=== PATIENT | female | born 1970 | race Caucasian/White ===

== ENCOUNTER 2022-10-09 22:48 | Inpatient (IN) | payer MEDICARE, MEDICAID, SELFPAY ==
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
--- OUTSIDE RECORDS SUMMARY | 2022-10-09 22:52 | XMS_ITS | Continuity of Care Document ---
Author Name Unknown Organization [facility] ter Address [address] [place] [address]- Care Team Providers Care Childbirth Educator Name Role Phone Luz Hernandez MD Primary Care Physician [phone] Encounter [facility] [id number] Date(s): 10/01/20 - 10/02/[address] [address]- Discharge Disposition: A-D/C Home Attending Physician: Ernesto Amaya MD Admitting Physician: Ernesto Amaya MD Referring Physician: Not on Staff, Referring MD Allergies, Adverse Reactions, Alerts Substance Reaction Severity Status ibuprofen Active penicillins Active sulfa drugs Active Vicodin Active Celebrex Active Percocet 5/325 Active Medications albuterol 90 mcg/inh inhalation aerosol 2, puffs, Inhalation, 4 times a day, Scheduled / PRN, 1, 5, 5, 03/19/07 16:10:03, as needed for wheezing, Print KIM Number, ADS OPPTHS, 65 Start Date: 03/19/07 Status: Ordered benztropine 2 mg oral tablet 1 tablet = 2 mg, By Mouth, 2 times a day, for 30 days, take 1 tablet (=2mg) twice a day, # 60 tablet, 3 Refills, Hard Stop 11/27/20 10:26:00 EDT, 07/30/20 10:26:00 EST, Tablet, [facility] #[id number], Partial fill upon patient request if the pres... Start Date: 07/30/20 Stop Date: 11/27/20 Status: Ordered busPIRone 15 mg oral tablet 1 tablet = 15 mg, By Mouth, 2 times a day, take 1 tablet (= 15 mg) twice a day, # 60 tablet, 3 Refills, Maintenance, 09/20/20 10:38:00 EST, Tablet, [facility] #[id number], Partial fill upon patient request if the prescription is for a schedule II... Start Date: 09/20/20 Stop Date: 01/18/21 Status: Ordered clindamycin 300 mg oral capsule 1 capsule = 300 mg, By Mouth, Every 6 hours, for 7 days, # 28 capsule, 0 Refills, Acute 10/09/20 1:00:00 EDT, 10/02/20 1:00:00 EDT, Capsule, [facility] #[id number], Partial fill upon patient request if the prescription is for a schedule II opioid... Start Date: 10/02/20 Stop Date: 10/09/20 Status: Ordered levothyroxine 0.05 mg oral tablet 1 tablet = 50 mcg, By Mouth, Daily, take 1 tablet (=0.05 mg) daily, # 7 tablet, 3 Refills, Maintenance, 06/25/20 9:54:00 EST, Tablet, [facility] #[id number], Partial fill upon patient request ifthe prescription is for a schedule II opioid drug.,... Start Date: 06/25/20 Stop Date: 07/23/20 Status: Ordered loratadine 10 mg oral tablet 10 mg, 1, tablet, By Mouth, Daily at bedtime, take 1 tablet (=10 mg) daily at bedtime, # 7 tablet, Refills 3, Tot. Refills 3, Maintenance, 06/25/20 9:50:00 EST, Route to Pharmacy Electronically, [facility] #[id number], Partial fill upon patient r... Start Date: 06/25/20 Stop Date: 07/23/20 Status: Ordered ondansetron 4 mg oral tablet, disintegrating = 4 mg, By Mouth, Every 6 hours, PRN Nausea & Vomiting, take 1 tablet (=4 mg) every 6 hours as needed for nausea and vomiting, # 7 tablet, 0 Refills, Maintenance, 06/25/20 9:56:00 EST, Tablet, [facility] #[id number], Partial fill upon patient req... Start Date: 06/25/20 Stop Date: 07/02/20 Status: Ordered pantoprazole 40 mg oral delayed release tablet = 40 mg, By Mouth, Daily, take 1 tablet (=40 mg) daily in the morning, # 7 tablet, 3 Refills, Maintenance, 06/25/20 9:49:00 EST, EC Tablet, 168, cm, 06/24/20 20:11:00 EST, Height, 100, kg, 06/11/20 7:50:00 EST, Dry Weight Start Date: 06/25/20 Stop Date: 07/23/20 Status: Ordered Tylenol 325 mg oral tablet 2 tablet = 650 mg, By Mouth, Every 4 hours, PRN for pain, (not to exceed 4000 mg/day), # 50 tablet,0 Refills, Maintenance, Tablet Start Date: 12/20/11 Status: Ordered Problem List Condition Effective Dates Status Health Status Inform ant Anxiety(Confirmed) Active Gastroesophageal reflux dise ase with hiatal hernia(Confirmed) Active Hyperlipidemia(Confirmed) Active Hypertension(Confirmed) Active Obsessive compulsive disorder(Confirmed) Active Schizoaffective disorder(Confirmed) Active Smoker(Confirmed) Active Results Orders for Microbiology Reports Name Date Wound Superficial Culture W/ Gram Smear (Superficial Wound Culture W/ Gram Smear) 10/02/20 Microbiology Reports TEST:Superficial Wound Culture STATUS:Unauthenticated BODY SITE: SOURCE:SWAB1 COLLECTED DATE/TIME:10/02/20 1:28 AM Superficial Wound Culture SPECIMEN DESCRIPTION : SWAB BREAST LT SPECIAL REQUESTS : NONE GRAM STAIN : 3+ POLYMORPHONUCLEAR LEUKOCYTES NO ORGANISMS SEEN REPORT STATUS : PRELIMINARY REPORT Vital Signs Most recent to oldest [Reference Range]: 1 2 3 Oxygen Saturation [94-100 %] 98 % (10/02/20 2:38 PM) 98 % (10/02/20 7:04 AM) 100 % (10/01/20 6:44 PM) Pulse Rate [55-90 bpm] 81 bpm (10/02/20 2:38 PM) 73 bpm (10/02/20 7:04 AM) 81 bpm (10/01/20 6:44 PM) Blood Pressure [90-138/55-84 mm Hg] 126/86mm Hg (10/02/20 2:38 PM) 137/85mm Hg (10/02/20 7:04 AM) 137/93mm Hg (10/01/20 6:44 PM) Respiratory Rate [16-30 br/min] 16 br/min (10/02/20 2:38 PM) 17 br/min (10/02/20 7:04 AM) 20 br/min (10/01/20 6:44 PM) Temperature [96.8-100.4 DegF] 97.8 DegF (10/02/20 2:38 PM) 97.8 DegF (10/02/20 7:04 AM) 97.9 DegF (10/01/20 6:44 PM) Mode of Delivery (Oxygen) Room air (10/02/20 2:38 PM) Room air (10/02/20 7:04 AM) room air (10/01/20 6:44 PM) Blood pressure sites Arm, right (10/02/20 2:38 PM) Arm, right (10/02/20 7:04 AM) Arm, left (10/01/20 6:44 PM) Temperature Route Oral (10/02/20 2:38 PM) Oral (10/02/20 7:04 AM) Oral (10/01/20 6:44 PM) Social History Social History Type Response Smoking Status Former smoker, quit more than 30 days ago entered on: 10/11/19 Sex
--- OUTSIDE RECORDS SUMMARY | 2022-10-09 22:52 | XMS_ITS | Continuity of Care Document ---
Author Name Unknown Organization [facility] ter Address [address] [place] [address]- Care Team Providers Care Custom Protection Officer Name Role Phone Luz Hernandez MD Primary Care Physician Encounter [facility] [place] Date(s): 02/04/20 - 02/04/[address] [address]- [place] Encounter Diagnosis Asthma(Final) - 02/04/20 Discharge Disposition: A-D/C Home Attending Physician: Rommel Ch MD Admitting Physician: Rommel Ch MD Referring Physician: Not on Staff, Referring [...] mg, By Mouth, 2 times a day, # 180 tablet, 2 Refills, Maintenance, 09/15/19 16:29:00 EST, [facility] #[id number], 170, cm, 08/16/19 15:23:00 EST, Height, 104.8, kg, 08/16/19 15:23:00 EST, Dry Weight Start Date: 09/15/19 Stop Date: 06/11/20 Status: Ordered busPIRone 15 mg oral tablet 1 tablet = 15 mg, By Mouth, 2 times a day, # 180 tablet, 2 Refills, Maintenance, 09/17/19 13:36:00 EST, [facility] #[id number], 170, cm, 08/16/19 15:23:00 EST, Height, 104.8, kg, 08/16/19 15:23:00 EST, Dry Weight Start Date: 09/17/19 Stop Date: 06/13/20 Status: Ordered clobetasol topical 0.05% ointment 1, applicator, Topically, 2 times a day, 30, Gm, 5, 11, 05/26/07 10:00:57, 03/19/07 16:09:36, PrintDEA Number, [id number], Constant Indicator Start Date: 03/19/07 Stop Date: 03/13/08 Status: Ordered clobetasol topical 0.05% solution 1, applicator, Topically, 2 times a day, 50, mL, 5, 5, 06/02/07 16:50:51, Print KIM Number, [id number], Constant Indicator Start Date: 06/02/07 Status: Ordered divalproex sodium 500 mg oral tablet, extended release 3 tablet = 1,500 mg, By Mouth, Daily at bedtime, TAKE 3 TABLET BEDTIME R/A [phone], # 270 tablet, 2 Refills, Maintenance, 09/15/19 16:30:00 EST, ER Tablet, [facility] #[id number], 170, cm, 08/16/19 15:23:00 EST, Height, 104.8, kg, 08/16/19... Start Date: 09/15/19 Stop Date: 06/11/20 Status: Ordered Flexeril 5 mg oral tablet 1 tablet = 5 mg, By Mouth, 3 times a day, # 15 tablet, 0 Refills, Maintenance, Tablet Start Date: 04/08/11 Stop Date: 04/13/11 Status: Ordered ketoconazole 2% topical cream 1 application, Topically, 2 times a day, # 30 Gm, 0 Refills, Maintenance, 11/24/15 5:38:10, Cream Start Date: 11/24/15 Status: Ordered Lipitor 10 mg oral tablet 10, mg, 1, tablet, By Mouth, Daily, 30, 6, 25, 06/21/07 13:42:40, 04/07/06 10:32:23, Print KIM Number, [id number], Constant Indicator Start Date: 04/07/06 Status: Ordered LORazepam 1 mg oral tablet See Instructions, 1 tablet By Mouth every 8 hours as needed for anxiety not to exceed 3 in 24 hours, # 90 tablet, 1 Refills, Maintenance, 06/23/18 15:15:37 EST, R/A [facility] Start Date: 06/23/18 Status: Ordered mupirocin 2% topical ointment 1 application, Topically, 2 times a day, # 15 Gm, 0 Refills, Maintenance, 11/24/15 5:39:09, Ointment Start Date: 11/24/15 Status: Ordered Nexium 40 mg oral enteric coated capsule 1 capsule = 40 mg, By Mouth, Daily, # 30 capsule, 0 Refills, Maintenance, 11/24/15 5:39:35, EC Capsule Start Date: 11/24/15 Status: Ordered Protopic 0.1% topical ointment 1, applicator, Topically, 2 times a day, 30, Gm, 1, 1, 05/26/07 10:02:56, Print KIM Number, [id number], Constant Indicator Start Date: 05/26/07 Stop Date: 07/25/07 Status: Ordered Tazorac 0.1% topical cream See Instructions, 30, Gm, 2, 8, 05/26/07 10:02:13, 02/18/06 18:31:57, Topically daily, Print KIM Number, Constant Indicator Start Date: 02/18/06 Status: Ordered Tylenol 325 mg oral tablet [...] Active Schizoaffective disorder(Confirmed) Active Smoker(Confirmed) Active Results Radiology Reports * Exam Date Time Procedure Performing Provider Status 02/04/20 2:58 PM Chest Portable Janene Izaguirre; Auth (Verified) Notes: (Chest Portable) Reason For Exam: Shortness of Breath RESULT: Chest Portable Chest Portable Indication: Shortness of breath COMPARISON: Multiple priors FINDINGS: LINES AND TUBES: None. LUNGS AND PLEURA: Clear lungs. Normal pulmonary vascularity. No pleural effusion. No pneumothorax. HEART, MEDIASTINUM AND NICOLASA: Heart is normal in size. Normal mediastinal and hilar contour. BONES AND SOFT TISSUES: No acute abnormality. IMPRESSION: No acute abnormality. WSN: [id number] Ordering Physician: Brandin Wells Dictated By: Daniela Yoo MD, V Dictated Date/Time: 02/04/20 3:02 pm Reviewed By: Daniela Yoo MD, V Signed By: Daniela Yoo MD, V Signed Date/Time: 02/04/20 3:02 pm Transcribed By: DUNCAN Transcribed Date/Time: 02/04/20 3:01 pm Vital Signs Most recent to oldest [Reference Range]: 1 2 3 Oxygen Saturation [94-100 %] 96 % (02/04/20 5:17 PM) 100 % (02/04/20 2:07 PM) 99 % (02/04/20 12:31 PM) Pulse Rate [55-90 bpm] 87 bpm (02/04/20 5:17 PM) 77 bpm (02/04/20 2:07 PM) 88 bpm (02/04/20 12:31 PM) Blood Pressure [90-138/55-84 mm Hg] 147/87mm Hg *H* (02/04/20 5:17 PM) 126/82mm Hg (02/04/20 2:07 PM) 123/76mm Hg (02/04/20 12:31 PM) Respiratory Rate [16-30 br/min] 19 br/min (02/04/20 5:17 PM) 20 br/min (02/04/20 2:07 PM) 19 br/min (02/04/20 12:31 PM) Temperature [96.8-100.4 DegF] 98.8 DegF (02/04/20 5:17 PM) 99.0 DegF (02/04/20 12:31 PM) Mode of Delivery (Oxygen) Room air (02/04/20 5:17 PM) Room air (02/04/20 2:07 PM) Room air (02/04/20 12:31 PM) Blood pressure sites Arm, right (02/04/20 2:07 PM) Arm, right (02/04/20 12:31 PM) Temperature Route Oral (02/04/20 5:17 PM) Oral (02/04/20 12:31 PM) Social History Social History Type Response Smoking Status Former smoker, quit more than 30 days ago entered on: 10/11/19 Sex
--- OUTSIDE RECORDS SUMMARY | 2022-10-09 22:52 | XMS_ITS | Continuity of Care Document ---
Author Name Unknown Organization [facility] Address [address] [place] [address]- Care Team Providers Care Plain Clothes Police Officer Name Role Phone Luz Hernandez MD Primary Care Physician Encounter [facility] Date(s): 03/28/22 - 07/26/22 [facility] [address] [place] [address]- Attending Physician: Elsi NICOLE, Casimiro Referring Physician: Nela NICOLE , Carolee Moeller Allergies, Adverse Reactions, Alerts Substance Reaction Severity Status ibuprofen Active penicillins Active sulfa drugs Active Vicodin Active Celebrex Active Percocet 5/325 Active Medications albuterol 90 mcg/inh inhalation aerosol 2, puffs, Inhalation, 4 times a day, Scheduled / PRN, 1, 5, 5, 03/19/07 16:10:03, as needed for wheezing, Print KIM Number, ADS OPPTHS, 65 Start Date: 03/19/07 Status: Ordered benztropine 1 mg oral tablet 1 mg, 1, tablet, By Mouth, 2 times a day, # 180 tablet, Refills 1, Tot. Refills 1, Maintenance, 04/25/22 11:56:00 EDT, Route to Pharmacy Electronically, [facility] #[id number], Partial fill uponpatient request if the prescription is for a schedu... Start Date: 04/25/22 Stop Date: 10/22/22 Status: Ordered busPIRone 10 mg oral tablet 15 mg, 1.5, tablet, By Mouth, 2 times a day, # 270 tablet, Refills 1, Tot. Refills 1, Maintenance, 04/25/22 11:56:00 EDT, Route to Pharmacy Electronically, [facility] #[id number], Partial fill upon patient request if the prescription is for a jeff... Start Date: 04/25/22 Stop Date: 10/22/22 Status: Ordered Claritin 10 mg oral tablet 10 mg, 1, tablet, By Mouth, Daily at bedtime, # 30 tablet, Refills 0, Tot. Refills 0, Maintenance, 10/22/20 15:18:00 EDT, Route to Pharmacy Electronically, [facility] #[id number], Partial fill upon patient request if the prescription is for a jeff... Start Date: 10/22/20 Stop Date: 11/21/20 Status: Ordered divalproex sodium 500 mg oral enteric coated tablet See Instructions, take 1 tablet in the morning with 250mg tablets; take 2 tablets at night TDD 1500mg, # 270 tablet, 1 Refills, Maintenance, 04/25/22 11:56:00 EDT, [facility] #[id number], Partial fill upon patient request if the prescription is... Start Date: 04/25/22 Status: Ordered haloperidol 5 mg oral tablet 5 mg, 1, tablet, By Mouth, Daily at bedtime, # 90 tablet, Refills 1, Tot. Refills 1, Maintenance, 04/25/22 11:57:00 EDT, Route to Pharmacy Electronically, [facility] #[id number], Partial fill upon patient request if the prescription is for a sche... Start Date: 04/25/22 Stop Date: 10/22/22 Status: Ordered levothyroxine 0.05 mg oral tablet 1 tablet = 50 mcg, By Mouth, Daily, # 30 tablet, 0 Refills, Maintenance, 10/22/20 15:22:00 EDT, Tablet, [facility] #[id number], Partial fill upon patient request if the prescription is for a schedule II opioid drug., 170, cm, 10/21/20 18:03:00 ED... Start Date: 10/22/20 Stop Date: 11/21/20 Status: Ordered LORazepam 1 mg oral tablet 1 tablet = 1 mg, By Mouth, 2 times a day, PRN for anxiety, # 60 tablet, 4 Refills, Maintenance, 04/25/22 11:57:00 EDT, Tablet, [facility] #[id number], Partial fill upon patient request if the prescription is for a schedule II opioid drug., 170, c... Start Date: 04/25/22 Stop Date: 09/22/22 Status: Ordered magnesium oxide 400 mg oral tablet 1 tablet = 400 mg, By Mouth, Daily, # 90 tablet, 1 Refills, Maintenance, 04/25/22 11:57:00 EDT, [facility] #[id number], Partial fill upon patient request if the prescription is for a schedule IIopioid drug., 170, cm, 10/22/20 15:43:00 EDT, Heigh... Start Date: 04/25/22 Stop Date: 10/22/22 Status: Ordered pantoprazole 40 mg oral delayed release tablet = 40 mg, By Mouth, Daily, # 30 tablet, 0 Refills, Maintenance, 10/22/20 15:19:00 EDT, EC Tablet, 170, cm, 10/21/20 18:03:00 EDT, Height, 102, kg, 10/11/20 18:35:00 EDT, Dry Weight Start Date: 10/22/20 Stop Date: 11/21/20 Status: Ordered Tylenol 325 mg oral tablet 2 tablet = 650 mg, By Mouth, Every 4 hours, PRN for pain, (not to exceed 4000 mg/day), # 50 tablet,0 Refills, Maintenance, Tablet Start Date: 12/20/11 Status: Ordered vitamin E 400 iu oral capsule 1 capsule = 400 International_[employer]its, By Mouth, 2 times a day, # 180 capsule, 1 Refills, Maintenance, 04/25/22 11:57:00 EDT, Capsule, [facility] #[id number], Partial fill upon patient request if the prescription is for a schedule II opioid drug.,... Start Date: 04/25/22 Stop Date: 10/22/22 Status: Ordered Problem List Condition Confirmation Course Effective Dates Status H ealth Status Informant Anxiety Confirmed Active Gastroesophageal reflux disease with hiatal hernia Confirmed Active Generalized anxiety disorder with panic attacks Confirmed Active Hyperlipidemia Confirmed Active Hypertension Confirmed Active Obsessive compulsive disorder Confirmed Active Schizoaffective disorder Confirmed Active Smoker Confirmed Active Social History Social History Type Response Smoking Status Former smoker, quit more than 30 days ago entered on: 10/11/19 Sex Patient Care team information Care Team Personnel Name: Luz Hernandez MD Position: Reference Physician Member Role: PCP Address: Address: [address] [place] [address]- Name: Cheri Yun RN Position: [facility] RN Member Role: Primary Care Nurse Name: Kaelyn Marie RN Position: [facility] RN Member Role: Primary Care Nurse Name: Mariajose Buck Position: [facility] RN Member Role: Primary Care Nurse Name: Caitlin Chávez Position: [facility] RN Member Role: Primary Care Nurse Name: Renay Lagunas RN Position: [facility] RN Member Role: Primary Care Nurse Name: Desi Gonsales RN Position: [facility] RN Member Role: Primary Care Nurse Care Team Related Persons Name: RATNA SCHMIDT Address: home [address] [place] [address] Name: RACHID BURGESS Name: SELINA SHULTZ Address: home [address] [place] [address] Name: CLAUDIO HUYNH Name: CLAUDETTE SR Address: [place] [address] Name: KANDI SORTO Address: home [address] [place] [address]
--- OUTSIDE RECORDS SUMMARY | 2022-10-09 22:52 | XMS_ITS | Continuity of Care Document ---
Author Name Unknown Organization [facility] ter Address [address] [place] [address]- Care Team Providers Care Gear Machine Operator General Name Role Phone Luz Hernandez MD Primary Care Physician Encounter [facility] Date(s): 10/12/19 - 10/12/[address] [address]- [facility] Discharge Disposition: A-D/C Home Attending Physician: Mark Sanders MD Admitting Physician: Mark Sanders MD Referring Physician: Not on Staff, Referring [...] tablet, 2 Refills, Maintenance, 09/15/19 16:29:00 EST, [facility] #[id number], 170, cm, 08/16/19 15:23:00 EST, Height, 104.8, kg, 08/16/19 15:23:00 EST, Dry Weight Start Date: 09/15/19 Stop Date: 06/11/20 Status: Ordered busPIRone 15 mg oral tablet 1 tablet = 15 mg, By Mouth, 2 times a day, # 180 tablet, 2 Refills, Maintenance, 09/17/19 13:36:00 EST, [facility] #[id number], 170, cm, 08/16/19 15:23:00 EST, Height, 104.8, kg, 08/16/19 15:23:00 EST, Dry Weight Start Date: 09/17/19 Stop Date: 06/13/20 Status: Ordered clobetasol topical 0.05% ointment 1, applicator, Topically, 2 times a day, 30, Gm, 5, 11, 05/26/07 10:00:57, 03/19/07 16:09:36, PrintDEA Number, [id number], Constant Indicator Start Date: 03/19/07 Stop Date: 03/13/08 Status: Ordered clobetasol topical 0.05% solution 1, applicator, Topically, 2 times a day, 50, mL, 5, 5, 06/02/07 16:50:51, Print KIM Number, [id number], Constant Indicator Start Date: 06/02/07 Status: Ordered divalproex sodium 500 mg oral tablet, extended release 3 tablet = 1,500 mg, By Mouth, Daily at bedtime, TAKE 3 TABLET BEDTIME R/A [phone], # 270 tablet, 2 Refills, Maintenance, 09/15/19 16:30:00 EST, ER Tablet, [facility] #[id number], 170, cm, 08/16/19 15:23:00 EST, Height, 104.8, [...] 06/21/07 13:42:40, 04/07/06 10:32:23, Print KIM Number, [id number], Constant Indicator Start Date: 04/07/06 Status: Ordered LORazepam 1 mg oral tablet See Instructions, 1 tablet By Mouth every 8 hours as needed for anxiety not to exceed 3 in 24 hours, # 90 tablet, 1 Refills, Maintenance, 06/23/18 15:15:37 EST, R/A [facility] Start Date: 06/23/18 Status: Ordered mupirocin 2% [...] 1, 1, 05/26/07 10:02:56, Print KIM Number, [id number], Constant Indicator Start Date: 05/26/07 Stop Date: [...] Exam Date Time Procedure Performing Provider Status 10/12/19 11:32 AM Chest Portable Sarina Gao (Verified) Notes: (Chest Portable) Reason For Exam: Shortness of Breath RESULT: Chest Portable Chest Portable AP upright 11:13 AM 10/12/2019 Reason: Shortness of Breath; Clinical Question(s): CHF COMPARISON: 10/11/2019. FINDINGS: LINES AND TUBES: None. LUNGS AND PLEURA: The lungs are clear. No focal or segmental consolidation. No pulmonary vascular congestion. No pleural effusion. No pneumothorax. HEART, MEDIASTINUM AND NICOLASA: Heart is normal in size. Normal mediastinal and hilar contour. BONES AND SOFT TISSUES: No acute abnormality. IMPRESSION: No radiographic evidence of acute cardiopulmonary process., No change from 10/11/2019. I have personally reviewed the images and I agree with this report. WSN: [id number] Ordering Physician: Alan Stokes Dictated By: Maykel Shelton MD Dictated Date/Time: 10/12/19 11:34 a Reviewed By: Tommy Tomlin MD Signed By: Tommy Tomlin MD Signed Date/Time: 10/12/19 11:39 am Transcribed By: DUNCAN Transcribed Date/Time: 10/12/19 11:33 am Vital Signs Most recent to oldest [Reference Range]: 1 2 3 Oxygen Saturation [94-100 %] 100 % (10/12/19 1:57 PM) 100 % (10/12/19 1:05 PM) 100 % (10/12/19 12:29 PM) Pulse Rate [55-90 bpm] 65 bpm (10/12/19 1:57 PM) 60 bpm (10/12/19 1:05 PM) 59 bpm (10/12/19 12:29 PM) Blood Pressure [90-138/55-84 mm Hg] 138/82mm Hg (10/12/19 1:57 PM) 138/82mm Hg (10/12/19 1:05 PM) 123/66mm Hg (10/12/19 12:29 PM) Respiratory Rate [16-30 br/min] 22 br/min (10/12/19 1:57 PM) 20 br/min (10/12/19 1:05 PM) 16 br/min (10/12/19 12:29 PM) Temperature [96.8-100.4 DegF] 98.6 DegF (10/12/19 10:26 AM) Mode of Delivery (Oxygen) Room air (10/12/19 1:57 PM) Room air (10/12/19 1:05 PM) Room air (10/12/19 12:29 PM) Blood pressure sites Arm, right (10/12/19 1:57 PM) Arm, left (10/12/19 1:05 PM) Arm, left (10/12/19 12:29 PM) Temperature Route Oral (10/12/19 10:26 AM) Social History Social History Type Response Smoking Status Former smoker, quit more than 30 days ago entered on: 10/11/19 Sex
--- OUTSIDE RECORDS SUMMARY | 2022-10-09 22:52 | XMS_ITS | Continuity of Care Document ---
Author Name Unknown Organization [facility] ter Address [address] [place] [address]- Care Team Providers Care Outside Sales Executive Name Role Phone Tessa NICOLE, Gagan Hirsch Primary Care Physician [phone] Encounter [facility] Date(s): 10/05/22 - 10/05/[address] [address]- Discharge Disposition: A-D/C Home Attending Physician: Kayla Smith MD Admitting Physician: Kayla Smith MD Referring Physician: Not on Staff, Referring [...] tablet, Refills 1, Tot. Refills 1, Maintenance, 09/16/22 16:00:00 EST, Route to Pharmacy Electronically, [facility] #[id number], Partial fill uponpatient request if the prescription is for a schedu... Start Date: 09/16/22 Stop Date: 03/15/23 Status: Ordered busPIRone 10 mg oral tablet 15 mg, 1.5, tablet, By Mouth, 2 times a day, # 270 tablet, Refills 1, Tot. Refills 1, Maintenance, 09/16/22 16:00:00 EST, Route to Pharmacy Electronically, [facility] #[id number], Partial fill upon patient request if the prescription is for a jeff... Start Date: 09/16/22 Stop Date: 03/15/23 Status: Ordered Claritin 10 mg oral tablet 10 mg, 1, tablet, By Mouth, Daily at bedtime, # 30 tablet, Refills 0, Tot. Refills 0, Maintenance, 10/22/20 15:18:00 EDT, Route to Pharmacy Electronically, [facility] #[id number], Partial fill upon patient request if the prescription is for a jeff... Start Date: 10/22/20 Stop Date: 11/21/20 Status: Ordered divalproex sodium 500 mg oral enteric coated tablet See Instructions, take 1 tablet in the morning ; take 2 tablets at night TDD 1500mg, # 270 tablet, 1 Refills, Maintenance, 09/16/22 16:01:00 EST, [facility] #[id number], Partial fill upon patient request if the prescription is for a schedule II... Start Date: 09/16/22 Status: Ordered levothyroxine 0.05 mg oral tablet 1 tablet = 50 mcg, By Mouth, Daily, # 30 tablet, 0 Refills, Maintenance, 10/22/20 15:22:00 EDT, Tablet, [facility] #[id number], Partial fill upon patient request if the prescription is for a schedule II opioid drug., 170, cm, 10/21/20 18:03:00 ED... Start Date: 10/22/20 Stop Date: 11/21/20 Status: Ordered LORazepam 1 mg oral tablet 1 tablet = 1 mg, By Mouth, 2 times a day, PRN for anxiety, # 60 tablet, 4 Refills, Maintenance, 09/16/22 16:00:00 EST, Tablet, [facility] #[id number], Partial fill upon patient request if the prescription is for a schedule II opioid drug., 170, c... Start Date: 09/16/22 Stop Date: 02/13/23 Status: Ordered magnesium oxide 400 mg oral tablet 1 tablet = 400 mg, By Mouth, Daily, # 90 tablet, 1 Refills, Maintenance, 09/16/22 16:00:00 EST, [facility] #[id number], Partial fill upon patient request if the prescription is for a schedule IIopioid drug., 170, cm, 10/22/20 15:43:00 EDT, He[facility]... Start Date: 09/16/22 Stop Date: 03/15/23 Status: Ordered pantoprazole 40 mg oral delayed [...] 1 Refills, Maintenance, 04/25/22 11:57:00 EDT, Capsule, [email or web address] #[id number], Partial fill upon patient request if the [...] Schizoaffective disorder Confirmed Active Smoker Confirmed Active Results Radiology Reports * Exam Date Time Procedure Performing Provider Status 10/05/22 11:02 AM Chest 2 Views Frontal and Lat Tommy Tesfaye; Auth (Verified) Notes: (Chest 2 Views Frontal and Lat) Reason For Exam: Shortness of Breath, Fever;Other: RESULT: Chest 2 Views Frontal and Lat Chest 2 Views Frontal and Lat Hx of Present Illness: chest pain; Reason: Other:; Shortness of Breath, Fever; Clinical Question(s): Pneumonia COMPARISON: 02/04/2020 FINDINGS: LINES AND TUBES: None. LUNGS AND PLEURA: Clear lungs. Normal pulmonary vascularity. No pleural effusion. No pneumothorax. HEART, MEDIASTINUM AND NICOLASA: Heart is normal in size. Normal mediastinal and hilar contour. BONES AND SOFT TISSUES: No acute abnormality. IMPRESSION: No acute abnormality. WSN: [id number] Ordering Physician: Brenda Rollins Dictated By: Sarah Benito MD Dictated Date/Time: 10/05/22 11:05 a Reviewed By: Sarah Benito MD Signed By: Sarah Benito MD Signed Date/Time: 10/05/22 11:05 am Transcribed By: DUNCAN Transcribed Date/Time: 10/05/22 11:04 am Vital Signs Most recent to oldest [Reference Range]: 1 2 3 Oxygen Saturation [94-100 %] 96 % (10/05/22 2:24 PM) 96 % (10/05/22 11:26 AM) 96 % (10/05/22 10:34 AM) Pulse Rate [55-90 bpm] 75 bpm (10/05/22 2:24 PM) 66 bpm (10/05/22 11:26 AM) 72 bpm (10/05/22 10:34 AM) Blood Pressure [90-138/55-84 mm Hg] 138/76mm Hg (10/05/22 2:24 PM) 133/64mm Hg (10/05/22 11:26 AM) 138/72mm Hg (10/05/22 10:34 AM) Respiratory Rate [16-30 br/min] 18 br/min (10/05/22 2:24 PM) 18 br/min (10/05/22 11:26 AM) 16 br/min (10/05/22 10:34 AM) Temperature [96.8-100.4 DegF] 98.0 DegF (10/05/22 11:26 AM) Mode of Delivery (Oxygen) Room air (10/05/22 2:24 PM) Room air (10/05/22 11:26 AM) Room air (10/05/22 10:34 AM) Blood pressure sites Arm, left (10/05/22 2:24 PM) Arm, left (10/05/22 11:26 AM) Arm, left (10/05/22 10:34 AM) Temperature Route Oral (10/05/22 11:26 AM) Social History Social History Type Response Smoking Status Former smoker, quit more than 30 days ago entered on: 10/11/19 Sex EKG study * Event Display: ECG 12-Lead Authored Date: Please click on pdf link to open report * Event Display: ECG 12-Lead Authored Date: Ventricular Rate: 68 BPM Atrial Rate: 68 BPM P-R Interval: 138 ms QRS Duration: 78 ms Q-T Interval: 388 ms QTC Calculation(Bazett): 412 ms P [place]: 50 degrees R [place]: 24 degrees T [place]: 34 degrees Normal sinus rhythm Normal ECG When compared with ECG of 23-JUN-2020 22:32, Nonspecific T wave abnormality no longer evident in Anterolateral leads Confirmed by CLARICE DURAN MD ([id number]) on 10/05/2022 5:07:19 PM [place]: CLARICE DURAN MD Note * Brenda Rollins MD: PERFORM Event Display: Patient Education Leaflets Authored Date: [id number] Uncertain Causes of Chest Pain ?? [id number] Uncertain Causes of Chest Pain Chest pain can happen for a number of reasons. Sometimes the cause can't be determined. If your??condition does not seem serious, and your pain does not appear to be coming from your heart, your healthcare provider may recommend watching it closely. Sometimes the signs of a serious problem take more time to appear. Many problems not related to your heart can cause chest pain. These include: ??? Musculoskeletal. Costochondritis is an inflammation of the tissues around the ribs that can occur from trauma or overuse injuries, or a strain of the muscles of the chest wall. ??? Respiratory. Pneumonia, collapsed lung (pneumothorax), or inflammation of the lining of the chest and lungs (pleurisy). ??? Gastrointestinal. Esophageal reflux, heartburn, ulcers, or gallbladder disease. ??? Anxiety and panic disorders ??? Nerve compression and inflammation ??? Rare problems such as aortic aneurysm or aortic dissection (a swelling of the large artery coming out of the heart or a tear in the wall of the artery), or pulmonary embolism (a blood clot in the lungs). Home care After your visit, follow these recommendations: ??? Rest today and avoid strenuous activity. ??? Take any prescribed medicine as directed. ??? Be aware of any recurrent chest pain and notice any changes ?? Follow-up care Follow up with your healthcare provider if you don't start to feel better within 24 hours, or as advised. ?? Call 911 Call 911 if any of these occur: ??? A change in the type of pain: if it feels different, becomes more severe, lasts longer, or begins to spread into your shoulder, arm, neck, jaw or back ??? Shortness of breath or increased pain with breathing ??? Weakness, dizziness, or fainting ??? Rapid heartbeat ??? Crushing sensation in your chest ??? Coughing up more than a small amount of blood. ?? When to seek medical advice Call your healthcare provider right away if any of the following occur: ??? Cough with dark coloredsputum (phlegm) or small amount of blood ??? Fever of 100.4??F??(38??C) or higher, or as directed by your healthcare provider ??? Swelling, pain or redness in one leg ?? Last Reviewed Date: 2021 ?? 0743-8802 The [employer]. All rights reserved. This information is not intended as a substitute for professional medical care. Always follow your healthcare professional's instructions. ?? * [employer] , CIS S: TRANSCRIBE Sarah Benito MD: VERIFY Event Display: Result: Authored Date: [id number] Chest 2 Views Frontal and Lat Hx of Present Illness: chest pain; Reason: Other:; Shortness of Breath, Fever; Clinical Question(s): Pneumonia COMPARISON: 02/04/2020 FINDINGS: LINES AND TUBES: None. LUNGS AND PLEURA: Clear lungs. Normal pulmonary vascularity. No pleural effusion. No pneumothorax. HEART, MEDIASTINUM AND NICOLASA: Heart is normal in size. Normal mediastinal and hilar contour. BONES AND SOFT TISSUES: No acute abnormality. IMPRESSION: No acute abnormality. WSN: [id number] Ordering Physician: Brenda Rollins Dictated By: Sarah Benito MD Dictated Date/Time: 10/05/22 11:05 a Reviewed By: Sarah Benito MD Signed By: Sarah Benito MD Signed Date/Time: 10/05/22 11:05 am Transcribed By: DUNCAN Transcribed Date/Time: 10/05/22 11:04 am Patient Care team information Care Team Personnel Name: Cheri Yun RN Position: [facility] RN Member Role: Primary Care Nurse Name: Kaelyn Marie RN Position: [facility] RN Member Role: Primary Care Nurse Name: Mariajose Buck Position: [facility] RN Member Role: Primary Care Nurse Name: Caitlin Chávez Position: [facility] RN Member Role: Primary Care Nurse Name: Gagan Zarate MD Position: Reference Physician Member Role: PCP Address: Address: [address] [place] [address] [place] [address]- [place] Name: Renay Lagunas RN Position: [facility] RN Member Role: Primary Care Nurse Name: Desi Gonsales RN Position: [facility] RN Member Role: Primary Care Nurse Name: Alisa Mitchell Position: [facility] ED [facility] Member Role: Patient Care Provider Name: Hilary Chang RN Position: [facility] ED RN W/OE and Tasks Member Role: Patient Care Provider Name: Lucille Diaz Position: [facility] ED [facility] Member Role: Office Machine Inspector Name: Brenda Rollins MD Position: [facility] Resident Member Role: ED Resident Address: Address: [address] [place] [id number]- Name: Kayla Smith MD Position: [facility] Resident Member Role: Admitting Physician Address: Address: [address] [place] [address]- Care Team Related Persons Name: RATNA SCHMIDT Address: home [address] [place] [address] Name: ADITYA, RACHID Name: SELINA SHULTZ Address: home [address] [place] [address] Name: CLAUDIO HUYNH Name: CLAUDETTE SR Address: [place] [address] Name: KANDI SORTO Address: home [address] [place] [address]
--- OUTSIDE RECORDS SUMMARY | 2022-10-09 22:52 | XMS_ITS | Continuity of Care Document ---
Author Name Unknown Organization [facility] ter Address [address] [place] [address]- Care Team Providers Care Adon Name Role Phone Luz Hernandez MD Primary Care Physician [phone] [place] [id number] Date(s): 10/02/20 - 10/11/[address] [address]- Discharge Disposition: Transfer to [facility] Facility Attending Physician: Brad Cisse MD Admitting Physician: Brad Cisse MD Referring Physician: Not on Staff, Referring [...] 11/27/20 10:26:00 EDT, 07/30/20 10:26:00 EST, Tablet, [facility] #[id number], Partial fill upon patient request if the pres... Start Date: 07/30/20 Stop Date: 11/27/20 Status: Ordered busPIRone 15 mg oral tablet 1 tablet = 15 mg, By Mouth, 2 times a day, take 1 tablet (= 15 mg) twice a day, # 60 tablet, 3 Refills, Maintenance, 09/20/20 10:38:00 EST, Tablet, [facility] #[id number], Partial fill upon patient request if the prescription is for a schedule II... Start Date: 09/20/20 Stop Date: 01/18/21 Status: Ordered levothyroxine 0.05 mg oral tablet 1 tablet = 50 mcg, By Mouth, Daily, take 1 tablet (=0.05 mg) daily, # 7 tablet, 3 Refills, Maintenance, 06/25/20 9:54:00 EST, Tablet, [facility] #[id number], Partial fill upon patient request ifthe prescription is for a schedule II opioid drug.,... Start Date: 06/25/20 Stop Date: 07/23/20 Status: Ordered loratadine 10 mg oral tablet 10 mg, 1, tablet, By Mouth, Daily at bedtime, take 1 tablet (=10 mg) daily at bedtime, # 7 tablet, Refills 3, Tot. Refills 3, Maintenance, 06/25/20 9:50:00 EST, Route to Pharmacy Electronically, [facility] #[id number], Partial fill upon patient r... Start Date: 06/25/20 Stop Date: 07/23/20 Status: Ordered ondansetron 4 mg oral tablet, disintegrating = 4 mg, By Mouth, Every 6 hours, PRN Nausea & Vomiting, take 1 tablet (=4 mg) every 6 hours as needed for nausea and vomiting, # 7 tablet, 0 Refills, Maintenance, 06/25/20 9:56:00 EST, Tablet, [facility] #[id number], Partial fill upon patient req... Start Date: [...] disorder(Confirmed) Active Schizoaffective disorder(Confirmed) Active Smoker(Confirmed) Active Vital Signs Most recent to oldest [Reference Range]: 1 2 3 Oxygen Saturation [94-100 %] 100 % (10/11/20 1:28 PM) 99 % (10/11/20 6:59 AM) 98 % (10/10/20 10:34 PM) Pulse Rate [55-90 bpm] 79 bpm (10/11/20 1:28 PM) 70 bpm (10/11/20 6:59 AM) 82 bpm (10/10/20 10:34 PM) Blood Pressure [90-138/55-84 mm Hg] 130/70mm Hg (10/11/20 1:28 PM) 125/80mm Hg (10/11/20 6:59 AM) 136/77mm Hg (10/10/20 10:34 PM) Respiratory Rate [16-30 br/min] 18 br/min (10/11/20 1:28 PM) 16 br/min (10/11/20 6:59 AM) 16 br/min (10/10/20 10:34 PM) Temperature [96.8-100.4 DegF] 98 DegF (10/11/20 1:28 PM) 98.2 DegF (10/11/20 6:59 AM) 98.0 DegF (10/10/20 10:34 PM) Mode of Delivery (Oxygen) Room air (10/11/20 1:28 PM) Room air (10/11/20 6:59 AM) 136 (10/10/20 10:34 PM) Blood pressure sites Arm, right (10/11/20 1:28 PM) Arm, right (10/11/20 6:59 AM) Arm, right (10/10/20 10:34 PM) Temperature Route Oral (10/11/20 1:28 PM) Oral (10/11/20 6:59 AM) Oral (10/10/20 10:34 PM) Social History Social History Type Response Smoking Status Former smoker, quit more than 30 days ago entered on: 10/11/19 Sex
--- OUTSIDE RECORDS SUMMARY | 2022-10-09 22:52 | XMS_ITS | Continuity of Care Document ---
Author Name Unknown Organization [facility] Address [address] [place] [address]- Care Team Providers Care Assistant Manager Airside Operations Name Role Phone Luz Hernandez MD Primary Care Physician Encounter [facility] Date(s): 06/26/22 - 07/26/22 [facility] [address] [place] [address]- Attending Physician: AdmtrRavi Admitting Physician: AdmtrRavi Referring Physician: Admtr, Ar8 Allergies, Adverse Reactions, Alerts Substance Reaction Severity [...] 04/25/22 11:56:00 EDT, Route to Pharmacy Electronically, [facility] #[id number], Partial fill uponpatient request if the prescription is for a schedu... Start Date: 04/25/22 Stop Date: 10/22/22 Status: Ordered busPIRone 10 mg oral tablet 15 mg, 1.5, tablet, By Mouth, 2 times a day, # 270 tablet, Refills 1, Tot. Refills 1, Maintenance, 04/25/22 11:56:00 EDT, Route to Pharmacy Electronically, [facility] #[id number], Partial fill upon patient request if the prescription is for a jeff... Start Date: 04/25/22 Stop Date: 10/22/22 Status: Ordered Claritin 10 mg oral tablet 10 mg, 1, tablet, By Mouth, Daily at bedtime, # 30 tablet, Refills 0, Tot. Refills 0, Maintenance, 10/22/20 15:18:00 EDT, Route to Pharmacy Electronically, [facility] #[id number], Partial fill upon patient request if the prescription is for a jeff... Start Date: 10/22/20 Stop Date: 11/21/20 Status: Ordered divalproex sodium 500 mg oral enteric coated tablet See Instructions, take 1 tablet in the morning with 250mg tablets; take 2 tablets at night TDD 1500mg, # 270 tablet, 1 Refills, Maintenance, 04/25/22 11:56:00 EDT, [facility] #[id number], Partial fill upon patient request if the prescription is... Start Date: 04/25/22 Status: Ordered haloperidol 5 mg oral tablet 5 mg, 1, tablet, By Mouth, Daily at bedtime, # 90 tablet, Refills 1, Tot. Refills 1, Maintenance, 04/25/22 11:57:00 EDT, Route to Pharmacy Electronically, [facility] #[id number], Partial fill upon patient request if the prescription is for a sche... Start Date: 04/25/22 Stop Date: 10/22/22 Status: Ordered levothyroxine 0.05 mg oral tablet 1 tablet = 50 mcg, By Mouth, Daily, # 30 tablet, 0 Refills, Maintenance, 10/22/20 15:22:00 EDT, Tablet, [facility] #[id number], Partial fill upon patient request if the prescription is for a schedule II opioid drug., 170, cm, 10/21/20 18:03:00 ED... Start Date: 10/22/20 Stop Date: 11/21/20 Status: Ordered LORazepam 1 mg oral tablet 1 tablet = 1 mg, By Mouth, 2 times a day, PRN for anxiety, # 60 tablet, 4 Refills, Maintenance, 04/25/22 11:57:00 EDT, Tablet, [facility] #[id number], Partial fill upon patient request if the prescription is for a schedule II opioid drug., 170, c... Start Date: 04/25/22 Stop Date: 09/22/22 Status: Ordered magnesium oxide 400 mg oral tablet 1 tablet = 400 mg, By Mouth, Daily, # 90 tablet, 1 Refills, Maintenance, 04/25/22 11:57:00 EDT, [facility] #[id number], Partial fill upon patient request if the [...] 1 Refills, Maintenance, 04/25/22 11:57:00 EDT, Capsule, [facility] #[id number], Partial fill upon patient request if the [...] Reference Physician Member Role: PCP Address: Address: [address] [place] [address] Name: Cheri Yun RN Position: [facility] RN Member Role: Primary Care Nurse Name: Kaelyn Marie RN Position: [facility] RN Member Role: Primary Care Nurse Name: Mariajose Buck Position: [facility] RN Member Role: Primary Care Nurse Name: Caitlin Chávez Position: [facility] RN Member Role: Primary Care Nurse Name: Renay Lagunas RN Position: [facility] RN Member Role: Primary Care Nurse Name: Desi Gonsales RN Position: [facility] RN Member Role: Primary Care Nurse Care Team Related Persons Name: RTANA SCHMIDT Address: home [address] [place] [address] Name: RACHID BURGESS Name: SELINA SHULTZ Address: home [address] [place] [address] Name: CLAUDIO HUYNH Name: CLAUDETTE SR Address: [place] [address] Name: KANDI SORTO Address: home [address] [place] [address]
--- OUTSIDE RECORDS SUMMARY | 2022-10-09 22:52 | XMS_ITS | Continuity of Care Document ---
Author Name Unknown Organization [facility] ter Address [address] [place] [address]- Care Team Providers Care Glass Carrier Name Role Phone Luz Hernandez MD Primary Care Physician Encounter [facility] Date(s): 03/05/20 - 03/05/[address] [address]- [facility] Discharge Disposition: A-D/C Walkout Attending Physician: Not on Staff, Attending MD Admitting Physician: Not on Staff, Admitting MD Referring Physician: Not on Staff, Referring [...] tablet, 2 Refills, Maintenance, 09/15/19 16:29:00 EST, [facility] #[id number], 170, cm, 08/16/19 15:23:00 EST, Height, 104.8, kg, 08/16/19 15:23:00 EST, Dry Weight Start Date: 09/15/19 Stop Date: 06/11/20 Status: Ordered busPIRone 15 mg oral tablet 1 tablet = 15 mg, By Mouth, 2 times a day, # 180 tablet, 2 Refills, Maintenance, 09/17/19 13:36:00 EST, [facility] #[id number], 170, cm, 08/16/19 15:23:00 EST, Height, 104.8, kg, 08/16/19 15:23:00 EST, Dry Weight Start Date: 09/17/19 Stop Date: 06/13/20 Status: Ordered clobetasol topical 0.05% ointment 1, applicator, Topically, 2 times a day, 30, Gm, 5, 11, 05/26/07 10:00:57, 03/19/07 16:09:36, PrintDEA Number, [id number], Constant Indicator Start Date: 03/19/07 Stop Date: 03/13/08 Status: Ordered clobetasol topical 0.05% solution 1, applicator, Topically, 2 times a day, 50, mL, 5, 5, 06/02/07 16:50:51, Print KIM Number, [id number], Constant Indicator Start Date: 06/02/07 Status: Ordered divalproex sodium 500 mg oral tablet, extended release 3 tablet = 1,500 mg, By Mouth, Daily at bedtime, TAKE 3 TABLET BEDTIME R/A [phone], # 270 tablet, 2 Refills, Maintenance, 09/15/19 16:30:00 EST, ER Tablet, [facility] #[id number], 170, cm, 08/16/19 15:23:00 EST, Height, 104.8, [...] 06/21/07 13:42:40, 04/07/06 10:32:23, Print KIM Number, [id number], Constant Indicator Start Date: 04/07/06 Status: Ordered LORazepam 1 mg oral tablet See Instructions, 1 tablet By Mouth every 8 hours as needed for anxiety not to exceed 3 in 24 hours, # 90 tablet, 1 Refills, Maintenance, 06/23/18 15:15:37 EST, R/[facility] Start Date: 06/23/18 Status: Ordered mupirocin 2% [...] 1, 1, 05/26/07 10:02:56, Print KIM Number, [id number], Constant Indicator Start Date: 05/26/07 Stop Date: [...] Most recent to oldest [Reference Range]: 1 Oxygen Saturation [94-100 %] 100 % (03/05/20 5:44 PM) Pulse Rate [55-90 bpm] 70 bpm (03/05/20 5:44 PM) Blood Pressure [90-138/55-84 mm Hg] 138/ 94mm Hg (03/05/20 5:44 PM) Respiratory Rate [16-30 br/min] 17 br/mi n (03/05/20 5:44 PM) Temperature [96.8-100.4 DegF] 99.1 DegF (03/05/20 5:44 PM) Mode of Delivery (Oxygen) Room air (03/05/20 5:44 PM) Blood pressure sites Arm, left (03/05/20 5:44 PM) Temperature Route Oral (03/05/20 5:44 PM) Social History Social History Type Response Smoking Status Former smoker, quit more than 30 days ago entered on: 10/11/19 Sex
--- OUTSIDE RECORDS SUMMARY | 2022-10-09 22:52 | XMS_ITS | Continuity of Care Document ---
Author Name Unknown Organization [facility] Address [address] [place] [address]- Care Team Providers Care B2B Sales Consultant Name Role Phone David NICOLE, Luz Patrick Primary Care Physician Encounter [facility] [place]CT R [id number] Date(s): 08/10/21 - 09/15/[address] [address] Attending Physician: Luz Hernandez MD Admitting Physician: Luz Hernandez MD Referring Physician: Sarah Chung Allergies, Adverse Reactions, Alerts Substance Reaction Severity Status ibuprofen Active penicillins Active sulfa drugs Active Vicodin Active Celebrex Active Percocet 5/325 Active Medications albuterol 90 mcg/inh inhalation aerosol 2, puffs, Inhalation, 4 times a day, Scheduled / PRN, 1, 5, 5, 03/19/07 16:10:03, as needed for wheezing, Print KIM Number, ADS OPPTHS, 66 Start Date: 03/19/07 Status: Ordered Claritin 10 mg oral tablet 10 mg, 1, tablet, By Mouth, Daily at bedtime, # 30 tablet, Refills 0, Tot. Refills 0, Maintenance, 10/22/20 15:18:00 EDT, Route to Pharmacy Electronically, [facility] #[id number], Partial fill upon patient request if the prescription is for a jeff... Start Date: 10/22/20 Stop Date: 11/21/20 Status: Ordered levothyroxine 0.05 mg oral tablet 1 tablet = 50 mcg, By Mouth, Daily, # 30 tablet, 0 Refills, Maintenance, 10/22/20 15:22:00 EDT, Tablet, [facility] #[id number], Partial fill upon patient request if the prescription is for a schedule II opioid drug., 170, cm, 10/21/20 18:03:00 ED... Start Date: 10/22/20 Stop Date: 11/21/20 Status: Ordered pantoprazole 40 mg oral delayed [...] reflux dise ase with hiatal hernia(Confirmed) Active Generalized anxiety disorder with panic attacks(Confirmed) Active Hyperlipidemia(Confirmed) Active Hypertension(Confirmed) Active Obsessive compulsive disorder(Confirmed) Active Schizoaffective disorder(Confirmed) Active Smoker(Confirmed) Active Social History Social History Type Response Smoking Status Former smoker, quit more than 30 days ago entered on: 10/11/19 Sex
--- OUTSIDE RECORDS SUMMARY | 2022-10-09 22:52 | XMS_ITS | Continuity of Care Document ---
Author Name Unknown Organization [facility] ter Address [address] [place] [id number]- Care Team Providers Care Cork Pressing Machine Operator Name Role Phone Luz Hernandez MD Primary Care Physician [place] [facility] [place] - 10/11/[address] [address]- [place] Encounter Diagnosis Shortness of breath(Final) - 10/11/19 Discharge Disposition: A-D/C Home Attending Physician: Jessica Alcala MD Admitting Physician: Jessica Alcala MD Referring Physician: Not on Staff, Referring [...] tablet, 2 Refills, Maintenance, 09/15/19 16:29:00 EST, [facility] #[id number], 170, cm, 08/16/19 15:23:00 EST, Height, 104.8, kg, 08/16/19 15:23:00 EST, Dry Weight Start Date: 09/15/19 Stop Date: 06/11/20 Status: Ordered busPIRone 15 mg oral tablet 1 tablet = 15 mg, By Mouth, 2 times a day, # 180 tablet, 2 Refills, Maintenance, 09/17/19 13:36:00 EST, [facility] #[id number], 170, cm, 08/16/19 15:23:00 EST, Height, 104.8, kg, 08/16/19 15:23:00 EST, Dry Weight Start Date: 09/17/19 Stop Date: 06/13/20 Status: Ordered clobetasol topical 0.05% ointment 1, applicator, Topically, 2 times a day, 30, Gm, 5, 11, 05/26/07 10:00:57, 03/19/07 16:09:36, PrintDEA Number, [id number], Constant Indicator Start Date: 03/19/07 Stop Date: 03/13/08 Status: Ordered clobetasol topical 0.05% solution 1, applicator, Topically, 2 times a day, 50, mL, 5, 5, 06/02/07 16:50:51, Print KIM Number, [id number], Constant Indicator Start Date: 06/02/07 Status: Ordered divalproex sodium 500 mg oral tablet, extended release 3 tablet = 1,500 mg, By Mouth, Daily at bedtime, TAKE 3 TABLET BEDTIME R/A [phone], # 270 tablet, 2 Refills, Maintenance, 09/15/19 16:30:00 EST, ER Tablet, [facility][id number], 170, cm, 08/16/19 15:23:00 EST, Height, 104.8, [...] 06/21/07 13:42:40, 04/07/06 10:32:23, Print KIM Number, [id number], Constant Indicator Start Date: 04/07/06 Status: Ordered LORazepam 1 mg oral tablet See Instructions, 1 tablet By Mouth every 8 hours as needed for anxiety not to exceed 3 in 24 hours, # 90 tablet, 1 Refills, Maintenance, 06/23/18 15:15:37 EST, R/[facility] Start Date: 06/23/18 Status: Ordered mupirocin [...] 1, 1, 05/26/07 10:02:56, Print KIM Number, [id number], Constant Indicator Start Date: 05/26/07 Stop Date: [...] Exam Date Time Procedure Performing Provider Status 10/11/19 10:18 AM Chest Portable Arcenio , Lesly; Au th (Verified) Notes: (Chest Portable) Reason For Exam: Shortness of Breath RESULT: Chest Portable AP portable chest, INDICATION: Reason: Shortness of Breath; Clinical Question(s): Pneumonia; Hx of Present Illness: Reports increased anxiety with mild relief from home lorazepam. Reports cold sweats and chills that started yesterday. Reports intermittent SOB and CP. Denies N V, congestion. COMPARISON: 11/24/15 FINDINGS: LINES AND TUBES: None LUNGS AND PLEURA AND MEDIASTINUM: There is no pneumothorax. Clear lungs without focal infiltrate. Normal size heart. IMPRESSION: No acute abnormality. WSN: [id number] Ordering Physician: Adilene Shaw Dictated By: Myrna Mendez MD Dictated Date/Time: 10/11/19 10:20 a Reviewed By: Myrna Mendez MD Signed By: Myrna Mendez MD Signed Date/Time: 10/11/19 10:20 am Transcribed By: DUNCAN Transcribed Date/Time: 10/11/19 10:18 am Vital Signs Most recent to oldest [Reference Range]: 1 2 3 Height 168 cm (10/11/19 6:07 PM) 168 cm (10/11/19 2:58 PM) 168 cm (10/11/19 2:42 PM) Weight 100 kg (10/11/19 6:07 PM) 100 kg (10/11/19 2:58 PM) 100 kg (10/11/19 2:42 PM) Oxygen Saturation [94-100 %] 99 % (10/11/19 6:07 PM) 100 % (10/11/19 2:42 PM) 100 % (10/11/19 9:33 AM) Pulse Rate [55-90 bpm] 65 bpm (10/11/19 6:07 PM) 56 bpm (10/11/19 2:42 PM) 56 bpm (10/11/19 9:33 AM) Body Mass Index [18.5-24.99] 35.43 *>HHI* (10/11/19 6:07 PM) 35.43 *>HHI* (10/11/19 2:58 PM) 35.43 *>HHI* (10/11/19 2:42 PM) Blood Pressure [90-138/55-84 mm Hg] 148/70mm Hg *H* (10/11/19 6:07 PM) 122/66mm Hg (10/11/19 2:58 PM) 133/80mm Hg (10/11/19 9:33 AM) Respiratory Rate [16-30 br/min] 18 br/min (10/11/19 6:07 PM) 23 br/min (10/11/19 2:42 PM) 17 br/min (10/11/19 9:33 AM) Temperature [96.8-100.4 DegF] 97.4 DegF (10/11/19 2:42 PM) 97.8 DegF (10/11/19 9:33 AM) Mode of Delivery (Oxygen) Room air (10/11/19 6:07 PM) Room air (10/11/19 2:42 PM) Room air (10/11/19 9:33 AM) Blood pressure sites Arm, right (10/11/19 6:07 PM) Arm, left (10/11/19 2:58 PM) Arm, right (10/11/19 9:33 AM) Temperature Route Oral (10/11/19 2:42 PM) Oral (10/11/19 9:33 AM) Dry Weight 100 kg (10/11/19 6:07 PM) 100 kg (10/11/19 2:58 PM) 100 kg (10/11/19 2:42 PM) Weight Obtained Via Patient/family state d (10/11/19 9:30 AM) Dry Weight Obtained Via Patient/family s tated (10/11/19 9:30 AM) Social History Social History Type Response Smoking Status Former smoker, quit more than 30 days ago entered on: 10/11/19 Sex
--- OUTSIDE RECORDS SUMMARY | 2022-10-09 22:52 | XMS_ITS | Continuity of Care Document ---
Author Name Unknown Organization [facility] Address [address] [place] [id number]- Care Team Providers Care Retread Mold Operator Name Role Phone Luz Hernandez MD Primary Care Physician [place] [facility] [place]16[place] - 09/15/[address] [address]- Attending Physician: Admtr, Ravi Admitting Physician: Admtr, Ar8 Referring Physician: Admtr, Ar8 Allergies, Adverse Reactions, [...] 10/22/20 15:18:00 EDT, Route to Pharmacy Electronically, [facility] #[id number], Partial fill upon patient request if the prescription is for a jeff... Start Date: 10/22/20 Stop Date: 11/21/20 Status: Ordered levothyroxine 0.05 mg oral tablet 1 tablet = 50 mcg, By Mouth, Daily, # 30 tablet, 0 Refills, Maintenance, 10/22/20 15:22:00 EDT, Tablet, [facility] #[id number], Partial fill upon patient request if the [...]
--- NOTE | 2022-10-10 00:38 | PC.ADMIT ---
pt is a 52 year old female who presented to [facility] ED with SI, delusions and increase depression and anxiety. pt tox screen was positive for THC. pt has PMH of past hospitalizations, asthma, arithritis, various skin issues, schizoaffective disorder with depressive features, and GERD. during admission, pt was delusional and yelling at staff for her federal weed . pt signed a CV, but was unable to sign any other papers due to being distracted and yelling. pt appears to be manic. start treatment plan and promote safety.
--- NOTE | 2022-10-10 00:43 | PC.NURSE ---
med rec completed 10/10/22. Melisa information can be found in the nursing section of patient's chart.
[2022-10-10] MEDS: LORazepam 1 MG TABLET 2 MG PO (01:04)
[2022-10-10 06:00] VITALS: BP 130/79; PULSE 84; RESP 14; TEMP 36.6; O2SAT 95
[2022-10-10] MEDS: busPIRone HCl 5 MG TABLET 15 MG PO ×2 (08:07→20:33)
[2022-10-10] MEDS: Magnesium Oxide 400 MG TABLET PO (08:08)
[2022-10-10] MEDS: Divalproex Sodium 500 MG TABLET.DR PO (08:08)
[2022-10-10] MEDS: Benztropine Mesylate 1 MG TABLET PO ×2 (08:08→20:33)
[2022-10-10] MEDS: Loratadine 10 MG TABLET PO (08:08)
[2022-10-10] MEDS: Omeprazole 20 MG CAPSULE.DR PO (08:08)
[2022-10-10] MEDS: Levothyroxine Sodium 50 MCG TABLET PO (08:40)
[2022-10-10] MEDS: LORazepam 1 MG TABLET PO (08:40)
[2022-10-10 09:06] LABS: Estimated Average Glucose 111 mg/dL; Hemoglobin A1c % 5.5 %
--- NOTE | 2022-10-10 09:58 | P.HPPS_ITS ---
HPI Date of Service: 10/10/22 Chief Complaint: Schizoaffective d/o depressive type Sources of Information: patient interviewed, chart reviewed and crisis/core team assessment reviewed HPI Subjective Notes: [place] Warning and Conditional Voluntary Narrative: Patient is a 52-year-old female with history of schizoaffective disorder, chronic progressive visual loss (possibly due to glaucoma), psoriatic arthritis (?) who presents with increased depression and dysregulation following worsening visual acuity and subsequently getting off her medications. Patient easily reactive, was very disruptive coming on to the unit at nighttime. Today patient is more engageable but remains manic and hyper focused on getting her medical cannabis returned, asking internal communications writer multiple times if internal communications writer knows anything about it. Patient reports that that she was doing overall fine until this past Thursday when she woke up and had much increase trouble seeing. Patient got depressed and scared, unable to discern which medications to take and therefore has been off medications since then. Patient said she does not want to but started getting suicidal and wanted to present to the hospital to get stabilized. Patient reports that she started losing her vision because when she went to an instructor private about 2 and half years ago he/she put a spider in her left eye which started her vision loss; therefore she has not been to see an instructor private and has not had any treatment for glaucoma. Patient also explains that just prior to coming to [place] she was at [facility] ED where they did a urinalysis and found the poison, Strictine that had been placed in her coffee. She thinks that either maintenance people at her house or neighbors came in and poisoned her coffee. Patient is very perseverative on getting a hold of her Federal cannabis that she uses for psoriatic arthritis. Patient interrupted internal communications writer multiple times asking if internal communications writer knew where the flour and edibles were, saying she had 15,000 onces of the THC material that she uses for pain. Patient says that it is Federal and therefore she has to be allowed to take it wherever she is including the hospital. She says the FBI came and arrested every nurse and doctor at [facility] because they did not administer this cannabis. Hand Ornament Maker asked about supporting patient said that she has very little support however she then says she does have 2 different wives one, Rebeka Roseline who is the head of [employer] [facility] and Diana Velasco the head of the [employer]. Patient agrees to restart her medications however says she is only on total of 1500 mg of Depakote daily; she says normally on Haldol 2.5 but agrees to 5 mg for now. Past Psychiatric History: Multiple inpatient psychiatric admissions Medical Evaluation Reviewed: Yes Discussed case with hospitalist Dr. Rascon Who reviewed history/notes from [facility] ED and able to conclude that intra-ocular pressure was assessed at [facility] and normal making glaucoma very unlikely; also sudden bilateral visual loss is exceedingly rare (verses unilateral). At this time there is no concern for acute organic etiology and patient remains medically clear and able to follow up with outpatient instructor private Worsening eyesight Patient complains of poor eyesight for the past 3 years, worse the past 3 days Patient states that she has poor peripheral vision and trouble reading fine print or perceiving details Patient last saw an tar roofer 3 years ago where she claimed they put a tiny spider in her left, which is crawled around in her eye for the past 3 years Patient states she may have been diagnosed with but admits she really does not know what the diagnosis was Patient seen at [facility] ED last night where she complained about her eyesight; intraocular pressure at [facility] was <20mm Hg, was medically cleared for transfer Diagnosis of glaucoma seems unlikely given normal intra-ocular pressure Patient not complaining of any eye pain Patient should follow up outpatient with ophthalmology [facility] Medical History (Updated 10/10/22 @ 17:16 by Morro Malcolm MD) Asthma Atypical chest pain Former smoker GERD (gastroesophageal reflux disease) Hyperlipemia Hypertension Hypothyroidism Intertrigo Obesity (BMI 30-39.9) JENIFER (obstructive sleep apnea) PSA (psoriatic arthritis) Psoriasis Schizoaffective disorder Skin-picking disorder Vitamin D deficiency Surgical History (Updated 07/22/22 @ 09:35 by José Miguel Steel LPN) [place] teeth extracted Family History: Deferred for now; patient to distracted Social History: Patient lives alone Substance History: Denies Trauma History: Deferred for now Diagnostics Labs 10/10/22 08:26 Labs: Laboratory Results - last 48 hr 10/10/22 08:26 Estimat Average Glucose 111 Hemoglobin A1c % 5.5 Meds/Allergies Meds Home Medications Medication Instructions Recorded Confirmed Type albuterol sulfate 90 mcg/actuation 2 puff inhalation Q6H PRN Wheezing 07/22/22 10/10/22 History aerosol inhaler (ProAir HFA) benztropine 1 mg tablet 1 mg PO BID 07/22/22 10/10/22 History buspirone 10 mg tablet 15 mg PO BID 07/22/22 10/10/22 History divalproex 500 mg tablet,delayed 1,000 mg PO BID 07/22/22 10/10/22 History release divalproex 500 mg tablet,delayed 500 mg PO DAILY 07/22/22 10/10/22 History release haloperidol 5 mg tablet 5 mg PO BEDTIME 07/22/22 10/10/22 History levothyroxine 50 mcg capsule 50 mcg PO DAILY 07/22/22 10/10/22 History loratadine 10 mg tablet 10 mg PO DAILY 07/22/22 10/10/22 History lorazepam 1 mg tablet 1 mg PO BID PRN Anxiety 07/22/22 10/10/22 History magnesium oxide 400 mg PO DAILY 07/22/22 10/10/22 History pantoprazole 40 mg tablet,delayed 40 mg PO DAILY 07/22/22 10/10/22 History release tacrolimus 0.03 % topical ointment 1 appl topical BID 07/22/22 10/10/22 History vitamin E (dl, acetate) 180 mg 180 mg PO DAILY 07/22/22 10/10/22 History (400 unit) capsule Allergies Allergies Allergy/AdvReac Type Severity Reaction Status Date / Time acetaminophen [From Vicodin] Allergy Intermediate Hives Verified 07/22/22 09:15 celecoxib [From Celebrex] Allergy Intermediate Hives Verified 07/22/22 09:15 hydrocodone [From Vicodin] Allergy Intermediate Hives Verified 07/22/22 09:15 ibuprofen Allergy Intermediate Stomach Verified 07/22/22 09:15 Upset oxycodone [From Percocet] Allergy Intermediate Hives Verified 07/22/22 09:15 shrimp Allergy Intermediate swelling Verified 07/22/22 09:15 mouth/tongue Sulfa (Sulfonamide Allergy Intermediate Hives Verified 07/22/22 09:15 Antibiotics) sulfamethoxazole Allergy Intermediate Hives Verified 07/22/22 09:15 [From Bactrim] trimethoprim [From Bactrim] Allergy Intermediate Hives Verified 07/22/22 09:15 penicillin G Allergy Unknown Unknown Verified 07/22/22 09:15 Grapefruit Flavor Allergy Unknown Unknown Uncoded 07/22/22 09:15 Mental Status Exam Mental Status Exam Narrative: Pt is alert and oriented; behavior is guarded but not un-cooperative; loud; patient is not in distress; dressed in hospital attire with unkempt hair, disheveled; mood is described as depressed and affect irritable; eye contact limited; Speech is loud but normal rate and prosody and not pressured; intermittent psychomotor agitation present; thought process is goal directed, linear; Thought content is on paranoid, delusional topics; perseverating on missing medical cannabis; otherwise able to be pertinent to relevant topics; some grandiosity; denies any SI/HI. Possibly internally preoccupied Patients insight and judgment are impaired Assessment & Plan Assessment & Plan (1) Schizoaffective disorder: Status: Acute Code(s): F25.9 - Schizoaffective disorder, unspecified (2) Hypothyroidism: Status: Acute Code(s): E03.9 - Hypothyroidism, unspecified (3) PSA (psoriatic arthritis): Status: Acute Code(s): L40.50 - Arthropathic psoriasis, unspecified Plan Patient is a 52-year-old female with history of schizoaffective disorder, chronic progressive visual loss (possibly due to glaucoma), psoriatic arthritis (?) who presents with increased depression and dysregulation following worsening visual acuity and subsequently getting off her medications. -discussed recent report of worsening visual loss with hospitalist Dr. Rascon and this is not appear to be in acute or emergent issue; that said patient's chronic visual history is not known at this time -patient is currently delusional, manic; restarting home meds Plan: CV Q 15 minute checks Depakote 500 mg q.a.m. Depakote 1000 mg q.h.s. Will order labs for levels Haldol 5 mg q.h.s. Levothyroxine Jhony Kendall Patient educated on: diagnosis, medication risk/benefits, therapeutic strategies and medical condition Informed Consent: understands, does not understand and further education needed Reason for continued inpatient stay Substantial Risk for: rapid decompensation Statement Statement: I have reviewed the history and physical and performed a pertinent examination on my patient. No changes have occurred unless specified. If the History and Physical was not performed prior to admission, the Hospitalist's service will be consulted for completing the admission physical. Time Spent With Patient Time: Total time managing care of this patient today ____ minutes.
[2022-10-10 10:14] LABS: Alanine Aminotransferase 24 U/L (0-31); Albumin Level 4.1 g/dL (3.5-5.0); Alkaline Phosphatase 54 U/L (39-117); Anion Gap 13 (12-20); Aspartate Amino Transferase 22 U/L (5-31); Bilirubin Total 0.9 mg/dL (0.0-1.0); Blood Urea Nitrogen 14 mg/dL (9-16); Calcium 9.3 mg/dL (8.4-10.2); Carbon Dioxide 28 mmol/L (22-29); Chloride 103 mmol/L (96-108); Cholesterol 195 mg/dL; Estimated Glomerular Filt Rate 55; Glucose Fasting 105 mg/dL (60-99); HDL Cholesterol 51 mg/dL; LDL Cholesterol Calculated 114 mg/dl; Potassium 4.6 mmol/L (3.3-5.1); Sodium 139 mmol/L (135-145); Total Protein 6.4 g/dL (6.5-8.0); Triglycerides 152 mg/dL
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
[2022-10-10 16:37] VITALS: BP 140/64; PULSE 70; RESP 16; O2SAT 97
[2022-10-10] MEDS: Ondansetron ODT 4 MG TAB.RAPDIS 2 MG TRANSLINGU (17:14)
[2022-10-10] MEDS: Divalproex Sodium 500 MG TABLET.DR 1000 MG PO (20:33)
[2022-10-10] MEDS: HaloperidoL 5 MG TABLET PO (20:33)
[2022-10-10] MEDS: Magnesium Hydrox/Alum Hydrox 30 ML ORAL.SUSP PO (21:17)
[2022-10-11] MEDS: Levothyroxine Sodium 50 MCG TABLET PO (05:36)
[2022-10-11] MEDS: Omeprazole 20 MG CAPSULE.DR PO (05:36)
[2022-10-11 08:00] VITALS: BP 177/91; PULSE 68; TEMP 36.2; O2SAT 97
[2022-10-11] MEDS: busPIRone HCl 5 MG TABLET 15 MG PO ×2 (08:04→20:02)
[2022-10-11] MEDS: Divalproex Sodium 500 MG TABLET.DR PO (08:04)
[2022-10-11] MEDS: Benztropine Mesylate 1 MG TABLET PO ×2 (08:04→20:03)
[2022-10-11] MEDS: Loratadine 10 MG TABLET PO (08:04)
[2022-10-11] MEDS: Milk of Magnesia 30 ML ORAL.SUSP PO (08:04)
[2022-10-11] MEDS: Magnesium Oxide 400 MG TABLET PO (08:04)
[2022-10-11] MEDS: LORazepam 1 MG TABLET PO ×2 (11:03→20:03)
[2022-10-11] MEDS: Vitamin E (Dl,Tocopheryl Acet) 180 MG (400 UNIT) CAPSULE PO ×2 (11:03→11:17)
[2022-10-11] MEDS: hydrOXYzine HCL 25 MG TABLET PO (13:14)
[2022-10-11] MEDS: Acetaminophen 325 MG TABLET PO (15:21)
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
[2022-10-11] MEDS: Acetaminophen 325 MG TABLET 650 MG PO (17:08)
--- NOTE | 2022-10-11 18:26 | PC.NURSE ---
PT reports mildly loose upper central incisor as well as left lateral incisor. machine scallop cutter (Brie Grant) notified as well as director of behavioral health. Awaiting response.
[2022-10-11 19:50] VITALS: BP 140/70; PULSE 76; TEMP 36.1; O2SAT 97
[2022-10-11] MEDS: Divalproex Sodium 500 MG TABLET.DR 1000 MG PO (20:03)
[2022-10-11] MEDS: HaloperidoL 5 MG TABLET PO (20:03)
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
[2022-10-12] MEDS: Levothyroxine Sodium 50 MCG TABLET PO (06:29)
[2022-10-12] MEDS: Omeprazole 20 MG CAPSULE.DR PO (06:29)
[2022-10-12 08:00] VITALS: BP 167/83; PULSE 67; RESP 16; TEMP 36.7; O2SAT 97
[2022-10-12] MEDS: Divalproex Sodium 500 MG TABLET.DR PO (08:21)
[2022-10-12] MEDS: Benztropine Mesylate 1 MG TABLET PO ×2 (08:22→20:31)
[2022-10-12] MEDS: Loratadine 10 MG TABLET PO (08:22)
[2022-10-12] MEDS: Magnesium Oxide 400 MG TABLET PO (08:22)
[2022-10-12] MEDS: busPIRone HCl 5 MG TABLET 15 MG PO ×2 (08:22→20:31)
[2022-10-12] MEDS: Vitamin E (Dl,Tocopheryl Acet) 180 MG (400 UNIT) CAPSULE PO (08:22)
[2022-10-12] MEDS: LORazepam 1 MG TABLET PO ×2 (09:28→19:17)
[2022-10-12] MEDS: Acetaminophen 325 MG TABLET 650 MG PO (10:19)
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
[2022-10-12] MEDS: Magnesium Hydrox/Alum Hydrox 30 ML ORAL.SUSP PO (17:18)
[2022-10-12 18:00] VITALS: BP 145/75; PULSE 76; RESP 14; TEMP 36.7
[2022-10-12] MEDS: HaloperidoL 5 MG TABLET PO (20:31)
[2022-10-12] MEDS: Divalproex Sodium 500 MG TABLET.DR 1000 MG PO (20:31)
[2022-10-13 06:00] VITALS: BP 152/100; PULSE 78; RESP 16; O2SAT 97
[2022-10-13] MEDS: Omeprazole 20 MG CAPSULE.DR PO (06:40)
[2022-10-13] MEDS: Levothyroxine Sodium 50 MCG TABLET PO (06:40)
[2022-10-13] MEDS: busPIRone HCl 5 MG TABLET 15 MG PO ×2 (08:44→20:23)
[2022-10-13] MEDS: Magnesium Oxide 400 MG TABLET PO (08:44)
[2022-10-13] MEDS: Loratadine 10 MG TABLET PO (08:44)
[2022-10-13] MEDS: Benztropine Mesylate 1 MG TABLET PO ×2 (08:44→20:22)
[2022-10-13] MEDS: Vitamin E (Dl,Tocopheryl Acet) 180 MG (400 UNIT) CAPSULE PO (08:44)
[2022-10-13] MEDS: Divalproex Sodium 500 MG TABLET.DR PO (08:44)
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
[2022-10-13] MEDS: LORazepam 1 MG TABLET PO ×2 (10:49→20:22)
[2022-10-13] MEDS: Ondansetron ODT 4 MG TAB.RAPDIS 2 MG TRANSLINGU (12:14)
[2022-10-13] MEDS: Acetaminophen 325 MG TABLET 650 MG PO (16:17)
[2022-10-13 20:20] VITALS: BP 145/77; PULSE 77; TEMP 36.3
[2022-10-13] MEDS: Divalproex Sodium 500 MG TABLET.DR 1000 MG PO (20:22)
[2022-10-13] MEDS: HaloperidoL 5 MG TABLET PO (20:23)
[2022-10-13 21:45] VITALS: BMI 32.9
[2022-10-14] MEDS: Levothyroxine Sodium 50 MCG TABLET PO (04:51)
[2022-10-14] MEDS: Omeprazole 20 MG CAPSULE.DR PO (04:51)
[2022-10-14 08:14] VITALS: BP 143/85; PULSE 68; RESP 14; TEMP 36.6
[2022-10-14] MEDS: Magnesium Oxide 400 MG TABLET PO (08:25)
[2022-10-14] MEDS: Benztropine Mesylate 1 MG TABLET PO ×2 (08:25→22:09)
[2022-10-14] MEDS: Divalproex Sodium 500 MG TABLET.DR PO (08:25)
[2022-10-14] MEDS: Vitamin E (Dl,Tocopheryl Acet) 180 MG (400 UNIT) CAPSULE PO (08:25)
[2022-10-14] MEDS: busPIRone HCl 5 MG TABLET 15 MG PO ×2 (08:25→22:06)
[2022-10-14] MEDS: Loratadine 10 MG TABLET PO (08:25)
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
[2022-10-14] MEDS: LORazepam 1 MG TABLET PO (14:43)
--- NOTE | 2022-10-14 15:55 | PC.NURSE ---
Pt. signed a 3 day notice, up thursday10/17/2022. ,KARLIE and UR aware.
[2022-10-14 16:55] VITALS: BP 125/94; PULSE 86; TEMP 36.4; O2SAT 97
[2022-10-14] MEDS: Acetaminophen 325 MG TABLET 650 MG PO (17:25)
[2022-10-14] MEDS: Divalproex Sodium 500 MG TABLET.DR 1000 MG PO (22:06)
[2022-10-14] MEDS: HaloperidoL 5 MG TABLET PO (22:08)
[2022-10-15] MEDS: Levothyroxine Sodium 50 MCG TABLET PO (04:47)
[2022-10-15] MEDS: Omeprazole 20 MG CAPSULE.DR PO (04:47)
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
[2022-10-15 07:59] VITALS: BP 145/90; PULSE 68; RESP 16; TEMP 36.6; O2SAT 97
[2022-10-15] MEDS: Divalproex Sodium 500 MG TABLET.DR PO (08:01)
[2022-10-15] MEDS: Loratadine 10 MG TABLET PO (08:01)
[2022-10-15] MEDS: busPIRone HCl 5 MG TABLET 15 MG PO ×2 (08:01→21:59)
[2022-10-15] MEDS: Vitamin E (Dl,Tocopheryl Acet) 180 MG (400 UNIT) CAPSULE PO (08:01)
[2022-10-15] MEDS: Benztropine Mesylate 1 MG TABLET PO ×2 (08:01→21:59)
[2022-10-15] MEDS: Magnesium Oxide 400 MG TABLET PO (08:01)
[2022-10-15 08:52] LABS: Ammonia 25 umol/L (13-55)
[2022-10-15 09:33] LABS: Alanine Aminotransferase 23 U/L (0-31); Albumin Level 4.2 g/dL (3.5-5.0); Alkaline Phosphatase 65 U/L (39-117); Aspartate Amino Transferase 21 U/L (5-31); Bilirubin Direct 0.2 mg/dL (0.0-0.5); Bilirubin Total 0.9 mg/dL (0.0-1.0); Total Protein 6.6 g/dL (6.5-8.0)
[2022-10-15] MEDS: Acetaminophen 325 MG TABLET 650 MG PO ×2 (09:35→15:59)
[2022-10-15 16:00] VITALS: BP 145/91; PULSE 89; TEMP 35.8; O2SAT 95
[2022-10-15] MEDS: LORazepam 1 MG TABLET PO (18:52)
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
[2022-10-15] MEDS: Divalproex Sodium 500 MG TABLET.DR 1000 MG PO (21:59)
[2022-10-15] MEDS: HaloperidoL 5 MG TABLET PO (21:59)
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
[2022-10-16] MEDS: Levothyroxine Sodium 50 MCG TABLET PO (04:37)
[2022-10-16] MEDS: Omeprazole 20 MG CAPSULE.DR PO (04:37)
[2022-10-16] MEDS: busPIRone HCl 5 MG TABLET 15 MG PO (08:18)
[2022-10-16] MEDS: Divalproex Sodium 500 MG TABLET.DR PO (08:18)
[2022-10-16] MEDS: Benztropine Mesylate 1 MG TABLET PO (08:18)
[2022-10-16] MEDS: Vitamin E (Dl,Tocopheryl Acet) 180 MG (400 UNIT) CAPSULE PO (08:18)
[2022-10-16] MEDS: Magnesium Oxide 400 MG TABLET PO (08:18)
[2022-10-16] MEDS: Loratadine 10 MG TABLET PO (08:18)
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
== END 2022-10-16 11:20 | disposition home or self-care (01) | DRG 885 ==
PROVIDERS: Admitting Provider Psychiatry & Neurology Psychiatry; Visit Provider Psychiatry & Neurology Psychiatry
DX: F25.0 Schizoaffective disorder, bipolar type (principal); J45.909 Unspecified asthma, uncomplicated; E03.9 Hypothyroidism, unspecified; G47.33 Obstructive sleep apnea (adult) (pediatric); H40.9 Unspecified glaucoma; E78.5 Hyperlipidemia, unspecified; L40.50 Arthropathic psoriasis, unspecified; K08.89 Other specified disorders of teeth and supporting structures; K21.9 Gastro-esophageal reflux disease without esophagitis; Z87.891 Personal history of nicotine dependence; Z88.0 Allergy status to penicillin; Z88.2 Allergy status to sulfonamides; Z88.5 Allergy status to narcotic agent; Z88.6 Allergy status to analgesic agent; Z88.8 Allergy status to other drugs, medicaments and biological substances; Z79.899 Other long term (current) drug therapy
CPT/HCPCS: 36415; 70150; 80053; 80061; 80076; 80164; 82140; 83036

== ENCOUNTER 2023-01-26 10:00 | Inpatient (IN) | payer OTHER, SELFPAY ==
--- NOTE | ~2023-01-26 | XR_ITS ---
EXAMINATION: XR ABDOMEN KUB CLINICAL INDICATION: Constipation. COMPARISON: None available. TECHNIQUE: AP view of the abdomen. FINDINGS: The bowel gas pattern is normal with no evidence of ileus or obstruction. No unusual soft tissue calcifications are noted. The bones are unremarkable. There is a moderate stool burden present within the colon. Psoas margins intact. XR/XR KUB IMPRESSION: No evidence of ileus or obstruction. Moderate colonic stool burden.
--- NOTE | 2023-01-26 10:12 | ED_ITS ---
HPI - General Adult General Chief complaint: General Medical Stated complaint: increased loss of vision d/cataracts Time Seen by Provider: 01/26/23 10:11 Source: patient Mode of arrival: ambulatory Limitations: no limitations History of Present Illness HPI narrative: 52 year old female history of ?schizoaffective disorder, chronic progressive visual loss (possibly due to glaucoma), psoriatic arthritis presenting to the emergency department w/ worsening vision over the past few days reports shes now completely blind she thinks shes dying. Very anxious and depressed because of this. Reports she wants surgery today and hospital admission. States she has a nurse at home but that's not enough. Denies trauma, headache, fevers, chills, nausea, vomiting. Scheduled to see an grain elevator agent mid March for evalu ation of her cataracts which she has been told she had in the past. Denies HI. Denies auditory and visual hallucinations. Smokes pot daily to decrease her eye pressures Related Data Home Medications Medication Instructions Recorded Confirmed albuterol sulfate 90 mcg/actuation 2 puff inhalation Q6H PRN Wheezing 07/22/22 0 10/10/22 aerosol inhaler (ProAir HFA) levothyroxine 50 mcg capsule 50 mcg PO DAILY 07/22/22 10/10/22 loratadine 10 mg tablet 10 mg PO DAILY 07/22/22 10/10/22 magnesium oxide 400 mg PO DAILY 07/22/22 10/10/22 pantoprazole 40 mg tablet,delayed 40 mg PO DAILY 07/22/22 10/10/22 release tacrolimus 0.03 % topical ointment 1 appl topical BID 07/22/22 10/10/22 vitamin E (dl, acetate) 180 mg 180 mg PO DAILY 07/22/22 10/10/22 (400 unit) capsule Previous Rx's Medication Instructions Recorded benztropine 1 mg tablet 1 mg PO BID 30 days #60 tabs 10/16/22 buspirone 10 mg tablet 15 mg PO BID 30 days #90 tabs 10/16/22 divalproex 500 mg tablet,delayed 1,000 mg PO BID 30 days #120 tabs 10/16/22 release divalproex 500 mg tablet,delayed 500 mg PO DAILY 30 days #30 tabs 10/16/22 release haloperidol 5 mg tablet 5 mg PO BEDTIME 30 days #30 tabs 10/16/22 lorazepam 1 mg tablet 1 mg PO BID PRN Anxiety 30 days 10/16/22 #60 tabs Allergies Allergy/AdvReac Type Severity Reaction Status Date / Time acetaminophen [From Vicodin] Allergy Intermediate Hives Verified 01/26/23 10:35 celecoxib [From Celebrex] Allergy Intermediate Hives Verified 01/26/23 10:35 hydrocodone [From Vicodin] Allergy Intermediate Hives Verified 01/26/23 10:35 ibuprofen Allergy Intermediate Stomach Verified 01/26/23 10:35 Upset oxycodone [From Percocet] Allergy Intermediate Hives Verified 01/26/23 10:35 shrimp Allergy Intermediate swelling Verified 01/26/23 10:35 mouth/tongue Sulfa (Sulfonamide Allergy Intermediate Hives Verified 01/26/23 10:35 Antibiotics) sulfamethoxazole Allergy Intermediate Hives Verified 01/26/23 10:35 [From Bactrim] trimethoprim [From Bactrim] Allergy Intermediate Hives Verified 01/26/23 10:35 penicillin G Allergy Unknown Unknown Verified 01/26/23 10:35 Grapefruit Flavor Allergy Unknown Unknown Uncoded 07/22/22 09:15 Review of Systems Review of Systems: Constitutional : No Weight loss, No Fever, No Chills, No Fatigue, No Malaise ENT/Mouth : No sore throat, No Rhinorrhea Eyes: No Eye Pain, No Swelling, No Redness, + visual changes Cardiovascular : No Chest Pain, No SOB, No Dyspnea on Exertion, No Orthopnea, No Edema, No Palpitations Respiratory : No Cough, No Sputum, No Wheezing Gastrointestinal : No Nausea, No Vomiting, No Diarrhea, No Constipation, No abdominal Pain, No Hematochezia, No Melena Genitourinary : No Dysuria, No Urinary Frequency, No Hematuria, Musculoskeletal : No joint pain, No Myalgias, No Joint Swelling Skin : No Skin Lesions, No rash Neuro : No Weakness, No Numbness, No Dizziness, No Headache Psych : No Anxiety/Panic, No Depression All other systems reviewed and are negative Yes all other systems are reviewed and are negative [facility] Past Medical History Attestation statement: The following information was validated with the patient. Source: old records reviewed and nursing notes reviewed Medical History Asthma Atypical chest pain Former smoker GERD (gastroesophageal reflux disease) Hyperlipemia Hypertension Hypothyroidism Intertrigo Obesity (BMI 30-39.9) JENIFER (obstructive sleep apnea) PSA (psoriatic arthritis) Psoriasis Schizoaffective disorder Skin-picking disorder Vitamin D deficiency Surgical History [place] teeth extracted Family History Family History Mother Cataract Melanoma Mitral valve prolapse Father CAD (coronary artery disease) Colonic polyp Social History Social History Household Members: None Housing: Apartment Do you presently have visiting nurse or other home services: No Unable to assess alcohol history related to: Unable to respond Patient Tobacco Use Status: Former Tobacco user Tobacco use type: Cigarette e-Cigarette/Vaping Use: Never Used Second Hand Smoke Exposure: No Substance Use Type: Marijuana Advance Directives: No Advance Directives Information Provided: No service: No Sexual orientation: Lesbian/Benavidez/Homosexual Physical Exam ED Vital Signs: Vital Signs - 24 hr 01/26/23 10:25 01/26/23 10:25 Temperature 97.3 F Pulse Rate 70 70 Respiratory Rate 18 20 Blood Pressure 160/82 H 160/82 H Pulse Oximetry 96 96 Oxygen Delivery Method Room Air Room Air BMI result Body Mass Index 32.3 vss Appearance: Alert.? Oriented X3.? No acute distress.? Head: Normocephalic, atraumatic, no step-offs or deformities Eyes: Pupils equal, round and reactive to light.?EOMI pain free. Clouded lens b/l. States she cant see the pocket snellen chart so cant do visual acuity. Screaming im blind . Bilateral eye pressure 12. CVS: Normal heart rate and rhythm.? Pulses normal.? Respiratory: No respiratory distress.? Breath sounds normal.? Abdomen: Soft and nontender.? Skin: Skin warm and dry.? Normal skin color.? Normal skin turgor.? Extremities: No lower extremity edema.? No calf ttp. 5/5 strength to bilateral upper and lower extremities Back: No midline tenderness, no C-spine tenderness, full range of motion, no CVA tenderness bilaterally Neuro: Oriented X 3.? No motor deficit.? No sensory deficit. CN 2-12 intact Course Reevaluation(s) Reevaluation #1: CBC appears to be within normal limits Chemistry unremarkable. Urine negative. , tox positive for marijuana. Ethanol negative. Time: 13:58 Reevaluation #2: This case was discussed earlier with psychiatry who states similar presentation to last time. Time: 13:59 Medications Administered Discontinued Medications Generic Name Dose Route Start Last Admin Trade Name Yelena PRN Reason Stop Dose Admin Ondansetron HCl 4 mg 01/26/23 13:32 01/26/23 13:39 Ondansetron Odt 4 Mg Tab.Rapdis TRANSLINGU 01/26/23 13:33 4 mg ONCE ONE Administration Tramadol HCl 25 mg 01/26/23 13:32 01/26/23 13:49 Tramadol Hcl 50 Mg Tablet PO 01/26/23 13:33 25 mg ONCE ONE Administration Medical Decision Making Medical Decision Making [facility] Narrative: 52 year old female presents stating she is blind PE w. Pupils equal, round and reactive to light.?EOMI pain free. Clouded lens b/l. States she cant see the pocket snellen chart so cant do visual acuity. Screaming im blind . Bilateral eye pressure 12. Likely cataracts. Unlikely retinal detachment, acute closed angle glaucoma, wet macular degeneration. Likely anxiety and depression. Plan- patient with bizzare affect states that she is anxious and depressed and dying psych consult warrented. Upon chart review same presentation with her last psychiatric admission on 10/10/2022 - 10/16/2022 Differential Diagnosis Differential Diagnoses: The differential diagnosis associated with the presentation includes Likely cataracts. Unlikely retinal detachment, acute closed angle glaucoma, wet macular degeneration. Likely anxiety and depression. Admission/Observation Consideration of admission/observation: Escalation of care including admission/observation considered possible psych Lab Data [facility] Lab Attestation statement: I reviewed the patient's lab results. 01/26/23 12:50 01/26/23 12:50 Labs: Lab Results 01/26/23 01/26/23 01/26/23 Range/Units 12:50 12:50 12:50 WBC 6.9 (4.8-10.8) X10*3/uL RBC 4.28 (4.20-5.50) X10*6/uL Hgb 13.2 (12.0-16.0) g/dl Hct 38.2 (37.0-47.0) % MCV 89.3 (80.0-98.0) fL MCH 30.8 (27.0-33.0) pg MCHC 34.6 (31.0-35.0) g/dl RDW 11.9 (11.0-16.0) % Plt Count 254 (160-400) X10*3/uL MPV 10.2 (9.4-12.3) fL Immature Gran % (Auto) 0.1 (0.0-0.4) % Neut % (Auto) 62.9 (45-73) % Lymph % (Auto) 28.5 (20-40) % [place] % (Auto) 7.5 (2-11) % Eos % (Auto) 0.6 (0-4) % Baso % (Auto) 0.4 (0-2) % Lymph # (Auto) 2.0 (1.2-4.9) X10*3/uL [place] # (Auto) 0.5 (0.1-1.2) X10*3/uL Eos # (Auto) 0.0 (0.0-0.4) X10*3/uL Baso # (Auto) 0.0 (0.0-0.2) X10*3/uL Abs Immat Gran (auto) 0.01 (0.00-0.03) X10*3/uL Absolute Neuts (auto) 4.4 (2.0-8.3) x10*3/uL Absolute Nucleated RBC 0.000 (0.0-0.012) X10*3/uL Nucleated RBC % (auto) 0.0 (0.0-0.2) /100WBC Sodium 141 (135-145) mmol/L Potassium 3.7 (3.3-5.1) mmol/L Chloride 107 (96-108) mmol/L Carbon Dioxide 26 (22-29) mmol/L Anion Gap 12 (12-20) BUN 12 (9-16) mg/dL Creatinine 0.83 (0.5-1.4) mg/dL Estim Creat Clear Calc 91.0 Estimated GFR > 60 Random Glucose 87 (60-115) mg/dL Calcium 9.0 (8.4-10.2) mg/dL Total Bilirubin 0.7 (0.0-1.0) mg/dL AST 13 (5-31) U/L ALT 15 (0-31) U/L Alkaline Phosphatase 48 (39-117) U/L Total Protein 6.3 L (6.5-8.0) g/dL Albumin 3.7 (3.5-5.0) g/dL Urine Test (NEGATIVE) Urine Opiates Screen (Not Detect) Urine Fentanyl Screen (Not Detect) Ur Barbiturates Screen (Not Detect) Valproic Acid 83.2 (50.0-100.0) mcg/mL Ur Phencyclidine Scrn (Not Detect) Ur Amphetamines Screen (Not Detect) U Benzodiazepines Scrn (Not Detect) Urine Cocaine Screen (Not Detect) U Marijuana (THC) Screen (Not Detect) Ethyl Alcohol mg/dL 01/26/23 01/26/23 01/26/23 Range/Units 12:50 12:50 12:50 WBC (4.8-10.8) X10*3/uL RBC (4.20-5.50) X10*6/uL Hgb (12.0-16.0) g/dl Hct (37.0-47.0) % MCV (80.0-98.0) fL MCH (27.0-33.0) pg MCHC (31.0-35.0) g/dl RDW (11.0-16.0) % Plt Count (160-400) X10*3/uL MPV (9.4-12.3) fL Immature Gran % (Auto) (0.0-0.4) % Neut % (Auto) (45-73) % Lymph % (Auto) (20-40) % [place] % (Auto) (2-11) % Eos % (Auto) (0-4) % Baso % (Auto) (0-2) % Lymph # (Auto) (1.2-4.9) X10*3/uL [place] # (Auto) (0.1-1.2) X10*3/uL Eos # (Auto) (0.0-0.4) X10*3/uL Baso # (Auto) (0.0-0.2) X10*3/uL Abs Immat Gran (auto) (0.00-0.03) X10*3/uL Absolute Neuts (auto) (2.0-8.3) x10*3/uL Absolute Nucleated RBC (0.0-0.012) X10*3/uL Nucleated RBC % (auto) (0.0-0.2) /100WBC Sodium (135-145) mmol/L Potassium (3.3-5.1) mmol/L Chloride (96-108) mmol/L Carbon Dioxide (22-29) mmol/L Anion Gap (12-20) BUN (9-16) mg/dL Creatinine (0.5-1.4) mg/dL Estim Creat Clear Calc Estimated GFR Random Glucose (60-115) mg/dL Calcium (8.4-10.2) mg/dL Total Bilirubin (0.0-1.0) mg/dL AST (5-31) U/L ALT (0-31) U/L Alkaline Phosphatase (39-117) U/L Total Protein (6.5-8.0) g/dL Albumin (3.5-5.0) g/dL Urine Test NEGATIVE (NEGATIVE) Urine Opiates Screen Not Detected (Not Detect) Urine Fentanyl Screen Not Detected (Not Detect) Ur Barbiturates Screen Not Detected (Not Detect) Valproic Acid (50.0-100.0) mcg/mL Ur Phencyclidine Scrn Not Detected (Not Detect) Ur Amphetamines Screen Not Detected (Not Detect) U Benzodiazepines Scrn Not Detected (Not Detect) Urine Cocaine Screen Not Detected (Not Detect) U Marijuana (THC) Screen POSITIVE H (Not Detect) Ethyl Alcohol < 10 mg/dL Core Measures AMI core measures followed: Yes Measure exclusions: not indicated Critical Care Time Critical Care Time Critical Care Time: Yes Total Critical Care Time: 45 Attestation: I attest to this time spent taking care of the patient, obtaining history, physical, reviewing labs, imaging, speaking to my attending, speaking to specialist. Discharge Plan Discharge Clinical Impression: Schizoaffective disorder, Cataract Patient Disposition: Home, Self-Care Instructions: Schizoaffective Disorder (ED), Cataracts (ED) Prescriptions: No Action haloperidol 5 mg tablet 5 mg PO BEDTIME 30 Days Qty: 30 2RF divalproex 500 mg tablet,delayed release (DR/EC) 500 mg PO DAILY 30 Days Qty: 30 2RF divalproex 500 mg tablet,delayed release (DR/EC) 1,000 mg PO BID 30 Days Qty: 120 2RF buspirone 10 mg tablet 15 mg PO BID 30 Days Qty: 90 2RF benztropine 1 mg tablet 1 mg PO BID 30 Days Qty: 60 2RF lorazepam 1 mg tablet 1 mg PO BID PRN (Reason: Anxiety) 30 Days Qty: 60 0RF magnesium oxide 400 mg magnesium tablet 400 mg PO DAILY pantoprazole 40 mg tablet,delayed release (DR/EC) 40 mg PO DAILY albuterol sulfate [ProAir HFA] 90 mcg/actuation HFA aerosol inhaler 2 puff inhalation Q6H PRN (Reason: Wheezing) Rx Instructions: asthma, wheezing tacrolimus 0.03 % ointment 1 appl topical BID levothyroxine 50 mcg capsule 50 mcg PO DAILY loratadine 10 mg tablet 10 mg PO DAILY vitamin E (dl, acetate) 180 mg (400 unit) capsule 180 mg PO DAILY
[2023-01-26 10:25] VITALS: BP 160/82; PULSE 70; RESP 18; RESP 20; TEMP 36.3; O2SAT 96; BMI 32.3
--- NOTE | 2023-01-26 11:10 | PC.NURSE ---
t/w entered room to introduce self to patient patient states she came in via ambulance stated she had a nurse at home to help her with medications but states they said itd be a month before i got a zoology teacher. i cant take care of myself. i was at [facility] a week ago for ten days and they didnt feed me. i lost a lot of weight when i was there.
[2023-01-26 13:07] LABS: Basophils Percent Auto 0.4 % (0-2); Eosinophils Percent Auto 0.6 % (0-4); Hematocrit 38.2 % (37.0-47.0); Hemoglobin 13.2 g/dl (12.0-16.0); Imm Gran Abs Auto 0.01 X10*3/uL (0.00-0.03); Imm Gran Pct Auto 0.1 % (0.0-0.4); Lymphocytes Percent Auto 28.5 % (20-40); MANUAL DIFF FLAG NO; Mean Corpuscular HGB Conc 34.6 g/dl (31.0-35.0); Mean Corpuscular Hemoglobin 30.8 pg (27.0-33.0); Mean Corpuscular Volume 89.3 fL (80.0-98.0); Mean Platelet Volume 10.2 fL (9.4-12.3); Monocytes Absolute Auto 0.5 X10*3/uL (0.1-1.2); Monocytes Percent Auto 7.5 % (2-11); Neutrophils Absolute Auto 4.4 x10*3/uL (2.0-8.3); Neutrophils Percent Auto 62.9 % (45-73); Platelet Count 254 X10*3/uL (160-400); Red Blood Count 4.28 X10*6/uL (4.20-5.50); Red Cell Distribution Width 11.9 % (11.0-16.0); White Blood Count 6.9 X10*3/uL (4.8-10.8)
--- NOTE | 2023-01-26 13:07 | PC.NURSE ---
patient denied drug and etoh use recently, states she is followed by psychiatry from [facility] amy johnson , stated she was on depakote, buspar, haldol. melva labs here accordingly. maintains safe behavior.
[2023-01-26 13:11] LABS: UPreg QC Valid YES; Urine Pregnancy NEGATIVE (NEGATIVE)
[2023-01-26 13:20] LABS: Ethanol < 10 mg/dL
[2023-01-26 13:22] LABS: Valproate 83.2 mcg/mL (50.0-100.0)
[2023-01-26 13:23] LABS: Alanine Aminotransferase 15 U/L (0-31); Albumin Level 3.7 g/dL (3.5-5.0); Alkaline Phosphatase 48 U/L (39-117); Anion Gap 12 (12-20); Aspartate Amino Transferase 13 U/L (5-31); Bilirubin Total 0.7 mg/dL (0.0-1.0); Blood Urea Nitrogen 12 mg/dL (9-16); Carbon Dioxide 26 mmol/L (22-29); Chloride 107 mmol/L (96-108); Estimated Glomerular Filt Rate > 60; Glucose Random 87 mg/dL (60-115); Potassium 3.7 mmol/L (3.3-5.1); Sodium 141 mmol/L (135-145); Total Protein 6.3 g/dL (6.5-8.0)
[2023-01-26 13:29] LABS: Amphetamine Screen Urine Not Detected (Not Detect); Barbiturates, Urine Not Detected (Not Detect); Benzodiazepines Screen Urine Not Detected (Not Detect); Cannabinoid Screen Urine POSITIVE (Not Detect); Cocaine Screen Urine Not Detected (Not Detect); Fentanyl, urine Not Detected (Not Detect); Opiate Screen Urine Not Detected (Not Detect); Phencyclidine Screen Urine Not Detected (Not Detect)
[2023-01-26] MEDS: Ondansetron ODT 4 MG TAB.RAPDIS TRANSLINGU (13:39)
[2023-01-26] MEDS: traMADoL HCL 50 MG TABLET 25 MG PO (13:49)
[2023-01-26 14:38] LABS: Appearance Urine Clear; Color Urine Yellow; Glucose Urine UA Negative (Negative); Leukocyte Esterase Urine Negative (Negative); Nitrite Urine Negative (Negative); PH 6.5 (5.0-9.0); Urine Blood Negative (Negative); Urine Ketones Negative (Negative); Urine Protein Negative (Neg-Trace)
[2023-01-26 14:42] LABS: Bacteria Urine None Seen (None Seen); Hyaline Casts Urine 0-2 /LPF (0-2); RBC Urine 0-2 /HPF (0-2); WBC Urine 0-5 /HPF (0-5)
--- NOTE | 2023-01-26 15:30 | PHA.MEDREC ---
Pharmacy Consult ? Medication Reconciliation Pharmacy has completed the medication reconciliation.Anjana spoke to patient. Lisa did entry of information. Pt knew medications and dosing.
--- NOTE | 2023-01-26 16:51 | MHC.CARE ---
Clinical presented to [facility] auth: [id number] 4 days by Angelique
--- NOTE | 2023-01-26 17:45 | PC.NURSE ---
Patient entered doorway to [facility] stating Don't you dare take my license! You're not an budget record clerk! No one was speaking to Anamaria or interacting with her in any way when she stated this. Pt then turned around and returned to her bed with minimal redirection. Now resting quietly, watching TV.
[2023-01-26 19:56] LABS: COVID-19 Test Negative (Negative); IDNOW Serial# BCCEAD1C
--- NOTE | 2023-01-26 20:22 | PC.NURSE ---
Pt ambulated to the bathroom. Pt asked for assistance being guided to the bathroom, nut pt walked with steady gait. Pt has been tracking with her eyes and was able to find the toilet and sink in the bathroom. Pt is A&Ox5, GCS 15. At change of shift, I was informed that she has a bed upstairs on [address].
[2023-01-26] MEDS: busPIRone HCl 5 MG TABLET 15 MG PO (23:16)
[2023-01-26] MEDS: Benztropine Mesylate 1 MG TABLET PO (23:16)
[2023-01-26] MEDS: Divalproex Sodium 500 MG TABLET.DR 1000 MG PO (23:16)
[2023-01-26] MEDS: HaloperidoL 5 MG TABLET 10 MG PO (23:17)
--- NOTE | 2023-01-27 00:20 | PC.NURSE ---
Called report to WISAM Quijano, pt will be retrieved and brought upstairs for admission.
[2023-01-27 00:40] VITALS: BP 161/98; PULSE 67; RESP 17; TEMP 36.3; O2SAT 100
[2023-01-27] MEDS: Ondansetron ODT 4 MG TAB.RAPDIS TRANSLINGU ×2 (02:14→19:38)
[2023-01-27] MEDS: traMADoL HCL 50 MG TABLET PO (02:36)
[2023-01-27 04:37] VITALS: BMI 32.0
--- NOTE | 2023-01-27 04:39 | PC.ADMIT ---
Pt is a 52 years old female, admitted to the unit after referral from care team. Pt arrived on unit at 0043. Legal status CV. Pt's medical issue is glaucoma. Per crisis note, Pt states her vision is worsening, I cant see at all and became screaming stating she was dying. Per crisis note, pt reports that she came to the hospital because she cant take care of herself due to vision. Pt reports that her family has been arguing with her over her soon to be , whom her parents don't want her to be with. Current presentation at time of admission is calm, cooperative, alert and oriented x4 and engaged. VSS. Pt is visibly tremulous. Pt is not endorsing current SI/HI/AH/VH, however, pt's thought process is tangential and delusional. pt is ruminating on not being able to care for themselves. Pt reported 10/10 psoriasis arthritis in joints, medicated with Tramadol 50mg po and zofran 4mg po with good effect. Provider monkey breeder , Dr. Spangler notified of admission and orders obtained. Pt is placed on 15mins checks. Pt reports feeling safe on unit.
[2023-01-27] MEDS: Levothyroxine Sodium 50 MCG TABLET PO (05:58)
[2023-01-27] MEDS: Omeprazole 20 MG CAPSULE.DR PO (05:58)
[2023-01-27 08:05] VITALS: BP 131/84; PULSE 57; RESP 18; TEMP 36.1; O2SAT 98
[2023-01-27] MEDS: Divalproex Sodium 250 MG TABLET.DR 750 MG PO (08:31)
[2023-01-27] MEDS: busPIRone HCl 5 MG TABLET 15 MG PO ×2 (08:32→21:11)
[2023-01-27] MEDS: HaloperidoL 5 MG TABLET PO (08:32)
[2023-01-27] MEDS: Magnesium Oxide 400 MG TABLET PO (08:32)
[2023-01-27] MEDS: Benztropine Mesylate 1 MG TABLET PO ×2 (08:32→21:11)
[2023-01-27] MEDS: Loratadine 10 MG TABLET PO (08:32)
[2023-01-27] MEDS: Vitamin E (Dl,Tocopheryl Acet) 180 MG (400 UNIT) CAPSULE PO ×2 (10:33→21:11)
--- NOTE | 2023-01-27 12:25 | HO.PSYADMNOT ---
HPI Date of Service: 01/27/23 Chief Complaint: delusions Sources of Information: patient interviewed, chart reviewed and crisis/core team assessment reviewed Additional Sources of Information: Message left for OP Team with [facility] HPI Subjective Notes: Conditional Voluntary Healthcare Proxy: No Guardianship: No Medical Problems Affecting Mental Status: No Narrative: 52 yo female, history of schizoaffective disorder, psoriatic arthritis, chronic progressive visual loss which is being evaluated currently presents with reports that her vision is declining, she is unable to care for herself and believes she is dying. Agitation is present. Pt reports she is upset with recent [facility] admit (01/07-01/21) due to med changes which were not reviewed with her out pt prescriber with [facility], Joy Witt NP. Pt reports she is not able to care for herself and is in need of assistance in her home to maintain her safety and functioning. She is labile in presentation and crying, with pressure of speech. She denies all psych symptoms and attributes all symptoms to vision loss. She later reports she is about to , stating her parents do not approve of this plan nor of her soon to be . In the ER she presented grandiose concepts to CARE Team Past Psychiatric History: Multiple inpatient psychiatric admissions, most recently [facility] 01.07.23 - 01.21.23- [place] [facility] [place] 2001-father approached the court when pt was delusional. 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 Affiliated with [facility] Medical Evaluation Reviewed: Yes [facility] Medical History Asthma Atypical chest pain Former smoker GERD (gastroesophageal reflux disease) Hyperlipemia Hypertension Hypothyroidism Intertrigo Obesity (BMI 30-39.9) JENIFER (obstructive sleep apnea) PSA (psoriatic arthritis) Psoriasis Schizoaffective disorder Skin-picking disorder Vitamin D deficiency Surgical History [place] teeth extracted Family History: Schizophrenia Social History: Patient lives alone Father and siblings are Mother is alive, pt estranged Substance History: Denies Toxicology + cannabis Trauma History: Affirms Diagnostics Vital Signs (24Hr): Vital Signs - 24 hr 01/27/23 00:40 01/27/23 08:05 Temperature 97.3 F 96.9 F Pulse Rate 67 57 Respiratory Rate 17 18 Blood Pressure 161/98 H 131/84 Pulse Oximetry 100 98 Oxygen Delivery Method Room Air BMI result Body Mass Index 32.0 Labs 01/26/23 12:50 01/26/23 12:50 Labs: Laboratory Results - last 48 hr 01/26/23 01/26/23 01/26/23 12:50 12:50 12:50 WBC 6.9 RBC 4.28 Hgb 13.2 Hct 38.2 MCV 89.3 MCH 30.8 MCHC 34.6 RDW 11.9 Plt Count 254 MPV 10.2 Immature Gran % (Auto) 0.1 Neut % (Auto) 62.9 Lymph % (Auto) 28.5 Waldo % (Auto) 7.5 Eos % (Auto) 0.6 Baso % (Auto) 0.4 Lymph # (Auto) 2.0 Waldo # (Auto) 0.5 Eos # (Auto) 0.0 Baso # (Auto) 0.0 Abs Immat Gran (auto) 0.01 Absolute Neuts (auto) 4.4 Absolute Nucleated RBC 0.000 Nucleated RBC % (auto) 0.0 Sodium 141 Potassium 3.7 Chloride 107 Carbon Dioxide 26 Anion Gap 12 BUN 12 Creatinine 0.83 Estim Creat Clear Calc 91.0 Estimated GFR > 60 Random Glucose 87 Calcium 9.0 Total Bilirubin 0.7 AST 13 ALT 15 Alkaline Phosphatase 48 Total Protein 6.3 L Albumin 3.7 Urine Color Urine Appearance Urine pH Ur Specific [place] Urine Protein Urine Glucose (UA) Urine Ketones Urine Blood Urine Nitrite Ur Leukocyte Esterase Urine RBC Urine WBC Ur Squamous Epith Cells Urine Bacteria Hyaline Casts Urine Test Urine Opiates Screen Urine Fentanyl Screen Ur Barbiturates Screen Valproic Acid 83.2 Ur Phencyclidine Scrn Ur Amphetamines Screen U Benzodiazepines Scrn Urine Cocaine Screen U Marijuana (THC) Screen Ethyl Alcohol COVID-19 ([facility]) COVID-19 Clin Com 01/26/23 01/26/23 01/26/23 12:50 12:50 12:50 WBC RBC Hgb Hct MCV MCH MCHC RDW Plt Count MPV Immature Gran % (Auto) Neut % (Auto) Lymph % (Auto) Waldo % (Auto) Eos % (Auto) Baso % (Auto) Lymph # (Auto) Waldo # (Auto) Eos # (Auto) Baso # (Auto) Abs Immat Gran (auto) Absolute Neuts (auto) Absolute Nucleated RBC Nucleated RBC % (auto) Sodium Potassium Chloride Carbon Dioxide Anion Gap BUN Creatinine Estim Creat Clear Calc Estimated GFR Random Glucose Calcium Total Bilirubin AST ALT Alkaline Phosphatase Total Protein Albumin Urine Color Yellow Urine Appearance Clear Urine pH 6.5 Ur Specific [place] 1.020 Urine Protein Negative Urine Glucose (UA) Negative Urine Ketones Negative Urine Blood Negative Urine Nitrite Negative Ur Leukocyte Esterase Negative Urine RBC 0-2 Urine WBC 0-5 Ur Squamous Epith Cells 3-5 Urine Bacteria None Seen Hyaline Casts 0-2 Urine Test NEGATIVE Urine Opiates Screen Not Detected Urine Fentanyl Screen Not Detected Ur Barbiturates Screen Not Detected Valproic Acid Ur Phencyclidine Scrn Not Detected Ur Amphetamines Screen Not Detected U Benzodiazepines Scrn Not Detected Urine Cocaine Screen Not Detected U Marijuana (THC) Screen POSITIVE H Ethyl Alcohol COVID-19 ([facility]IS) COVID-[employer] 01/26/23 01/26/23 12:50 19:36 WBC RBC Hgb Hct MCV MCH MCHC RDW Plt Count MPV Immature Gran % (Auto) Neut % (Auto) Lymph % (Auto) Waldo % (Auto) Eos % (Auto) Baso % (Auto) Lymph # (Auto) Waldo # (Auto) Eos # (Auto) Baso # (Auto) Abs Immat Gran (auto) Absolute Neuts (auto) Absolute Nucleated RBC Nucleated RBC % (auto) Sodium Potassium Chloride Carbon Dioxide Anion Gap BUN Creatinine Estim Creat Clear Calc Estimated GFR Random Glucose Calcium Total Bilirubin AST ALT Alkaline Phosphatase Total Protein Albumin Urine Color Urine Appearance Urine pH Ur Specific [place] Urine Protein Urine Glucose (UA) Urine Ketones Urine Blood Urine Nitrite Ur Leukocyte Esterase Urine RBC Urine WBC Ur Squamous Epith Cells Urine Bacteria Hyaline Casts Urine Test Urine Opiates Screen Urine Fentanyl Screen Ur Barbiturates Screen Valproic Acid Ur Phencyclidine Scrn Ur Amphetamines Screen U Benzodiazepines Scrn Urine Cocaine Screen U Marijuana (THC) Screen Ethyl Alcohol < 10 COVID-19 ([facility]) Negative COVID-19 [employer] See Note Meds/Allergies Meds Home Medications Medication Instructions Recorded Confirmed Type albuterol sulfate 90 mcg/actuation 2 puff inhalation Q6H PRN Wheezing 07/22/22 01/26/23 History aerosol inhaler (ProAir HFA) levothyroxine 50 mcg capsule 50 mcg PO DAILY 07/22/22 01/26/23 History loratadine 10 mg tablet 10 mg PO DAILY 07/22/22 01/26/23 History magnesium oxide 400 mg PO DAILY 07/22/22 01/26/23 History pantoprazole 40 mg tablet,delayed 40 mg PO DAILY 07/22/22 01/26/23 History release tacrolimus 0.03 % topical ointment 1 appl topical BID PRN Rash 07/22/22 01/26/23 History vitamin E (dl, acetate) 180 mg 180 mg PO BID 07/22/22 01/26/23 History (400 unit) capsule divalproex 250 mg tablet,delayed 750 mg PO DAILY 01/26/23 01/26/23 History release divalproex 500 mg tablet,delayed 1,000 mg PO BEDTIME 01/26/23 01/26/23 History release haloperidol 10 mg tablet 10 mg PO BEDTIME 01/26/23 01/26/23 History haloperidol 5 mg tablet 5 mg PO DAILY 01/26/23 01/26/23 History Allergies Allergies Allergy/AdvReac Type Severity Reaction Status Date / Time acetaminophen [From Vicodin] Allergy Intermediate Hives Verified 01/26/23 10:35 celecoxib [From Celebrex] Allergy Intermediate Hives Verified 01/26/23 10:35 hydrocodone [From Vicodin] Allergy Intermediate Hives Verified 01/26/23 10:35 ibuprofen Allergy Intermediate Stomach Verified 01/26/23 10:35 Upset oxycodone [From Percocet] Allergy Intermediate Hives Verified 01/26/23 10:35 shrimp Allergy Intermediate swelling Verified 01/26/23 10:35 mouth/tongue Sulfa (Sulfonamide Allergy Intermediate Hives Verified 01/26/23 10:35 Antibiotics) sulfamethoxazole Allergy Intermediate Hives Verified 01/26/23 10:35 [From Bactrim] trimethoprim [From Bactrim] Allergy Intermediate Hives Verified 01/26/23 10:35 penicillin G Allergy Unknown Unknown Verified 01/26/23 10:35 Grapefruit Flavor Allergy Unknown Unknown Uncoded 07/22/22 09:15 Mental Status Exam Mental Status Exam Patient Appearance: Fatigued and Disheveled Patient Orientation: Person, Place, Time and Situation Level of Consciousness: Alert Patient Behavior: Talkative and Good Eye Contact Mood Description: Labile Affect Description: Labile Patient Cognition Impaired: No Ability to Follow Directions: Good Speech Pattern: Spontaneous Speech Memory Description: Episodic Impaired Delusions: Paranoid Ideation, Grandiose and Present Thought Process: Racing, Illogical and Distracted Thought Content: positive for Flight of Ideas, positive for Circumstantial and positive for Perseveration Depressive Symptoms: Increased Anxiety and Increased Irritability Judgement: Poor Assessment & Plan Assessment & Plan (1) Schizoaffective disorder: Status: Acute Code(s): F25.9 - Schizoaffective disorder, unspecified Plan 52 yo female, history of schizoaffective disorder. Pt in [facility] ER from 01/07-01/21 with medicine changes that pt does not approve of. Pt reports she is unable to care for herself at home due to diminishing eyesight. She asks for referrals for home care to assist her and denies all psych sx. Upon presentation, pt appears manic. Plan: Collateral contact from [facility]. Continue admission regime until information is available to assess for changes Encourage pt's independence Continue to monitor. Patient educated on: medication risk/benefits and therapeutic strategies Informed Consent: further education needed Reason for continued inpatient stay Substantial Risk for: rapid decompensation Statement Statement: I have reviewed the history and physical and performed a pertinent examination on my patient. No changes have occurred unless specified. If the History and Physical was not performed prior to admission, the Hospitalist's service will be consulted for completing the admission physical. Time Spent With Patient Time: Total time managing care of this patient today ____ minutes.
[2023-01-27 18:00] VITALS: BP 135/79; PULSE 68; TEMP 36.3; O2SAT 99
[2023-01-27] MEDS: traMADoL HCL 50 MG TABLET 25 MG PO (19:24)
[2023-01-27] MEDS: HaloperidoL 5 MG TABLET 10 MG PO (21:11)
[2023-01-27] MEDS: Divalproex Sodium 500 MG TABLET.DR 1000 MG PO (21:11)
[2023-01-28] MEDS: Levothyroxine Sodium 50 MCG TABLET PO (06:10)
[2023-01-28] MEDS: Omeprazole 20 MG CAPSULE.DR PO (06:10)
[2023-01-28 08:10] VITALS: BP 109/65; PULSE 59; RESP 18; TEMP 36; O2SAT 98
[2023-01-28] MEDS: Magnesium Oxide 400 MG TABLET PO (08:39)
[2023-01-28] MEDS: Divalproex Sodium 250 MG TABLET.DR 750 MG PO (08:39)
[2023-01-28] MEDS: Loratadine 10 MG TABLET PO (08:40)
[2023-01-28] MEDS: HaloperidoL 5 MG TABLET PO (08:40)
[2023-01-28] MEDS: Vitamin E (Dl,Tocopheryl Acet) 180 MG (400 UNIT) CAPSULE PO ×2 (08:40→21:00)
[2023-01-28] MEDS: Benztropine Mesylate 1 MG TABLET PO ×2 (08:40→21:01)
[2023-01-28] MEDS: busPIRone HCl 5 MG TABLET 15 MG PO ×2 (08:40→21:01)
[2023-01-28 08:49] LABS: Estimated Average Glucose 103 mg/dL; Hemoglobin A1c % 5.2 %
[2023-01-28 09:31] LABS: Alanine Aminotransferase 17 U/L (0-31); Albumin Level 3.8 g/dL (3.5-5.0); Alkaline Phosphatase 53 U/L (39-117); Anion Gap 13 (12-20); Aspartate Amino Transferase 13 U/L (5-31); Bilirubin Total 0.8 mg/dL (0.0-1.0); Blood Urea Nitrogen 14 mg/dL (9-16); Calcium 9.4 mg/dL (8.4-10.2); Carbon Dioxide 29 mmol/L (22-29); Chloride 102 mmol/L (96-108); Cholesterol 190 mg/dL; Creatinine Clr Calc Pharmacy 92.7; Estimated Glomerular Filt Rate > 60; Glucose Fasting 86 mg/dL (60-99); HDL Cholesterol 58 mg/dL; LDL Cholesterol Calculated 112 mg/dl; Potassium 4.1 mmol/L (3.3-5.1); Sodium 140 mmol/L (135-145); Total Protein 6.6 g/dL (6.5-8.0); Triglycerides 103 mg/dL
[2023-01-28 09:48] LABS: Thyroid Stimulating Hormone 3.36 uIU/mL (0.32-4.0)
[2023-01-28 09:57] LABS: Folate 4.7 ng/mL (> or = 4.0); Vitamin B12 566 pg/mL (200-900)
[2023-01-28] MEDS: Ondansetron ODT 4 MG TAB.RAPDIS TRANSLINGU (13:34)
[2023-01-28] MEDS: traMADoL HCL 50 MG TABLET 25 MG PO (13:34)
--- NOTE | 2023-01-28 17:26 | P.PNPSI_ITS ---
Subjective Subjective Date of Service: 01/28/23 Reason For Visit: delusions Subjective Notes: Conditional Voluntary Healthcare Proxy: No Guardianship: No Medical Problems Affecting Mental Status: No Interim History: Pt reports she is not pleased with the changes made during [facility] in pt stay 01/07- 01/21. Call to [facility] who will send the discharge summary. They support the changes made during the last in pt admission. Pt feels dosages of Haldol and Valproate are too high and asks for adjustment. Also reports psoriatic arthritis pain-using Tramadol/Zofran combination to manage pain. At home, she uses cannabis which may contribute to current sx presentation which we discussed. Medication Compliance: Yes Side effects from medications: No Attending Groups: No Review of Systems Acute medical concerns: No Medical Review of Systems: unchanged Mental Status Exam Mental Status Exam Patient Appearance: Fatigued and Disheveled Patient Orientation: Person, Place, Time and Situation Level of Consciousness: Alert Patient Behavior: Talkative and Good Eye Contact Mood Description: Labile Affect Description: Labile Patient Cognition Impaired: No Ability to Follow Directions: Good Speech Pattern: Spontaneous Speech Memory Description: Episodic Impaired Delusions: Paranoid Ideation, Grandiose and Present Thought Process: Racing, Illogical and Distracted Thought Content: positive for Flight of Ideas, positive for Circumstantial and positive for Perseveration Depressive Symptoms: Increased Anxiety and Increased Irritability Judgement: Poor Diagnostics Vital Signs (24Hr): Vital Signs - 24 hr 01/27/23 18:00 01/28/23 08:10 Temperature 97.4 F 96.8 F Pulse Rate 68 59 Respiratory Rate 18 Blood Pressure 135/79 109/65 Pulse Oximetry 99 98 Oxygen Delivery Method Room Air Room Air BMI result Body Mass Index 32.0 Labs 01/26/23 12:50 01/28/23 08:21 Labs: Laboratory Results - last 48 hr 01/26/23 01/28/23 01/28/23 19:36 08:21 08:21 Sodium 140 Potassium 4.1 Chloride 102 Carbon Dioxide 29 Anion Gap 13 BUN 14 Creatinine 0.81 Estim Creat Clear Calc 92.7 Estimated GFR > 60 Fasting Glucose 86 Estimat Average Glucose 103 Hemoglobin A1c % 5.2 Calcium 9.4 Total Bilirubin 0.8 AST 13 ALT 17 Alkaline Phosphatase 53 Total Protein 6.6 Albumin 3.8 Triglycerides 103 Cholesterol 190 LDL Cholesterol, Calc 112 HDL Cholesterol 58 Vitamin B12 Folate TSH 3.36 COVID-19 ([facility]) Negative COVID-19 Clin Com See Note 01/28/23 08:21 Sodium Potassium Chloride Carbon Dioxide Anion Gap BUN Creatinine Estim Creat Clear Calc Estimated GFR Fasting Glucose Estimat Average Glucose Hemoglobin A1c % Calcium Total Bilirubin AST ALT Alkaline Phosphatase Total Protein Albumin Triglycerides Cholesterol LDL Cholesterol, Calc HDL Cholesterol Vitamin B12 566 Folate 4.7 TSH COVID-19 ([facility]) COVID-19 Clin Com Medications Medications Current Medications Al Hydroxide/Mg Hydroxide (Magnesium Hydrox/Alum Hydrox 30 Ml Oral.Susp) 30 ml PO Q6H PRN PRN Reason: Heartburn/Nausea Albuterol Sulfate (Albuterol Sulfate 90 Mcg 8 Gm Inhaler) 2 puff INHALE Q6H PRN PRN Reason: Wheezing Benztropine Mesylate (Benztropine Mesylate 1 Mg Tablet) 1 mg PO BID [facility] Last Admin: 01/28/23 08:40 Dose: 1 mg Buspirone HCl (Buspirone Hcl 5 Mg Tablet) 15 mg PO BID [facility] Last Admin: 01/28/23 08:40 Dose: 15 mg Divalproex Sodium (Divalproex Sodium 250 Mg Tablet.) 750 mg PO DAILY [facility] Last Admin: 01/28/23 08:39 Dose: 750 mg Divalproex Sodium (Divalproex Sodium 500 Mg Tablet.) 1,000 mg PO BEDTIME [facility] Last Admin: 01/27/23 21:11 Dose: 1,000 mg Haloperidol (Haloperidol 5 Mg Tablet) 5 mg PO DAILY [facility] Last Admin: 01/28/23 08:40 Dose: 5 mg Haloperidol (Haloperidol 5 Mg Tablet) 10 mg PO BEDTIME [facility] Last Admin: 01/27/23 21:11 Dose: 10 mg Hydroxyzine HCl (Hydroxyzine Hcl 25 Mg Tablet) 25 mg PO Q6H PRN PRN Reason: Anxiety Levothyroxine Sodium (Levothyroxine Sodium 50 Mcg Tablet) 50 mcg PO DAILY@0600 [facility] Last Admin: 01/28/23 06:10 Dose: 50 mcg Loratadine (Loratadine 10 Mg Tablet) 10 mg PO DAILY [facility] Last Admin: 01/28/23 08:40 Dose: 10 mg Lorazepam (Lorazepam 1 Mg Tablet) 1 mg PO BID PRN PRN Reason: Anxiety Magnesium Hydroxide (Milk Of Magnesia 30 Ml Oral.Susp) 30 ml PO DAILY PRN PRN Reason: Constipation Magnesium Oxide (Magnesium Oxide 400 Mg Tablet) 400 mg PO DAILY [facility] Last Admin: 01/28/23 08:39 Dose: 400 mg Non-Formulary Medication (Tacrolimus) 1 appl TOPICAL BID PRN PRN Reason: Rash Omeprazole (Omeprazole 20 Mg Capsule.Dr) 20 mg PO DAILY@0630 [facility] Last Admin: 01/28/23 06:10 Dose: 20 mg Pharmacy Consult (Consult Rx Perform Med Rec) 1 each MISCELLANE ONCE PRN PRN Reason: Consult order Trazodone HCl (Trazodone Hcl 50 Mg Tablet) 50 mg PO BEDTIME PRN PRN Reason: Insomnia Vitamin E (Vitamin E (Dl,Tocopheryl Acet) 180 Mg (400 Unit) Capsule) 180 mg PO BID [facility] Last Admin: 01/28/23 08:40 Dose: 180 mg Allergies Allergies Allergy/AdvReac Type Severity Reaction Status Date / Time acetaminophen [From Vicodin] Allergy Intermediate Hives Verified 01/26/23 10:35 celecoxib [From Celebrex] Allergy Intermediate Hives Verified 01/26/23 10:35 hydrocodone [From Vicodin] Allergy Intermediate Hives Verified 01/26/23 10:35 ibuprofen Allergy Intermediate Stomach Verified 01/26/23 10:35 Upset oxycodone [From Percocet] Allergy Intermediate Hives Verified 01/26/23 10:35 shrimp Allergy Intermediate swelling Verified 01/26/23 10:35 mouth/tongue Sulfa (Sulfonamide Allergy Intermediate Hives Verified 01/26/23 10:35 Antibiotics) sulfamethoxazole Allergy Intermediate Hives Verified 01/26/23 10:35 [From Bactrim] trimethoprim [From Bactrim] Allergy Intermediate Hives Verified 01/26/23 10:35 penicillin G Allergy Unknown Unknown Verified 01/26/23 10:35 Grapefruit Flavor Allergy Unknown Unknown Uncoded 07/22/22 09:15 Assessment & Plan Assessment & Plan (1) Schizoaffective disorder: Status: Acute Code(s): F25.9 - Schizoaffective disorder, unspecified Plan 52 yo female, history of schizoaffective disorder. Pt in [facility] ER from 01/07-01/21 with medicine changes that pt does not approve of. Pt reports she is unable to care for herself at home due to diminishing eyesight. She asks for referrals for home care to assist her and denies all psych sx. Upon presentation, pt appears manic. Plan: Collateral contact from [facility]. Continue admission regime until information is available to assess for changes Encourage pt's independence Continue to monitor. 01/28/23 Continue current regime. Review of [facility] data for review with pt. Patient educated on: medication risk/benefits and therapeutic strategies Informed Consent: further education needed Reason for continued inpatient stay Substantial Risk for: med/psych decompensation Time Spent With Patient Time: Total time managing care of this patient today ____ minutes.
[2023-01-28 20:50] VITALS: BP 137/73; PULSE 63; TEMP 36.2; O2SAT 97
[2023-01-28] MEDS: Divalproex Sodium 500 MG TABLET.DR 1000 MG PO (21:00)
[2023-01-28] MEDS: HaloperidoL 5 MG TABLET 10 MG PO (21:01)
[2023-01-29] MEDS: Levothyroxine Sodium 50 MCG TABLET PO (06:27)
[2023-01-29] MEDS: Omeprazole 20 MG CAPSULE.DR PO (06:27)
[2023-01-29 07:00] VITALS: BMI 32.4
[2023-01-29 08:15] VITALS: BP 143/79; PULSE 59; RESP 18; TEMP 35.8; O2SAT 96
[2023-01-29] MEDS: Magnesium Oxide 400 MG TABLET PO (08:41)
[2023-01-29] MEDS: Loratadine 10 MG TABLET PO (08:41)
[2023-01-29] MEDS: Vitamin E (Dl,Tocopheryl Acet) 180 MG (400 UNIT) CAPSULE PO ×2 (08:41→21:00)
[2023-01-29] MEDS: busPIRone HCl 5 MG TABLET 15 MG PO ×2 (08:41→20:59)
[2023-01-29] MEDS: HaloperidoL 5 MG TABLET PO (08:42)
[2023-01-29] MEDS: Benztropine Mesylate 1 MG TABLET PO ×2 (08:42→20:59)
[2023-01-29] MEDS: Divalproex Sodium 250 MG TABLET.DR 750 MG PO (08:42)
[2023-01-29] MEDS: Ondansetron ODT 4 MG TAB.RAPDIS TRANSLINGU (11:15)
[2023-01-29] MEDS: traMADoL HCL 50 MG TABLET 25 MG PO (11:15)
--- NOTE | 2023-01-29 14:43 | P.PNPSI_ITS ---
Subjective Subjective Date of Service: 01/29/23 Reason For Visit: delusions Subjective Notes: Conditional Voluntary Healthcare Proxy: No Guardianship: No Medical Problems Affecting Mental Status: No Interim History: Met with pt to review regime. She is clear, engaged, reasonable. She asked to decrease Haldol to 10 mg hs, stopping the 5 mg a.m. dose due to sedation. She asked to decreae Valproate to 500 mg a.m. and 1000 mg h.s. a reduction of 250 mg in the a.m. She reviewed her worries about going blind-this is overwhelming for her. She asked if a [employer] was possible to help her at home. I informed her team is looking at that. We discussed cannabis use for pain and how it may effect her mental status. She will consider this. Medication Compliance: Yes Side effects from medications: Yes (sedation in the morning she reports) Attending Groups: No Review of Systems Acute medical concerns: No Medical Review of Systems: unchanged Mental Status Exam Mental Status Exam Patient Appearance: Appropriate Patient Orientation: Person, Place, Time and Situation Level of Consciousness: Alert Patient Behavior: Appropriate, Talkative, Cooperative and Good Eye Contact Mood Description: Anxious and Apprehensive Affect Description: Anxious, Labile and Apprehensive Patient Cognition Impaired: No Ability to Follow Directions: Good Speech Pattern: Spontaneous Speech Memory Description: Episodic Impaired Delusions: Present Thought Process: Racing, Illogical and Distracted Thought Content: positive for Flight of Ideas, positive for Circumstantial and positive for Perseveration Depressive Symptoms: Increased Anxiety and Increased Irritability Judgement: Poor Diagnostics Vital Signs (24Hr): Vital Signs - 24 hr 01/28/23 20:50 01/29/23 08:15 Temperature 97.2 F 96.5 F L Pulse Rate 63 59 Respiratory Rate 18 Blood Pressure 137/73 143/79 H Pulse Oximetry 97 96 Oxygen Delivery Method Room Air Room Air BMI result Body Mass Index 32.4 Labs 01/26/23 12:50 01/28/23 08:21 Labs: Laboratory Results - last 48 hr 01/28/23 01/28/23 01/28/23 08:21 08:21 08:21 Sodium 140 Potassium 4.1 Chloride 102 Carbon Dioxide 29 Anion Gap 13 BUN 14 Creatinine 0.81 Estim Creat Clear Calc 92.7 Estimated GFR > 60 Fasting Glucose 86 Estimat Average Glucose 103 Hemoglobin A1c % 5.2 Calcium 9.4 Total Bilirubin 0.8 AST 13 ALT 17 Alkaline Phosphatase 53 Total Protein 6.6 Albumin 3.8 Triglycerides 103 Cholesterol 190 LDL Cholesterol, Calc 112 HDL Cholesterol 58 Vitamin B12 566 Folate 4.7 TSH 3.36 Medications Medications Current Medications Al Hydroxide/Mg Hydroxide (Magnesium Hydrox/Alum Hydrox 30 Ml Oral.Susp) 30 ml PO Q6H PRN PRN Reason: Heartburn/Nausea Albuterol Sulfate (Albuterol Sulfate 90 Mcg 8 Gm Inhaler) 2 puff INHALE Q6H PRN PRN Reason: Wheezing Benztropine Mesylate (Benztropine Mesylate 1 Mg Tablet) 1 mg PO BID [facility] Last Admin: 01/29/23 08:42 Dose: 1 mg Buspirone HCl (Buspirone Hcl 5 Mg Tablet) 15 mg PO BID [facility] Last Admin: 01/29/23 08:41 Dose: 15 mg Divalproex Sodium (Divalproex Sodium 500 Mg Tablet.) 1,000 mg PO BEDTIME [facility] Last Admin: 01/28/23 21:00 Dose: 1,000 mg Divalproex Sodium (Divalproex Sodium 500 Mg Tablet.) 500 mg PO DAILY [facility] Haloperidol (Haloperidol 5 Mg Tablet) 10 mg PO BEDTIME [facility] Last Admin: 01/28/23 21:01 Dose: 10 mg Hydroxyzine HCl (Hydroxyzine Hcl 25 Mg Tablet) 25 mg PO Q6H PRN PRN Reason: Anxiety Levothyroxine Sodium (Levothyroxine Sodium 50 Mcg Tablet) 50 mcg PO DAILY@0600 [facility] Last Admin: 01/29/23 06:27 Dose: 50 mcg Loratadine (Loratadine 10 Mg Tablet) 10 mg PO DAILY [facility] Last Admin: 01/29/23 08:41 Dose: 10 mg Lorazepam (Lorazepam 1 Mg Tablet) 1 mg PO BID PRN PRN Reason: Anxiety Magnesium Hydroxide (Milk Of Magnesia 30 Ml Oral.Susp) 30 ml PO DAILY PRN PRN Reason: Constipation Magnesium Oxide (Magnesium Oxide 400 Mg Tablet) 400 mg PO DAILY [facility] Last Admin: 01/29/23 08:41 Dose: 400 mg Non-Formulary Medication (Tacrolimus) 1 appl TOPICAL BID PRN PRN Reason: Rash Omeprazole (Omeprazole 20 Mg Capsule.) 20 mg PO DAILY@0630 [facility] Last Admin: 01/29/23 06:27 Dose: 20 mg Ondansetron HCl (Ondansetron Odt 4 Mg Tab.Rapdis) 4 mg TRANSLINGU Q12H PRN PRN Reason: Nausea Last Admin: 01/29/23 11:15 Dose: 4 mg Pharmacy Consult (Consult Rx Perform Med Rec) 1 each MISCELLANE ONCE PRN PRN Reason: Consult order Tramadol HCl (Tramadol Hcl 50 Mg Tablet) 25 mg PO Q12H PRN PRN Reason: Pain, Mild (Pain Scale 1-3) Last Admin: 01/29/23 11:15 Dose: 25 mg Trazodone HCl (Trazodone Hcl 50 Mg Tablet) 50 mg PO BEDTIME PRN PRN Reason: Insomnia Vitamin E (Vitamin E (Dl,Tocopheryl Acet) 180 Mg (400 Unit) Capsule) 180 mg PO BID [facility] Last Admin: 01/29/23 08:41 Dose: 180 mg Allergies Allergies Allergy/AdvReac Type Severity Reaction Status Date / Time acetaminophen [From Vicodin] Allergy Intermediate Hives Verified 01/26/23 10:35 celecoxib [From Celebrex] Allergy Intermediate Hives Verified 01/26/23 10:35 hydrocodone [From Vicodin] Allergy Intermediate Hives Verified 01/26/23 10:35 ibuprofen Allergy Intermediate Stomach Verified 01/26/23 10:35 Upset oxycodone [From Percocet] Allergy Intermediate Hives Verified 01/26/23 10:35 shrimp Allergy Intermediate swelling Verified 01/26/23 10:35 mouth/tongue Sulfa (Sulfonamide Allergy Intermediate Hives Verified 01/26/23 10:35 Antibiotics) sulfamethoxazole Allergy Intermediate Hives Verified 01/26/23 10:35 [From Bactrim] trimethoprim [From Bactrim] Allergy Intermediate Hives Verified 01/26/23 10:35 penicillin G Allergy Unknown Unknown Verified 01/26/23 10:35 Grapefruit Flavor Allergy Unknown Unknown Uncoded 07/22/22 09:15 Assessment & Plan Assessment & Plan (1) Schizoaffective disorder: Status: Acute Code(s): F25.9 - Schizoaffective disorder, unspecified Plan 52 yo female, history of schizoaffective disorder. Pt in [facility] ER from 01/07-01/21 with medicine changes that pt does not approve of. Pt reports she is unable to care for herself at home due to diminishing eyesight. She asks for referrals for home care to assist her and denies all psych sx. Upon presentation, pt appears manic. Plan: Collateral contact from [place]. Continue admission regime until information is available to assess for changes Encourage pt's independence Continue to monitor. 01/29/23: Decrease Depakote to 500 mg a.m. 1000 mg h.s., a decrease of 250 mg. Continue Haldol 10 mg hs Discontinue Haldol 5 mg a.m. A total decrease of 5 mg Monitor for effects. Patient educated on: medication risk/benefits and therapeutic strategies Informed Consent: understands and further education needed Reason for continued inpatient stay Substantial Risk for: med/psych decompensation Time Spent With Patient Time: Total time managing care of this patient today ____ minutes.
[2023-01-29 16:06] VITALS: BP 128/74; PULSE 81; RESP 18; TEMP 36.1; O2SAT 97
[2023-01-29] MEDS: LORazepam 1 MG TABLET PO (18:37)
[2023-01-29] MEDS: Milk of Magnesia 30 ML ORAL.SUSP PO (20:16)
[2023-01-29] MEDS: HaloperidoL 5 MG TABLET 10 MG PO (20:59)
[2023-01-29] MEDS: Divalproex Sodium 500 MG TABLET.DR 1000 MG PO (20:59)
[2023-01-30] MEDS: Levothyroxine Sodium 50 MCG TABLET PO (06:06)
[2023-01-30] MEDS: Omeprazole 20 MG CAPSULE.DR PO (06:06)
[2023-01-30 08:05] VITALS: BP 150/82; PULSE 65; RESP 16; TEMP 36.1; O2SAT 96
[2023-01-30] MEDS: Vitamin E (Dl,Tocopheryl Acet) 180 MG (400 UNIT) CAPSULE PO ×2 (08:16→21:04)
[2023-01-30] MEDS: Benztropine Mesylate 1 MG TABLET PO ×2 (08:16→21:05)
[2023-01-30] MEDS: Loratadine 10 MG TABLET PO (08:16)
[2023-01-30] MEDS: Magnesium Oxide 400 MG TABLET PO (08:16)
[2023-01-30] MEDS: busPIRone HCl 5 MG TABLET 15 MG PO ×2 (08:16→21:26)
[2023-01-30] MEDS: Divalproex Sodium 500 MG TABLET.DR PO (08:16)
[2023-01-30] MEDS: traMADoL HCL 50 MG TABLET 25 MG PO ×2 (09:13→21:05)
[2023-01-30] MEDS: Ondansetron ODT 4 MG TAB.RAPDIS TRANSLINGU ×2 (09:13→21:03)
--- NOTE | 2023-01-30 15:56 | HO.PSYCHPN ---
Subjective Subjective Date of Service: 01/30/23 Reason For Visit: delusions Subjective Notes: Conditional Voluntary Healthcare Proxy: No Guardianship: No Medical Problems Affecting Mental Status: No Interim History: Labile, agitated at times, delusional about being spit at, about assault. Verbally caustic to team. Pt's request to decrease regime of valproate and haldol is not helpful. Will add 5 mg Haldol back to HS dosing. Visable in the milieu. Medication Compliance: Yes Side effects from medications: No Attending Groups: Intermittent Review of Systems Acute medical concerns: No Medical Review of Systems: unchanged Mental Status Exam Mental Status Exam Patient Appearance: Disheveled Patient Orientation: Person, Place, Time and Situation Level of Consciousness: Alert Patient Behavior: Talkative, Aggressive, Distractible and Good Eye Contact Mood Description: Hostile, Anxious, Labile, Angry and Apprehensive Affect Description: Anxious, Labile and Apprehensive Patient Cognition Impaired: No Ability to Follow Directions: Fair Speech Pattern: Spontaneous Speech Memory Description: Episodic Impaired Delusions: Paranoid Ideation, Grandiose and Present Thought Process: Racing, Illogical and Distracted Thought Content: positive for Flight of Ideas, positive for Circumstantial, positive for Perseveration, positive for Tangential and positive for Disorganized Depressive Symptoms: Increased Anxiety and Increased Irritability Abnormal Motor Activity Signs and Symptoms: Agitation and Restlessness Judgement: Poor Diagnostics Vital Signs (24Hr): Vital Signs - 24 hr 01/29/23 16:06 01/30/23 08:05 Temperature 97 F 96.9 F Pulse Rate 81 65 Respiratory Rate 18 16 Blood Pressure 128/74 150/82 H Pulse Oximetry 97 96 Oxygen Delivery Method Room Air Room Air BMI result Body Mass Index 32.4 Labs 01/26/23 12:50 01/28/23 08:21 Medications Medications Current Medications Al Hydroxide/Mg Hydroxide (Magnesium Hydrox/Alum Hydrox 30 Ml Oral.Susp) 30 ml PO Q6H PRN PRN Reason: Heartburn/Nausea Albuterol Sulfate (Albuterol Sulfate 90 Mcg 8 Gm Inhaler) 2 puff INHALE Q6H PRN PRN Reason: Wheezing Benztropine Mesylate (Benztropine Mesylate 1 Mg Tablet) 1 mg PO BID [facility] Last Admin: 01/30/23 08:16 Dose: 1 mg Buspirone HCl (Buspirone Hcl 5 Mg Tablet) 15 mg PO BID [facility] Last Admin: 01/30/23 08:16 Dose: 15 mg Divalproex Sodium (Divalproex Sodium 500 Mg Tablet.) 1,000 mg PO BEDTIME [facility] Last Admin: 01/29/23 20:59 Dose: 1,000 mg Divalproex Sodium (Divalproex Sodium 500 Mg Tablet.) 500 mg PO DAILY [facility] Last Admin: 01/30/23 08:16 Dose: 500 mg Haloperidol (Haloperidol 5 Mg Tablet) 10 mg PO BEDTIME [facility] Last Admin: 01/29/23 20:59 Dose: 10 mg Hydroxyzine HCl (Hydroxyzine Hcl 25 Mg Tablet) 25 mg PO Q6H PRN PRN Reason: Anxiety Levothyroxine Sodium (Levothyroxine Sodium 50 Mcg Tablet) 50 mcg PO DAILY@0600 [facility] Last Admin: 01/30/23 06:06 Dose: 50 mcg Loratadine (Loratadine 10 Mg Tablet) 10 mg PO DAILY [facility] Last Admin: 01/30/23 08:16 Dose: 10 mg Lorazepam (Lorazepam 1 Mg Tablet) 1 mg PO BID PRN PRN Reason: Anxiety Last Admin: 01/29/23 18:37 Dose: 1 mg Magnesium Hydroxide (Milk Of Magnesia 30 Ml Oral.Susp) 30 ml PO DAILY PRN PRN Reason: Constipation Last Admin: 01/29/23 20:16 Dose: 30 ml Magnesium Oxide (Magnesium Oxide 400 Mg Tablet) 400 mg PO DAILY [facility] Last Admin: 01/30/23 08:16 Dose: 400 mg Non-Formulary Medication (Tacrolimus) 1 appl TOPICAL BID PRN PRN Reason: Rash Omeprazole (Omeprazole 20 Mg Capsule.) 20 mg PO DAILY@0630 [facility] Last Admin: 01/30/23 06:06 Dose: 20 mg Ondansetron HCl (Ondansetron Odt 4 Mg Tab.Rapdis) 4 mg TRANSLINGU Q12H PRN PRN Reason: Nausea Last Admin: 01/30/23 09:13 Dose: 4 mg Pharmacy Consult (Consult Rx Perform Med Rec) 1 each MISCELLANE ONCE PRN PRN Reason: Consult order Tramadol HCl (Tramadol Hcl 50 Mg Tablet) 25 mg PO Q12H PRN PRN Reason: Pain, Mild (Pain Scale 1-3) Last Admin: 01/30/23 09:13 Dose: 25 mg Trazodone HCl (Trazodone Hcl 50 Mg Tablet) 50 mg PO BEDTIME PRN PRN Reason: Insomnia Vitamin E (Vitamin E (Dl,Tocopheryl Acet) 180 Mg (400 Unit) Capsule) 180 mg PO BID [facility] Last Admin: 01/30/23 08:16 Dose: 180 mg Allergies Allergies Allergy/AdvReac Type Severity Reaction Status Date / Time acetaminophen [From Vicodin] Allergy Intermediate Hives Verified 01/26/23 10:35 celecoxib [From Celebrex] Allergy Intermediate Hives Verified 01/26/23 10:35 hydrocodone [From Vicodin] Allergy Intermediate Hives Verified 01/26/23 10:35 ibuprofen Allergy Intermediate Stomach Verified 01/26/23 10:35 Upset oxycodone [From Percocet] Allergy Intermediate Hives Verified 01/26/23 10:35 shrimp Allergy Intermediate swelling Verified 01/26/23 10:35 mouth/tongue Sulfa (Sulfonamide Allergy Intermediate Hives Verified 01/26/23 10:35 Antibiotics) sulfamethoxazole Allergy Intermediate Hives Verified 01/26/23 10:35 [From Bactrim] trimethoprim [From Bactrim] Allergy Intermediate Hives Verified 01/26/23 10:35 penicillin G Allergy Unknown Unknown Verified 01/26/23 10:35 Grapefruit Flavor Allergy Unknown Unknown Uncoded 07/22/22 09:15 Assessment & Plan Assessment & Plan (1) Schizoaffective disorder: Status: Acute Code(s): F25.9 - Schizoaffective disorder, unspecified Plan 52 yo female, history of schizoaffective disorder. Pt in [facility] ER from 01/07-01/21 with medicine changes that pt does not approve of. Pt reports she is unable to care for herself at home due to diminishing eyesight. She asks for referrals for home care to assist her and denies all psych sx. Upon presentation, pt appears manic. Plan: Collateral contact from [facility]. Continue admission regime until information is available to assess for changes Encourage pt's independence Continue to monitor. 01/29/23: Decrease Depakote to 500 mg a.m. 1000 mg h.s., a decrease of 250 mg. Continue Haldol 10 mg hs Discontinue Haldol 5 mg a.m. A total decrease of 5 mg Monitor for effects. 01/30/21: Increase Haldol to 15 mg HS Informed Consent: does not understand and further education needed Reason for continued inpatient stay Substantial Risk for: rapid decompensation Time Spent With Patient Time: Total time managing care of this patient today ____ minutes.
[2023-01-30 18:00] VITALS: BP 173/82; PULSE 89; RESP 24; TEMP 36; O2SAT 98
[2023-01-30] MEDS: HaloperidoL 5 MG TABLET 15 MG PO (21:04)
[2023-01-30] MEDS: Divalproex Sodium 500 MG TABLET.DR 1000 MG PO (21:05)
[2023-01-30] MEDS: LORazepam 1 MG TABLET PO (21:08)
[2023-01-31] MEDS: Omeprazole 20 MG CAPSULE.DR PO (06:31)
[2023-01-31] MEDS: Levothyroxine Sodium 50 MCG TABLET PO (06:32)
[2023-01-31 08:42] VITALS: BP 189/67; PULSE 87; RESP 16; TEMP 37.1; O2SAT 99
[2023-01-31] MEDS: busPIRone HCl 5 MG TABLET 15 MG PO ×2 (09:21→21:01)
[2023-01-31] MEDS: Vitamin E (Dl,Tocopheryl Acet) 180 MG (400 UNIT) CAPSULE PO ×2 (09:22→21:01)
[2023-01-31] MEDS: Loratadine 10 MG TABLET PO (09:22)
[2023-01-31] MEDS: Benztropine Mesylate 1 MG TABLET PO ×2 (09:22→21:00)
[2023-01-31] MEDS: Magnesium Oxide 400 MG TABLET PO (09:22)
[2023-01-31] MEDS: Divalproex Sodium 500 MG TABLET.DR PO (09:22)
[2023-01-31] MEDS: traMADoL HCL 50 MG TABLET 25 MG PO ×2 (09:43→21:09)
[2023-01-31] MEDS: Ondansetron ODT 4 MG TAB.RAPDIS TRANSLINGU ×2 (09:43→21:08)
--- NOTE | 2023-01-31 14:46 | P.PNPSI_ITS ---
Subjective Subjective Date of Service: 01/31/23 Reason For Visit: delusions Interim History: Patient seen and discussed. Reports she came to the hospital because she wanted to get cataract surgery because she can't see. She continues paranoid and accusatory saying patient spit at her. She says SW is helping to set up [employer] services for her to help her with her. Denies SI. Tolerating medications well. Review of Systems Review of Systems Constitutional : No Weight loss, No Fever, No Chills, No Fatigue, No Malaise ENT/Mouth : No sore throat, No Rhinorrhea Eyes: No Eye Pain, No Swelling, No Redness, + visual changes Cardiovascular : No Chest Pain, No SOB, No Dyspnea on Exertion, No Orthopnea, No Edema, No Palpitations Respiratory : No Cough, No Sputum, No Wheezing Gastrointestinal : No Nausea, No Vomiting, No Diarrhea, No Constipation, No abdominal Pain, No Hematochezia, No Melena Genitourinary : No Dysuria, No Urinary Frequency, No Hematuria, Musculoskeletal : No joint pain, No Myalgias, No Joint Swelling Skin : No Skin Lesions, No rash Neuro : No Weakness, No Numbness, No Dizziness, No Headache Psych : No Anxiety/Panic, No Depression All other systems reviewed and are negative Yes all other systems are reviewed and are negative Constitutional: Reports no additional constitutional complaints Eyes: Reports blind spots, Reports blurry vision, Reports change in vision, Reports decreased night vision, Reports loss of peripheral vision, Reports loss of vision and Reports spots in vision Reports system reviewed and no additional complaints, except as documented Cardiovascular: Reports no additional cardiovascular complaints Respiratory: Reports no additional respiratory complaints Gastrointestinal: Reports no additional gastrointestinal complaints Musculoskeletal: Reports no additional musculoskeletal complaints Skin/Breast: Reports system reviewed and no additional complaints, except as docu Reports behavioral changes and Reports loss of vision Psychiatric: Reports anxiety, Reports behavioral changes, Reports depression, Reports hopelessness, Reports irritability, Reports anhedonia and Reports mood swings Endocrine: Reports no additional endocrine complaints Hematologic/Lymphatic: Reports no additional hematologic/lymphatic complaints Allergic/Immunologic: Reports no additional allergic/immunologic complaints Mental Status Exam Mental Status Exam Patient Appearance: Disheveled Patient Orientation: Person, Place, Time and Situation Level of Consciousness: Alert Patient Behavior: Talkative, Aggressive, Distractible and Good Eye Contact Mood Description: Hostile, Anxious, Labile, Angry and Apprehensive Affect Description: Anxious, Labile and Apprehensive Patient Cognition Impaired: No Ability to Follow Directions: Fair Speech Pattern: Spontaneous Speech Memory Description: Episodic Impaired Diagnostics Vital Signs (24Hr): Vital Signs - 24 hr 01/30/23 18:00 01/31/23 08:42 Temperature 96.8 F 98.7 F Pulse Rate 89 87 Respiratory Rate 24 H 16 Blood Pressure 173/82 H 189/67 H Pulse Oximetry 98 99 Oxygen Delivery Method Room Air Room Air BMI result Body Mass Index 32.4 Labs 01/26/23 12:50 01/28/23 08:21 Medications Medications Current Medications Al Hydroxide/Mg Hydroxide (Magnesium Hydrox/Alum Hydrox 30 Ml Oral.Susp) 30 ml PO Q6H PRN PRN Reason: Heartburn/Nausea Albuterol Sulfate (Albuterol Sulfate 90 Mcg 8 Gm Inhaler) 2 puff INHALE Q6H PRN PRN Reason: Wheezing Benztropine Mesylate (Benztropine Mesylate 1 Mg Tablet) 1 mg PO BID [facility] Last Admin: 01/31/23 09:22 Dose: 1 mg Buspirone HCl (Buspirone Hcl 5 Mg Tablet) 15 mg PO BID [facility] Last Admin: 01/31/23 09:21 Dose: 15 mg Divalproex Sodium (Divalproex Sodium 500 Mg Tablet.) 1,000 mg PO BEDTIME [facility] Last Admin: 01/30/23 21:05 Dose: 1,000 mg Divalproex Sodium (Divalproex Sodium 500 Mg Tablet.) 500 mg PO DAILY [facility] Last Admin: 01/31/23 09:22 Dose: 500 mg Haloperidol (Haloperidol 5 Mg Tablet) 15 mg PO BEDTIME [facility] Last Admin: 01/30/23 21:04 Dose: 15 mg Hydroxyzine HCl (Hydroxyzine Hcl 25 Mg Tablet) 25 mg PO Q6H PRN PRN Reason: Anxiety Levothyroxine Sodium (Levothyroxine Sodium 50 Mcg Tablet) 50 mcg PO DAILY@0600 [facility] Last Admin: 01/31/23 06:32 Dose: 50 mcg Loratadine (Loratadine 10 Mg Tablet) 10 mg PO DAILY [facility] Last Admin: 01/31/23 09:22 Dose: 10 mg Lorazepam (Lorazepam 1 Mg Tablet) 1 mg PO BID PRN PRN Reason: Anxiety Last Admin: 01/30/23 21:08 Dose: 1 mg Magnesium Hydroxide (Milk Of Magnesia 30 Ml Oral.Susp) 30 ml PO DAILY PRN PRN Reason: Constipation Last Admin: 01/29/23 20:16 Dose: 30 ml Magnesium Oxide (Magnesium Oxide 400 Mg Tablet) 400 mg PO DAILY [facility] Last Admin: 01/31/23 09:22 Dose: 400 mg Omeprazole (Omeprazole 20 Mg Capsule.Dr) 20 mg PO DAILY@0630 [facility] Last Admin: 01/31/23 06:31 Dose: 20 mg Ondansetron HCl (Ondansetron Odt 4 Mg Tab.Rapdis) 4 mg TRANSLINGU Q12H PRN PRN Reason: Nausea Last Admin: 01/31/23 09:43 Dose: 4 mg Pharmacy Consult (Consult Rx Perform Med Rec) 1 each MISCELLANE ONCE PRN PRN Reason: Consult order Tramadol HCl (Tramadol Hcl 50 Mg Tablet) 25 mg PO Q12H PRN PRN Reason: Pain, Mild (Pain Scale 1-3) Last Admin: 01/31/23 09:43 Dose: 25 mg Trazodone HCl (Trazodone Hcl 50 Mg Tablet) 50 mg PO BEDTIME PRN PRN Reason: Insomnia Vitamin E (Vitamin E (Dl,Tocopheryl Acet) 180 Mg (400 Unit) Capsule) 180 mg PO BID [facility] Last Admin: 01/31/23 09:22 Dose: 180 mg Allergies Allergies Allergy/AdvReac Type Severity Reaction Status Date / Time acetaminophen [From Vicodin] Allergy Intermediate Hives Verified 01/26/23 10:35 celecoxib [From Celebrex] Allergy Intermediate Hives Verified 01/26/23 10:35 hydrocodone [From Vicodin] Allergy Intermediate Hives Verified 01/26/23 10:35 ibuprofen Allergy Intermediate Stomach Verified 01/26/23 10:35 Upset oxycodone [From Percocet] Allergy Intermediate Hives Verified 01/26/23 10:35 shrimp Allergy Intermediate swelling Verified 01/26/23 10:35 mouth/tongue Sulfa (Sulfonamide Allergy Intermediate Hives Verified 01/26/23 10:35 Antibiotics) sulfamethoxazole Allergy Intermediate Hives Verified 01/26/23 10:35 [From Bactrim] trimethoprim [From Bactrim] Allergy Intermediate Hives Verified 01/26/23 10:35 penicillin G Allergy Unknown Unknown Verified 01/26/23 10:35 Grapefruit Flavor Allergy Unknown Unknown Uncoded 07/22/22 09:15 Assessment & Plan Assessment & Plan (1) Schizoaffective disorder: Status: Acute Code(s): F25.9 - Schizoaffective disorder, unspecified Plan 52 yo female, history of schizoaffective disorder. Pt in [facility] ER from 01/07-01/21 with medicine changes that pt does not approve of. Pt reports she is unable to care for herself at home due to diminishing eyesight. She asks for referrals for home care to assist her and denies all psych sx. Upon presentation, pt appears manic. Plan: Collateral contact from [place]. Continue admission regime until information is available to assess for changes Encourage pt's independence Continue to monitor. 01/29/23: Decrease Depakote to 500 mg a.m. 1000 mg h.s., a decrease of 250 mg. Continue Haldol 10 mg hs Discontinue Haldol 5 mg a.m. A total decrease of 5 mg Monitor for effects. 01/30/21: Increase Haldol to 15 mg HS 01/31: Continue current medications and treatment plan. Reason for continued inpatient stay Substantial Risk for: inability to function and rapid decompensation Time Spent With Patient Time: Total time managing care of this patient today ____ minutes.
[2023-01-31] MEDS: LORazepam 1 MG TABLET PO (21:00)
[2023-01-31] MEDS: Divalproex Sodium 500 MG TABLET.DR 1000 MG PO (21:00)
[2023-01-31] MEDS: HaloperidoL 5 MG TABLET 15 MG PO (21:00)
[2023-01-31 21:13] VITALS: BP 135/79; PULSE 71; RESP 18; TEMP 36.4
[2023-02-01] MEDS: Levothyroxine Sodium 50 MCG TABLET PO (05:54)
[2023-02-01] MEDS: Omeprazole 20 MG CAPSULE.DR PO (05:54)
[2023-02-01 08:20] LABS: Valproate 73.9 mcg/mL (50.0-100.0)
[2023-02-01] MEDS: Magnesium Oxide 400 MG TABLET PO (09:57)
[2023-02-01] MEDS: Loratadine 10 MG TABLET PO (09:57)
[2023-02-01] MEDS: busPIRone HCl 5 MG TABLET 15 MG PO ×2 (09:57→20:52)
[2023-02-01] MEDS: Vitamin E (Dl,Tocopheryl Acet) 180 MG (400 UNIT) CAPSULE PO ×2 (09:57→20:53)
[2023-02-01] MEDS: Divalproex Sodium 500 MG TABLET.DR PO (09:57)
[2023-02-01] MEDS: Benztropine Mesylate 1 MG TABLET PO ×2 (09:57→20:52)
[2023-02-01 10:01] VITALS: BP 138/87; PULSE 98; RESP 16; TEMP 36.8; O2SAT 98
[2023-02-01] MEDS: traMADoL HCL 50 MG TABLET 25 MG PO ×2 (10:25→20:52)
[2023-02-01] MEDS: Ondansetron ODT 4 MG TAB.RAPDIS TRANSLINGU ×2 (10:25→20:52)
--- NOTE | 2023-02-01 10:52 | P.PNPSI_ITS ---
Subjective Subjective Date of Service: 02/01/23 Reason For Visit: delusions Interim History: Patient seen and discussed. Attended a group and went on a fresh air break but says she got hot and cut it short. She reports she came to the hospital because she wanted to get cataract surgery because she can't see. She says SW is helping to set up [facility]IST services for her to help her with her daily activities until she gets cataract surgery. Denies SI. Tolerating medications well. Review of Systems Review of Systems Constitutional : No Weight loss, No Fever, No Chills, No Fatigue, No Malaise ENT/Mouth : No sore throat, No Rhinorrhea Eyes: No Eye Pain, No Swelling, No Redness, + visual changes Cardiovascular : No Chest Pain, No SOB, No Dyspnea on Exertion, No Orthopnea, No Edema, No Palpitations Respiratory : No Cough, No Sputum, No Wheezing Gastrointestinal : No Nausea, No Vomiting, No Diarrhea, No Constipation, No abdominal Pain, No Hematochezia, No Melena Genitourinary : No Dysuria, No Urinary Frequency, No Hematuria, Musculoskeletal : No joint pain, No Myalgias, No Joint Swelling Skin : No Skin Lesions, No rash Neuro : No Weakness, No Numbness, No Dizziness, No Headache Psych : No Anxiety/Panic, No Depression All other systems reviewed and are negative Yes all other systems are reviewed and are negative Constitutional: Reports no additional constitutional complaints Eyes: Reports blind spots, Reports blurry vision, Reports change in vision, Reports decreased night vision, Reports loss of peripheral vision, Reports loss of vision and Reports spots in vision Reports system reviewed and no additional complaints, except as documented Cardiovascular: Reports no additional cardiovascular complaints Respiratory: Reports no additional respiratory complaints Gastrointestinal: Reports no additional gastrointestinal complaints Musculoskeletal: Reports no additional musculoskeletal complaints Skin/Breast: Reports system reviewed and no additional complaints, except as docu Reports behavioral changes and Reports loss of vision Psychiatric: Reports anxiety, Reports behavioral changes, Reports depression, Reports hopelessness, Reports irritability, Reports anhedonia and Reports mood swings Endocrine: Reports no additional endocrine complaints Hematologic/Lymphatic: Reports no additional hematologic/lymphatic complaints Allergic/Immunologic: Reports no additional allergic/immunologic complaints Mental Status Exam Mental Status Exam Patient Appearance: Disheveled Patient Orientation: Person, Place, Time and Situation Level of Consciousness: Alert Patient Behavior: Appropriate (more appropriate), Talkative, Distractible and Good Eye Contact Mood Description: Hostile, Anxious, Labile, Angry and Apprehensive Affect Description: Anxious, Labile and Apprehensive Patient Cognition Impaired: No Ability to Follow Directions: Fair Speech Pattern: Spontaneous Speech Memory Description: Episodic Impaired Diagnostics Vital Signs (24Hr): Vital Signs - 24 hr 01/31/23 21:13 02/01/23 10:01 Temperature 97.5 F 98.2 F Pulse Rate 71 98 Respiratory Rate 18 16 Blood Pressure 135/79 138/87 Pulse Oximetry 98 Oxygen Delivery Method Room Air BMI result Body Mass Index 32.4 Labs 01/26/23 12:50 01/28/23 08:21 Labs: Laboratory Results - last 48 hr 02/01/23 07:17 Valproic Acid 73.9 Medications Medications Current Medications Al Hydroxide/Mg Hydroxide (Magnesium Hydrox/Alum Hydrox 30 Ml Oral.Susp) 30 ml PO Q6H PRN PRN Reason: Heartburn/Nausea Albuterol Sulfate (Albuterol Sulfate 90 Mcg 8 Gm Inhaler) 2 puff INHALE Q6H PRN PRN Reason: Wheezing Benztropine Mesylate (Benztropine Mesylate 1 Mg Tablet) 1 mg PO BID [facility] Last Admin: 02/01/23 09:57 Dose: 1 mg Buspirone HCl (Buspirone Hcl 5 Mg Tablet) 15 mg PO BID [facility] Last Admin: 02/01/23 09:57 Dose: 15 mg Divalproex Sodium (Divalproex Sodium 500 Mg Tablet.) 1,000 mg PO BEDTIME [facility] Last Admin: 01/31/23 21:00 Dose: 1,000 mg Divalproex Sodium (Divalproex Sodium 500 Mg Tablet.) 500 mg PO DAILY [facility] Last Admin: 02/01/23 09:57 Dose: 500 mg Haloperidol (Haloperidol 5 Mg Tablet) 15 mg PO BEDTIME [facility] Last Admin: 01/31/23 21:00 Dose: 15 mg Hydroxyzine HCl (Hydroxyzine Hcl 25 Mg Tablet) 25 mg PO Q6H PRN PRN Reason: Anxiety Levothyroxine Sodium (Levothyroxine Sodium 50 Mcg Tablet) 50 mcg PO DAILY@0600 [facility] Last Admin: 02/01/23 05:54 Dose: 50 mcg Loratadine (Loratadine 10 Mg Tablet) 10 mg PO DAILY [facility] Last Admin: 02/01/23 09:57 Dose: 10 mg Magnesium Hydroxide (Milk Of Magnesia 30 Ml Oral.Susp) 30 ml PO DAILY PRN PRN Reason: Constipation Last Admin: 01/29/23 20:16 Dose: 30 ml Magnesium Oxide (Magnesium Oxide 400 Mg Tablet) 400 mg PO DAILY [facility] Last Admin: 02/01/23 09:57 Dose: 400 mg Omeprazole (Omeprazole 20 Mg Capsule.Dr) 20 mg PO DAILY@0630 [facility] Last Admin: 02/01/23 05:54 Dose: 20 mg Ondansetron HCl (Ondansetron Odt 4 Mg Tab.Rapdis) 4 mg TRANSLINGU Q12H PRN PRN Reason: Nausea Last Admin: 02/01/23 10:25 Dose: 4 mg Pharmacy Consult (Consult Rx Perform Med Rec) 1 each MISCELLANE ONCE PRN PRN Reason: Consult order Tramadol HCl (Tramadol Hcl 50 Mg Tablet) 25 mg PO Q12H PRN PRN Reason: Pain, Mild (Pain Scale 1-3) Last Admin: 02/01/23 10:25 Dose: 25 mg Trazodone HCl (Trazodone Hcl 50 Mg Tablet) 50 mg PO BEDTIME PRN PRN Reason: Insomnia Vitamin E (Vitamin E (Dl,Tocopheryl Acet) 180 Mg (400 Unit) Capsule) 180 mg PO BID [facility] Last Admin: 02/01/23 09:57 Dose: 180 mg Allergies Allergies Allergy/AdvReac Type Severity Reaction Status Date / Time acetaminophen [From Vicodin] Allergy Intermediate Hives Verified 01/26/23 10:35 celecoxib [From Celebrex] Allergy Intermediate Hives Verified 01/26/23 10:35 hydrocodone [From Vicodin] Allergy Intermediate Hives Verified 01/26/23 10:35 ibuprofen Allergy Intermediate Stomach Verified 01/26/23 10:35 Upset oxycodone [From Percocet] Allergy Intermediate Hives Verified 01/26/23 10:35 shrimp Allergy Intermediate swelling Verified 01/26/23 10:35 mouth/tongue Sulfa (Sulfonamide Allergy Intermediate Hives Verified 01/26/23 10:35 Antibiotics) sulfamethoxazole Allergy Intermediate Hives Verified 01/26/23 10:35 [From Bactrim] trimethoprim [From Bactrim] Allergy Intermediate Hives Verified 01/26/23 10:35 penicillin G Allergy Unknown Unknown Verified 01/26/23 10:35 Grapefruit Flavor Allergy Unknown Unknown Uncoded 07/22/22 09:15 Assessment & Plan Assessment & Plan (1) Schizoaffective disorder: Status: Acute Code(s): F25.9 - Schizoaffective disorder, unspecified Plan 52 yo female, history of schizoaffective disorder. Pt in [facility] ER from 01/07-01/21 with medicine changes that pt does not approve of. Pt reports she is unable to care for herself at home due to diminishing eyesight. She asks for referrals for home care to assist her and denies all psych sx. Upon presentation, pt appears manic. Plan: Collateral contact from [facility]. Continue admission regime until information is available to assess for changes Encourage pt's independence Continue to monitor. 01/29/23: Decrease Depakote to 500 mg a.m. 1000 mg h.s., a decrease of 250 mg. Continue Haldol 10 mg hs Discontinue Haldol 5 mg a.m. A total decrease of 5 mg Monitor for effects. 01/30/21: Increase Haldol to 15 mg HS 01/31: Continue current medications and treatment plan. 02/01: Continue current medications and treatment plan. Reason for continued inpatient stay Substantial Risk for: inability to function and rapid decompensation Time Spent With Patient Time: Total time managing care of this patient today ____ minutes.
[2023-02-01 20:47] VITALS: BP 143/85; PULSE 85; RESP 16; TEMP 36.4; O2SAT 98
[2023-02-01] MEDS: HaloperidoL 5 MG TABLET 15 MG PO (20:52)
[2023-02-01] MEDS: Divalproex Sodium 500 MG TABLET.DR 1000 MG PO (20:53)
[2023-02-01] MEDS: LORazepam 1 MG TABLET PO (21:00)
[2023-02-02] MEDS: Omeprazole 20 MG CAPSULE.DR PO (06:05)
[2023-02-02] MEDS: Levothyroxine Sodium 50 MCG TABLET PO (06:05)
[2023-02-02] MEDS: Divalproex Sodium 500 MG TABLET.DR PO (09:24)
[2023-02-02] MEDS: Vitamin E (Dl,Tocopheryl Acet) 180 MG (400 UNIT) CAPSULE PO ×2 (09:24→21:27)
[2023-02-02] MEDS: Loratadine 10 MG TABLET PO (09:24)
[2023-02-02 09:25] VITALS: BP 132/83; PULSE 67; RESP 18; TEMP 36.2; O2SAT 98
[2023-02-02] MEDS: busPIRone HCl 5 MG TABLET 15 MG PO ×2 (09:25→21:27)
[2023-02-02] MEDS: Benztropine Mesylate 1 MG TABLET PO ×2 (09:25→21:27)
[2023-02-02] MEDS: Magnesium Oxide 400 MG TABLET PO (09:25)
[2023-02-02] MEDS: traMADoL HCL 50 MG TABLET 25 MG PO ×2 (09:39→21:30)
[2023-02-02] MEDS: Ondansetron ODT 4 MG TAB.RAPDIS TRANSLINGU ×2 (09:46→21:26)
--- NOTE | 2023-02-02 14:25 | P.PNPSI_ITS ---
Subjective Subjective Date of Service: 02/02/23 Reason For Visit: delusions Subjective Notes: Conditional Voluntary and 3 Day Healthcare Proxy: No Guardianship: No Medical Problems Affecting Mental Status: No Interim History: Three day notice to 02/04. Call to Dr. Don's office [phone]. Pt's appt to discuss cataract removal 03/09/23 10:40am. Pt was not aware but was pleased. Continues with delusions that others are spitting at her. Most of her perceptions are persecutory in nature- being given too many medicines, being threatened in community. Visable in milieu. Continues to report impaired sight with ability to engage safely in the environment. Asks for full care when she goes home. Medication Compliance: Yes Side effects from medications: No Attending Groups: No Review of Systems Acute medical concerns: No Medical Review of Systems: unchanged Mental Status Exam Mental Status Exam Patient Appearance: Disheveled Patient Orientation: Person, Place and Situation Level of Consciousness: Alert Patient Behavior: Talkative and Cooperative Mood Description: Constricted Affect Description: Constricted Ability to Follow Directions: Good Speech Pattern: Spontaneous Speech Memory Description: Episodic Impaired Hallucinations: Auditory (some self dialogue sx noted.) Delusions: Paranoid Ideation Perceptual Disturbances: Derealization Thought Process: Distracted, Rumination and Evasive Thought Content: positive for Circumstantial, positive for Perseveration and positive for Preoccupation Depressive Symptoms: Increased Anxiety and Increased Irritability Abnormal Motor Activity Signs and Symptoms: Restlessness Judgement: Fair Diagnostics Vital Signs (24Hr): Vital Signs - 24 hr 02/01/23 20:47 02/02/23 09:25 Temperature 97.6 F 97.2 F Pulse Rate 85 67 Respiratory Rate 16 18 Blood Pressure 143/85 H 132/83 Pulse Oximetry 98 98 Oxygen Delivery Method Room Air Room Air BMI result Body Mass Index 32.4 Labs 01/26/23 12:50 01/28/23 08:21 Labs: Laboratory Results - last 48 hr 02/01/23 07:17 Valproic Acid 73.9 Medications Medications Current Medications Al Hydroxide/Mg Hydroxide (Magnesium Hydrox/Alum Hydrox 30 Ml Oral.Susp) 30 ml PO Q6H PRN PRN Reason: Heartburn/Nausea Albuterol Sulfate (Albuterol Sulfate 90 Mcg 8 Gm Inhaler) 2 puff INHALE Q6H PRN PRN Reason: Wheezing Benztropine Mesylate (Benztropine Mesylate 1 Mg Tablet) 1 mg PO BID [facility] Last Admin: 02/02/23 09:25 Dose: 1 mg Buspirone HCl (Buspirone Hcl 5 Mg Tablet) 15 mg PO BID [facility] Last Admin: 02/02/23 09:25 Dose: 15 mg Divalproex Sodium (Divalproex Sodium 500 Mg Tablet.) 1,000 mg PO BEDTIME [facility] Last Admin: 02/01/23 20:53 Dose: 1,000 mg Divalproex Sodium (Divalproex Sodium 500 Mg Tablet.) 500 mg PO DAILY [facility] Last Admin: 02/02/23 09:24 Dose: 500 mg Haloperidol (Haloperidol 5 Mg Tablet) 15 mg PO BEDTIME [facility] Last Admin: 02/01/23 20:52 Dose: 15 mg Hydroxyzine HCl (Hydroxyzine Hcl 25 Mg Tablet) 25 mg PO Q6H PRN PRN Reason: Anxiety Levothyroxine Sodium (Levothyroxine Sodium 50 Mcg Tablet) 50 mcg PO DAILY@0600 [facility] Last Admin: 02/02/23 06:05 Dose: 50 mcg Loratadine (Loratadine 10 Mg Tablet) 10 mg PO DAILY [facility] Last Admin: 02/02/23 09:24 Dose: 10 mg Lorazepam (Lorazepam 1 Mg Tablet) 1 mg PO BID PRN PRN Reason: anxiety/restlessness Last Admin: 02/01/23 21:00 Dose: 1 mg Magnesium Hydroxide (Milk Of Magnesia 30 Ml Oral.Susp) 30 ml PO DAILY PRN PRN Reason: Constipation Last Admin: 01/29/23 20:16 Dose: 30 ml Magnesium Oxide (Magnesium Oxide 400 Mg Tablet) 400 mg PO DAILY [facility] Last Admin: 02/02/23 09:25 Dose: 400 mg Omeprazole (Omeprazole 20 Mg Capsule.) 20 mg PO DAILY@0630 [facility] Last Admin: 02/02/23 06:05 Dose: 20 mg Ondansetron HCl (Ondansetron Odt 4 Mg Tab.Rapdis) 4 mg TRANSLINGU Q12H PRN PRN Reason: Nausea Last Admin: 02/02/23 09:46 Dose: 4 mg Pharmacy Consult (Consult Rx Perform Med Rec) 1 each MISCELLANE ONCE PRN PRN Reason: Consult order Tramadol HCl (Tramadol Hcl 50 Mg Tablet) 25 mg PO Q12H PRN PRN Reason: Pain, Mild (Pain Scale 1-3) Last Admin: 02/02/23 09:39 Dose: 25 mg Trazodone HCl (Trazodone Hcl 50 Mg Tablet) 50 mg PO BEDTIME PRN PRN Reason: Insomnia Vitamin E (Vitamin E (Dl,Tocopheryl Acet) 180 Mg (400 Unit) Capsule) 180 mg PO BID [facility] Last Admin: 02/02/23 09:24 Dose: 180 mg Allergies Allergies Allergy/AdvReac Type Severity Reaction Status Date / Time acetaminophen [From Vicodin] Allergy Intermediate Hives Verified 01/26/23 10:35 celecoxib [From Celebrex] Allergy Intermediate Hives Verified 01/26/23 10:35 hydrocodone [From Vicodin] Allergy Intermediate Hives Verified 01/26/23 10:35 ibuprofen Allergy Intermediate Stomach Verified 01/26/23 10:35 Upset oxycodone [From Percocet] Allergy Intermediate Hives Verified 01/26/23 10:35 shrimp Allergy Intermediate swelling Verified 01/26/23 10:35 mouth/tongue Sulfa (Sulfonamide Allergy Intermediate Hives Verified 01/26/23 10:35 Antibiotics) sulfamethoxazole Allergy Intermediate Hives Verified 01/26/23 10:35 [From Bactrim] trimethoprim [From Bactrim] Allergy Intermediate Hives Verified 01/26/23 10:35 penicillin G Allergy Unknown Unknown Verified 01/26/23 10:35 Grapefruit Flavor Allergy Unknown Unknown Uncoded 07/22/22 09:15 Assessment & Plan Assessment & Plan (1) Schizoaffective disorder: Status: Acute Code(s): F25.9 - Schizoaffective disorder, unspecified Plan 52 yo female, history of schizoaffective disorder. Pt in [facility] ER from 01/07-01/21 with medicine changes that pt does not approve of. Pt reports she is unable to care for herself at home due to diminishing eyesight. She asks for referrals for home care to assist her and denies all psych sx. Upon presentation, pt appears manic. Plan: Collateral contact from [facility]. Continue admission regime until information is available to assess for changes Encourage pt's independence Continue to monitor. 01/29/23: Decrease Depakote to 500 mg a.m. 1000 mg h.s., a decrease of 250 mg. Continue Haldol 10 mg hs Discontinue Haldol 5 mg a.m. A total decrease of 5 mg Monitor for effects. 01/30/21: Increase Haldol to 15 mg HS 01/31: Continue current medications and treatment plan. 02/01: Continue current medications and treatment plan. 02/02/23 Continue current regime and plan. TDN to 01/05/23. Patient educated on: therapeutic strategies Reason for continued inpatient stay Substantial Risk for: inability to function and rapid decompensation Time Spent With Patient Time: Total time managing care of this patient today ____ minutes.
[2023-02-02 17:39] VITALS: BP 168/94; PULSE 83; RESP 20; TEMP 36.2; O2SAT 97
[2023-02-02] MEDS: Milk of Magnesia 30 ML ORAL.SUSP PO (18:44)
[2023-02-02] MEDS: Divalproex Sodium 500 MG TABLET.DR 1000 MG PO (21:27)
[2023-02-02] MEDS: HaloperidoL 5 MG TABLET 15 MG PO (21:27)
[2023-02-02] MEDS: LORazepam 1 MG TABLET PO (21:33)
[2023-02-03 06:00] VITALS: BP 148/72; PULSE 68; RESP 20; TEMP 36.3; O2SAT 98
[2023-02-03] MEDS: Levothyroxine Sodium 50 MCG TABLET PO (06:20)
[2023-02-03] MEDS: Omeprazole 20 MG CAPSULE.DR PO (06:25)
[2023-02-03] MEDS: Loratadine 10 MG TABLET PO (09:00)
[2023-02-03] MEDS: Magnesium Oxide 400 MG TABLET PO (09:00)
[2023-02-03] MEDS: Benztropine Mesylate 1 MG TABLET PO ×2 (09:00→20:59)
[2023-02-03] MEDS: Divalproex Sodium 500 MG TABLET.DR PO (09:00)
[2023-02-03] MEDS: Vitamin E (Dl,Tocopheryl Acet) 180 MG (400 UNIT) CAPSULE PO ×2 (09:00→21:00)
[2023-02-03] MEDS: busPIRone HCl 5 MG TABLET 15 MG PO ×2 (09:00→20:59)
[2023-02-03] MEDS: traMADoL HCL 50 MG TABLET 25 MG PO ×2 (09:12→22:15)
[2023-02-03] MEDS: Ondansetron ODT 4 MG TAB.RAPDIS TRANSLINGU ×2 (09:13→22:15)
[2023-02-03] MEDS: Milk of Magnesia 30 ML ORAL.SUSP PO (13:34)
--- NOTE | 2023-02-03 16:56 | HO.PSYCHPN ---
Subjective Subjective Date of Service: 02/03/23 Reason For Visit: delusions Subjective Notes: Conditional Voluntary Healthcare Proxy: No Guardianship: No Medical Problems Affecting Mental Status: No Interim History: Continues with delusional sx along with paranoia Reports regime is without SE, she finds it effective. Discussed retraction of TDN. She will do this as team works with her insurance on assistance for her home. Discussed options to improve sx with medications, improve relief, improve LOF. She currently has no interest and reports the regime Dr. Mendoza gave her is the one she trusts and will remain with. Reports constipation. Dulcolax ordered. Medication Compliance: Yes Side effects from medications: No Attending Groups: No Review of Systems Acute medical concerns: No Medical Review of Systems: unchanged Mental Status Exam Mental Status Exam Patient Appearance: Disheveled Patient Orientation: Person, Place and Situation Level of Consciousness: Alert Patient Behavior: Talkative and Cooperative Mood Description: Constricted Affect Description: Constricted Ability to Follow Directions: Good Speech Pattern: Spontaneous Speech Memory Description: Episodic Impaired Hallucinations: Auditory (some self dialogue sx noted.) Delusions: Paranoid Ideation Perceptual Disturbances: Derealization Thought Process: Distracted, Rumination and Evasive Thought Content: positive for Circumstantial, positive for Perseveration and positive for Preoccupation Depressive Symptoms: Increased Anxiety and Increased Irritability Abnormal Motor Activity Signs and Symptoms: Restlessness Judgement: Fair Diagnostics Vital Signs (24Hr): Vital Signs - 24 hr 02/02/23 17:39 02/03/23 06:00 Temperature 97.1 F 97.4 F Pulse Rate 83 68 Respiratory Rate 20 20 Blood Pressure 168/94 H 148/72 H Pulse Oximetry 97 98 Oxygen Delivery Method Room Air Room Air BMI result Body Mass Index 32.4 Labs 01/26/23 12:50 01/28/23 08:21 Medications Medications Current Medications Al Hydroxide/Mg Hydroxide (Magnesium Hydrox/Alum Hydrox 30 Ml Oral.Susp) 30 ml PO Q6H PRN PRN Reason: Heartburn/Nausea Albuterol Sulfate (Albuterol Sulfate 90 Mcg 8 Gm Inhaler) 2 puff INHALE Q6H PRN PRN Reason: Wheezing Benztropine Mesylate (Benztropine Mesylate 1 Mg Tablet) 1 mg PO BID [facility] Last Admin: 02/03/23 09:00 Dose: 1 mg Bisacodyl (Bisacodyl 5 Mg Tablet.) 10 mg PO DAILY PRN PRN Reason: Constipation Buspirone HCl (Buspirone Hcl 5 Mg Tablet) 15 mg PO BID [facility] Last Admin: 02/03/23 09:00 Dose: 15 mg Divalproex Sodium (Divalproex Sodium 500 Mg Tablet.) 1,000 mg PO BEDTIME [facility] Last Admin: 02/02/23 21:27 Dose: 1,000 mg Divalproex Sodium (Divalproex Sodium 500 Mg Tablet.) 500 mg PO DAILY [facility] Last Admin: 02/03/23 09:00 Dose: 500 mg Haloperidol (Haloperidol 5 Mg Tablet) 15 mg PO BEDTIME [facility] Last Admin: 02/02/23 21:27 Dose: 15 mg Hydroxyzine HCl (Hydroxyzine Hcl 25 Mg Tablet) 25 mg PO Q6H PRN PRN Reason: Anxiety Levothyroxine Sodium (Levothyroxine Sodium 50 Mcg Tablet) 50 mcg PO DAILY@0600 [facility] Last Admin: 02/03/23 06:20 Dose: 50 mcg Loratadine (Loratadine 10 Mg Tablet) 10 mg PO DAILY [facility] Last Admin: 02/03/23 09:00 Dose: 10 mg Lorazepam (Lorazepam 1 Mg Tablet) 1 mg PO BID PRN PRN Reason: anxiety/restlessness Last Admin: 02/02/23 21:33 Dose: 1 mg Magnesium Hydroxide (Milk Of Magnesia 30 Ml Oral.Susp) 30 ml PO DAILY PRN PRN Reason: Constipation Last Admin: 02/03/23 13:34 Dose: 30 ml Magnesium Oxide (Magnesium Oxide 400 Mg Tablet) 400 mg PO DAILY [facility] Last Admin: 02/03/23 09:00 Dose: 400 mg Omeprazole (Omeprazole 20 Mg Capsule.) 20 mg PO DAILY@0630 [facility] Last Admin: 02/03/23 06:25 Dose: 20 mg Ondansetron HCl (Ondansetron Odt 4 Mg Tab.Rapdis) 4 mg TRANSLINGU Q12H PRN PRN Reason: Nausea Last Admin: 02/03/23 09:13 Dose: 4 mg Pharmacy Consult (Consult Rx Perform Med Rec) 1 each MISCELLANE ONCE PRN PRN Reason: Consult order Tramadol HCl (Tramadol Hcl 50 Mg Tablet) 25 mg PO Q12H PRN PRN Reason: Pain, Mild (Pain Scale 1-3) Last Admin: 02/03/23 09:12 Dose: 25 mg Trazodone HCl (Trazodone Hcl 50 Mg Tablet) 50 mg PO BEDTIME PRN PRN Reason: Insomnia Vitamin E (Vitamin E (Dl,Tocopheryl Acet) 180 Mg (400 Unit) Capsule) 180 mg PO BID [facility] Last Admin: 02/03/23 09:00 Dose: 180 mg Allergies Allergies Allergy/AdvReac Type Severity Reaction Status Date / Time acetaminophen [From Vicodin] Allergy Intermediate Hives Verified 01/26/23 10:35 celecoxib [From Celebrex] Allergy Intermediate Hives Verified 01/26/23 10:35 hydrocodone [From Vicodin] Allergy Intermediate Hives Verified 01/26/23 10:35 ibuprofen Allergy Intermediate Stomach Verified 01/26/23 10:35 Upset oxycodone [From Percocet] Allergy Intermediate Hives Verified 01/26/23 10:35 shrimp Allergy Intermediate swelling Verified 01/26/23 10:35 mouth/tongue Sulfa (Sulfonamide Allergy Intermediate Hives Verified 01/26/23 10:35 Antibiotics) sulfamethoxazole Allergy Intermediate Hives Verified 01/26/23 10:35 [From Bactrim] trimethoprim [From Bactrim] Allergy Intermediate Hives Verified 01/26/23 10:35 penicillin G Allergy Unknown Unknown Verified 01/26/23 10:35 Grapefruit Flavor Allergy Unknown Unknown Uncoded 07/22/22 09:15 Assessment & Plan Assessment & Plan (1) Schizoaffective disorder: Status: Acute Code(s): F25.9 - Schizoaffective disorder, unspecified Plan 52 yo female, history of schizoaffective disorder. Pt in [facility] ER from 01/07-01/21 with medicine changes that pt does not approve of. Pt reports she is unable to care for herself at home due to diminishing eyesight. She asks for referrals for home care to assist her and denies all psych sx. Upon presentation, pt appears manic. Plan: Collateral contact from [facility]. Continue admission regime until information is available to assess for changes Encourage pt's independence Continue to monitor. 01/29/23: Decrease Depakote to 500 mg a.m. 1000 mg h.s., a decrease of 250 mg. Continue Haldol 10 mg hs Discontinue Haldol 5 mg a.m. A total decrease of 5 mg Monitor for effects. 01/30/21: Increase Haldol to 15 mg HS 01/31: Continue current medications and treatment plan. 02/01: Continue current medications and treatment plan. 02/02/23 Continue current regime and plan. TDN to 01/05/23. 02/03/23 Dulcolax prn constipation. Pt plans to retract TDN. Patient educated on: medication risk/benefits and therapeutic strategies Informed Consent: understands and further education needed Reason for continued inpatient stay Substantial Risk for: rapid decompensation Time Spent With Patient Time: Total time managing care of this patient today ____ minutes.
[2023-02-03 18:00] VITALS: BP 136/85; PULSE 95; TEMP 36.2; O2SAT 95
--- NOTE | 2023-02-03 18:16 | PC.NURSE ---
pt retracted 3 day on 02/03/23
[2023-02-03] MEDS: HaloperidoL 5 MG TABLET 15 MG PO (21:00)
[2023-02-03] MEDS: Divalproex Sodium 500 MG TABLET.DR 1000 MG PO (21:00)
[2023-02-04] MEDS: Omeprazole 20 MG CAPSULE.DR PO (06:04)
[2023-02-04] MEDS: Levothyroxine Sodium 50 MCG TABLET PO (06:05)
[2023-02-04] MEDS: Vitamin E (Dl,Tocopheryl Acet) 180 MG (400 UNIT) CAPSULE PO ×2 (09:07→21:28)
[2023-02-04] MEDS: Ondansetron ODT 4 MG TAB.RAPDIS TRANSLINGU ×2 (09:07→21:29)
[2023-02-04] MEDS: Divalproex Sodium 500 MG TABLET.DR PO (09:07)
[2023-02-04] MEDS: busPIRone HCl 5 MG TABLET 15 MG PO ×2 (09:07→21:27)
[2023-02-04] MEDS: Benztropine Mesylate 1 MG TABLET PO ×2 (09:08→21:28)
[2023-02-04] MEDS: Loratadine 10 MG TABLET PO (09:08)
[2023-02-04] MEDS: Magnesium Oxide 400 MG TABLET PO (09:08)
[2023-02-04] MEDS: traMADoL HCL 50 MG TABLET 25 MG PO ×2 (09:08→21:29)
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
[2023-02-04 13:21] VITALS: BP 104/65; PULSE 108; RESP 16; TEMP 36.9; O2SAT 95
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
[2023-02-04] MEDS: bisacodyL 5 MG TABLET.DR 10 MG PO (14:34)
[2023-02-04 18:00] VITALS: BP 156/77; PULSE 67; RESP 20; TEMP 36.3; O2SAT 96
[2023-02-04] MEDS: Milk of Magnesia 30 ML ORAL.SUSP PO (20:14)
[2023-02-04] MEDS: HaloperidoL 5 MG TABLET 15 MG PO (21:28)
[2023-02-04] MEDS: Divalproex Sodium 500 MG TABLET.DR 1000 MG PO (21:30)
[2023-02-05 07:00] VITALS: BMI 32.7
[2023-02-05 08:45] VITALS: BP 139/76; PULSE 61; RESP 16; TEMP 36.4; O2SAT 97
[2023-02-05] MEDS: busPIRone HCl 5 MG TABLET 15 MG PO ×2 (08:57→20:21)
[2023-02-05] MEDS: Vitamin E (Dl,Tocopheryl Acet) 180 MG (400 UNIT) CAPSULE PO ×2 (08:57→20:24)
[2023-02-05] MEDS: Benztropine Mesylate 1 MG TABLET PO ×2 (08:57→20:23)
[2023-02-05] MEDS: Divalproex Sodium 500 MG TABLET.DR PO (08:58)
[2023-02-05] MEDS: Omeprazole 20 MG CAPSULE.DR PO (08:58)
[2023-02-05] MEDS: Loratadine 10 MG TABLET PO (08:58)
[2023-02-05] MEDS: Magnesium Oxide 400 MG TABLET PO (08:59)
[2023-02-05] MEDS: Levothyroxine Sodium 50 MCG TABLET PO (08:59)
--- NOTE | 2023-02-05 10:35 | P.PNPSI_ITS ---
Subjective Subjective Date of Service: 02/05/23 Reason For Visit: delusions Subjective Notes: Conditional Voluntary Healthcare Proxy: No Guardianship: No Interim History: Pt continues to report constipation, KUB ordered, fleet enema ordered. Pt continues to present with delusional sx with some persecutory sx. 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 Team observies an increase in isolation, not attending milieu activities, but remaining in her room for most of the day. She is clear that she will not accept medication changes of any sort. When efficacy is discussed she reports disagreement with opinion that she is experiencing symptoms. Medication Compliance: Yes Side effects from medications: No Attending Groups: No Review of Systems Acute medical concerns: No Medical Review of Systems: unchanged Mental Status Exam Mental Status Exam Patient Appearance: Disheveled Patient Orientation: Person, Place and Situation Level of Consciousness: Alert Patient Behavior: Talkative and Cooperative Mood Description: Constricted Affect Description: Constricted Ability to Follow Directions: Good Speech Pattern: Spontaneous Speech Memory Description: Episodic Impaired Hallucinations: Auditory (some self dialogue sx noted.) Delusions: Paranoid Ideation Perceptual Disturbances: Derealization Thought Process: Distracted, Rumination and Evasive Thought Content: positive for Obsessional Thoughts, positive for Circumstantial, positive for Perseveration, positive for Preoccupation and positive for Disorganized Depressive Symptoms: Increased Anxiety and Increased Irritability Abnormal Motor Activity Signs and Symptoms: Restlessness Judgement: Poor Diagnostics Vital Signs (24Hr): Vital Signs - 24 hr 02/04/23 13:21 02/04/23 18:00 02/05/23 08:45 Temperature 98.5 F 97.4 F 97.6 F Pulse Rate 108 H 67 61 Respiratory Rate 16 20 16 Blood Pressure 104/65 156/77 H 139/76 Pulse Oximetry 95 96 97 Oxygen Delivery Method Room Air Room Air Room Air BMI result Body Mass Index 32.4 Labs 01/26/23 12:50 01/28/23 08:21 Medications Medications Current Medications Al Hydroxide/Mg Hydroxide (Magnesium Hydrox/Alum Hydrox 30 Ml Oral.Susp) 30 ml PO Q6H PRN PRN Reason: Heartburn/Nausea Albuterol Sulfate (Albuterol Sulfate 90 Mcg 8 Gm Inhaler) 2 puff INHALE Q6H PRN PRN Reason: Wheezing Benztropine Mesylate (Benztropine Mesylate 1 Mg Tablet) 1 mg PO BID [facility] Last Admin: 02/05/23 08:57 Dose: 1 mg Bisacodyl (Bisacodyl 5 Mg Tablet.) 10 mg PO DAILY PRN PRN Reason: Constipation Last Admin: 02/04/23 14:34 Dose: 10 mg Buspirone HCl (Buspirone Hcl 5 Mg Tablet) 15 mg PO BID [facility] Last Admin: 02/05/23 08:57 Dose: 15 mg Divalproex Sodium (Divalproex Sodium 500 Mg Tablet.) 1,000 mg PO BEDTIME [facility] Last Admin: 02/04/23 21:30 Dose: 1,000 mg Divalproex Sodium (Divalproex Sodium 500 Mg Tablet.) 500 mg PO DAILY [facility] Last Admin: 02/05/23 08:58 Dose: 500 mg Haloperidol (Haloperidol 5 Mg Tablet) 15 mg PO BEDTIME [facility] Last Admin: 02/04/23 21:28 Dose: 15 mg Hydroxyzine HCl (Hydroxyzine Hcl 25 Mg Tablet) 25 mg PO Q6H PRN PRN Reason: Anxiety Levothyroxine Sodium (Levothyroxine Sodium 50 Mcg Tablet) 50 mcg PO DAILY@0600 [facility] Last Admin: 02/05/23 08:59 Dose: 50 mcg Loratadine (Loratadine 10 Mg Tablet) 10 mg PO DAILY [facility] Last Admin: 02/05/23 08:58 Dose: 10 mg Lorazepam (Lorazepam 1 Mg Tablet) 1 mg PO BID PRN PRN Reason: anxiety/restlessness Last Admin: 02/02/23 21:33 Dose: 1 mg Magnesium Hydroxide (Milk Of Magnesia 30 Ml Oral.Susp) 30 ml PO DAILY PRN PRN Reason: Constipation Last Admin: 02/04/23 20:14 Dose: 30 ml Magnesium Oxide (Magnesium Oxide 400 Mg Tablet) 400 mg PO DAILY [facility] Last Admin: 02/05/23 08:59 Dose: 400 mg Omeprazole (Omeprazole 20 Mg Capsule.) 20 mg PO DAILY@0630 [facility] Last Admin: 02/05/23 08:58 Dose: 20 mg Ondansetron HCl (Ondansetron Odt 4 Mg Tab.Rapdis) 4 mg TRANSLINGU Q12H PRN PRN Reason: Nausea Last Admin: 02/04/23 21:29 Dose: 4 mg Pharmacy Consult (Consult Rx Perform Med Rec) 1 each MISCELLANE ONCE PRN PRN Reason: Consult order Tramadol HCl (Tramadol Hcl 50 Mg Tablet) 25 mg PO Q12H PRN PRN Reason: Pain, Mild (Pain Scale 1-3) Last Admin: 02/04/23 21:29 Dose: 25 mg Trazodone HCl (Trazodone Hcl 50 Mg Tablet) 50 mg PO BEDTIME PRN PRN Reason: Insomnia Vitamin E (Vitamin E (Dl,Tocopheryl Acet) 180 Mg (400 Unit) Capsule) 180 mg PO BID [facility] Last Admin: 02/05/23 08:57 Dose: 180 mg Allergies Allergies Allergy/AdvReac Type Severity Reaction Status Date / Time acetaminophen [From Vicodin] Allergy Intermediate Hives Verified 01/26/23 10:35 celecoxib [From Celebrex] Allergy Intermediate Hives Verified 01/26/23 10:35 hydrocodone [From Vicodin] Allergy Intermediate Hives Verified 01/26/23 10:35 ibuprofen Allergy Intermediate Stomach Verified 01/26/23 10:35 Upset oxycodone [From Percocet] Allergy Intermediate Hives Verified 01/26/23 10:35 shrimp Allergy Intermediate swelling Verified 01/26/23 10:35 mouth/tongue Sulfa (Sulfonamide Allergy Intermediate Hives Verified 01/26/23 10:35 Antibiotics) sulfamethoxazole Allergy Intermediate Hives Verified 01/26/23 10:35 [From Bactrim] trimethoprim [From Bactrim] Allergy Intermediate Hives Verified 01/26/23 10:35 penicillin G Allergy Unknown Unknown Verified 01/26/23 10:35 Grapefruit Flavor Allergy Unknown Unknown Uncoded 07/22/22 09:15 Assessment & Plan Assessment & Plan (1) Schizoaffective disorder: Status: Acute Code(s): F25.9 - Schizoaffective disorder, unspecified Plan 52 yo female, history of schizoaffective disorder. Pt in [facility] ER from 01/07-01/21 with medicine changes that pt does not approve of. Pt reports she is unable to care for herself at home due to diminishing eyesight. She asks for referrals for home care to assist her and denies all psych sx. Upon presentation, pt appears manic. Plan: Collateral contact from Bernarda [facility]. Continue admission regime until information is available to assess for changes Encourage pt's independence Continue to monitor. 01/29/23: Decrease Depakote to 500 mg a.m. 1000 mg h.s., a decrease of 250 mg. Continue Haldol 10 mg hs Discontinue Haldol 5 mg a.m. A total decrease of 5 mg Monitor for effects. 01/30/21: Increase Haldol to 15 mg HS 01/31: Continue current medications and treatment plan. 02/01: Continue current medications and treatment plan. 02/02/23 Continue current regime and plan. TDN to 01/05/23. 02/03/23 Dulcolax prn constipation. Pt plans to retract TDN. 02/04/23 Valproate level 02/0502/05/23 Refusing of changes at this time AUGUSTINA Morse enema Informed Consent: does not understand Reason for continued inpatient stay Substantial Risk for: rapid decompensation Time Spent With Patient Time: Total time managing care of this patient today ____ minutes.
[2023-02-05] MEDS: Mineral OiL enema 133 ML ENEMA PR (14:19)
[2023-02-05 18:20] VITALS: BP 143/72; PULSE 86; TEMP 36.2; O2SAT 96
[2023-02-05 20:10] VITALS: BP 147/85; PULSE 85; TEMP 35.6; O2SAT 96
[2023-02-05] MEDS: Divalproex Sodium 500 MG TABLET.DR 1000 MG PO (20:23)
[2023-02-05] MEDS: HaloperidoL 5 MG TABLET 15 MG PO (20:24)
[2023-02-05] MEDS: Docusate Sodium 100 MG CAPSULE PO (20:24)
[2023-02-05] MEDS: traMADoL HCL 50 MG TABLET 25 MG PO (20:28)
[2023-02-05] MEDS: Ondansetron ODT 4 MG TAB.RAPDIS TRANSLINGU (20:28)
[2023-02-06] MEDS: Omeprazole 20 MG CAPSULE.DR PO (06:03)
[2023-02-06] MEDS: Levothyroxine Sodium 50 MCG TABLET PO (06:03)
[2023-02-06 08:14] LABS: MANUAL DIFF FLAG NO
[2023-02-06 08:17] LABS: Basophils Percent Auto 0.5 % (0-2); Eosinophils Absolute Auto 0.1 X10*3/uL (0.0-0.4); Eosinophils Percent Auto 1.6 % (0-4); Hemoglobin 12.7 g/dl (12.0-16.0); Imm Gran Abs Auto 0.04 X10*3/uL (0.00-0.03); Imm Gran Pct Auto 0.5 % (0.0-0.4); Lymphocytes Absolute Auto 3.6 X10*3/uL (1.2-4.9); Lymphocytes Percent Auto 42.6 % (20-40); Mean Corpuscular HGB Conc 33.4 g/dl (31.0-35.0); Mean Corpuscular Hemoglobin 30.3 pg (27.0-33.0); Mean Corpuscular Volume 90.7 fL (80.0-98.0); Mean Platelet Volume 9.9 fL (9.4-12.3); Monocytes Percent Auto 11.9 % (2-11); Neutrophils Absolute Auto 3.6 x10*3/uL (2.0-8.3); Neutrophils Percent Auto 42.9 % (45-73); Platelet Count 245 X10*3/uL (160-400); Red Blood Count 4.19 X10*6/uL (4.20-5.50); Red Cell Distribution Width 12.1 % (11.0-16.0); White Blood Count 8.3 X10*3/uL (4.8-10.8)
[2023-02-06 08:29] LABS: Valproate 67.2 mcg/mL (50.0-100.0)
[2023-02-06 09:07] VITALS: BP 117/83; PULSE 99; RESP 16; TEMP 36.3; O2SAT 96
[2023-02-06] MEDS: Ondansetron ODT 4 MG TAB.RAPDIS TRANSLINGU ×2 (09:09→21:06)
[2023-02-06] MEDS: busPIRone HCl 5 MG TABLET 15 MG PO ×2 (09:09→21:06)
[2023-02-06] MEDS: Magnesium Oxide 400 MG TABLET PO (09:10)
[2023-02-06] MEDS: traMADoL HCL 50 MG TABLET 25 MG PO ×2 (09:10→21:06)
[2023-02-06] MEDS: Docusate Sodium 100 MG CAPSULE PO ×2 (09:10→21:06)
[2023-02-06] MEDS: Benztropine Mesylate 1 MG TABLET PO ×2 (09:10→21:07)
[2023-02-06] MEDS: Loratadine 10 MG TABLET PO (09:10)
[2023-02-06] MEDS: Divalproex Sodium 500 MG TABLET.DR PO (09:10)
[2023-02-06] MEDS: Vitamin E (Dl,Tocopheryl Acet) 180 MG (400 UNIT) CAPSULE PO ×2 (09:10→21:06)
--- NOTE | 2023-02-06 10:49 | PC.NURSE ---
Pt reports, somene turned the heat up to 120 degrees last night. It was horrible. I think they are trying to torture me . Nurse reassured pt that although the room may have felt warm, no staff or patients are attempting to torture her. Nurse also explained to pt that covring with a sheet, instead of a blanket at night may be more comfortable. Pt was accepting of suggestion.
--- NOTE | 2023-02-06 10:53 | PC.NURSE ---
During morning medication administration, nurse noticed pt had a small red line running parallel to the iris of the left eye. pt reported she scratched herself in the eye by mistake during the previous evening. Nurse notified provider. Awaiting orders. Will continue to monitor.
--- NOTE | 2023-02-06 15:53 | P.PNPSI_ITS ---
Subjective Subjective Date of Service: 02/06/23 Reason For Visit: delusions Subjective Notes: Conditional Voluntary Healthcare Proxy: No Guardianship: No Medical Problems Affecting Mental Status: No Interim History: Team working with [employer] to assist pt in scheduling home servi debra. Remains delusional and grandiose. 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 Discussed responsibility of providing appropriate treatment with pt. Refuses all medication changes, you are overdosing me Pt reports she put her finger in her eye by accident when rubbing it. Abrasion visable. Hospitalist evaluation much appreciated. Cataract assessment 03/09/23 for surgical intervention. Constipation resolving. Asks for fleet prn. Medication Compliance: Yes Side effects from medications: No Attending Groups: No Review of Systems Acute medical concerns: No Medical Review of Systems: unchanged Mental Status Exam Mental Status Exam Patient Appearance: Disheveled Patient Orientation: Person, Place and Situation Level of Consciousness: Alert Patient Behavior: Talkative and Cooperative Mood Description: Constricted Affect Description: Constricted Ability to Follow Directions: Good Speech Pattern: Spontaneous Speech Memory Description: Episodic Impaired Hallucinations: Auditory (some self dialogue sx noted.) Delusions: Paranoid Ideation Perceptual Disturbances: Derealization Thought Process: Distracted, Rumination and Evasive Thought Content: positive for Obsessional Thoughts, positive for Circumstantial, positive for Perseveration, positive for Preoccupation and positive for Disorganized Depressive Symptoms: Increased Anxiety and Increased Irritability Abnormal Motor Activity Signs and Symptoms: Restlessness Judgement: Poor Diagnostics Vital Signs (24Hr): Vital Signs - 24 hr 02/05/23 18:20 02/05/23 20:10 02/06/23 09:07 Temperature 97.2 F 96.0 F L 97.4 F Pulse Rate 86 85 99 Respiratory Rate 16 Blood Pressure 143/72 H 147/85 H 117/83 Pulse Oximetry 96 96 96 Oxygen Delivery Method Room Air Room Air Room Air BMI result Body Mass Index 32.7 Labs 02/06/23 07:47 01/28/23 08:21 Labs: Laboratory Results - last 48 hr 02/06/23 02/06/23 07:47 07:47 WBC 8.3 RBC 4.19 L Hgb 12.7 Hct 38.0 MCV 90.7 MCH 30.3 MCHC 33.4 RDW 12.1 Plt Count 245 MPV 9.9 Immature Gran % (Auto) 0.5 H Neut % (Auto) 42.9 L Lymph % (Auto) 42.6 H [place] % (Auto) 11.9 H Eos % (Auto) 1.6 Baso % (Auto) 0.5 Lymph # (Auto) 3.6 [place] # (Auto) 1.0 Eos # (Auto) 0.1 Baso # (Auto) 0.0 Abs Immat Gran (auto) 0.04 H Absolute Neuts (auto) 3.6 Absolute Nucleated RBC 0.000 Nucleated RBC % (auto) 0.0 Valproic Acid 67.2 Imaging Radiology Impressions: ITS Impressions KUB X-Ray 02/05/23 09:49 IMPRESSION: No evidence of ileus or obstruction. Moderate colonic stool burden. Medications Medications Current Medications Al Hydroxide/Mg Hydroxide (Magnesium Hydrox/Alum Hydrox 30 Ml Oral.Susp) 30 ml PO Q6H PRN PRN Reason: Heartburn/Nausea Albuterol Sulfate (Albuterol Sulfate 90 Mcg 8 Gm Inhaler) 2 puff INHALE Q6H PRN PRN Reason: Wheezing Benztropine Mesylate (Benztropine Mesylate 1 Mg Tablet) 1 mg PO BID [facility] Last Admin: 02/06/23 09:10 Dose: 1 mg Bisacodyl (Bisacodyl 5 Mg Tablet.) 10 mg PO DAILY PRN PRN Reason: Constipation Last Admin: 02/04/23 14:34 Dose: 10 mg Buspirone HCl (Buspirone Hcl 5 Mg Tablet) 15 mg PO BID [facility] Last Admin: 02/06/23 09:09 Dose: 15 mg Divalproex Sodium (Divalproex Sodium 500 Mg Tablet.) 1,000 mg PO BEDTIME [facility] Last Admin: 02/05/23 20:23 Dose: 1,000 mg Divalproex Sodium (Divalproex Sodium 500 Mg Tablet.) 500 mg PO DAILY [facility] Last Admin: 02/06/23 09:10 Dose: 500 mg Docusate Sodium (Docusate Sodium 100 Mg Capsule) 100 mg PO BID [facility] Last Admin: 02/06/23 09:10 Dose: 100 mg Haloperidol (Haloperidol 5 Mg Tablet) 15 mg PO BEDTIME [facility] Last Admin: 02/05/23 20:24 Dose: 15 mg Hydroxyzine HCl (Hydroxyzine Hcl 25 Mg Tablet) 25 mg PO Q6H PRN PRN Reason: Anxiety Levothyroxine Sodium (Levothyroxine Sodium 50 Mcg Tablet) 50 mcg PO DAILY@0600 [facility] Last Admin: 02/06/23 06:03 Dose: 50 mcg Loratadine (Loratadine 10 Mg Tablet) 10 mg PO DAILY [facility] Last Admin: 02/06/23 09:10 Dose: 10 mg Lorazepam (Lorazepam 1 Mg Tablet) 1 mg PO BID PRN PRN Reason: anxiety/restlessness Last Admin: 02/02/23 21:33 Dose: 1 mg Magnesium Hydroxide (Milk Of Magnesia 30 Ml Oral.Susp) 30 ml PO DAILY PRN PRN Reason: Constipation Last Admin: 02/04/23 20:14 Dose: 30 ml Magnesium Oxide (Magnesium Oxide 400 Mg Tablet) 400 mg PO DAILY [facility] Last Admin: 02/06/23 09:10 Dose: 400 mg Olanzapine (Olanzapine 5 Mg Tablet) 5 mg PO BEDTIME [facility] Last Admin: 02/05/23 21:27 Dose: Not Given Omeprazole (Omeprazole 20 Mg Capsule.Dr) 20 mg PO DAILY@0630 [facility] Last Admin: 02/06/23 06:03 Dose: 20 mg Ondansetron HCl (Ondansetron Odt 4 Mg Tab.Rapdis) 4 mg TRANSLINGU Q12H PRN PRN Reason: Nausea Last Admin: 02/06/23 09:09 Dose: 4 mg Pharmacy Consult (Consult Rx Perform Med Rec) 1 each MISCELLANE ONCE PRN PRN Reason: Consult order Psyllium Hydrophilic Mucilloid (Psyllium Seed 3.4 Gm Powd.Pack) 3.4 gm PO DAILY [facility] Last Admin: 02/06/23 09:09 Dose: 3.4 gm Tramadol HCl (Tramadol Hcl 50 Mg Tablet) 25 mg PO Q12H PRN PRN Reason: Pain, Mild (Pain Scale 1-3) Last Admin: 02/06/23 09:10 Dose: 25 mg Trazodone HCl (Trazodone Hcl 50 Mg Tablet) 50 mg PO BEDTIME PRN PRN Reason: Insomnia Vitamin E (Vitamin E (Dl,Tocopheryl Acet) 180 Mg (400 Unit) Capsule) 180 mg PO BID [facility] Last Admin: 02/06/23 09:10 Dose: 180 mg Allergies Allergies Allergy/AdvReac Type Severity Reaction Status Date / Time acetaminophen [From Vicodin] Allergy Intermediate Hives Verified 01/26/23 10:35 celecoxib [From Celebrex] Allergy Intermediate Hives Verified 01/26/23 10:35 hydrocodone [From Vicodin] Allergy Intermediate Hives Verified 01/26/23 10:35 ibuprofen Allergy Intermediate Stomach Verified 01/26/23 10:35 Upset oxycodone [From Percocet] Allergy Intermediate Hives Verified 01/26/23 10:35 shrimp Allergy Intermediate swelling Verified 01/26/23 10:35 mouth/tongue Sulfa (Sulfonamide Allergy Intermediate Hives Verified 01/26/23 10:35 Antibiotics) sulfamethoxazole Allergy Intermediate Hives Verified 01/26/23 10:35 [From Bactrim] trimethoprim [From Bactrim] Allergy Intermediate Hives Verified 01/26/23 10:35 penicillin G Allergy Unknown Unknown Verified 01/26/23 10:35 Grapefruit Flavor Allergy Unknown Unknown Uncoded 07/22/22 09:15 Assessment & Plan Assessment & Plan (1) Schizoaffective disorder: Status: Acute Code(s): F25.9 - Schizoaffective disorder, unspecified Plan 52 yo female, history of schizoaffective disorder. Pt in [facility] ER from 01/07-01/21 with medicine changes that pt does not approve of. Pt reports she is unable to care for herself at home due to diminishing eyesight. She asks for referrals for home care to assist her and denies all psych sx. Upon presentation, pt appears manic. Plan: Collateral contact from [facility]. Continue admission regime until information is available to assess for changes Encourage pt's independence Continue to monitor. 01/29/23: Decrease Depakote to 500 mg a.m. 1000 mg h.s., a decrease of 250 mg. Continue Haldol 10 mg hs Discontinue Haldol 5 mg a.m. A total decrease of 5 mg Monitor for effects. 01/30/21: Increase Haldol to 15 mg HS 01/31: Continue current medications and treatment plan. 02/01: Continue current medications and treatment plan. 02/02/23 Continue current regime and plan. TDN to 01/05/23. 02/03/23 Dulcolax prn constipation. Pt plans to retract TDN. 02/04/23 Valproate level 02/0502/05/23 Refusing of changes at this time KUB Fleet enema 02/06/23 Constipation resolving Continue current regime Patient educated on: medication risk/benefits Informed Consent: further education needed Reason for continued inpatient stay Substantial Risk for: med/psych decompensation Time Spent With Patient Time: Total time managing care of this patient today ____ minutes.
--- NOTE | 2023-02-06 17:01 | PM.EVENT ---
Event Note Date of Service: 02/06/23 Event Note: Patient with bilateral cataracts and severely diminished eyesight at baseline seen for evaluation of erythema of right eye. Patient states that she had something in her eye and went to remove it with her finger, but has poor eyesight and ended up poking herself in the eye. Patient immediately experienced some tearing but no pain. Staff noted that her eye was erythematous and placed hospitalist consult. Patient currently experiencing no pain or excessive tearing. Patient also not experiencing any change to vision, though she notes that ?I can not really see anything anyway. Patient has a an outside consult for cataract surgery on March 09. Upon physical exam patient noted to have bilateral cataracts and small subconjunctival hemorrhage on the medial aspect of right iris. No excessive tearing noted. See picture below. Patient currently asymptomatic: No pain, excessive tearing, or reduction in eyesight. No treatment or outside ophthalmology consult currently needed. Subconjunctival hemorrhage should resolve on its own in the next couple of days. Will continue to follow for now to ensure full resolution of subconjunctival hemorrhage. Time Spent With Patient Time: Total time managing care of this patient today ____ minutes.
[2023-02-06] MEDS: Divalproex Sodium 500 MG TABLET.DR 1000 MG PO (21:07)
[2023-02-06] MEDS: HaloperidoL 5 MG TABLET 15 MG PO (21:07)
[2023-02-06 21:20] VITALS: BP 137/71; PULSE 85; RESP 18; TEMP 36.1; O2SAT 97
[2023-02-07] MEDS: Omeprazole 20 MG CAPSULE.DR PO (06:20)
[2023-02-07] MEDS: Levothyroxine Sodium 50 MCG TABLET PO (06:20)
[2023-02-07] MEDS: Vitamin E (Dl,Tocopheryl Acet) 180 MG (400 UNIT) CAPSULE PO ×2 (08:18→21:08)
[2023-02-07] MEDS: Divalproex Sodium 500 MG TABLET.DR PO (08:18)
[2023-02-07] MEDS: Magnesium Oxide 400 MG TABLET PO (08:18)
[2023-02-07] MEDS: Benztropine Mesylate 1 MG TABLET PO ×2 (08:18→21:09)
[2023-02-07] MEDS: Loratadine 10 MG TABLET PO (08:18)
[2023-02-07] MEDS: Docusate Sodium 100 MG CAPSULE PO ×2 (08:18→21:09)
[2023-02-07] MEDS: busPIRone HCl 5 MG TABLET 15 MG PO ×2 (08:18→21:07)
[2023-02-07 08:54] VITALS: BP 117/67; PULSE 81; RESP 16; TEMP 36.2; O2SAT 97
[2023-02-07] MEDS: traMADoL HCL 50 MG TABLET 25 MG PO ×2 (09:09→21:10)
[2023-02-07] MEDS: Ondansetron ODT 4 MG TAB.RAPDIS TRANSLINGU ×2 (09:10→21:07)
--- NOTE | 2023-02-07 11:38 | HO.PSYCHPN ---
Subjective Subjective Date of Service: 02/07/23 Reason For Visit: delusions Subjective Notes: Conditional Voluntary Healthcare Proxy: No Guardianship: No Medical Problems Affecting Mental Status: No Interim History: Patient was seen and discussed in rounds today. Records and plans were reviewed. She states that the rapid increase of Haldol to 15 mg has left her very tired during the day, especially in the mornings. Since she has been on the higher dose for several days and there must have been the reason for the increase I suggested staying with this dose and hopefully over the next few days that should lessen. She was agreeable with that. Eating adequately. No other changes were made today Medication Compliance: Yes Side effects from medications: Yes (Drowsiness and feeling tired from the increased dose of Haldol) Attending Groups: Intermittent Review of Systems Review of Systems Tiredness Yes all other systems are reviewed and are negative Mental Status Exam Mental Status Exam Patient Appearance: Disheveled Patient Orientation: Person, Place and Situation Level of Consciousness: Alert Patient Behavior: Talkative and Cooperative Mood Description: Constricted Affect Description: Constricted Ability to Follow Directions: Good Speech Pattern: Spontaneous Speech Memory Description: Episodic Impaired Hallucinations: Auditory (some self dialogue sx noted.) Delusions: Paranoid Ideation Perceptual Disturbances: Derealization Thought Process: Distracted, Rumination and Evasive Thought Content: positive for Obsessional Thoughts, positive for Circumstantial, positive for Perseveration, positive for Preoccupation and positive for Disorganized Depressive Symptoms: Increased Anxiety and Increased Irritability Abnormal Motor Activity Signs and Symptoms: Restlessness Judgement: Poor Diagnostics Vital Signs (24Hr): Vital Signs - 24 hr 02/06/23 21:20 02/07/23 08:54 Temperature 97 F 97.2 F Pulse Rate 85 81 Respiratory Rate 18 16 Blood Pressure 137/71 117/67 Pulse Oximetry 97 97 Oxygen Delivery Method Room Air Room Air BMI result Body Mass Index 32.7 Labs 02/06/23 07:47 01/28/23 08:21 Labs: Laboratory Results - last 48 hr 02/06/23 02/06/23 07:47 07:47 WBC 8.3 RBC 4.19 L Hgb 12.7 Hct 38.0 MCV 90.7 MCH 30.3 MCHC 33.4 RDW 12.1 Plt Count 245 MPV 9.9 Immature Gran % (Auto) 0.5 H Neut % (Auto) 42.9 L Lymph % (Auto) 42.6 H [place] % (Auto) 11.9 H Eos % (Auto) 1.6 Baso % (Auto) 0.5 Lymph # (Auto) 3.6 [place] # (Auto) 1.0 Eos # (Auto) 0.1 Baso # (Auto) 0.0 Abs Immat Gran (auto) 0.04 H Absolute Neuts (auto) 3.6 Absolute Nucleated RBC 0.000 Nucleated RBC % (auto) 0.0 Valproic Acid 67.2 Imaging Radiology Impressions: ITS Impressions [facility] X-Ray 02/05/23 09:49 IMPRESSION: No evidence of ileus or obstruction. Moderate colonic stool burden. Medications Medications Current Medications Al Hydroxide/Mg Hydroxide (Magnesium Hydrox/Alum Hydrox 30 Ml Oral.Susp) 30 ml PO Q6H PRN PRN Reason: Heartburn/Nausea Albuterol Sulfate (Albuterol Sulfate 90 Mcg 8 Gm Inhaler) 2 puff INHALE Q6H PRN PRN Reason: Wheezing Benztropine Mesylate (Benztropine Mesylate 1 Mg Tablet) 1 mg PO BID [facility] Last Admin: 02/07/23 08:18 Dose: 1 mg Bisacodyl (Bisacodyl 5 Mg Tablet.) 10 mg PO DAILY PRN PRN Reason: Constipation Last Admin: 02/04/23 14:34 Dose: 10 mg Buspirone HCl (Buspirone Hcl 5 Mg Tablet) 15 mg PO BID [facility] Last Admin: 02/07/23 08:18 Dose: 15 mg Divalproex Sodium (Divalproex Sodium 500 Mg Tablet.) 1,000 mg PO BEDTIME [facility] Last Admin: 02/06/23 21:07 Dose: 1,000 mg Divalproex Sodium (Divalproex Sodium 500 Mg Tablet.) 500 mg PO DAILY [facility] Last Admin: 02/07/23 08:18 Dose: 500 mg Docusate Sodium (Docusate Sodium 100 Mg Capsule) 100 mg PO BID [facility] Last Admin: 02/07/23 08:18 Dose: 100 mg Haloperidol (Haloperidol 5 Mg Tablet) 15 mg PO BEDTIME [facility] Last Admin: 02/06/23 21:07 Dose: 15 mg Hydroxyzine HCl (Hydroxyzine Hcl 25 Mg Tablet) 25 mg PO Q6H PRN PRN Reason: Anxiety Levothyroxine Sodium (Levothyroxine Sodium 50 Mcg Tablet) 50 mcg PO DAILY@0600 [facility] Last Admin: 02/07/23 06:20 Dose: 50 mcg Loratadine (Loratadine 10 Mg Tablet) 10 mg PO DAILY [facility] Last Admin: 02/07/23 08:18 Dose: 10 mg Lorazepam (Lorazepam 1 Mg Tablet) 1 mg PO BID PRN PRN Reason: anxiety/restlessness Last Admin: 02/02/23 21:33 Dose: 1 mg Magnesium Hydroxide (Milk Of Magnesia 30 Ml Oral.Susp) 30 ml PO DAILY PRN PRN Reason: Constipation Last Admin: 02/04/23 20:14 Dose: 30 ml Magnesium Oxide (Magnesium Oxide 400 Mg Tablet) 400 mg PO DAILY [facility] Last Admin: 02/07/23 08:18 Dose: 400 mg Mineral Oil (Mineral Oil Enema 133 Ml Enema) 133 ml MD ONCE PRN PRN Reason: constipation Omeprazole (Omeprazole 20 Mg Capsule.Dr) 20 mg PO DAILY@0630 [facility] Last Admin: 02/07/23 06:20 Dose: 20 mg Ondansetron HCl (Ondansetron Odt 4 Mg Tab.Rapdis) 4 mg TRANSLINGU Q12H PRN PRN Reason: Nausea Last Admin: 02/07/23 09:10 Dose: 4 mg Pharmacy Consult (Consult Rx Perform Med Rec) 1 each MISCELLANE ONCE PRN PRN Reason: Consult order Psyllium Hydrophilic Mucilloid (Psyllium Seed 3.4 Gm Powd.Pack) 3.4 gm PO DAILY [facility] Last Admin: 02/07/23 09:10 Dose: 3.4 gm Tramadol HCl (Tramadol Hcl 50 Mg Tablet) 25 mg PO Q12H PRN PRN Reason: Pain, Mild (Pain Scale 1-3) Last Admin: 02/07/23 09:09 Dose: 25 mg Trazodone HCl (Trazodone Hcl 50 Mg Tablet) 50 mg PO BEDTIME PRN PRN Reason: Insomnia Vitamin E (Vitamin E (Dl,Tocopheryl Acet) 180 Mg (400 Unit) Capsule) 180 mg PO BID [facility] Last Admin: 02/07/23 08:18 Dose: 180 mg Allergies Allergies Allergy/AdvReac Type Severity Reaction Status Date / Time acetaminophen [From Vicodin] Allergy Intermediate Hives Verified 01/26/23 10:35 celecoxib [From Celebrex] Allergy Intermediate Hives Verified 01/26/23 10:35 hydrocodone [From Vicodin] Allergy Intermediate Hives Verified 01/26/23 10:35 ibuprofen Allergy Intermediate Stomach Verified 01/26/23 10:35 Upset oxycodone [From Percocet] Allergy Intermediate Hives Verified 01/26/23 10:35 shrimp Allergy Intermediate swelling Verified 01/26/23 10:35 mouth/tongue Sulfa (Sulfonamide Allergy Intermediate Hives Verified 01/26/23 10:35 Antibiotics) sulfamethoxazole Allergy Intermediate Hives Verified 01/26/23 10:35 [From Bactrim] trimethoprim [From Bactrim] Allergy Intermediate Hives Verified 01/26/23 10:35 penicillin G Allergy Unknown Unknown Verified 01/26/23 10:35 Grapefruit Flavor Allergy Unknown Unknown Uncoded 07/22/22 09:15 Assessment & Plan Assessment & Plan (1) Schizoaffective disorder: Status: Acute Code(s): F25.9 - Schizoaffective disorder, unspecified Plan 52 yo female, history of schizoaffective disorder. Pt in [facility] ER from 01/07-01/21 with medicine changes that pt does not approve of. Pt reports she is unable to care for herself at home due to diminishing eyesight. She asks for referrals for home care to assist her and denies all psych sx. Upon presentation, pt appears manic. Plan: Collateral contact from [facility] [facility]. Continue admission regime until information is available to assess for changes Encourage pt's independence Continue to monitor. 01/29/23: Decrease Depakote to 500 mg a.m. 1000 mg h.s., a decrease of 250 mg. Continue Haldol 10 mg hs Discontinue Haldol 5 mg a.m. A total decrease of 5 mg Monitor for effects. 01/30/21: Increase Haldol to 15 mg HS 01/31: Continue current medications and treatment plan. 02/01: Continue current medications and treatment plan. 02/02/23 Continue current regime and plan. TDN to 01/05/23. 02/03/23 Dulcolax prn constipation. Pt plans to retract TDN. 02/04/23 Valproate level 02/0502/05/23 Refusing of changes at this time KUB Fleet enema 02/06/23 Constipation resolving Continue current regime 02/07 continue current regimen with no changes Patient educated on: medication risk/benefits and therapeutic strategies Reason for continued inpatient stay Substantial Risk for: med/psych decompensation Time Spent With Patient Time: Total time managing care of this patient today ____ minutes.
[2023-02-07 17:54] VITALS: BP 113/71; PULSE 65; RESP 20; TEMP 36.3; O2SAT 94
[2023-02-07] MEDS: HaloperidoL 5 MG TABLET 15 MG PO (21:09)
[2023-02-07] MEDS: Divalproex Sodium 500 MG TABLET.DR 1000 MG PO (21:10)
[2023-02-08 06:00] VITALS: BP 134/97; PULSE 60; RESP 16; TEMP 36.1; O2SAT 97
[2023-02-08] MEDS: Omeprazole 20 MG CAPSULE.DR PO (06:24)
[2023-02-08] MEDS: Levothyroxine Sodium 50 MCG TABLET PO (06:24)
[2023-02-08] MEDS: Magnesium Oxide 400 MG TABLET PO (08:50)
[2023-02-08] MEDS: Benztropine Mesylate 1 MG TABLET PO ×2 (08:50→21:24)
[2023-02-08] MEDS: Divalproex Sodium 500 MG TABLET.DR PO (08:50)
[2023-02-08] MEDS: Docusate Sodium 100 MG CAPSULE PO ×2 (08:50→21:23)
[2023-02-08] MEDS: Vitamin E (Dl,Tocopheryl Acet) 180 MG (400 UNIT) CAPSULE PO ×2 (08:50→21:24)
[2023-02-08] MEDS: busPIRone HCl 5 MG TABLET 15 MG PO ×2 (08:50→21:22)
[2023-02-08] MEDS: Loratadine 10 MG TABLET PO (08:50)
[2023-02-08] MEDS: traMADoL HCL 50 MG TABLET 25 MG PO (09:38)
[2023-02-08] MEDS: Ondansetron ODT 4 MG TAB.RAPDIS TRANSLINGU (09:38)
--- NOTE | 2023-02-08 10:19 | HO.PSYCHPN ---
Subjective Subjective Date of Service: 02/08/23 Reason For Visit: delusions Subjective Notes: Conditional Voluntary Healthcare Proxy: No Guardianship: No Medical Problems Affecting Mental Status: No Interim History: Patient was seen and discussed in rounds today. Records and plans were reviewed. She states that she is doing better since she took only 10 mg of Haldol last night. She is more alert and is ready to get up and do things including groups. I did reduce her Haldol to 10 mg to be possibly increase later on. There is still some self dialogue but less so. She is eating adequately. Some paranoia. No other changes were made Medication Compliance: Yes Side effects from medications: Yes (Drowsiness and feeling tired from the increased dose of Haldol) Attending Groups: Intermittent Review of Systems Review of Systems Yes all other systems are reviewed and are negative Mental Status Exam Mental Status Exam Patient Appearance: Disheveled Patient Orientation: Person, Place and Situation Level of Consciousness: Alert Patient Behavior: Talkative and Cooperative Mood Description: Constricted Affect Description: Constricted Ability to Follow Directions: Good Speech Pattern: Spontaneous Speech Memory Description: Episodic Impaired Hallucinations: Auditory (some self dialogue sx noted.) Delusions: Paranoid Ideation Perceptual Disturbances: Derealization Thought Process: Distracted, Rumination and Evasive Thought Content: positive for Obsessional Thoughts, positive for Circumstantial, positive for Perseveration, positive for Preoccupation and positive for Disorganized Depressive Symptoms: Increased Anxiety and Increased Irritability Abnormal Motor Activity Signs and Symptoms: Restlessness Judgement: Poor Diagnostics Vital Signs (24Hr): Vital Signs - 24 hr 02/07/23 17:54 02/08/23 06:00 Temperature 97.3 F 96.9 F Pulse Rate 65 60 Respiratory Rate 20 16 Blood Pressure 113/71 134/97 H Pulse Oximetry 94 97 Oxygen Delivery Method Room Air Room Air BMI result Body Mass Index 32.7 Labs 02/06/23 07:47 01/28/23 08:21 Imaging Radiology Impressions: ITS Impressions [facility]UB X-Ray 02/05/23 09:49 IMPRESSION: No evidence of ileus or obstruction. Moderate colonic stool burden. Medications Medications Current Medications Al Hydroxide/Mg Hydroxide (Magnesium Hydrox/Alum Hydrox 30 Ml Oral.Susp) 30 ml PO Q6H PRN PRN Reason: Heartburn/Nausea Albuterol Sulfate (Albuterol Sulfate 90 Mcg 8 Gm Inhaler) 2 puff INHALE Q6H PRN PRN Reason: Wheezing Benztropine Mesylate (Benztropine Mesylate 1 Mg Tablet) 1 mg PO BID [facility] Last Admin: 02/08/23 08:50 Dose: 1 mg Bisacodyl (Bisacodyl 5 Mg Tablet.) 10 mg PO DAILY PRN PRN Reason: Constipation Last Admin: 02/04/23 14:34 Dose: 10 mg Buspirone HCl (Buspirone Hcl 5 Mg Tablet) 15 mg PO BID [facility] Last Admin: 02/08/23 08:50 Dose: 15 mg Divalproex Sodium (Divalproex Sodium 500 Mg Tablet.) 1,000 mg PO BEDTIME [facility] Last Admin: 02/07/23 21:10 Dose: 1,000 mg Divalproex Sodium (Divalproex Sodium 500 Mg Tablet.) 500 mg PO DAILY [facility] Last Admin: 02/08/23 08:50 Dose: 500 mg Docusate Sodium (Docusate Sodium 100 Mg Capsule) 100 mg PO BID [facility] Last Admin: 02/08/23 08:50 Dose: 100 mg Haloperidol (Haloperidol 5 Mg Tablet) 15 mg PO BEDTIME [facility] Last Admin: 02/07/23 21:09 Dose: 10 mg Hydroxyzine HCl (Hydroxyzine Hcl 25 Mg Tablet) 25 mg PO Q6H PRN PRN Reason: Anxiety Levothyroxine Sodium (Levothyroxine Sodium 50 Mcg Tablet) 50 mcg PO DAILY@0600 [facility] Last Admin: 02/08/23 06:24 Dose: 50 mcg Loratadine (Loratadine 10 Mg Tablet) 10 mg PO DAILY [facility] Last Admin: 02/08/23 08:50 Dose: 10 mg Lorazepam (Lorazepam 1 Mg Tablet) 1 mg PO BID PRN PRN Reason: anxiety/restlessness Last Admin: 02/02/23 21:33 Dose: 1 mg Magnesium Hydroxide (Milk Of Magnesia 30 Ml Oral.Susp) 30 ml PO DAILY PRN PRN Reason: Constipation Last Admin: 02/04/23 20:14 Dose: 30 ml Magnesium Oxide (Magnesium Oxide 400 Mg Tablet) 400 mg PO DAILY [facility] Last Admin: 02/08/23 08:50 Dose: 400 mg Mineral Oil (Mineral Oil Enema 133 Ml Enema) 133 ml DE ONCE PRN PRN Reason: constipation Omeprazole (Omeprazole 20 Mg Capsule.) 20 mg PO DAILY@0630 [facility] Last Admin: 02/08/23 06:24 Dose: 20 mg Ondansetron HCl (Ondansetron Odt 4 Mg Tab.Rapdis) 4 mg TRANSLINGU Q12H PRN PRN Reason: Nausea Last Admin: 02/08/23 09:38 Dose: 4 mg Pharmacy Consult (Consult Rx Perform Med Rec) 1 each MISCELLANE ONCE PRN PRN Reason: Consult order Psyllium Hydrophilic Mucilloid (Psyllium Seed 3.4 Gm Powd.Pack) 3.4 gm PO DAILY [facility] Last Admin: 02/08/23 08:49 Dose: 3.4 gm Tramadol HCl (Tramadol Hcl 50 Mg Tablet) 25 mg PO Q12H PRN PRN Reason: Pain, Mild (Pain Scale 1-3) Last Admin: 02/08/23 09:38 Dose: 25 mg Trazodone HCl (Trazodone Hcl 50 Mg Tablet) 50 mg PO BEDTIME PRN PRN Reason: Insomnia Vitamin E (Vitamin E (Dl,Tocopheryl Acet) 180 Mg (400 Unit) Capsule) 180 mg PO BID [facility] Last Admin: 02/08/23 08:50 Dose: 180 mg Allergies Allergies Allergy/AdvReac Type Severity Reaction Status Date / Time acetaminophen [From Vicodin] Allergy Intermediate Hives Verified 01/26/23 10:35 celecoxib [From Celebrex] Allergy Intermediate Hives Verified 01/26/23 10:35 hydrocodone [From Vicodin] Allergy Intermediate Hives Verified 01/26/23 10:35 ibuprofen Allergy Intermediate Stomach Verified 01/26/23 10:35 Upset oxycodone [From Percocet] Allergy Intermediate Hives Verified 01/26/23 10:35 shrimp Allergy Intermediate swelling Verified 01/26/23 10:35 mouth/tongue Sulfa (Sulfonamide Allergy Intermediate Hives Verified 01/26/23 10:35 Antibiotics) sulfamethoxazole Allergy Intermediate Hives Verified 01/26/23 10:35 [From Bactrim] trimethoprim [From Bactrim] Allergy Intermediate Hives Verified 01/26/23 10:35 penicillin G Allergy Unknown Unknown Verified 01/26/23 10:35 Grapefruit Flavor Allergy Unknown Unknown Uncoded 07/22/22 09:15 Assessment & Plan Assessment & Plan (1) Schizoaffective disorder: Status: Acute Code(s): F25.9 - Schizoaffective disorder, unspecified Plan 52 yo female, history of schizoaffective disorder. Pt in [facility] ER from 01/07-01/21 with medicine changes that pt does not approve of. Pt reports she is unable to care for herself at home due to diminishing eyesight. She asks for referrals for home care to assist her and denies all psych sx. Upon presentation, pt appears manic. Plan: Collateral contact from [facility]. Continue admission regime until information is available to assess for changes Encourage pt's independence Continue to monitor. 01/29/23: Decrease Depakote to 500 mg a.m. 1000 mg h.s., a decrease of 250 mg. Continue Haldol 10 mg hs Discontinue Haldol 5 mg a.m. A total decrease of 5 mg Monitor for effects. 01/30/21: Increase Haldol to 15 mg HS 01/31: Continue current medications and treatment plan. 02/01: Continue current medications and treatment plan. 02/02/23 Continue current regime and plan. TDN to 01/05/23. 02/03/23 Dulcolax prn constipation. Pt plans to retract TDN. 02/04/23 Valproate level 02/0502/05/23 Refusing of changes at this time K[facility] Fleet enema 02/06/23 Constipation resolving Continue current regime 02/07 continue current regimen with no changes 02/08: Continue current regimen and plans. Decrease Haldol to 10 mg Reason for continued inpatient stay Substantial Risk for: med/psych decompensation Time Spent With Patient Time: Total time managing care of this patient today ____ minutes.
[2023-02-08 18:00] VITALS: BP 129/80; PULSE 85; TEMP 36.1; O2SAT 95
[2023-02-08] MEDS: Divalproex Sodium 500 MG TABLET.DR 1000 MG PO (21:21)
[2023-02-08] MEDS: HaloperidoL 5 MG TABLET 10 MG PO (21:22)
[2023-02-08] MEDS: LORazepam 1 MG TABLET PO (21:23)
--- NOTE | 2023-02-08 22:47 | PC.NURSE ---
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 I am in the only one in the world that has that. They can't take my license no matter how blind I am. 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 Just ask the [employer]
[2023-02-09] MEDS: Omeprazole 20 MG CAPSULE.DR PO (06:18)
[2023-02-09] MEDS: Levothyroxine Sodium 50 MCG TABLET PO (06:18)
[2023-02-09 09:55] VITALS: BP 147/77; PULSE 74; RESP 20; TEMP 36.3; O2SAT 97
[2023-02-09] MEDS: Loratadine 10 MG TABLET PO (10:29)
[2023-02-09] MEDS: Divalproex Sodium 500 MG TABLET.DR PO (10:29)
[2023-02-09] MEDS: Vitamin E (Dl,Tocopheryl Acet) 180 MG (400 UNIT) CAPSULE PO ×2 (10:29→22:46)
[2023-02-09] MEDS: Docusate Sodium 100 MG CAPSULE PO ×2 (10:29→22:45)
[2023-02-09] MEDS: busPIRone HCl 5 MG TABLET 15 MG PO ×2 (10:29→22:44)
[2023-02-09] MEDS: Benztropine Mesylate 1 MG TABLET PO ×2 (10:29→22:46)
--- NOTE | 2023-02-09 10:30 | HO.PSYCHPN ---
Subjective Subjective Date of Service: 02/09/23 Reason For Visit: delusions Subjective Notes: Conditional Voluntary Healthcare Proxy: No Guardianship: No Medical Problems Affecting Mental Status: No Interim History: Reviewed in team. MELINDA is willing to meet pt at [facility] to begin her introduction to their company and care. Pt continues to ask for assistance at home until her cataract surgery is scheduled. Pt reduced Haldol dosing over the weekend. Discharge planning-she may discharge without services if insurance does not approve. Medication Compliance: Intermittent Side effects from medications: No Attending Groups: No Review of Systems Acute medical concerns: No Medical Review of Systems: unchanged Mental Status Exam Mental Status Exam Patient Appearance: Disheveled Patient Orientation: Person, Place and Situation Level of Consciousness: Alert Patient Behavior: Talkative and Cooperative Mood Description: Constricted Affect Description: Constricted Ability to Follow Directions: Good Speech Pattern: Spontaneous Speech Memory Description: Episodic Impaired Hallucinations: Auditory (some self dialogue sx noted.) Delusions: Paranoid Ideation Perceptual Disturbances: Derealization Thought Process: Distracted, Rumination and Evasive Thought Content: positive for Obsessional Thoughts, positive for Circumstantial, positive for Perseveration, positive for Preoccupation and positive for Disorganized Depressive Symptoms: Increased Anxiety and Increased Irritability Abnormal Motor Activity Signs and Symptoms: Restlessness Judgement: Poor Diagnostics Vital Signs (24Hr): Vital Signs - 24 hr 02/08/23 18:00 Temperature 96.9 F Pulse Rate 85 Blood Pressure 129/80 Pulse Oximetry 95 Oxygen Delivery Method Room Air BMI result Body Mass Index 32.7 Labs 02/06/23 07:47 01/28/23 08:21 Imaging Radiology Impressions: ITS Impressions KUB X-Ray 02/05/23 09:49 IMPRESSION: No evidence of ileus or obstruction. Moderate colonic stool burden. Medications Medications Current Medications Al Hydroxide/Mg Hydroxide (Magnesium Hydrox/Alum Hydrox 30 Ml Oral.Susp) 30 ml PO Q6H PRN PRN Reason: Heartburn/Nausea Albuterol Sulfate (Albuterol Sulfate 90 Mcg 8 Gm Inhaler) 2 puff INHALE Q6H PRN PRN Reason: Wheezing Benztropine Mesylate (Benztropine Mesylate 1 Mg Tablet) 1 mg PO BID [facility] Last Admin: 02/08/23 21:24 Dose: 1 mg Bisacodyl (Bisacodyl 5 Mg Tablet.) 10 mg PO DAILY PRN PRN Reason: Constipation Last Admin: 02/04/23 14:34 Dose: 10 mg Buspirone HCl (Buspirone Hcl 5 Mg Tablet) 15 mg PO BID [facility] Last Admin: 02/08/23 21:22 Dose: 15 mg Divalproex Sodium (Divalproex Sodium 500 Mg Tablet.) 1,000 mg PO BEDTIME [facility] Last Admin: 02/08/23 21:21 Dose: 1,000 mg Divalproex Sodium (Divalproex Sodium 500 Mg Tablet.) 500 mg PO DAILY [facility] Last Admin: 02/08/23 08:50 Dose: 500 mg Docusate Sodium (Docusate Sodium 100 Mg Capsule) 100 mg PO BID [facility] Last Admin: 02/08/23 21:23 Dose: 100 mg Haloperidol (Haloperidol 5 Mg Tablet) 10 mg PO BEDTIME [facility] Last Admin: 02/08/23 21:22 Dose: 10 mg Hydroxyzine HCl (Hydroxyzine Hcl 25 Mg Tablet) 25 mg PO Q6H PRN PRN Reason: Anxiety Levothyroxine Sodium (Levothyroxine Sodium 50 Mcg Tablet) 50 mcg PO DAILY@0600 [facility] Last Admin: 02/09/23 06:18 Dose: 50 mcg Loratadine (Loratadine 10 Mg Tablet) 10 mg PO DAILY [facility] Last Admin: 02/08/23 08:50 Dose: 10 mg Lorazepam (Lorazepam 1 Mg Tablet) 1 mg PO BID PRN PRN Reason: anxiety/restlessness Last Admin: 02/08/23 21:23 Dose: 1 mg Magnesium Hydroxide (Milk Of Magnesia 30 Ml Oral.Susp) 30 ml PO DAILY PRN PRN Reason: Constipation Last Admin: 02/04/23 20:14 Dose: 30 ml Magnesium Oxide (Magnesium Oxide 400 Mg Tablet) 400 mg PO DAILY [facility] Last Admin: 02/08/23 08:50 Dose: 400 mg Mineral Oil (Mineral Oil Enema 133 Ml Enema) 133 ml NE ONCE PRN PRN Reason: constipation Omeprazole (Omeprazole 20 Mg Capsule.) 20 mg PO DAILY@0630 [facility] Last Admin: 02/09/23 06:18 Dose: 20 mg Ondansetron HCl (Ondansetron Odt 4 Mg Tab.Rapdis) 4 mg TRANSLINGU Q12H PRN PRN Reason: Nausea Last Admin: 02/08/23 09:38 Dose: 4 mg Pharmacy Consult (Consult Rx Perform Med Rec) 1 each MISCELLANE ONCE PRN PRN Reason: Consult order Psyllium Hydrophilic Mucilloid (Psyllium Seed 3.4 Gm Powd.Pack) 3.4 gm PO DAILY [facility] Last Admin: 02/08/23 08:49 Dose: 3.4 gm Tramadol HCl (Tramadol Hcl 50 Mg Tablet) 25 mg PO Q12H PRN PRN Reason: Pain, Mild (Pain Scale 1-3) Last Admin: 02/08/23 09:38 Dose: 25 mg Trazodone HCl (Trazodone Hcl 50 Mg Tablet) 50 mg PO BEDTIME PRN PRN Reason: Insomnia Vitamin E (Vitamin E (Dl,Tocopheryl Acet) 180 Mg (400 Unit) Capsule) 180 mg PO BID [facility] Last Admin: 02/08/23 21:24 Dose: 180 mg Allergies Allergies Allergy/AdvReac Type Severity Reaction Status Date / Time acetaminophen [From Vicodin] Allergy Intermediate Hives Verified 01/26/23 10:35 celecoxib [From Celebrex] Allergy Intermediate Hives Verified 01/26/23 10:35 hydrocodone [From Vicodin] Allergy Intermediate Hives Verified 01/26/23 10:35 ibuprofen Allergy Intermediate Stomach Verified 01/26/23 10:35 Upset oxycodone [From Percocet] Allergy Intermediate Hives Verified 01/26/23 10:35 shrimp Allergy Intermediate swelling Verified 01/26/23 10:35 mouth/tongue Sulfa (Sulfonamide Allergy Intermediate Hives Verified 01/26/23 10:35 Antibiotics) sulfamethoxazole Allergy Intermediate Hives Verified 01/26/23 10:35 [From Bactrim] trimethoprim [From Bactrim] Allergy Intermediate Hives Verified 01/26/23 10:35 penicillin G Allergy Unknown Unknown Verified 01/26/23 10:35 Grapefruit Flavor Allergy Unknown Unknown Uncoded 07/22/22 09:15 Assessment & Plan Assessment & Plan (1) Schizoaffective disorder: Status: Acute Code(s): F25.9 - Schizoaffective disorder, unspecified Plan 52 yo female, history of schizoaffective disorder. Pt in [facility] ER from 01/07-01/21 with medicine changes that pt does not approve of. Pt reports she is unable to care for herself at home due to diminishing eyesight. She asks for referrals for home care to assist her and denies all psych sx. Upon presentation, pt appears manic. Plan: Collateral contact from [facility]. Continue admission regime until information is available to assess for changes Encourage pt's independence Continue to monitor. 01/29/23: Decrease Depakote to 500 mg a.m. 1000 mg h.s., a decrease of 250 mg. Continue Haldol 10 mg hs Discontinue Haldol 5 mg a.m. A total decrease of 5 mg Monitor for effects. 01/30/21: Increase Haldol to 15 mg HS 01/31: Continue current medications and treatment plan. 02/01: Continue current medications and treatment plan. 02/02/23 Continue current regime and plan. TDN to 01/05/23. 02/03/23 Dulcolax prn constipation. Pt plans to retract TDN. 02/04/23 Valproate level 02/0502/05/23 Refusing of changes at this time KUB Fleet enema 02/06/23 Constipation resolving Continue current regime 02/07 continue current regimen with no changes 02/08: Continue current regimen and plans. Decrease Haldol to 10 mg 02/09/23: Discharge planning. Informed Consent: understands Reason for continued inpatient stay Substantial Risk for: rapid decompensation Time Spent With Patient Time: Total time managing care of this patient today ____ minutes.
[2023-02-09] MEDS: traMADoL HCL 50 MG TABLET 25 MG PO ×2 (10:35→22:47)
[2023-02-09] MEDS: Ondansetron ODT 4 MG TAB.RAPDIS TRANSLINGU ×2 (10:36→22:47)
[2023-02-09] MEDS: Magnesium Oxide 400 MG TABLET PO (11:14)
[2023-02-09 17:20] VITALS: BP 121/66; PULSE 77; TEMP 35.7; O2SAT 96
[2023-02-09] MEDS: Divalproex Sodium 500 MG TABLET.DR 1000 MG PO (22:45)
[2023-02-09] MEDS: HaloperidoL 5 MG TABLET 10 MG PO (22:46)
[2023-02-10 08:15] VITALS: BP 129/70; PULSE 60; RESP 16; TEMP 36.2; O2SAT 97
[2023-02-10] MEDS: Omeprazole 20 MG CAPSULE.DR PO (08:46)
[2023-02-10] MEDS: Magnesium Oxide 400 MG TABLET PO (08:46)
[2023-02-10] MEDS: Benztropine Mesylate 1 MG TABLET PO ×2 (08:46→21:19)
[2023-02-10] MEDS: Vitamin E (Dl,Tocopheryl Acet) 180 MG (400 UNIT) CAPSULE PO ×2 (08:46→21:19)
[2023-02-10] MEDS: busPIRone HCl 5 MG TABLET 15 MG PO ×2 (08:46→21:18)
[2023-02-10] MEDS: Levothyroxine Sodium 50 MCG TABLET PO (08:46)
[2023-02-10] MEDS: Docusate Sodium 100 MG CAPSULE PO ×2 (08:46→21:19)
[2023-02-10] MEDS: Loratadine 10 MG TABLET PO (08:46)
[2023-02-10] MEDS: Divalproex Sodium 500 MG TABLET.DR PO (08:47)
--- NOTE | 2023-02-10 13:45 | HO.PSYCHPN ---
Subjective Subjective Date of Service: 02/10/23 Reason For Visit: delusions Subjective Notes: Conditional Voluntary Interim History: Pt reports that she is here because she needs nursing care after cataract surgery. 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 Pt becomes upset because she states this com writer does not believe her and call her a liar! This com writer had not said a word. Pt reports she needs less medications because again she does not need psychiatric care. Pt stated she can't access her money, only social security money because FBI warned her that if she takes large amounts of money she will be assaulted. She denies SI/HI. Review of Systems Review of Systems Tiredness Yes all other systems are reviewed and are negative Constitutional: Reports no additional constitutional complaints Eyes: Reports blind spots, Reports blurry vision, Reports change in vision, Reports decreased night vision, Reports loss of peripheral vision, Reports loss of vision and Reports spots in vision Reports system reviewed and no additional complaints, except as documented Cardiovascular: Reports no additional cardiovascular complaints Respiratory: Reports no additional respiratory complaints Gastrointestinal: Reports no additional gastrointestinal complaints Musculoskeletal: Reports no additional musculoskeletal complaints Skin/Breast: Reports system reviewed and no additional complaints, except as docu Reports behavioral changes and Reports loss of vision Psychiatric: Reports anxiety, Reports behavioral changes, Reports depression, Reports hopelessness, Reports irritability, Reports anhedonia and Reports mood swings Endocrine: Reports no additional endocrine complaints Hematologic/Lymphatic: Reports no additional hematologic/lymphatic complaints Allergic/Immunologic: Reports no additional allergic/immunologic complaints Mental Status Exam Mental Status Exam Patient Appearance: Disheveled Patient Orientation: Person, Place and Situation Level of Consciousness: Alert Patient Behavior: Talkative and Cooperative Mood Description: Constricted Affect Description: Constricted Patient Cognition Impaired: No Ability to Follow Directions: Good Speech Pattern: Spontaneous Speech Memory Description: Episodic Impaired Diagnostics Vital Signs (24Hr): Vital Signs - 24 hr 02/09/23 17:20 Temperature 96.2 F L Pulse Rate 77 Blood Pressure 121/66 Pulse Oximetry 96 Oxygen Delivery Method Room Air BMI result Body Mass Index 32.7 Labs 02/06/23 07:47 01/28/23 08:21 Imaging Radiology Impressions: ITS Impressions KUB X-Ray 02/05/23 09:49 IMPRESSION: No evidence of ileus or obstruction. Moderate colonic stool burden. Medications Medications Current Medications Al Hydroxide/Mg Hydroxide (Magnesium Hydrox/Alum Hydrox 30 Ml Oral.Susp) 30 ml PO Q6H PRN PRN Reason: Heartburn/Nausea Albuterol Sulfate (Albuterol Sulfate 90 Mcg 8 Gm Inhaler) 2 puff INHALE Q6H PRN PRN Reason: Wheezing Benztropine Mesylate (Benztropine Mesylate 1 Mg Tablet) 1 mg PO BID [facility] Last Admin: 02/10/23 08:46 Dose: 1 mg Bisacodyl (Bisacodyl 5 Mg Tablet.) 10 mg PO DAILY PRN PRN Reason: Constipation Last Admin: 02/04/23 14:34 Dose: 10 mg Buspirone HCl (Buspirone Hcl 5 Mg Tablet) 15 mg PO BID [facility] Last Admin: 02/10/23 08:46 Dose: 15 mg Divalproex Sodium (Divalproex Sodium 500 Mg Tablet.) 1,000 mg PO BEDTIME [facility] Last Admin: 02/09/23 22:45 Dose: 1,000 mg Divalproex Sodium (Divalproex Sodium 500 Mg Tablet.) 500 mg PO DAILY [facility] Last Admin: 02/10/23 08:47 Dose: 500 mg Docusate Sodium (Docusate Sodium 100 Mg Capsule) 100 mg PO BID [facility] Last Admin: 02/10/23 08:46 Dose: 100 mg Haloperidol (Haloperidol 5 Mg Tablet) 10 mg PO BEDTIME [facility] Last Admin: 02/09/23 22:46 Dose: 10 mg Haloperidol (Haloperidol 5 Mg Tablet) 5 mg PO DAILY [facility] Last Admin: 02/10/23 11:07 Dose: Not Given Hydroxyzine HCl (Hydroxyzine Hcl 25 Mg Tablet) 25 mg PO Q6H PRN PRN Reason: Anxiety Levothyroxine Sodium (Levothyroxine Sodium 50 Mcg Tablet) 50 mcg PO DAILY@0600 [facility] Last Admin: 02/10/23 08:46 Dose: 50 mcg Loratadine (Loratadine 10 Mg Tablet) 10 mg PO DAILY [facility] Last Admin: 02/10/23 08:46 Dose: 10 mg Lorazepam (Lorazepam 1 Mg Tablet) 1 mg PO BID PRN PRN Reason: anxiety/restlessness Last Admin: 02/08/23 21:23 Dose: 1 mg Magnesium Hydroxide (Milk Of Magnesia 30 Ml Oral.Susp) 30 ml PO DAILY PRN PRN Reason: Constipation Last Admin: 02/04/23 20:14 Dose: 30 ml Magnesium Oxide (Magnesium Oxide 400 Mg Tablet) 400 mg PO DAILY [facility] Last Admin: 02/10/23 08:46 Dose: 400 mg Mineral Oil (Mineral Oil Enema 133 Ml Enema) 133 ml MS ONCE PRN PRN Reason: constipation Omeprazole (Omeprazole 20 Mg Capsule.Dr) 20 mg PO DAILY@0630 [facility] Last Admin: 02/10/23 08:46 Dose: 20 mg Ondansetron HCl (Ondansetron Odt 4 Mg Tab.Rapdis) 4 mg TRANSLINGU Q12H PRN PRN Reason: Nausea Last Admin: 02/09/23 22:47 Dose: 4 mg Pharmacy Consult (Consult Rx Perform Med Rec) 1 each MISCELLANE ONCE PRN PRN Reason: Consult order Psyllium Hydrophilic Mucilloid (Psyllium Seed 3.4 Gm Powd.Pack) 3.4 gm PO DAILY [facility] Last Admin: 02/10/23 09:01 Dose: 3.4 gm Tramadol HCl (Tramadol Hcl 50 Mg Tablet) 25 mg PO Q12H PRN PRN Reason: Pain, Mild (Pain Scale 1-3) Last Admin: 02/09/23 22:47 Dose: 25 mg Trazodone HCl (Trazodone Hcl 50 Mg Tablet) 50 mg PO BEDTIME PRN PRN Reason: Insomnia Vitamin E (Vitamin E (Dl,Tocopheryl Acet) 180 Mg (400 Unit) Capsule) 180 mg PO BID [facility] Last Admin: 02/10/23 08:46 Dose: 180 mg Allergies Allergies Allergy/AdvReac Type Severity Reaction Status Date / Time acetaminophen [From Vicodin] Allergy Intermediate Hives Verified 01/26/23 10:35 celecoxib [From Celebrex] Allergy Intermediate Hives Verified 01/26/23 10:35 hydrocodone [From Vicodin] Allergy Intermediate Hives Verified 01/26/23 10:35 ibuprofen Allergy Intermediate Stomach Verified 01/26/23 10:35 Upset oxycodone [From Percocet] Allergy Intermediate Hives Verified 01/26/23 10:35 shrimp Allergy Intermediate swelling Verified 01/26/23 10:35 mouth/tongue Sulfa (Sulfonamide Allergy Intermediate Hives Verified 01/26/23 10:35 Antibiotics) sulfamethoxazole Allergy Intermediate Hives Verified 01/26/23 10:35 [From Bactrim] trimethoprim [From Bactrim] Allergy Intermediate Hives Verified 01/26/23 10:35 penicillin G Allergy Unknown Unknown Verified 01/26/23 10:35 Grapefruit Flavor Allergy Unknown Unknown Uncoded 07/22/22 09:15 Assessment & Plan Assessment & Plan (1) Schizoaffective disorder: Status: Acute Code(s): F25.9 - Schizoaffective disorder, unspecified Plan 52 yo female, history of schizoaffective disorder. Pt in [facility] ER from 01/07-01/21 with medicine changes that pt does not approve of. Pt reports she is unable to care for herself at home due to diminishing eyesight. She asks for referrals for home care to assist her and denies all psych sx. Upon presentation, pt appears manic. Plan: Collateral contact from [facility]. Continue admission regime until information is available to assess for changes Encourage pt's independence Continue to monitor. 01/29/23: Decrease Depakote to 500 mg a.m. 1000 mg h.s., a decrease of 250 mg. Continue Haldol 10 mg hs Discontinue Haldol 5 mg a.m. A total decrease of 5 mg Monitor for effects. 01/30/21: Increase Haldol to 15 mg HS 01/31: Continue current medications and treatment plan. 02/01: Continue current medications and treatment plan. 02/02/23 Continue current regime and plan. TDN to 01/05/23. 02/03/23 Dulcolax prn constipation. Pt plans to retract TDN. 02/04/23 Valproate level 02/0502/05/23 Refusing of changes at this time KUB Fleet enema 02/06/23 Constipation resolving Continue current regime 02/07 continue current regimen with no changes 02/08: Continue current regimen and plans. Decrease Haldol to 10 mg 02/09/23: Discharge planning. 02/10 continues to present with grandiose delusions along with delusions of being persecuted. She is taking haldol at bedtime but does not think she needs any medications. Reason for continued inpatient stay Substantial Risk for: inability to function Time Spent With Patient Time: Total time managing care of this patient today ____ minutes.
[2023-02-10] MEDS: Ondansetron ODT 4 MG TAB.RAPDIS TRANSLINGU (13:55)
[2023-02-10] MEDS: traMADoL HCL 50 MG TABLET 25 MG PO (13:55)
[2023-02-10 21:17] VITALS: BP 134/81; PULSE 69; RESP 18; TEMP 36.2; O2SAT 97
[2023-02-10] MEDS: HaloperidoL 5 MG TABLET 10 MG PO (21:18)
[2023-02-10] MEDS: Divalproex Sodium 500 MG TABLET.DR 1000 MG PO (21:19)
[2023-02-11] MEDS: Ondansetron ODT 4 MG TAB.RAPDIS TRANSLINGU (09:34)
[2023-02-11] MEDS: Divalproex Sodium 500 MG TABLET.DR PO (09:35)
[2023-02-11] MEDS: busPIRone HCl 5 MG TABLET 15 MG PO ×2 (09:35→21:21)
[2023-02-11] MEDS: Loratadine 10 MG TABLET PO (09:35)
[2023-02-11] MEDS: Omeprazole 20 MG CAPSULE.DR PO (09:35)
[2023-02-11] MEDS: Magnesium Oxide 400 MG TABLET PO (09:35)
[2023-02-11] MEDS: Benztropine Mesylate 1 MG TABLET PO ×2 (09:35→21:22)
[2023-02-11] MEDS: traMADoL HCL 50 MG TABLET 25 MG PO ×2 (09:35→21:22)
[2023-02-11] MEDS: Docusate Sodium 100 MG CAPSULE PO ×2 (09:35→21:21)
[2023-02-11] MEDS: Vitamin E (Dl,Tocopheryl Acet) 180 MG (400 UNIT) CAPSULE PO ×2 (09:35→21:21)
[2023-02-11] MEDS: Levothyroxine Sodium 50 MCG TABLET PO (09:37)
[2023-02-11 09:45] VITALS: BP 145/84; PULSE 81; RESP 16; TEMP 36.2; O2SAT 98
--- NOTE | 2023-02-11 15:53 | P.PNPSI_ITS ---
Subjective Subjective Date of Service: 02/11/23 Reason For Visit: delusions Subjective Notes: Conditional Voluntary Healthcare Proxy: No Guardianship: No Medical Problems Affecting Mental Status: No Interim History: Discussed discharge with pt CCA will come into the unit on 02/12 to work with her on initiating her insurance plan. Pt wanting to go home with a [employer] to cook, clean, shop for her until surgery is completed. Discussed current admission being psychiatric and pt is refusing any psychiatric intervention. She denies need for any psychiatric intervention, decreased psychiatric medications over the weekend , although she still presents with some fixed delusional ideas and grandiose concepts. She has been asked to contact her eye team and insurance to discuss options for home care with them. Medication Compliance: Yes Side effects from medications: No Attending Groups: No Review of Systems Acute medical concerns: No Medical Review of Systems: unchanged Mental Status Exam Mental Status Exam Patient Appearance: Disheveled Patient Orientation: Person, Place and Situation Level of Consciousness: Alert Patient Behavior: Talkative and Cooperative Mood Description: Constricted Affect Description: Constricted Patient Cognition Impaired: No Ability to Follow Directions: Good Speech Pattern: Spontaneous Speech Memory Description: Episodic Impaired Diagnostics Vital Signs (24Hr): Vital Signs - 24 hr 02/10/23 21:17 02/11/23 09:45 Temperature 97.2 F 97.2 F Pulse Rate 69 81 Respiratory Rate 18 16 Blood Pressure 134/81 145/84 H Pulse Oximetry 97 98 Oxygen Delivery Method Room Air Room Air BMI result Body Mass Index 32.7 Labs 02/06/23 07:47 01/28/23 08:21 Imaging Radiology Impressions: ITS Impressions KUB X-Ray 02/05/23 09:49 IMPRESSION: No evidence of ileus or obstruction. Moderate colonic stool burden. Medications Medications Current Medications Al Hydroxide/Mg Hydroxide (Magnesium Hydrox/Alum Hydrox 30 Ml Oral.Susp) 30 ml PO Q6H PRN PRN Reason: Heartburn/Nausea Albuterol Sulfate (Albuterol Sulfate 90 Mcg 8 Gm Inhaler) 2 puff INHALE Q6H PRN PRN Reason: Wheezing Benztropine Mesylate (Benztropine Mesylate 1 Mg Tablet) 1 mg PO BID [facility] Last Admin: 02/11/23 09:35 Dose: 1 mg Bisacodyl (Bisacodyl 5 Mg Tablet.) 10 mg PO DAILY PRN PRN Reason: Constipation Last Admin: 02/04/23 14:34 Dose: 10 mg Buspirone HCl (Buspirone Hcl 5 Mg Tablet) 15 mg PO BID [facility] Last Admin: 02/11/23 09:35 Dose: 15 mg Divalproex Sodium (Divalproex Sodium 500 Mg Tablet.) 1,000 mg PO BEDTIME [facility] Last Admin: 02/10/23 21:19 Dose: 1,000 mg Divalproex Sodium (Divalproex Sodium 500 Mg Tablet.) 500 mg PO DAILY [facility] Last Admin: 02/11/23 09:35 Dose: 500 mg Docusate Sodium (Docusate Sodium 100 Mg Capsule) 100 mg PO BID [facility] Last Admin: 02/11/23 09:35 Dose: 100 mg Haloperidol (Haloperidol 5 Mg Tablet) 10 mg PO BEDTIME [facility] Last Admin: 02/10/23 21:18 Dose: 10 mg Haloperidol (Haloperidol 5 Mg Tablet) 5 mg PO DAILY [facility] Last Admin: 02/11/23 09:37 Dose: Not Given Hydroxyzine HCl (Hydroxyzine Hcl 25 Mg Tablet) 25 mg PO Q6H PRN PRN Reason: Anxiety Levothyroxine Sodium (Levothyroxine Sodium 50 Mcg Tablet) 50 mcg PO DAILY@0600 [facility] Last Admin: 02/11/23 09:37 Dose: 50 mcg Loratadine (Loratadine 10 Mg Tablet) 10 mg PO DAILY [facility] Last Admin: 02/11/23 09:35 Dose: 10 mg Lorazepam (Lorazepam 1 Mg Tablet) 1 mg PO BID PRN PRN Reason: anxiety/restlessness Last Admin: 02/08/23 21:23 Dose: 1 mg Magnesium Hydroxide (Milk Of Magnesia 30 Ml Oral.Susp) 30 ml PO DAILY PRN PRN Reason: Constipation Last Admin: 02/04/23 20:14 Dose: 30 ml Magnesium Oxide (Magnesium Oxide 400 Mg Tablet) 400 mg PO DAILY [facility] Last Admin: 02/11/23 09:35 Dose: 400 mg Mineral Oil (Mineral Oil Enema 133 Ml Enema) 133 ml [place] ONCE PRN PRN Reason: constipation Omeprazole (Omeprazole 20 Mg Capsule.) 20 mg PO DAILY@0630 [facility] Last Admin: 02/11/23 09:35 Dose: 20 mg Ondansetron HCl (Ondansetron Odt 4 Mg Tab.Rapdis) 4 mg TRANSLINGU Q12H PRN PRN Reason: Nausea Last Admin: 02/11/23 09:34 Dose: 4 mg Pharmacy Consult (Consult Rx Perform Med Rec) 1 each MISCELLANE ONCE PRN PRN Reason: Consult order Psyllium Hydrophilic Mucilloid (Psyllium Seed 3.4 Gm Powd.Pack) 3.4 gm PO DAILY [facility] Last Admin: 02/11/23 09:35 Dose: 3.4 gm Tramadol HCl (Tramadol Hcl 50 Mg Tablet) 25 mg PO Q12H PRN PRN Reason: Pain, Mild (Pain Scale 1-3) Last Admin: 02/11/23 09:35 Dose: 25 mg Trazodone HCl (Trazodone Hcl 50 Mg Tablet) 50 mg PO BEDTIME PRN PRN Reason: Insomnia Vitamin E (Vitamin E (Dl,Tocopheryl Acet) 180 Mg (400 Unit) Capsule) 180 mg PO BID [facility] Last Admin: 02/11/23 09:35 Dose: 180 mg Allergies Allergies Allergy/AdvReac Type Severity Reaction Status Date / Time acetaminophen [From Vicodin] Allergy Intermediate Hives Verified 01/26/23 10:35 celecoxib [From Celebrex] Allergy Intermediate Hives Verified 01/26/23 10:35 hydrocodone [From Vicodin] Allergy Intermediate Hives Verified 01/26/23 10:35 ibuprofen Allergy Intermediate Stomach Verified 01/26/23 10:35 Upset oxycodone [From Percocet] Allergy Intermediate Hives Verified 01/26/23 10:35 shrimp Allergy Intermediate swelling Verified 01/26/23 10:35 mouth/tongue Sulfa (Sulfonamide Allergy Intermediate Hives Verified 01/26/23 10:35 Antibiotics) sulfamethoxazole Allergy Intermediate Hives Verified 01/26/23 10:35 [From Bactrim] trimethoprim [From Bactrim] Allergy Intermediate Hives Verified 01/26/23 10:35 penicillin G Allergy Unknown Unknown Verified 01/26/23 10:35 Grapefruit Flavor Allergy Unknown Unknown Uncoded 07/22/22 09:15 Assessment & Plan Assessment & Plan (1) Schizoaffective disorder: Status: Acute Code(s): F25.9 - Schizoaffective disorder, unspecified Plan 52 yo female, history of schizoaffective disorder. Pt in [facility] ER from 01/07-01/21 with medicine changes that pt does not approve of. Pt reports she is unable to c are for herself at home due to diminishing eyesight. She asks for referrals for home care to assist her and denies all psych sx. Upon presentation, pt appears manic. Plan: Collateral contact from [facility]. Continue admission regime until information is available to assess for changes Encourage pt's independence Continue to monitor. 01/29/23: Decrease Depakote to 500 mg a.m. 1000 mg h.s., a decrease of 250 mg. Continue Haldol 10 mg hs Discontinue Haldol 5 mg a.m. A total decrease of 5 mg Monitor for effects. 01/30/21: Increase Haldol to 15 mg HS 01/31: Continue current medications and treatment plan. 02/01: Continue current medications and treatment plan. 02/02/23 Continue current regime and plan. TDN to 01/05/23. 02/03/23 Dulcolax prn constipation. Pt plans to retract TDN. 02/04/23 Valproate level 02/0502/05/23 Refusing of changes at this time KUB Fleet enema 02/06/23 Constipation resolving Continue current regime 02/07 continue current regimen with no changes 02/08: Continue current regimen and plans. Decrease Haldol to 10 mg 02/09/23: Discharge planning. 02/10 continues to present with grandiose delusions along with delusions of being persecuted. She is taking haldol at bedtime but does not think she needs any medications. 02/11 CCA will meet with pt on 02/12 to discuss her insurance and needs for discharge. Patient educated on: therapeutic strategies Informed Consent: understands and further education needed Reason for continued inpatient stay Substantial Risk for: inability to function Time Spent With Patient Time: Total time managing care of this patient today ____ minutes.
[2023-02-11] MEDS: HaloperidoL 5 MG TABLET 10 MG PO (21:21)
[2023-02-11] MEDS: Divalproex Sodium 500 MG TABLET.DR 1000 MG PO (21:21)
[2023-02-11 21:27] VITALS: BP 123/63; PULSE 70; RESP 18; TEMP 36.6
[2023-02-12 07:00] VITALS: BMI 34.2
[2023-02-12 08:36] VITALS: BP 115/62; PULSE 62; RESP 16; TEMP 36.4; O2SAT 99
[2023-02-12] MEDS: Omeprazole 20 MG CAPSULE.DR PO (09:59)
[2023-02-12] MEDS: Vitamin E (Dl,Tocopheryl Acet) 180 MG (400 UNIT) CAPSULE PO ×2 (09:59→22:13)
[2023-02-12] MEDS: busPIRone HCl 5 MG TABLET 15 MG PO ×2 (09:59→22:14)
[2023-02-12] MEDS: Ondansetron ODT 4 MG TAB.RAPDIS TRANSLINGU ×2 (09:59→22:17)
[2023-02-12] MEDS: Loratadine 10 MG TABLET PO (09:59)
[2023-02-12] MEDS: Magnesium Oxide 400 MG TABLET PO (09:59)
[2023-02-12] MEDS: Levothyroxine Sodium 50 MCG TABLET PO (10:00)
[2023-02-12] MEDS: Benztropine Mesylate 1 MG TABLET PO ×2 (10:00→22:14)
[2023-02-12] MEDS: Divalproex Sodium 500 MG TABLET.DR PO (10:00)
[2023-02-12] MEDS: traMADoL HCL 50 MG TABLET 25 MG PO ×2 (10:00→22:11)
[2023-02-12] MEDS: Docusate Sodium 100 MG CAPSULE PO ×2 (10:00→22:13)
--- NOTE | 2023-02-12 16:39 | HO.PSYCHPN ---
Subjective Subjective Date of Service: 02/12/23 Reason For Visit: delusions Subjective Notes: Conditional Voluntary Healthcare Proxy: No Guardianship: No Medical Problems Affecting Mental Status: No Interim History: Pt planning discharge for 02/13/23. CCA has come in to meet with pt and initiate her assessment for this new insurance plan. Pt will accept VNA and have a telehealth appt with her [place] [facility] Provider on 02/13 as well. Pt continues to report there is no need for psychiatric admission, just admission to assist her visually with home care tasks prior to cataract procedures which will be planned on 03/09 at her assessment appt. Remains with some fixed delusional content, medication resistance as it just is not needed and focus on her vision as rationale for her need for care at this time. Medication Compliance: Intermittent Side effects from medications: No Attending Groups: No Review of Systems Acute medical concerns: No Medical Review of Systems: unchanged Mental Status Exam Mental Status Exam Patient Appearance: Disheveled Patient Orientation: Person, Place and Situation Level of Consciousness: Alert Patient Behavior: Talkative and Cooperative Mood Description: Constricted Affect Description: Constricted Patient Cognition Impaired: No Ability to Follow Directions: Good Speech Pattern: Spontaneous Speech Memory Description: Episodic Impaired Diagnostics Vital Signs (24Hr): Vital Signs - 24 hr 02/11/23 21:27 02/12/23 08:36 Temperature 97.8 F 97.5 F Pulse Rate 70 62 Respiratory Rate 18 16 Blood Pressure 123/63 115/62 Pulse Oximetry 99 Oxygen Delivery Method Room Air BMI result Body Mass Index 34.2 Labs 02/06/23 07:47 01/28/23 08:21 Imaging Radiology Impressions: ITS Impressions KUB X-Ray 02/05/23 09:49 IMPRESSION: No evidence of ileus or obstruction. Moderate colonic stool burden. Medications Medications Current Medications Al Hydroxide/Mg Hydroxide (Magnesium Hydrox/Alum Hydrox 30 Ml Oral.Susp) 30 ml PO Q6H PRN PRN Reason: Heartburn/Nausea Albuterol Sulfate (Albuterol Sulfate 90 Mcg 8 Gm Inhaler) 2 puff INHALE Q6H PRN PRN Reason: Wheezing Benztropine Mesylate (Benztropine Mesylate 1 Mg Tablet) 1 mg PO BID [facility] Last Admin: 02/12/23 10:00 Dose: 1 mg Bisacodyl (Bisacodyl 5 Mg Tablet.) 10 mg PO DAILY PRN PRN Reason: Constipation Last Admin: 02/04/23 14:34 Dose: 10 mg Buspirone HCl (Buspirone Hcl 5 Mg Tablet) 15 mg PO BID [facility] Last Admin: 02/12/23 09:59 Dose: 15 mg Divalproex Sodium (Divalproex Sodium 500 Mg Tablet.) 1,000 mg PO BEDTIME [facility] Last Admin: 02/11/23 21:21 Dose: 1,000 mg Divalproex Sodium (Divalproex Sodium 500 Mg Tablet.) 500 mg PO DAILY [facility] Last Admin: 02/12/23 10:00 Dose: 500 mg Docusate Sodium (Docusate Sodium 100 Mg Capsule) 100 mg PO BID [facility] Last Admin: 02/12/23 10:00 Dose: 100 mg Haloperidol (Haloperidol 5 Mg Tablet) 10 mg PO BEDTIME [facility] Last Admin: 02/11/23 21:21 Dose: 10 mg Haloperidol (Haloperidol 5 Mg Tablet) 5 mg PO DAILY [facility] Last Admin: 02/12/23 10:00 Dose: Not Given Hydroxyzine HCl (Hydroxyzine Hcl 25 Mg Tablet) 25 mg PO Q6H PRN PRN Reason: Anxiety Levothyroxine Sodium (Levothyroxine Sodium 50 Mcg Tablet) 50 mcg PO DAILY@0600 [facility] Last Admin: 02/12/23 10:00 Dose: 50 mcg Loratadine (Loratadine 10 Mg Tablet) 10 mg PO DAILY [facility] Last Admin: 02/12/23 09:59 Dose: 10 mg Lorazepam (Lorazepam 1 Mg Tablet) 1 mg PO BID PRN PRN Reason: anxiety/restlessness Last Admin: 02/08/23 21:23 Dose: 1 mg Magnesium Hydroxide (Milk Of Magnesia 30 Ml Oral.Susp) 30 ml PO DAILY PRN PRN Reason: Constipation Last Admin: 02/04/23 20:14 Dose: 30 ml Magnesium Oxide (Magnesium Oxide 400 Mg Tablet) 400 mg PO DAILY [facility] Last Admin: 02/12/23 09:59 Dose: 400 mg Mineral Oil (Mineral Oil Enema 133 Ml Enema) 133 ml IN ONCE PRN PRN Reason: constipation Omeprazole (Omeprazole 20 Mg Capsule.) 20 mg PO DAILY@0630 [facility] Last Admin: 02/12/23 09:59 Dose: 20 mg Ondansetron HCl (Ondansetron Odt 4 Mg Tab.Rapdis) 4 mg TRANSLINGU Q12H PRN PRN Reason: Nausea Last Admin: 02/12/23 09:59 Dose: 4 mg Pharmacy Consult (Consult Rx Perform Med Rec) 1 each MISCELLANE ONCE PRN PRN Reason: Consult order Psyllium Hydrophilic Mucilloid (Psyllium Seed 3.4 Gm Powd.Pack) 3.4 gm PO DAILY [facility] Last Admin: 02/12/23 09:19 Dose: 3.4 gm Tramadol HCl (Tramadol Hcl 50 Mg Tablet) 25 mg PO Q12H PRN PRN Reason: Pain, Mild (Pain Scale 1-3) Last Admin: 02/12/23 10:00 Dose: 25 mg Trazodone HCl (Trazodone Hcl 50 Mg Tablet) 50 mg PO BEDTIME PRN PRN Reason: Insomnia Vitamin E (Vitamin E (Dl,Tocopheryl Acet) 180 Mg (400 Unit) Capsule) 180 mg PO BID [facility] Last Admin: 02/12/23 09:59 Dose: 180 mg Allergies Allergies Allergy/AdvReac Type Severity Reaction Status Date / Time acetaminophen [From Vicodin] Allergy Intermediate Hives Verified 01/26/23 10:35 celecoxib [From Celebrex] Allergy Intermediate Hives Verified 01/26/23 10:35 hydrocodone [From Vicodin] Allergy Intermediate Hives Verified 01/26/23 10:35 ibuprofen Allergy Intermediate Stomach Verified 01/26/23 10:35 Upset oxycodone [From Percocet] Allergy Intermediate Hives Verified 01/26/23 10:35 shrimp Allergy Intermediate swelling Verified 01/26/23 10:35 mouth/tongue Sulfa (Sulfonamide Allergy Intermediate Hives Verified 01/26/23 10:35 Antibiotics) sulfamethoxazole Allergy Intermediate Hives Verified 01/26/23 10:35 [From Bactrim] trimethoprim [From Bactrim] Allergy Intermediate Hives Verified 01/26/23 10:35 penicillin G Allergy Unknown Unknown Verified 01/26/23 10:35 Grapefruit Flavor Allergy Unknown Unknown Uncoded 07/22/22 09:15 Assessment & Plan Assessment & Plan (1) Schizoaffective disorder: Status: Acute Code(s): F25.9 - Schizoaffective disorder, unspecified Plan 52 yo female, history of schizoaffective disorder. Pt in [facility] ER from 01/07-01/21 with medicine changes that pt does not approve of. Pt reports she is unable to care for herself at home due to diminishing eyesight. She asks for referrals for home care to assist her and denies all psych sx. Upon presentation, pt appears manic. Plan: Collateral contact from [facility]. Continue admission regime until information is available to assess for changes Encourage pt's independence Continue to monitor. 01/29/23: Decrease Depakote to 500 mg a.m. 1000 mg h.s., a decrease of 250 mg. Continue Haldol 10 mg hs Discontinue Haldol 5 mg a.m. A total decrease of 5 mg Monitor for effects. 01/30/21: Increase Haldol to 15 mg HS 01/31: Continue current medications and treatment plan. 02/01: Continue current medications and treatment plan. 02/02/23 Continue current regime and plan. TDN to 01/05/23. 02/03/23 Dulcolax prn constipation. Pt plans to retract TDN. 02/04/23 Valproate level 02/0502/05/23 Refusing of changes at this time KUB Fleet enema 02/06/23 Constipation resolving Continue current regime 02/07 continue current regimen with no changes 02/08: Continue current regimen and plans. Decrease Haldol to 10 mg 02/09/23: Discharge planning. 02/10 continues to present with grandiose delusions along with delusions of being persecuted. She is taking haldol at bedtime but does not think she needs any medications. 02/11 CCA will meet with pt on 02/12 to discuss her insurance and needs for discharge. 02/12/23: Discharge 02/13/23 with services. Patient educated on: therapeutic strategies Informed Consent: understands Reason for continued inpatient stay Substantial Risk for: stable for discharge Time Spent With Patient Time: Total time managing care of this patient today ____ minutes.
[2023-02-12 17:48] VITALS: BP 171/81; PULSE 72; RESP 18; TEMP 36.2; O2SAT 96
[2023-02-12] MEDS: HaloperidoL 5 MG TABLET 10 MG PO (22:14)
[2023-02-12] MEDS: Divalproex Sodium 500 MG TABLET.DR 1000 MG PO (22:15)
[2023-02-13] MEDS: traMADoL HCL 50 MG TABLET 25 MG PO (09:46)
[2023-02-13] MEDS: Ondansetron ODT 4 MG TAB.RAPDIS TRANSLINGU (09:47)
[2023-02-13] MEDS: Benztropine Mesylate 1 MG TABLET PO (09:47)
[2023-02-13] MEDS: Vitamin E (Dl,Tocopheryl Acet) 180 MG (400 UNIT) CAPSULE PO (09:47)
[2023-02-13] MEDS: Levothyroxine Sodium 50 MCG TABLET PO (09:47)
[2023-02-13] MEDS: Omeprazole 20 MG CAPSULE.DR PO (09:48)
[2023-02-13] MEDS: Loratadine 10 MG TABLET PO (09:48)
[2023-02-13] MEDS: busPIRone HCl 5 MG TABLET 15 MG PO (09:48)
[2023-02-13] MEDS: Magnesium Oxide 400 MG TABLET PO (09:49)
[2023-02-13] MEDS: Divalproex Sodium 500 MG TABLET.DR PO (09:49)
--- NOTE | 2023-02-13 14:48 | PM.PSYDC ---
DS: Providers Provider Date of Service: 02/13/23 Date of admission: 01/27/23 00:23 Date of discharge: 02/13/23 Primary care physician: Unknown Physician Admitting clinician: Kellie French Attending physician on admission: Van Garcia Consults: 02/06/23 12:34 Consult to Hospitalist Routine Comment: Consulting Provider: Hospitalist Reason For Exam: abrasion, Left eye. Pt reports accidential scratch Attending physician on discharge: Van Garcia Discharging clinician: Kellie French DS: Diagnosis Discharge Diagnosis (1) Schizoaffective disorder: Status: Acute DS: Medications Discharge Medications Home Medications: Home Medications Medication Instructions Recorded Confirmed albuterol sulfate 90 mcg/actuation 2 puff inhalation Q6H PRN Wheezing 07/22/22 01/26/23 aerosol inhaler (ProAir HFA) levothyroxine 50 mcg capsule 50 mcg PO DAILY 07/22/22 01/26/23 loratadine 10 mg tablet 10 mg PO DAILY 07/22/22 01/26/23 magnesium oxide 400 mg PO DAILY 07/22/22 01/26/23 pantoprazole 40 mg tablet,delayed 40 mg PO DAILY 07/22/22 01/26/23 release tacrolimus 0.03 % topical ointment 1 appl topical BID PRN Rash 07/22/22 01/26/23 vitamin E (dl, acetate) 180 mg 180 mg PO BID 07/22/22 01/26/23 (400 unit) capsule Previous Rx's Medication Instructions Recorded benztropine 1 mg tablet 1 mg PO BID 30 days #60 tabs 02/13/23 divalproex 500 mg tablet,delayed 1,000 mg PO BEDTIME #90 tabs 02/13/23 release divalproex 500 mg tablet,delayed 500 mg PO DAILY #0 tabs 02/13/23 release haloperidol 10 mg tablet 10 mg PO BEDTIME #30 tabs 02/13/23 haloperidol 5 mg tablet 5 mg PO DAILY #30 tabs 02/13/23 lorazepam 1 mg tablet 1 mg PO BID PRN Anxiety 30 days 02/13/23 #14 tabs Mental Status Exam Mental Status Exam Patient Appearance: Disheveled Patient Orientation: Person, Place and Situation Level of Consciousness: Alert Patient Behavior: Talkative and Cooperative Mood Description: Constricted Affect Description: Constricted Patient Cognition Impaired: No Ability to Follow Directions: Good Speech Pattern: Spontaneous Speech Memory Description: Episodic Impaired Data Imaging Diagnostic Imaging Impressions KUB X-Ray 02/05/23 09:49 IMPRESSION: No evidence of ileus or obstruction. Moderate colonic stool burden. DS: Summary Hospital Course Hospital Course: Admission to adult psychiatry for exacerbation of schizoaffective disorder with somatic delusions. Pt is pending cataract evaluation/surgery. She reported being blind and needing full care. Pt had a recent psychiatric admission to [facility] 01/07-01/21. Pt reported she could not care for herself and was dying. Medication regime was reviewed. Changes were recommended and pt was clear that she did not agree with the changes made at [facility] and she decreased her regime while admitted at [facility]. She would not agree to any changes. Pt was observed carefully on the unit, and although she reported she could not see, physically she was able to safely move in the environment without injury or potential danger. Services from [facility] were coordinated along with her out patient psychiatric services. Pt will begin her consultation process for cataract surgery on 03/09/23. Time spent discussing smoking cessation with patient: 3 to 10 minutes Status at Discharge Functional status at discharge: independent ambulation Overall status at discharge: patient is progressing back to baseline Time Spent with Patient Time attestation: Total time managing care of this patient today ____ minutes. Time spent: Greater than 30 minutes Discharge Plan Discharge Anticipated Discharge Date/Time: 02/13/23 10:00 Patient Disposition: Home, Self-Care Discharge Diagnosis: Schizoaffective Disorder Cataracts-Bilateral- Appt to begin surgical planning 03/09/23. Referrals: [facility] Nurse Polo [Other] - 1 Week [facility] Support Person Analisa [Other] - 1 Week [facility] Joy Reil Med Provider [Other] - 02/13/23 11:30 am (Telehealth) [facility] [Other] - 1 Week (services to re start after D/C) [facility] Community Support Person Pastora Costa [Other] - 02/20/23 10:00 am Gagan Zarate MD [Physician] - 1 Week Discharge Medications: New divalproex 500 mg Tablet,Delayed Release (Dr/Ec) 500 mg PO DAILY Qty: 0 0RF Continued haloperidol 10 mg Tablet 10 mg PO BEDTIME Qty: 30 0RF benztropine 1 mg tablet 1 mg PO BID 30 Days Qty: 60 2RF lorazepam 1 mg tablet 1 mg PO BID PRN (Reason: Anxiety) 30 Days Qty: 14 4RF magnesium oxide 400 mg magnesium tablet 400 mg PO DAILY pantoprazole 40 mg tablet,delayed release (DR/EC) 40 mg PO DAILY albuterol sulfate [ProAir HFA] 90 mcg/actuation HFA aerosol inhaler 2 puff inhalation Q6H PRN (Reason: Wheezing) Rx Instructions: asthma, wheezing tacrolimus 0.03 % ointment 1 appl topical BID PRN (Reason: Rash) levothyroxine 50 mcg capsule 50 mcg PO DAILY loratadine 10 mg tablet 10 mg PO DAILY vitamin E (dl, acetate) 180 mg (400 unit) capsule 180 mg PO BID Changed divalproex 500 mg tablet,delayed release (DR/EC) 1,000 mg PO BEDTIME Qty: 90 0RF Discontinued buspirone 10 mg tablet 15 mg PO BID 30 Days Qty: 90 2RF divalproex 250 mg Tablet,Delayed Release (Dr/Ec) 750 mg PO DAILY haloperidol 5 mg tablet 5 mg PO DAILY No Action buspirone 10 mg tablet 10 mg PO TID Discharge Orders: Discharge Order (Routine); Ordered 02/13/23 Ordered By: Kellie French Diet: Advance to usual diet Activity on Discharge: As tolerated Stand Alone Forms: Patient Portal Discharge page, Community Support Care Plan Goals: Mood and behavioral stabilization Health Concerns: Mood and behavioral stabilization Plan of Treatment: Attend follow up appointments Take medications as directed Assessment: Pt interviewed prior to discharge and found to be fully oriented and without SI/HI. Pt has some insight and demonstrates good judgment in terms of wanting to pursue treatment Pt is not in imminent risk of harm to self or others and has a safety plan that includes presenting to the closest ER or calling 911 if feeling unsafe. Pt has been observed closely by nursing and unit staff throughout admission. Pt has not engaged in any behaviors that suggest dangerousness to self or others and has demonstrated appropriate behaviors and impulse control. Patient Instructions: Schizoaffective Disorder (ED), Cataracts (ED) Discharge Date/Time: 02/13/23 11:05
== END 2023-02-13 11:05 | disposition home or self-care (01) | DRG 885 ==
LOC: HO.ED 13:05 → HO.PM5 01-27 00:31
PROVIDERS: Physician Assistant; Psychiatry & Neurology Psychiatry; Admitting Provider Social Worker; Emergency Provider Emergency Medicine; Visit Provider Clinical Nurse Specialist Psychiatric/Mental Health, Adult
DX: F25.9 Schizoaffective disorder, unspecified (principal); J45.909 Unspecified asthma, uncomplicated; H26.9 Unspecified cataract; E03.9 Hypothyroidism, unspecified; L40.50 Arthropathic psoriasis, unspecified; E78.5 Hyperlipidemia, unspecified; G47.33 Obstructive sleep apnea (adult) (pediatric); Z20.822 Contact with and (suspected) exposure to COVID-19; Z87.891 Personal history of nicotine dependence; Z79.890 Hormone replacement therapy; Z79.899 Other long term (current) drug therapy
CPT/HCPCS: 36415; 74018; 80053; 80061; 80164; 80307; 81001; 81025; 82607; 82746; 83036; 84443; 85025; 87635; 99284; S9485

== ENCOUNTER → 2023-01-27 00:23 | Outpatient (BNV) | payer OTHER, SELFPAY | PROVIDERS: Admitting Provider Social Worker; Emergency Provider Emergency Medicine; Visit Provider Clinical Nurse Specialist Psychiatric/Mental Health, Adult | DX: F25.9 Schizoaffective disorder, unspecified (principal) | CPT/HCPCS: 90792; 99231; 99232; 99239 ==

== ENCOUNTER 2023-02-15 11:37 | Emergency (ER) | payer OTHER, SELFPAY ==
--- NOTE | 2023-02-15 11:52 | ED_ITS ---
HPI - General Adult General Chief complaint: Eye Problems Stated complaint: Vision problems, no anxiety meds x 2 days per EMS Time Seen by Provider: 02/15/23 11:47 Source: patient and EMS Mode of arrival: EMS Limitations: other (poo historian ) History of Present Illness HPI narrative: 52 year old female history of ?schizoaffective disorder, chronic progressive visual loss (possibly due to cataracts), psoriatic arthritis presenting to the emergency department w/ worsening vision over the past few days reports shes now completely blind she thinks shes dying, states she came in today because she cant see the clock. Very anxious and depressed because of this. Reports she wants hospital admission or increased services at home. States she has a nurse at home but that's not enough. Denies trauma, headache, fevers, chills, nausea, vomiting. Scheduled to see an technical training coordinator mid March for evaluation of h er cataracts which she has been told she had in the past.? Denies HI. Denies auditory and visual hallucinations. Smokes pot daily to decrease her eye pressures Related Data Home Medications Medication Instructions Recorded Confirmed albuterol sulfate 90 mcg/actuation 2 puff inhalation Q6H PRN Wheezing 07/22/22 01/26/23 aerosol inhaler (ProAir HFA) levothyroxine 50 mcg capsule 50 mcg PO DAILY 07/22/22 01/26/23 loratadine 10 mg tablet 10 mg PO DAILY 07/22/22 01/26/23 magnesium oxide 400 mg PO DAILY 07/22/22 01/26/23 pantoprazole 40 mg tablet,delayed 40 mg PO DAILY 07/22/22 01/26/23 release tacrolimus 0.03 % topical ointment 1 appl topical BID PRN Rash 07/22/22 01/26/23 vitamin E (dl, acetate) 180 mg 180 mg PO BID 07/22/22 01/26/23 (400 unit) capsule Previous Rx's Medication Instructions Recorded benztropine 1 mg tablet 1 mg PO BID 30 days #60 tabs 02/13/23 divalproex 500 mg tablet,delayed 1,000 mg PO BEDTIME #90 tabs 02/13/23 release divalproex 500 mg tablet,delayed 500 mg PO DAILY #0 tabs 02/13/23 release haloperidol 10 mg tablet 10 mg PO BEDTIME #30 tabs 02/13/23 haloperidol 5 mg tablet 5 mg PO DAILY #30 tabs 02/13/23 lorazepam 1 mg tablet 1 mg PO BID PRN Anxiety 30 days 02/13/23 #14 tabs Allergies Allergy/AdvReac Type Severity Reaction Status Date / Time acetaminophen [From Vicodin] Allergy Intermediate Hives Verified 01/26/23 10:35 celecoxib [From Celebrex] Allergy Intermediate Hives Verified 01/26/23 10:35 hydrocodone [From Vicodin] Allergy Intermediate Hives Verified 01/26/23 10:35 ibuprofen Allergy Intermediate Stomach Verified 01/26/23 10:35 Upset oxycodone [From Percocet] Allergy Intermediate Hives Verified 01/26/23 10:35 shrimp Allergy Intermediate swelling Verified 01/26/23 10:35 mouth/tongue Sulfa (Sulfonamide Allergy Intermediate Hives Verified 01/26/23 10:35 Antibiotics) sulfamethoxazole Allergy Intermediate Hives Verified 01/26/23 10:35 [From Bactrim] trimethoprim [From Bactrim] Allergy Intermediate Hives Verified 01/26/23 10:35 penicillin G Allergy Unknown Unknown Verified 01/26/23 10:35 Grapefruit Flavor Allergy Unknown Unknown Uncoded 07/22/22 09:15 Review of Systems Review of Systems: Constitutional : No Weight loss, No Fever, No Chills, No Fatigue, No Malaise ENT/Mouth : No sore throat, No Rhinorrhea Eyes: No Eye Pain, No Swelling, No Redness, + visual changes Cardiovascular : No Chest Pain, No SOB, No Dyspnea on Exertion, No Orthopnea, No Edema, No Palpitations Respiratory : No Cough, No Sputum, No Wheezing Gastrointestinal : No Nausea, No Vomiting, No Diarrhea, No Constipation, No abdominal Pain, No Hematochezia, No Melena Genitourinary : No Dysuria, No Urinary Frequency, No Hematuria, Musculoskeletal : No joint pain, No Myalgias, No Joint Swelling Skin : No Skin Lesions, No rash Neuro : No Weakness, No Numbness, No Dizziness, No Headache Psych : No Anxiety/Panic, No Depression Yes all other systems are reviewed and are negative [facility] Past Medical History Attestation statement: The following information was validated with the patient. Source: old records reviewed and nursing notes reviewed Medical History Asthma Atypical chest pain Former smoker GERD (gastroesophageal reflux disease) Hyperlipemia Hypertension Hypothyroidism Intertrigo Obesity (BMI 30-39.9) JENIFER (obstructive sleep apnea) PSA (psoriatic arthritis) Psoriasis Schizoaffective disorder Skin-picking disorder Vitamin D deficiency Surgical History [place] teeth extracted Family History Family History Mother Cataract Melanoma Mitral valve prolapse Father CAD (coronary artery disease) Colonic polyp Social History Social History Household Members: Spouse Housing: Other Do you presently have visiting nurse or other home services: No Unable to assess alcohol history related to: Unable to respond Patient Tobacco Use Status: Former Tobacco user Tobacco use type: Cigarette e-Cigarette/Vaping Use: Never Used Second Hand Smoke Exposure: No Substance Use Type: Marijuana Advance Directives: No Advance Directives Information Provided: No service: No Sexual orientation: Lesbian/Benavidez/Homosexual Physical Exam ED Vital Signs: Vital Signs - 24 hr 02/15/23 11:56 Temperature 98.9 F Pulse Rate 69 Respiratory Rate 18 Blood Pressure 141/79 H Pulse Oximetry 96 Oxygen Delivery Method Room Air BMI result Body Mass Index 30.8 vss Appearance: Alert.? Oriented X3.? No acute distress.? Head:? Normocephalic, atraumatic, no step-offs or deformities Eyes: Pupils equal, round and reactive to light.?EOMI pain free. Clouded lens b/l. States she cant see the pocket snellen chart so cant do visual acuity. CVS: Normal heart rate and rhythm.? Pulses normal.? Respiratory: No respiratory distress.? Breath sounds normal.? Abdomen: Soft and nontender.? Skin: Skin warm and dry.? Normal skin color.? Normal skin turgor.? Extremities: No lower extremity edema.? No calf ttp.? 5/5 strength to bilateral upper and lower extremities Back:? No midline tenderness, no C-spine tenderness, full range of motion, no CVA tenderness bilaterally Neuro: Oriented X 3.? No motor deficit.? No sensory deficit. CN 2-12 intact Course Reevaluation(s) Reevaluation #1: CBC appears to be around patient's baseline. Chemistry unremarkable. States she can do a Snellen pocket chart or visual acuity test. Patient has history of cataracts this is likely cataracts, it is painless, low suspicion for acute closed angle glaucoma wet macular degeneration. Plan will reach out to case management to see if patient can have more services at home. Time: 12:51 Medical Decision Making Medical Decision Making [facility] Narrative: 1153 52 year old female presents stating she is blind, has hx of cataracts. Requesting more services at home Upon chart review it appears as though patient was seen with the same complaint a few weeks ago, has also had previous psychiatric admissions with same present ation. PE w. Pupils equal, round and reactive to light.?EOMI pain free. Clouded lens b/l. States she cant see the pocket snellen chart so cant do visual acuity. Likely cataracts. Unlikely retinal detachment, acute closed angle glaucoma, wet macular degeneration. Likely anxiety and depression. Plan at this time case management. Differential Diagnosis Differential Diagnoses: The differential diagnosis associated with the presentation includes Likely cataracts. Unlikely retinal detachment, acute closed angle glaucoma, wet macular degeneration. Likely anxiety and depression. Admission/Observation Consideration of admission/observation: Escalation of care including admission/observation considered unlikely Lab Data [facility] Lab Attestation statement: I reviewed the patient's lab results. 02/15/23 12:12 02/15/23 12:12 Labs: Lab Results 02/15/23 02/15/23 Range/Units 12:12 12:12 WBC 7.5 (4.8-10.8) X10*3/uL RBC 4.18 L (4.20-5.50) X10*6/uL Hgb 12.8 (12.0-16.0) g/dl Hct 37.6 (37.0-47.0) % MCV 90.0 (80.0-98.0) fL MCH 30.6 (27.0-33.0) pg MCHC 34.0 (31.0-35.0) g/dl RDW 12.4 (11.0-16.0) % Plt Count 308 D (160-400) X10*3/uL MPV 9.5 (9.4-12.3) fL Immature Gran % (Auto) 0.4 (0.0-0.4) % Neut % (Auto) 63.6 (45-73) % Lymph % (Auto) 24.0 (20-40) % [place] % (Auto) 11.1 H (2-11) % Eos % (Auto) 0.4 (0-4) % Baso % (Auto) 0.5 (0-2) % Lymph # (Auto) 1.8 (1.2-4.9) X10*3/uL [place] # (Auto) 0.8 (0.1-1.2) X10*3/uL Eos # (Auto) 0.0 (0.0-0.4) X10*3/uL Baso # (Auto) 0.0 (0.0-0.2) X10*3/uL Abs Immat Gran (auto) 0.03 (0.00-0.03) X10*3/uL Absolute Neuts (auto) 4.8 (2.0-8.3) x10*3/uL Absolute Nucleated RBC 0.000 (0.0-0.012) X10*3/uL Nucleated RBC % (auto) 0.0 (0.0-0.2) /100WBC Sodium 140 (135-145) mmol/L Potassium 3.8 (3.3-5.1) mmol/L Chloride 109 H (96-108) mmol/L Carbon Dioxide 21 L (22-29) mmol/L Anion Gap 14 (12-20) BUN 16 (9-16) mg/dL Creatinine 0.68 (0.5-1.4) mg/dL Estim Creat Clear Calc 108.5 Estimated GFR > 60 Random Glucose 92 (60-115) mg/dL Calcium 9.0 (8.4-10.2) mg/dL Magnesium 2.0 (1.6-2.6) mg/dL Total Bilirubin 0.8 (0.0-1.0) mg/dL AST 13 (5-31) U/L ALT 22 (0-31) U/L Alkaline Phosphatase 55 (39-117) U/L Total Protein 6.3 L (6.5-8.0) g/dL Albumin 3.7 (3.5-5.0) g/dL Tests considered The following testing was considered but not selected: Painless visual complaint, no need for imaging. I do not suspect stroke, posterior stroke, optic nerve occlusion Core Measures AMI core measures followed: Yes Measure exclusions: not indicated Critical Care Time Critical Care Time Critical Care Time: No Discharge Plan Discharge Clinical Impression: Cataract Patient Disposition: Still a Patient Prescriptions: No Action haloperidol 5 mg Tablet 5 mg PO DAILY Qty: 30 0RF divalproex 500 mg Tablet,Delayed Release (Dr/Ec) 500 mg PO DAILY Qty: 0 0RF divalproex 500 mg tablet,delayed release (DR/EC) 1,000 mg PO BEDTIME Qty: 90 0RF haloperidol 10 mg Tablet 10 mg PO BEDTIME Qty: 30 0RF benztropine 1 mg tablet 1 mg PO BID 30 Days Qty: 60 2RF lorazepam 1 mg tablet 1 mg PO BID PRN (Reason: Anxiety) 30 Days Qty: 14 4RF magnesium oxide 400 mg magnesium tablet 400 mg PO DAILY pantoprazole 40 mg tablet,delayed release (DR/EC) 40 mg PO DAILY albuterol sulfate [ProAir HFA] 90 mcg/actuation HFA aerosol inhaler 2 puff inhalation Q6H PRN (Reason: Wheezing) Rx Instructions: asthma, wheezing tacrolimus 0.03 % ointment 1 appl topical BID PRN (Reason: Rash) levothyroxine 50 mcg capsule 50 mcg PO DAILY loratadine 10 mg tablet 10 mg PO DAILY vitamin E (dl, acetate) 180 mg (400 unit) capsule 180 mg PO BID
[2023-02-15 11:56] VITALS: BP 141/79; BP 160/110; PULSE 69; PULSE 76; RESP 18; TEMP 37.2; O2SAT 96; O2SAT 98; BMI 30.8
[2023-02-15 12:16] LABS: MANUAL DIFF FLAG NO
[2023-02-15 12:18] LABS: Basophils Percent Auto 0.5 % (0-2); Eosinophils Percent Auto 0.4 % (0-4); Hematocrit 37.6 % (37.0-47.0); Hemoglobin 12.8 g/dl (12.0-16.0); Imm Gran Abs Auto 0.03 X10*3/uL (0.00-0.03); Imm Gran Pct Auto 0.4 % (0.0-0.4); Lymphocytes Absolute Auto 1.8 X10*3/uL (1.2-4.9); Mean Corpuscular Hemoglobin 30.6 pg (27.0-33.0); Mean Platelet Volume 9.5 fL (9.4-12.3); Monocytes Absolute Auto 0.8 X10*3/uL (0.1-1.2); Monocytes Percent Auto 11.1 % (2-11); Neutrophils Absolute Auto 4.8 x10*3/uL (2.0-8.3); Neutrophils Percent Auto 63.6 % (45-73); Platelet Count 308 X10*3/uL (160-400); Red Blood Count 4.18 X10*6/uL (4.20-5.50); Red Cell Distribution Width 12.4 % (11.0-16.0); White Blood Count 7.5 X10*3/uL (4.8-10.8)
[2023-02-15 12:32] LABS: Alanine Aminotransferase 22 U/L (0-31); Albumin Level 3.7 g/dL (3.5-5.0); Alkaline Phosphatase 55 U/L (39-117); Anion Gap 14 (12-20); Aspartate Amino Transferase 13 U/L (5-31); Bilirubin Total 0.8 mg/dL (0.0-1.0); Blood Urea Nitrogen 16 mg/dL (9-16); Carbon Dioxide 21 mmol/L (22-29); Chloride 109 mmol/L (96-108); Creatinine Clr Calc Pharmacy 108.5; Estimated Glomerular Filt Rate > 60; Glucose Random 92 mg/dL (60-115); Potassium 3.8 mmol/L (3.3-5.1); Sodium 140 mmol/L (135-145); Total Protein 6.3 g/dL (6.5-8.0)
[2023-02-15 13:08] VITALS: BP 125/73; PULSE 64; RESP 18; TEMP 36.1; O2SAT 94
--- NOTE | 2023-02-15 13:10 | MHC.EDTECH ---
Pt refused visual acuity test. States I can't even see my own hand.
--- NOTE | 2023-02-15 15:47 | MHC.CM.ED ---
Received consult for assessment of d/c needs: pt states she is blind secondary to cataracts and would like to return to [place] [id number] d/t depression. Pt recently d/c'd from where she has a long history of admissions. Pt fixated on perceived total visual loss. States her eyes are totally clouded over and white and this is causing her to be depressed. Of note, eyes do not appear clouded over and pt was able to visually track ED CM movements in ED bay. Pt also describes body/facial tremors as a result of forced laser hair removal treatment at [facility]. She states the abnormal movements are from her body not being able to regulate heat. Pt states she has no services at home and now cannot utilize public transportation d/t her vision impairment. Pt states no involvement from outpt clinical support providers, V[facility], therapists, etc. I'm alone and blind and very depressed Discussed additional services or STR placement - pt continues to request admission to [facility] for depression Discussed above w/ED provider who will review with Behavioral services for ? psych admission.
[2023-02-15 16:09] VITALS: BP 133/78; PULSE 68; RESP 18; O2SAT 97
[2023-02-15] MEDS: Ondansetron ODT 4 MG TAB.RAPDIS TRANSLINGU (17:04)
[2023-02-15] MEDS: traMADoL HCL 50 MG TABLET PO (17:04)
[2023-02-15 18:46] VITALS: BP 149/79; PULSE 62; RESP 18; O2SAT 95
[2023-02-15] MEDS: Levothyroxine Sodium 50 MCG TABLET PO (19:19)
[2023-02-15] MEDS: Magnesium Oxide 400 MG TABLET PO (19:19)
[2023-02-15] MEDS: Loratadine 10 MG TABLET PO (19:19)
[2023-02-15 20:18] LABS: Amphetamine Screen Urine Not Detected (Not Detect); Barbiturates, Urine Not Detected (Not Detect); Benzodiazepines Screen Urine Not Detected (Not Detect); Cannabinoid Screen Urine POSITIVE (Not Detect); Cocaine Screen Urine Not Detected (Not Detect); Fentanyl, urine Not Detected (Not Detect); Opiate Screen Urine Not Detected (Not Detect); Phencyclidine Screen Urine Not Detected (Not Detect)
[2023-02-15 20:21] LABS: Appearance Urine Clear; Color Urine Yellow; Glucose Urine UA Negative (Negative); Leukocyte Esterase Urine Negative (Negative); Nitrite Urine Negative (Negative); PH 7.5 (5.0-9.0); Urine Blood Negative (Negative); Urine Ketones Negative (Negative); Urine Protein Negative (Neg-Trace)
[2023-02-15 21:01] LABS: Ethanol < 10 mg/dL
[2023-02-15] MEDS: Vitamin E (Dl,Tocopheryl Acet) 180 MG (400 UNIT) CAPSULE PO (21:35)
[2023-02-15] MEDS: Divalproex Sodium 500 MG TABLET.DR 1000 MG PO (21:35)
[2023-02-15] MEDS: busPIRone HCl 10 MG TABLET PO (21:35)
[2023-02-15] MEDS: Benztropine Mesylate 1 MG TABLET PO (21:35)
[2023-02-15] MEDS: HaloperidoL 5 MG TABLET 10 MG PO (21:36)
[2023-02-15 23:58] VITALS: BP 117/74; PULSE 59; RESP 18; TEMP 36.6; O2SAT 94
[2023-02-16] MEDS: Ondansetron ODT 4 MG TAB.RAPDIS TRANSLINGU ×2 (01:41→16:55)
[2023-02-16] MEDS: Levothyroxine Sodium 50 MCG TABLET PO (06:05)
[2023-02-16 06:08] VITALS: BP 130/79; PULSE 64; RESP 12; TEMP 36.7; O2SAT 95
[2023-02-16] MEDS: Omeprazole 20 MG CAPSULE.DR PO (06:49)
[2023-02-16] MEDS: Divalproex Sodium 500 MG TABLET.DR PO (08:06)
[2023-02-16] MEDS: busPIRone HCl 10 MG TABLET PO ×3 (08:06→21:42)
[2023-02-16] MEDS: Benztropine Mesylate 1 MG TABLET PO ×2 (08:06→21:42)
[2023-02-16] MEDS: Magnesium Oxide 400 MG TABLET PO (08:07)
[2023-02-16] MEDS: Vitamin E (Dl,Tocopheryl Acet) 180 MG (400 UNIT) CAPSULE PO (08:27)
[2023-02-16] MEDS: traMADoL HCL 50 MG TABLET 25 MG PO (09:38)
--- NOTE | 2023-02-16 09:58 | PC.NURSE ---
Meds given as ordered. Pt refused loratidine. Seen by physical therapy. Assisted to rest room by chemical lab technician.
[2023-02-16 16:04] LABS: COVID-19 Test Negative (Negative); IDNOW Serial# 08D9AD1C
--- NOTE | 2023-02-16 16:14 | MHC.CM.ED ---
Addendum entered by Whitney Powell 02/17/23 09:53: Patient is new to [facility]. [facility] was arranged when patient was d/c'd from . [facility] doesn't feel patient is safe at home without a home health aide/FUEL EFFICIENT AUTOMOBILE DESIGNER. [facility] has not been able to arrange CARDIOVASCULAR PHYSICIAN ASSISTANT/FUEL EFFICIENT AUTOMOBILE DESIGNER because patient has not been home long enough. Patient requires shelter care at SNF until cataract surgery is completed and more services can be arranged at home safely for patient. Original Note: Patient remains in ER. Physical therapy eval completed. No services indicated. Patient cleared by Care Team for being inpatient appropriate. Met with patient in regards to discharge planning. Patient requested referral to [facility] for shelter care until cataract surgery at the end of the month. Referral made to [facility]. No beds available at this time. Referral broadcasted to all facilities contracted with patient's insurance within 25 miles of patient's home. Continue to monitor for d/c needs.
[2023-02-16 16:41] VITALS: BP 114/57; PULSE 72; RESP 16; TEMP 37; O2SAT 96
--- NOTE | 2023-02-16 19:36 | MHC.EDTECH ---
MD BRUCE IS AWARE THAT WE ARE UNABLE TO DO VISUAL ACUITY CHECK BECAUSE PATIENT CANT SEE DUE TO CATARACT .
[2023-02-16] MEDS: HaloperidoL 5 MG TABLET 10 MG PO (21:41)
[2023-02-16 21:42] VITALS: BP 135/68; PULSE 57; RESP 16; TEMP 36.6; O2SAT 96
[2023-02-16] MEDS: Divalproex Sodium 500 MG TABLET.DR 1000 MG PO (21:43)
[2023-02-17] MEDS: Omeprazole 20 MG CAPSULE.DR PO (05:43)
[2023-02-17] MEDS: Levothyroxine Sodium 50 MCG TABLET PO (05:43)
[2023-02-17] MEDS: traMADoL HCL 50 MG TABLET PO (05:43)
--- NOTE | 2023-02-17 06:59 | PC.NURSE ---
This RN assumed care at 0655. Patient is resting quietly in bed.
[2023-02-17] MEDS: Loratadine 10 MG TABLET PO (08:01)
[2023-02-17] MEDS: Magnesium Oxide 400 MG TABLET PO (08:02)
[2023-02-17] MEDS: busPIRone HCl 10 MG TABLET PO ×3 (08:02→22:37)
[2023-02-17] MEDS: Divalproex Sodium 500 MG TABLET.DR PO (08:02)
[2023-02-17] MEDS: Benztropine Mesylate 1 MG TABLET PO ×2 (08:02→22:37)
--- NOTE | 2023-02-17 08:11 | PC.NURSE ---
Morning meds given as ordered. Patient is resting in bed. Vital signs stable. Reported chronic pain 6/10 in back.
[2023-02-17 08:15] VITALS: BP 113/62; PULSE 68; RESP 16; TEMP 36.5; O2SAT 94
[2023-02-17] MEDS: Vitamin E (Dl,Tocopheryl Acet) 180 MG (400 UNIT) CAPSULE PO ×2 (09:15→22:37)
--- NOTE | 2023-02-17 12:15 | PC.NURSE ---
pt sat at bedside and consumed lunch. currently resting quietly on stretcher, watching tv, in no apparent distress. inquiring about speaking with Whitney, director of casework department about update and placement. pt was reassured that Whitney checked in in with them already this morning and will come by again to speak with the pt when she can. rr even/unlabored. call nance within reach. all pt needs met at this time
--- NOTE | 2023-02-17 14:19 | MHC.CM.ED ---
Patient remains in ER overflow. [facility] is patient's 1st choice. They did not have a bed yesterday. Will check at patient's request to see if they have a bed today. [facility] in [place] is able to offer a bed. Patient wants to see if [facility] can offer a bed 1st. Continue to monitor for d/c needs.
[2023-02-17 15:05] VITALS: BP 124/85; PULSE 82; RESP 18; TEMP 36.4; O2SAT 96
--- NOTE | 2023-02-17 18:39 | PC.NURSE ---
pt consumed all of dinner. asking for two cheeseburgers for dinner, stating they used to be heavier and needed more food. pt was given snack from pt refridgerator. pt currently sleeping in hospital bed, belongings at bedside/on pt. pt insists on keeping boots on in bed. rr even/unlabored. wctm
--- NOTE | 2023-02-17 20:19 | MHC.EDTECH ---
Assited pt to and from bathroom.
--- NOTE | 2023-02-17 21:24 | PC.NURSE ---
Addendum entered by Daniella Soria RN 02/17/23 21:47: spoke with pharmacy, still waiting for a tech to bring patient's medications Original Note: Patient alert and oriented x3, reports back/neck pain, l/s clear, on room air. Received one time tramadol previously and reports it relieved pain. ED provider notified. Ambulated to bathroom with assist. Bedtime medications not available in [facility], pharmacy notified.
[2023-02-17 21:52] VITALS: BP 144/72; PULSE 62; RESP 16; TEMP 36.8; O2SAT 97
[2023-02-17] MEDS: HaloperidoL 5 MG TABLET 10 MG PO (22:37)
[2023-02-17] MEDS: Divalproex Sodium 500 MG TABLET.DR 1000 MG PO (22:37)
[2023-02-17] MEDS: LORazepam 1 MG TABLET PO (22:38)
--- NOTE | 2023-02-17 22:53 | MHC.EDTECH ---
Assisted pt with teeth brushing.
--- NOTE | 2023-02-18 02:08 | PC.NURSE ---
patient received in bed with eyes closed patient showing no distress at this time patient will continue to be monitored for safety
[2023-02-18 06:00] VITALS: BP 129/72; PULSE 91; RESP 17; TEMP 36.2; O2SAT 97
[2023-02-18] MEDS: Omeprazole 20 MG CAPSULE.DR PO (06:36)
[2023-02-18] MEDS: Levothyroxine Sodium 25 MCG TABLET 50 MCG PO (06:36)
--- NOTE | 2023-02-18 09:14 | PC.NURSE ---
Resumed care of patient this morning, she is a/ox4. Pt helped to BR at this time. Morning medications to be given. Denies any other needs at this time.
[2023-02-18] MEDS: Benztropine Mesylate 1 MG TABLET PO ×2 (09:19→20:45)
[2023-02-18] MEDS: busPIRone HCl 10 MG TABLET PO ×3 (09:19→20:45)
[2023-02-18] MEDS: Magnesium Oxide 400 MG TABLET PO (09:19)
[2023-02-18] MEDS: Loratadine 10 MG TABLET PO (09:19)
[2023-02-18] MEDS: Divalproex Sodium 500 MG TABLET.DR PO (11:15)
[2023-02-18] MEDS: Acetaminophen 325 MG TABLET 650 MG PO (11:15)
[2023-02-18] MEDS: Vitamin E (Dl,Tocopheryl Acet) 180 MG (400 UNIT) CAPSULE PO ×2 (11:15→20:46)
[2023-02-18 14:52] VITALS: BP 144/79; PULSE 82; RESP 17; TEMP 36.4; O2SAT 94
[2023-02-18] MEDS: Ketorolac Tromethamine 30 MG/ML VIAL IM (15:20)
[2023-02-18] MEDS: Ondansetron ODT 4 MG TAB.RAPDIS TRANSLINGU (15:20)
--- NOTE | 2023-02-18 15:44 | MHC.CM.ED ---
Patient remains in ER overflow. [facility] and [facility] are unable to offer a bed. [facility] is still able to offer a bed. Ins auth has been obtained by [facility]. BLS transport booked for 02/19 at 930am. [facility] with chart. Patient, Jhoana JOEL and Kathy MENDOZA aware. Continue to monitor for d/c needs.
--- NOTE | 2023-02-18 16:42 | MHC.EDTECH ---
listened to patients voicemail. wrote down tel number for eye consultation.
--- NOTE | 2023-02-18 18:37 | MHC.EDTECH ---
walked to the bathroom
[2023-02-18] MEDS: Divalproex Sodium 500 MG TABLET.DR 1000 MG PO (20:46)
[2023-02-18] MEDS: HaloperidoL 5 MG TABLET 10 MG PO (20:47)
[2023-02-18 21:54] VITALS: BP 149/87; PULSE 63; RESP 16; TEMP 36.2; O2SAT 94
[2023-02-19] MEDS: Benztropine Mesylate 1 MG TABLET PO ×2 (03:34→08:23)
--- NOTE | 2023-02-19 06:52 | PC.NURSE ---
Assumeed care 1900. Pt continues in ED overflow with tentative plans for D/C to rehab tomrrow 02/19. Pt is A&Ox4. Pt continues to report blindness which appears to wax and wane at times throughout the shift. Pt was able to locate and pickling grader her crossbody bag twice independently without staff assistance after setting it down to use the bathroom with staff assistance. Denies pain. Pt woke up complaining x1 of I feel like I'm jumping out of my skin . Pt offered prn ativan though refused, pt instead requesting an additional dose of cogentin. Covering Dr. Gatica notified with 1x dose of addition cogentin with with +effect. Pt offers no additional complaints. Appears comfortable resting in bed. VSS. Breathing is even and unlabored without distress. Bed alarm on and safety measures in place.
--- NOTE | 2023-02-19 08:21 | MHC.CM.ED ---
Patient remains in Er overflow. Patient will be going to [facility], not [facility]. Patient and Cat MENDOZA aware. Continue to monitor for d/c needs.
[2023-02-19] MEDS: Omeprazole 20 MG CAPSULE.DR PO (08:24)
[2023-02-19] MEDS: Loratadine 10 MG TABLET PO (08:24)
[2023-02-19] MEDS: Magnesium Oxide 400 MG TABLET PO (08:25)
[2023-02-19] MEDS: busPIRone HCl 10 MG TABLET PO (08:25)
[2023-02-19] MEDS: Levothyroxine Sodium 25 MCG TABLET 50 MCG PO (08:26)
[2023-02-19] MEDS: Vitamin E (Dl,Tocopheryl Acet) 180 MG (400 UNIT) CAPSULE PO (09:13)
[2023-02-19] MEDS: Divalproex Sodium 500 MG TABLET.DR PO (09:13)
[2023-02-19 09:58] VITALS: BP 148/89; PULSE 67; RESP 16; TEMP 36.6; O2SAT 95
== END 2023-02-19 09:55 | disposition other institution (70) ==
PROVIDERS: Physician Assistant; Registered Nurse Emergency; Emergency Provider Emergency Medicine; PCP Internal Medicine
DX: H26.8 Other specified cataract (principal); H54.3 Unqualified visual loss, both eyes; L50.0 Allergic urticaria; F12.90 Cannabis use, unspecified, uncomplicated; F41.1 Generalized anxiety disorder; F43.0 Acute stress reaction; R26.2 Difficulty in walking, not elsewhere classified; I10 Essential (primary) hypertension; Z20.822 Contact with and (suspected) exposure to COVID-19; Z20.828 Contact with and (suspected) exposure to other viral communicable diseases; Z87.891 Personal history of nicotine dependence; Z79.899 Other long term (current) drug therapy
CPT/HCPCS: 36415; 80053; 80307; 81003; 83735; 85025; 87635; 96372; 96374; 96376; 97161; 99284; 99285; J1885; S9485

== ENCOUNTER 2023-08-21 17:20 | Inpatient (IN) | payer OTHER, SELFPAY ==
[2023-08-21 17:47] VITALS: BMI 24.9
[2023-08-21 17:56] VITALS: BP 146/95; PULSE 87; RESP 18; TEMP 36.8; O2SAT 98; BMI 37.1
[2023-08-21] MEDS: diphenhydrAMINE HCL 25 MG CAPSULE 50 MG PO (18:14)
[2023-08-21] MEDS: LORazepam 1 MG TABLET 2 MG PO (18:15)
--- NOTE | 2023-08-21 18:21 | PC.NURSE ---
after lots of coersion and reorenting, patient took PO meds.
[2023-08-21 18:35] LABS: MANUAL DIFF FLAG NO
[2023-08-21 18:39] VITALS: PULSE 62; RESP 16; O2SAT 96
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
[2023-08-21] MEDS: Benztropine Mesylate 1 MG TABLET 2 MG PO (18:41)
[2023-08-21] MEDS: HaloperidoL 5 MG TABLET PO (18:42)
[2023-08-21 18:54] LABS: Alanine Aminotransferase 31 U/L (0-31); Alkaline Phosphatase 64 U/L (39-117); Anion Gap 21 (12-20); Aspartate Amino Transferase 33 U/L (5-31); Bilirubin Direct 0.6 mg/dL (0.0-0.5); Blood Urea Nitrogen 20 mg/dL (9-16); Calcium 9.5 mg/dL (8.4-10.2); Carbon Dioxide 18 mmol/L (22-29); Chloride 97 mmol/L (96-108); Creatinine Clr Calc Pharmacy 63.7; Estimated Glomerular Filt Rate 45; Ethanol < 10 mg/dL; Glucose Random 147 mg/dL (60-115); Potassium 2.9 mmol/L (3.3-5.1); Sodium 133 mmol/L (135-145); Total Protein 6.9 g/dL (6.5-8.0)
[2023-08-21 19:00] LABS: Basophils Percent Auto 0.4 % (0-2); Eosinophils Absolute Auto 0.1 X10*3/uL (0.0-0.4); Hematocrit 41.1 % (37.0-47.0); Hemoglobin 15.6 g/dl (12.0-16.0); Imm Gran Abs Auto 0.05 X10*3/uL (0.00-0.03); Imm Gran Pct Auto 0.5 % (0.0-0.4); Lymphocytes Absolute Auto 1.7 X10*3/uL (1.2-4.9); Lymphocytes Percent Auto 15.6 % (20-40); Mean Corpuscular Hemoglobin 29.8 pg (27.0-33.0); Mean Corpuscular Volume 78.6 fL (80.0-98.0); Monocytes Absolute Auto 1.2 X10*3/uL (0.1-1.2); Monocytes Percent Auto 11.1 % (2-11); Neutrophils Absolute Auto 7.8 x10*3/uL (2.0-8.3); Neutrophils Percent Auto 71.4 % (45-73); Platelet Count 406 X10*3/uL (160-400); Red Blood Count 5.23 X10*6/uL (4.20-5.50); Red Cell Distribution Width 11.9 % (11.0-16.0); SCAN SMEAR FLAG 1; White Blood Count 10.9 X10*3/uL (4.8-10.8)
[2023-08-21] MEDS: OLANZapine 10 MG VIAL 5 MG IM (19:05)
[2023-08-21] MEDS: Ziprasidone Mesylate 20 MG VIAL IM (19:06)
[2023-08-21] MEDS: Potassium Chloride ER 20 MEQ TAB.ER.PRT 40 MEQ PO (19:26)
[2023-08-21 20:00] VITALS: BP 98/65; PULSE 51; RESP 18; O2SAT 96
[2023-08-21 20:24] LABS: Anion Gap 19 (12-20); Blood Urea Nitrogen 19 mg/dL (9-16); Calcium 9.4 mg/dL (8.4-10.2); Carbon Dioxide 18 mmol/L (22-29); Chloride 97 mmol/L (96-108); Creatinine Clr Calc Pharmacy 68.6; Estimated Glomerular Filt Rate 49; Glucose Random 122 mg/dL (60-115); Potassium 2.8 mmol/L (3.3-5.1); Sodium 131 mmol/L (135-145)
--- NOTE | 2023-08-21 21:04 | PC.NURSE ---
1:1 sitter remains at bedside. pt sleeping. skin pwd.
[2023-08-21 22:00] VITALS: BP 107/67; PULSE 56; RESP 16; TEMP 37.1; O2SAT 98
--- NOTE | 2023-08-21 22:58 | PC.NURSE ---
Assumed care of pt. Pt lying on stretcher, eyes closed, respirations even and unlabored. No acute distress at this time. Sitter 1:1 for safety. Pt medically cleared per provider, pending CARE evaluation.
[2023-08-22] VITALS (16 sets, daily range): BP systolic 100–141; BP diastolic 66–77; PULSE 84–106; RESP 12–20; TEMP 36.6–36.7; O2SAT 95–100
--- NOTE | 2023-08-22 01:29 | ECG_ITS ---
Test Reason : HYPOKALEMIA Blood Pressure : / mmHG Vent. Rate : 055 BPM Atrial Rate : 055 BPM P-R Int : 132 ms QRS Dur : 096 ms QT Int : 440 ms P-R-T Axes : 066 051 058 degrees QTc Int : 420 ms Sinus bradycardia Nonspecific T wave abnormality Abnormal ECG No previous ECGs available Referred By: Osbaldo Mercado Electronically Signed By:SHASHA ALFRED
[2023-08-22] MEDS: Potassium Chloride ER 20 MEQ TAB.ER.PRT PO (01:55)
[2023-08-22] MEDS: Potassium Chloride/H20 10 MEQ/100 ML PIGGYBACK 100 MEQ IV ×2 (01:55→03:02)
[2023-08-22 01:59] LABS: Magnesium 1.9 mg/dL (1.6-2.6)
[2023-08-22] MEDS: LORazepam 1 MG TABLET 2 MG PO ×2 (05:43→21:43)
[2023-08-22 06:26] LABS: Appearance Urine Cloudy; Color Urine Dark Yellow; Glucose Urine UA Negative (Negative); Leukocyte Esterase Urine Negative (Negative); Nitrite Urine Negative (Negative); PH 5.5 (5.0-9.0); UMIC TRIGGER UACC YES; Urine Blood Negative (Negative); Urine Ketones 40 mg/dL (Negative); Urine Protein 30 (1+) mg/dL (Neg-Trace)
[2023-08-22 06:32] LABS: Bacteria Urine None Seen (None Seen); RBC Urine 0-2 /HPF (0-2); WBC Urine 0-5 /HPF (0-5)
[2023-08-22 06:34] LABS: Amphetamine Screen Urine Not Detected (Not Detect); Barbiturates, Urine Not Detected (Not Detect); Benzodiazepines Screen Urine Not Detected (Not Detect); Cannabinoid Screen Urine POSITIVE (Not Detect); Cocaine Screen Urine Not Detected (Not Detect); Fentanyl, urine Not Detected (Not Detect); Opiate Screen Urine Not Detected (Not Detect); Phencyclidine Screen Urine Not Detected (Not Detect)
[2023-08-22 07:18] LABS: Anion Gap 13 (12-20); Carbon Dioxide 22 mmol/L (22-29); Chloride 101 mmol/L (96-108); Potassium 3.4 mmol/L (3.3-5.1); Sodium 133 mmol/L (135-145)
--- NOTE | 2023-08-22 10:20 | PC.NURSE ---
pt sleeping this morning, no outward distress noted. 1:1 sitter at bedside
[2023-08-22] MEDS: OLANZapine 10 MG VIAL IM ×2 (13:50→20:45)
[2023-08-22] MEDS: Midazolam HCl/PF 2 MG/2 ML VIAL IM ×2 (13:50→15:08)
[2023-08-22] MEDS: Haloperidol Lactate 5 MG/ML VIAL IM (15:08)
--- NOTE | 2023-08-22 17:14 | PC.NURSE ---
Late entry: at 1355 patient was moved from ED 8 to 5 due to escalating behavior, yelling, swearing, threatening staff that she would take their head off if she got any more medication. Pt has consistent 1:1 staff assigned for safety. Pt conitnued to escalate despite chemical restraint. Ptient moved to 2 so patient could be in an enclosed room with a door. pt began screaming, threatening staff again, attempting to swing at noises in the room. Pt gait unsteady due to medication restraint. Pt struggling with redirection, unable to be calmed down by this RN or 1:1 sitter. Security called to bedside. Pt was given a second chemical restraint (see physical restraint paperwork for documentation). Patient is now sleeping at this time, respirations even and unlabored, skin pwd, no apparent distress. 1:[address] for safety
--- NOTE | 2023-08-22 19:11 | PC.NURSE ---
patient continues to sleep s/p IM chemical restraints, no apparent distress at this time, respirations even and unlabored, skin pwd. Continue plan of care for inpt admission
--- NOTE | 2023-08-22 21:45 | PC.NURSE ---
pt medicated per MAR.
--- NOTE | 2023-08-22 21:59 | PC.NURSE ---
This RN entered patient's room to wake her up to move her out to the main ER. Pt became agitated, yelling at this RN, swearing. Pt transferred to the main ED via wheelchair. WISAM Mcmahan at patient's side
[2023-08-22] MEDS: Midazolam HCl 5 MG/ML VIAL 10 MG IM (22:00)
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
[2023-08-23] VITALS (48 sets, daily range): BP systolic 80–166; BP diastolic 43–103; PULSE 43–127; RESP 12–21; TEMP 35.6–36.6; O2SAT 94–100; BMI 31.7
--- NOTE | 2023-08-23 01:44 | PC.NURSE ---
care assumed of patient at this time. moved from ED RM 11 to ED RM 6. pt is sleeping in stretcher. resps are even and unlabored. no apparent distress noted.
[2023-08-23] MEDS: OLANZapine 10 MG VIAL IM ×3 (04:44→07:53)
[2023-08-23] MEDS: Midazolam HCl/PF 2 MG/2 ML VIAL 4 MG IM ×3 (04:45→09:50)
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
[2023-08-23] MEDS: diphenhydrAMINE HCL 50 MG/ML VIAL IM ×2 (06:44→07:53)
--- NOTE | 2023-08-23 07:31 | PC.NURSE ---
pharmacy contacted and will work on pt med rec
--- NOTE | 2023-08-23 08:23 | PHA.MEDREC ---
Pharmacy Consult ? Medication Reconciliation Pharmacy has completed the medication reconciliation. Unable to speak to patient due to psychiatric distress, tried to call friends from contact list but both phone numbers are not valid so can only go by pharmacy claim history. The latest fill for divalproex was only for 500 mg qhs on 07/28/2023.
--- NOTE | 2023-08-23 09:25 | PC.NURSE ---
pt given pitcher of water to drink. offered to reposition in bed. pt restless. no diff breathing.
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
[2023-08-23] MEDS: Haloperidol Lactate 5 MG/ML VIAL 10 MG IM (09:48)
--- NOTE | 2023-08-23 10:00 | PC.NURSE ---
md hull aware unable to draw blood as pt remains thrashing, kicking, swearing, yelling obscene things, agitated, will not stay still. restraints on.
--- NOTE | 2023-08-23 10:30 | PC.NURSE ---
pt pulled bedpan from under her and threw on ground in room. breathing well. agitated, yelling, swearing, kicking.
--- NOTE | 2023-08-23 11:00 | PC.NURSE ---
pt yelling obscenities at staff, using foul language at staff, yelling, thrashing. md hull aware pt remains in restraints and difficulty redirecting patient as pt not listening to staff's requests.
[2023-08-23] MEDS: chlorproMAZINE HCl 25 MG/ML AMPUL 50 MG IM ×2 (11:09→11:51)
[2023-08-23 11:59] LABS: Hematocrit 37.3 % (37.0-47.0); Mean Corpuscular HGB Conc 37.5 g/dl (31.0-35.0); Mean Corpuscular Hemoglobin 30.1 pg (27.0-33.0); Mean Corpuscular Volume 80.2 fL (80.0-98.0); Platelet Count 378 X10*3/uL (160-400); Red Blood Count 4.65 X10*6/uL (4.20-5.50)
[2023-08-23 12:00] LABS: WBC ABN SCTR FOR CBC 1; White Blood Count 10.6 X10*3/uL (4.8-10.8)
[2023-08-23 12:01] LABS: Alanine Aminotransferase 32 U/L (0-31); Albumin Level 3.6 g/dL (3.5-5.0); Alkaline Phosphatase 67 U/L (39-117); Anion Gap 14 (12-20); Aspartate Amino Transferase 41 U/L (5-31); Bilirubin Total 1.1 mg/dL (0.0-1.0); Blood Urea Nitrogen 18 mg/dL (9-16); Calcium 9.5 mg/dL (8.4-10.2); Carbon Dioxide 20 mmol/L (22-29); Chloride 104 mmol/L (96-108); Creatinine Clr Calc Pharmacy 83.6; Estimated Glomerular Filt Rate > 60; Glucose Random 103 mg/dL (60-115); Potassium 3.2 mmol/L (3.3-5.1); Sodium 135 mmol/L (135-145); Total Protein 6.4 g/dL (6.5-8.0)
[2023-08-23 12:05] LABS: Band Neutrophils Percent 0 % (3-5); Basophils Abs Manual 0.1 X10*3/uL (0.0-0.2); Basophils Percent Manual 1 % (0-2); Lymphocytes Absolute Manual 2.3 X10*3/uL (1.2-4.9); Lymphocytes Percent Manual 22 % (20-40); Monocytes Absolute Manual 1.4 X10*3/uL (0.1-1.2); Monocytes Percent Manual 13 % (2-11); Neutrophils Absolute Manual 6.8 X10*3/uL (2.0-8.3); Neutrophils Percent Manual 64 % (45-73)
[2023-08-23 12:06] LABS: Ovalocytes 1+ (5-14) /OIF; Platelet Estimate NORMAL (NORMAL); Platelet Morphology Comment NORMAL; RBC Morphology NOTED
[2023-08-23 12:14] LABS: TSH reflex Free T4 1.93 uIU/mL (0.32-4.0)
[2023-08-23] MEDS: chlorproMAZINE HCl 25 MG/ML AMPUL 100 MG IM (12:36)
--- NOTE | 2023-08-23 12:38 | PC.NURSE ---
pt medicated per MAR with 100mg thorazine IM in left glute
--- NOTE | 2023-08-23 13:40 | PC.NURSE ---
per md hull who re-eval'd pt again- placed new order to continue behavioral restraints. continues with inability to listen to directions and verbal aggression, labile. breathing well.
--- NOTE | 2023-08-23 13:51 | ECG_ITS ---
Test Reason : LOW K Blood Pressure : / mmHG Vent. Rate : 072 BPM Atrial Rate : 072 BPM P-R Int : 132 ms QRS Dur : 094 ms QT Int : 404 ms P-R-T Axes : 052 053 006 degrees QTc Int : 442 ms Normal sinus rhythm Nonspecific T wave abnormality Abnormal ECG When compared with ECG of 22-AUG-2023 01:34, No significant change was found Referred By: Pastora Ovalles Electronically Signed By:Ventura Young
[2023-08-23] MEDS: 0.9 % Sodium Chloride 1,000 ML 999 ML IV ×2 (14:08→14:14)
[2023-08-23] MEDS: dexmedeTOMIDidine HCL/NS 400 MCG/100 ML INFUS..BTL 22.28 MCG IVCONT (15:30)
--- NOTE | 2023-08-23 15:32 | PC.NURSE ---
Precedex drip started, see SEP. RASS score 4+ VSS, resp even and unlabored
--- NOTE | 2023-08-23 15:42 | PC.NURSE ---
Assumed care of pt @ 15:15, pt in 4 point restraints upon my arrival. Agitated, combative and threatening harm to staff. Verbal deescalation unsuccessful.
--- NOTE | 2023-08-23 16:22 | PC.NURSE ---
BP 91/52 HR 55 o2 94 RA, Dr. Gatica aware, new order for LR, continue current dose of Precedex.
[2023-08-23] MEDS: Lactated Ringers 1,000 ML 999 ML IV (16:29)
--- NOTE | 2023-08-23 16:39 | PC.NURSE ---
PT admitted to ICU, report given.
[2023-08-23 17:44] LABS: Ammonia 27 umol/L (13-55)
[2023-08-23 17:51] LABS: Valproate < 12.5 mcg/mL (50.0-100.0)
[2023-08-23] MEDS: Heparin Sodium,Porcine 5,000 UNIT/ML VIAL 5000 UNIT SUBCUT (17:54)
[2023-08-23] MEDS: KCl 40 mEq in 0.9 % Sodium Chl 40 MEQ/1,000 ML IV.SOLN 200 MEQ IVCONT (19:28)
--- NOTE | 2023-08-23 19:51 | P.HPCC_ITS ---
History of Present Illness Date of Service: 08/23/23 <Josette Taylor NP - Last Filed: 08/23/23 20:39> Attending physician on admission: Edgar Acharya <Josette Taylor NP - Last Filed: 08/23/23 20:39> Chief Complaint: Altered mental status <Josette Taylor NP - Last Filed: 08/23/23 20:39> The patient is a 53-year-old female with a past medical history of schizoaffective disorder, asthma, hypothyroidism, GERD, and psoriatic arthritis? who presented to the emergency department on 08/21/23? were altered mental status.? She presented confused, agitated and has been on behavioral? observation in the emergency department bed since thursday. ? She has been? extremely agitated,? combative,? requiring multiple doses of antipsychotic medications and restraints? with no resolution of? psychiatry symptoms.? Today,? patient required? initiation of Precedex.? Laboratory was significant for potassium 3.2 and CK elevated to 1453.? <Josette Taylor NP - Last Filed: 08/23/23 20:39> Review of Systems 2 Review of Systems: Yes Unobtainable due to mental status <Josette Taylor NP - Last Filed: 08/23/23 20:39> [facility] Past Medical History Medical History: Medical History (Updated 08/23/23 @ 20:01 by Josette Taylor NP) Cataract Psoriasis Hyperlipemia Hypertension Schizoaffective disorder Vitamin D deficiency GERD (gastroesophageal reflux disease) Intertrigo Asthma JENIFER (obstructive sleep apnea) Hypothyroidism Former smoker Atypical chest pain PSA (psoriatic arthritis) Obesity (BMI 30-39.9) Skin-picking disorder <Josette Taylor NP - Last Filed: 08/23/23 20:39> Family History Family History: Family History Mother Cataract Melanoma Mitral valve prolapse Father CAD (coronary artery disease) Colonic polyp <Josette Taylor NP - Last Filed: 08/23/23 20:39> Surgical History Surgical History: Surgical History [place] teeth extracted <Josette Taylor NP - Last Filed: 08/23/23 20:39> Social History Social History: Social History Household Members: Spouse Household Members Other:: PT sedated unable to respond Housing: Other Unable to assess alcohol history related to: Unable to respond Alcohol intake: never Patient Tobacco Use Status: Former Tobacco user Tobacco use type: Cigarette e-Cigarette/Vaping Use: Never Used Second Hand Smoke Exposure: No Use of substances other than those prescribed or required for medical reasons: Unable to respond Substance Use Type: Marijuana Currently Displaying Signs/Symptoms of Drug Intoxication Withdrawal: No Advance Directives: Yes Advance Directives Information Provided: No Advance Directives on File: Yes Advance Directives Date on File: 02/18/23 Healthcare Proxy: No Guardian: No Patient : No service: No Sexual orientation: Lesbian/Benavidez/Homosexual <Josette Taylor NP - Last Filed: 08/23/23 20:39> Meds Allergies/Adverse reactions: Allergies Allergy/AdvReac Type Severity Reaction Status Date / Time acetaminophen [From Vicodin] Allergy Intermediate Hives Verified 08/21/23 17:47 celecoxib [From Celebrex] Allergy Intermediate Hives Verified 08/21/23 17:47 hydrocodone [From Vicodin] Allergy Intermediate Hives Verified 08/21/23 17:47 ibuprofen Allergy Intermediate Stomach Verified 08/21/23 17:47 Upset oxycodone [From Percocet] Allergy Intermediate Hives Verified 08/21/23 17:47 shrimp Allergy Intermediate swelling Verified 08/21/23 17:47 mouth/tongue Sulfa (Sulfonamide Allergy Intermediate Hives Verified 08/21/23 17:47 Antibiotics) sulfamethoxazole Allergy Intermediate Hives Verified 08/21/23 17:47 [From Bactrim] trimethoprim [From Bactrim] Allergy Intermediate Hives Verified 08/21/23 17:47 penicillin G Allergy Unknown Unknown Verified 08/21/23 17:47 Grapefruit Flavor Allergy Unknown Unknown Uncoded 07/22/22 09:15 <Josette Taylor NP - Last Filed: 08/23/23 20:39> Active Medications: Current Medications Albuterol Sulfate (Albuterol Sulfate 90 Mcg 8 Gm Inhaler) 2 puff INHALE Q6H PRN PRN Reason: Wheezing Benztropine Mesylate (Benztropine Mesylate 1 Mg Tablet) 1 mg PO DAILY@0900 [facility] Last Admin: 08/23/23 10:21 Dose: Not Given Benztropine Mesylate (Benztropine Mesylate 1 Mg Tablet) 2 mg PO BEDTIME [facility] Buspirone HCl (Buspirone Hcl 5 Mg Tablet) 15 mg PO BID [facility] Last Admin: 08/23/23 10:21 Dose: Not Given Haloperidol (Haloperidol 5 Mg Tablet) 5 mg PO BEDTIME [facility] Heparin Sodium (Porcine) (Heparin Sodium,Porcine 5,000 Unit/Ml Vial) 5,000 unit SUBCUT Q8H [facility] Last Admin: 08/23/23 17:54 Dose: 5,000 unit Dexmedetomidine HCl (Precedex) 400 mcg in 100 mls @ 0 mls/hr IVCONT .Q0M [facility]; Protocol Last Titration: 08/23/23 18:16 Dose: 0 mcg/kg/hr, 0 mls/hr Potassium Chloride/Sodium Chloride (Kcl 40 Meq In 0.9 % Sodium Chl) 40 meq in 1,000 mls @ 200 mls/hr IVCONT .Q5H [facility] Stop: 08/23/23 23:59 Last Admin: 08/23/23 19:28 Dose: 200 mls/hr Valproic Acid 1,000 mg/ (Dextrose) 60 mls @ 60 mls/hr IV BID [facility] Levothyroxine Sodium (Levothyroxine Sodium 50 Mcg Tablet) 50 mcg PO DAILY@0600 [facility] Last Admin: 08/23/23 10:20 Dose: Not Given Loratadine (Loratadine 10 Mg Tablet) 10 mg PO DAILY [facility] Last Admin: 08/23/23 10:20 Dose: Not Given Lorazepam (Lorazepam 1 Mg Tablet) 1 mg PO BID PRN PRN Reason: Anxiety Magnesium Oxide (Magnesium Oxide 400 Mg Tablet) 400 mg PO DAILY [facility] Last Admin: 08/23/23 10:20 Dose: Not Given Vitamin E (Vitamin E (Dl,Tocopheryl Acet) 180 Mg (400 Unit) Capsule) 180 mg PO BID [facility] Last Admin: 08/23/23 10:20 Dose: Not Given <Josette Taylor NP - Last Filed: 08/23/23 20:39> Home medications: Home Medications Medication Instructions Recorded Confirmed Last Taken Type albuterol sulfate 90 mcg/actuation 2 puff inhalation Q6H PRN Wheezing 07/22/22 08/23/23 Unknown History aerosol inhaler (ProAir HFA) loratadine 10 mg tablet 10 mg PO DAILY 07/22/22 08/23/23 Unknown History magnesium oxide 400 mg PO DAILY 07/22/22 08/23/23 10/09/22 History pantoprazole 40 mg tablet,delayed 40 mg PO DAILY 07/22/22 08/23/23 Unknown History release vitamin E (dl, acetate) 180 mg 180 mg PO BID 07/22/22 08/23/23 10/09/22 History (400 unit) capsule buspirone 10 mg tablet 15 mg PO BID 02/15/23 08/23/23 Unknown History acetaminophen 500 mg tablet 500 mg PO TID PRN pain 08/23/23 08/23/23 Unknown History benztropine 1 mg tablet 1 mg PO QAM 08/23/23 08/23/23 Unknown History benztropine 1 mg tablet 2 mg PO BEDTIME 08/23/23 08/23/23 Unknown History divalproex 500 mg tablet,delayed 500 mg PO BEDTIME 08/23/23 08/23/23 Unknown History release haloperidol 10 mg tablet 5 mg PO BEDTIME 08/23/23 08/23/23 Unknown History levothyroxine 50 mcg tablet 50 mcg PO DAILY 08/23/23 08/23/23 Unknown History <Josette Taylor NP - Last Filed: 08/23/23 20:39> Physical Exam 2 Vital Signs: Vital Signs: Last Vital Signs Temp 96.6 F L 08/23/23 18:00 Pulse 47 L 08/23/23 19:00 Resp 18 08/23/23 19:00 BP 105/65 08/23/23 19:00 Pulse Ox 100 08/23/23 19:00 O2 Del Method Room Air 08/23/23 19:00 BMI result Body Mass Index 31.7 <Josetet Taylor NP - Last Filed: 08/23/23 20:39> ?General:? Does not cooperate with exam, responds to verbal stimuli. ?HEENT:? Head is normocephalic, atraumatic, pupils equal round reactive to light accommodation bilaterally.? Buccal mucosa is dry, Neck is supple ?Cardiac:? Sinus bradycardia, Clear S1-S2, no murmurs rubs or gallops. ?Pulmonary:? Clear to auscultation, no wheezes, rales or rhonchi. ?Abdomen:? ?Abdomen soft, non-tender, non-distended. Normal bowel sounds. No pulsatile mass. No hepatosplenomegaly. ?Musculoskeletal:? Moving all 4 extremities randomly. Gait not assessed at this point. ?Neurologic:? Minimal exam as patient is not cooperative, No focal deficits noted ?Skin:? Intact, no lesions, edema, erythema, clubbing or cyanosis.? No ulcers. Vascular:? 2+ pulses upper and lower extremities distally.? <Josette Taylor NP - Last Filed: 08/23/23 20:39> Results Labs CBC and Chem 7: 08/24/23 05:36 08/24/23 05:36 <Josette Taylor NP - Last Filed: 08/23/23 20:39> Labs: Laboratory Results - last 24 hr 08/23/23 08/23/23 11:32 17:27 MCV 80.2 MCH 30.1 MCHC 37.5 H RDW 12.0 Plt Count 378 MPV 10.0 Immature Gran % (Auto) Cancelled Neut % (Auto) Cancelled Lymph % (Auto) Cancelled Gem % (Auto) Cancelled Eos % (Auto) Cancelled Baso % (Auto) Cancelled Lymph # (Auto) Cancelled Gem # (Auto) Cancelled Eos # (Auto) Cancelled Baso # (Auto) Cancelled Abs Immat Gran (auto) Cancelled Absolute Neuts (auto) Cancelled Absolute Nucleated RBC 0.000 Nucleated RBC % (auto) 0.0 Neutrophils % (Manual) 64 Band Neutrophils % 0 L Lymphocytes % (Manual) 22 Monocytes % (Manual) 13 H Basophils % (Manual) 1 Abs Neuts (Manual) 6.8 Lymphocytes # (Manual) 2.3 Monocytes # (Manual) 1.4 H Basophils # (Manual) 0.1 Platelet Estimate NORMAL Plt Morphology Comment NORMAL RBC Morphology NOTED Ovalocytes 1+ (5-14) Anion Gap 14 Estim Creat Clear Calc 83.6 Estimated GFR > 60 Random Glucose 103 Calcium 9.5 Total Bilirubin 1.1 H AST 41 H ALT 32 H Alkaline Phosphatase 67 Ammonia 27 Total Creatine Kinase 1453 H 1183 H Total Protein 6.4 L Albumin 3.6 TSH 1.93 Hold Yellow Top See Note Valproic Acid < 12.5 L <Kaldb Taylor TECHNOLOGY SALES SPECIALIST - Last Filed: 08/23/23 20:39> Assessment and Plan (1) Schizoaffective disorder: Status: Acute <Josette Taylor TECHNOLOGY SALES SPECIALIST - Last Filed: 08/23/23 20:39> (2) Psychomotor agitation: Status: Acute <Josette Taylor, TECHNOLOGY SALES SPECIALIST - Last Filed: 08/23/23 20:39> (3) Acute hypokalemia: Status: Acute <Kaldb Taylor, TECHNOLOGY SALES SPECIALIST - Last Filed: 08/23/23 20:39> (4) Rhabdomyolysis: Status: Acute <Kaldb Taylor TECHNOLOGY SALES SPECIALIST - Last Filed: 08/23/23 20:39> Neuro:? ?Schizoaffective disorder-? patient had admission in patient psych February of 2023 for similar symptoms.? Requiring Precedex? for continuous agitation. Will start Depakote. Wean off precedex.? Cardiology:? ?Hypotension/ bradycardia : related to sedation with Precedex.? No evidence of infection.? Pulmonary: ? no acute issues GI: no acte issues? Renal:? ?Rhabdomyolysis:? patient has been on restraints for the past couple of days,? champ does likely due to her being on restraints.? Received 1 L bolus in the ED.? we will do another bolus.? ID:? no acute issues Heme:? no acute issues Prophylaxis: subQ heparin Diet:? regular diet? Case discussed with attending Dr Acharya? Critical care time: x 30 min <Josette Taylor TECHNOLOGY SALES SPECIALIST - Last Filed: 08/23/23 20:39> Neuro:? ?Schizoaffective disorder-? patient had admission in patient psych February of 2023 for similar symptoms.? Requiring Precedex? for continuous agitation. Will start Depakote. Wean off precedex.? Cardiology:? ?Hypotension/ bradycardia : related to sedation with Precedex.? No evidence of infection.? Pulmonary: ? no acute issues GI: no acte issues? Renal:? ?Rhabdomyolysis:? patient has been on restraints for the past couple of days,? champ does likely due to her being on restraints.? Received 1 L bolus in the ED.? we will do another bolus.? ID:? no acute issues Heme:? no acute issues Prophylaxis: subQ heparin Diet:? regular diet? Case discussed with attending Dr Acharya? <Edgar Acharya MD - Last Filed: 08/24/23 09:24>
[2023-08-23] MEDS: Albumin Human 25 % 100 ML IV (20:46)
[2023-08-23] MEDS: Valproic Acid (as Sodium Salt) 1,000 MG in Dextrose 5 % 50 ML 60 MG IV (21:12)
[2023-08-23] MEDS: Phenylephrine HCL 20 MG in 0.9 % Sodium Chloride 250 ML 33.68 MG IVCONT (22:11)
[2023-08-24] VITALS (39 sets, daily range): BP systolic 92–160; BP diastolic 43–98; PULSE 38–78; RESP 14–23; TEMP 35.5–36.6; O2SAT 90–99; BMI 34.0
[2023-08-24] MEDS: Heparin Sodium,Porcine 5,000 UNIT/ML VIAL 5000 UNIT SUBCUT ×3 (00:27→16:02)
[2023-08-24] MEDS: Phenylephrine HCL 20 MG in 0.9 % Sodium Chloride 250 ML 134.72 MG IVCONT ×3 (00:27→04:10)
[2023-08-24] MEDS: dexmedeTOMIDidine HCL/NS 400 MCG/100 ML INFUS..BTL 22.28 MCG IVCONT ×2 (04:16→07:52)
[2023-08-24] MEDS: Levothyroxine Sodium 100 MCG/5 ML VIAL 37.5 MCG IVPUSH (05:08)
[2023-08-24 05:45] LABS: VBG Base Excess -3.7 mmol/L; VBG HCO3 19 mmol/L (22-26); VBG pCO2 28 mmHg; VBG pH 7.43 (7.32-7.43); VBG pO2 68 mmHg
[2023-08-24 05:46] LABS: Venous Blood Gas Refer to POC result
[2023-08-24 05:54] LABS: MANUAL DIFF FLAG NO
[2023-08-24 05:55] LABS: Basophils Percent Auto 0.7 % (0-2); Eosinophils Percent Auto 0.5 % (0-4); Hematocrit 32.2 % (37.0-47.0); Hemoglobin 11.8 g/dl (12.0-16.0); Imm Gran Abs Auto 0.02 X10*3/uL (0.00-0.03); Imm Gran Pct Auto 0.3 % (0.0-0.4); Lymphocytes Absolute Auto 2.3 X10*3/uL (1.2-4.9); Mean Corpuscular HGB Conc 36.6 g/dl (31.0-35.0); Mean Corpuscular Hemoglobin 30.5 pg (27.0-33.0); Mean Corpuscular Volume 83.2 fL (80.0-98.0); Mean Platelet Volume 10.1 fL (9.4-12.3); Monocytes Absolute Auto 0.5 X10*3/uL (0.1-1.2); Monocytes Percent Auto 9.4 % (2-11); Neutrophils Absolute Auto 2.8 x10*3/uL (2.0-8.3); Neutrophils Percent Auto 49.1 % (45-73); Platelet Count 313 X10*3/uL (160-400); Red Blood Count 3.87 X10*6/uL (4.20-5.50); Red Cell Distribution Width 12.7 % (11.0-16.0); White Blood Count 5.8 X10*3/uL (4.8-10.8)
[2023-08-24 06:12] LABS: Alanine Aminotransferase 23 U/L (0-31); Alkaline Phosphatase 43 U/L (39-117); Anion Gap 10 (12-20); Aspartate Amino Transferase 28 U/L (5-31); Bilirubin Total 0.8 mg/dL (0.0-1.0); Blood Urea Nitrogen 10 mg/dL (9-16); Calcium 8.2 mg/dL (8.4-10.2); Carbon Dioxide 19 mmol/L (22-29); Chloride 118 mmol/L (96-108); Creatinine Clr Calc Pharmacy 109.6; Estimated Glomerular Filt Rate > 60; Glucose Random 104 mg/dL (60-115); Magnesium 1.7 mg/dL (1.6-2.6); Potassium 3.3 mmol/L (3.3-5.1); Sodium 144 mmol/L (135-145)
[2023-08-24] MEDS: Phenylephrine HCL 20 MG in 0.9 % Sodium Chloride 250 ML 67.36 MG IVCONT (07:47)
[2023-08-24] MEDS: Albumin Human 25 % 100 ML IV ×3 (07:57→19:17)
[2023-08-24] MEDS: Potassium Phosphate/NS 15 MMOL/250 ML PLAST..BAG 62.5 MMOL IV (07:58)
[2023-08-24] MEDS: Valproic Acid (as Sodium Salt) 1,000 MG in Dextrose 5 % 50 ML 60 MG IV (08:30)
[2023-08-24] MEDS: Haloperidol Lactate 5 MG/ML VIAL IVPUSH ×3 (08:56→20:46)
--- NOTE | 2023-08-24 09:24 | PM.CCPN ---
Subjective Subjective Date of Service: 08/24/23 Interval History: 53-year-old lady with underlying history of schizoaffective disorder, asthma, hypothyroidism, psoriatic arthritis admitted on 08/23/2023 with acute psychosis requiring Precedex drip. No events overnight. Continues to be on Precedex drip on and off. Critical Care Time (minutes): 0 Physical Exam Vital Signs: Vital Signs: Last Vital Signs Temp 97.8 F 08/24/23 08:00 Pulse 47 L 08/24/23 09:00 Resp 18 08/24/23 09:00 BP 119/63 08/24/23 09:00 Pulse Ox 96 08/24/23 09:00 O2 Del Method Room Air 08/24/23 09:00 BMI result Body Mass Index 34.0 Const: General: no acute distress and other (Alternating between agitation and lethargy) Eyes: Sclerae: sclerae normal EOM: EOMs intact bilaterally Neck: Neck: Yes no lymphadenopathy, Yes trachea midline and Yes supple Resp: Effort & Inspection: normal respiratory effort and no respiratory distress Auscultation: clear to auscultation bilaterally Cardio: Rate: regular rate Rhythm: regular rhythm Heart sounds: no gallops, no murmurs and no rubs GI: Palpation (GI): Soft to palpation and Other GI palpation findings present ( Nontender) Auscultation: normal bowel sounds Extrem: General: Yes no pedal edema, No clubbing and No cyanosis Objective Data Labs 08/24/23 05:36 08/24/23 05:36 Labs: Laboratory Results - last 24 hr 08/23/23 08/23/23 08/24/23 11:32 17:27 05:36 WBC 10.6 5.8 RBC 4.65 3.87 L Hgb 14.0 11.8 L Hct 37.3 32.2 L MCV 80.2 83.2 MCH 30.1 30.5 MCHC 37.5 H 36.6 H RDW 12.0 12.7 Plt Count 378 313 MPV 10.0 10.1 Immature Gran % (Auto) Cancelled 0.3 Neut % (Auto) Cancelled 49.1 Lymph % (Auto) Cancelled 40.0 Saunders % (Auto) Cancelled 9.4 Eos % (Auto) Cancelled 0.5 Baso % (Auto) Cancelled 0.7 Lymph # (Auto) Cancelled 2.3 Saunders # (Auto) Cancelled 0.5 Eos # (Auto) Cancelled 0.0 Baso # (Auto) Cancelled 0.0 Abs Immat Gran (auto) Cancelled 0.02 Absolute Neuts (auto) Cancelled 2.8 Absolute Nucleated RBC 0.000 0.000 Nucleated RBC % (auto) 0.0 0.0 Neutrophils % (Manual) 64 Band Neutrophils % 0 L Lymphocytes % (Manual) 22 Monocytes % (Manual) 13 H Basophils % (Manual) 1 Abs Neuts (Manual) 6.8 Lymphocytes # (Manual) 2.3 Monocytes # (Manual) 1.4 H Basophils # (Manual) 0.1 Platelet Estimate NORMAL Plt Morphology Comment NORMAL RBC Morphology NOTED Ovalocytes 1+ (5-14) VBG pH VBG pCO2 VBG pO2 VBG HCO3 VBG O2 Saturation VBG Base Excess Sodium 135 144 Potassium 3.2 L 3.3 Chloride 104 118 H Carbon Dioxide 20 L 19 L Anion Gap 14 10 L BUN 18 H 10 Creatinine 0.96 0.70 Estim Creat Clear Calc 83.6 109.6 Estimated GFR > 60 > 60 Random Glucose 103 104 Calcium 9.5 8.2 L D Phosphorus 2.0 L Magnesium 1.7 Total Bilirubin 1.1 H 0.8 AST 41 H 28 ALT 32 H 23 Alkaline Phosphatase 67 43 Ammonia 27 Total Creatine Kinase 1453 H 1183 H 723 H Total Protein 6.4 L 5.0 L Albumin 3.6 3.0 L TSH 1.93 Hold Yellow Top See Note Valproic Acid < 12.5 L 08/24/23 05:38 WBC RBC Hgb Hct MCV MCH MCHC RDW Plt Count MPV Immature Gran % (Auto) Neut % (Auto) Lymph % (Auto) Saunders % (Auto) Eos % (Auto) Baso % (Auto) Lymph # (Auto) Saunders # (Auto) Eos # (Auto) Baso # (Auto) Abs Immat Gran (auto) Absolute Neuts (auto) Absolute Nucleated RBC Nucleated RBC % (auto) Neutrophils % (Manual) Band Neutrophils % Lymphocytes % (Manual) Monocytes % (Manual) Basophils % (Manual) Abs Neuts (Manual) Lymphocytes # (Manual) Monocytes # (Manual) Basophils # (Manual) Platelet Estimate Plt Morphology Comment RBC Morphology Ovalocytes VBG pH 7.43 VBG pCO2 28 VBG pO2 68 VBG HCO3 19 L VBG O2 Saturation 95.0 VBG Base Excess -3.7 Sodium Potassium Chloride Carbon Dioxide Anion Gap BUN Creatinine Estim Creat Clear Calc Estimated GFR Random Glucose Calcium Phosphorus Magnesium Total Bilirubin AST ALT Alkaline Phosphatase Ammonia Total Creatine Kinase Total Protein Albumin TSH Hold Yellow Top Valproic Acid Progress Note: A&P Assessment and plan (1) Acute psychosis: Status: Acute (2) Rhabdomyolysis: Status: Acute (3) Schizoaffective disorder: Status: Acute Plan Assessment: 53-year-old admitted with acute psychosis requiring Precedex drip. Plan: Neuro: No acute issues. Cardiac: No acute issues. Pulmonary: No acute issues. Renal: Minor rhabdomyolysis, improving. Non oliguric. Endo: No acute issues. GI: No acute issues. ID: No acute issues Heme/Onc: No acute issues. Psych: Psychiatric evaluation is pending. Continue to titrate off Precedex as tolerated. Continue Depakote and Haldol. Miscellaneous: No acute issues. Prophylaxis: Heparin Diet: NPO Quality Stroke Does the patient have a stroke diagnosis?: No VTE Prior VTE?: No VTE Risk Level:: Medical - moderate - high VTE Device Contraindication: Treatment Not Indicated VTE Drug Contraindication: N/A - Med Ordered
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
--- NOTE | 2023-08-24 16:48 | PM.PSYCN ---
History of Present Illness Date of Service: 08/24/23 Chief Complaint: SEC 12 Reason for Consult: aggression/agitation in gallito Requesting physician: Edgar Acharya Discussed with referring provider: Yes Sources of Information: patient interviewed, chart reviewed and crisis/core team assessment reviewed HPI Narrative: per 08/21 ED note: Patient comes to the emergency room via ambulance. Unclear who called police department. Seems that patient was combative, yelling, not making sense, impaired judgment. Here in the emergency room, patient is dealing out random stuff, not making sense. Last time that patient was hospitalized here was in February of 2023 for schizoaffective disorder. When patient arrived, she was 1st placed in the Behavioral Health pod, patient threw herself on the ground, refused to get up. Psych 08/24: pt was serially severely aggressive and assaultive in the ED. over the course of 7 hours there, per 08/21 ED note, pt received the following medications in various doses, administration types, and combinations, with little lasting effect: haldol, benadryl, ativan, zyprexa, geodon, versed, and thorazine. Dr. Acharya was consulted and recommended precedex drip, which did finally lead to calm, sedation. pt was transferred to ICU for ongoing mgmt. psychiatry was consulted regarding mgmt of agitation, treatment of mental illness while in ICU, and potential transfer to inpatient psych. on interview with MD, pt was awake and very labile and irritable. she was variably making demands of MD, threatening MD, and begging MD. she was in soft restraints in medical bed. her requests were myriad, ephemeral, and capricious (such as demanding 15 coffees immediately). she was pressured and impossible to have a rational discussion with. chart was reviewed for history. Past Psychiatric History: Multiple inpatient psychiatric admissions, [facility] 6.28.23 - 7- [place] was an ER [place]. [place] [facility] [place] [facility] [place] 2001-father approached the court when pt was delusional. 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 Affiliated with [facility] Medical History (Updated 08/24/23 @ 09:25 by Edgar Acharya MD) Cataract Psoriasis Hyperlipemia Hypertension Schizoaffective disorder Vitamin D deficiency GERD (gastroesophageal reflux disease) Intertrigo Asthma JENIFER (obstructive sleep apnea) Hypothyroidism Former smoker Atypical chest pain PSA (psoriatic arthritis) Obesity (BMI 30-39.9) Skin-picking disorder Surgical History [place] teeth extracted Family History: Schizophrenia Social History: Patient lives alone Father and siblings are Mother is alive, pt estranged Trauma History: Affirms Diagnostics Vital Signs (24Hr): Vital Signs - 24 hr 08/23/23 17:00 08/23/23 17:33 08/23/23 17:49 Temperature Pulse Rate 50 48 L 47 L Respiratory Rate 18 20 19 Blood Pressure 95/56 L 97/57 L 98/58 L Pulse Oximetry 95 Oxygen Delivery Method Room Air 08/23/23 17:59 08/23/23 18:00 08/23/23 18:15 Temperature 96.6 F L Pulse Rate 46 L 46 L 46 L Respiratory Rate 18 19 Blood Pressure 92/54 L 91/55 L 91/53 L Pulse Oximetry 98 Oxygen Delivery Method Room Air 08/23/23 18:16 08/23/23 19:00 08/23/23 20:00 Temperature Pulse Rate 43 L 47 L 47 L Respiratory Rate 18 16 Blood Pressure 105/65 94/57 L Pulse Oximetry 100 100 Oxygen Delivery Method Room Air Room Air 08/23/23 21:00 08/23/23 22:00 08/23/23 22:11 Temperature 96.3 F L Pulse Rate 57 51 48 L Respiratory Rate 16 18 Blood Pressure 99/69 80/43 L 80/43 L Pulse Oximetry 100 99 Oxygen Delivery Method Room Air Room Air 08/23/23 22:41 08/23/23 22:51 08/23/23 23:00 Temperature 96.1 F L Pulse Rate 47 L 48 L 50 Respiratory Rate 18 Blood Pressure 85/52 L 81/49 L 106/61 Pulse Oximetry 98 Oxygen Delivery Method Room Air 08/23/23 23:52 08/24/23 00:00 08/24/23 00:27 Temperature 95.9 F L Pulse Rate 51 51 53 Respiratory Rate 20 Blood Pressure 85/51 L 93/54 L 95/50 L Pulse Oximetry 96 Oxygen Delivery Method Room Air 08/24/23 00:27 08/24/23 01:00 08/24/23 02:00 Temperature 96.1 F L 96.3 F L Pulse Rate 53 59 60 Respiratory Rate 20 21 H Blood Pressure 95/50 L 125/50 L 95/53 L Pulse Oximetry 94 94 Oxygen Delivery Method Room Air Room Air 08/24/23 02:16 08/24/23 02:16 08/24/23 03:00 Temperature 96.6 F L Pulse Rate 56 56 59 Respiratory Rate 20 Blood Pressure 92/47 L 92/47 L 100/54 L Pulse Oximetry 98 Oxygen Delivery Method Room Air 08/24/23 04:00 08/24/23 04:09 08/24/23 04:10 Temperature 96.8 F Pulse Rate 60 78 78 Respiratory Rate 23 H Blood Pressure 105/66 117/43 L 117/43 L Pulse Oximetry 98 Oxygen Delivery Method Room Air 08/24/23 04:38 08/24/23 04:46 08/24/23 05:00 Temperature 97.3 F Pulse Rate 66 61 59 Respiratory Rate 14 Blood Pressure 144/81 H 160/73 H 138/80 Pulse Oximetry 98 Oxygen Delivery Method Room Air 08/24/23 06:00 08/24/23 06:09 08/24/23 07:00 Temperature 97.7 F Pulse Rate 48 L 44 L 62 Respiratory Rate 18 16 Blood Pressure 111/66 105/70 Pulse Oximetry 96 90 L Oxygen Delivery Method Room Air Room Air 08/24/23 07:23 08/24/23 07:47 08/24/23 08:00 Temperature 97.8 F Pulse Rate 47 L 47 L 45 L Respiratory Rate 18 Blood Pressure 140/75 H 140/75 H 141/80 H Pulse Oximetry 96 Oxygen Delivery Method Room Air 08/24/23 08:05 08/24/23 08:29 08/24/23 09:00 Temperature Pulse Rate 50 46 L 47 L Respiratory Rate 18 Blood Pressure 141/80 H 126/76 119/63 Pulse Oximetry 96 Oxygen Delivery Method Room Air 08/24/23 10:00 08/24/23 11:00 08/24/23 12:00 Temperature 97.4 F Pulse Rate 49 L 50 47 L Respiratory Rate 20 20 19 Blood Pressure 117/60 104/54 L 115/63 Pulse Oximetry 96 96 97 Oxygen Delivery Method Room Air Room Air Room Air 08/24/23 13:00 08/24/23 14:00 08/24/23 15:00 Temperature Pulse Rate 56 77 66 Respiratory Rate 20 17 19 Blood Pressure 119/98 H 130/72 105/80 Pulse Oximetry 98 99 98 Oxygen Delivery Method Room Air Room Air Room Air 08/24/23 16:00 Temperature Pulse Rate 65 Respiratory Rate 17 Blood Pressure 132/76 Pulse Oximetry 98 Oxygen Delivery Method Room Air BMI result Body Mass Index 34.0 Labs 08/24/23 05:36 08/24/23 05:36 Labs: Laboratory Results - last 48 hr 08/23/23 08/23/23 08/24/23 11:32 17:27 05:36 WBC 10.6 5.8 RBC 4.65 3.87 L Hgb 14.0 11.8 L Hct 37.3 32.2 L MCV 80.2 83.2 MCH 30.1 30.5 MCHC 37.5 H 36.6 H RDW 12.0 12.7 Plt Count 378 313 MPV 10.0 10.1 Immature Gran % (Auto) Cancelled 0.3 Neut % (Auto) Cancelled 49.1 Lymph % (Auto) Cancelled 40.0 [place] % (Auto) Cancelled 9.4 Eos % (Auto) Cancelled 0.5 Baso % (Auto) Cancelled 0.7 Lymph # (Auto) Cancelled 2.3 [place] # (Auto) Cancelled 0.5 Eos # (Auto) Cancelled 0.0 Baso # (Auto) Cancelled 0.0 Abs Immat Gran (auto) Cancelled 0.02 Absolute Neuts (auto) Cancelled 2.8 Absolute Nucleated RBC 0.000 0.000 Nucleated RBC % (auto) 0.0 0.0 Neutrophils % (Manual) 64 Band Neutrophils % 0 L Lymphocytes % (Manual) 22 Monocytes % (Manual) 13 H Basophils % (Manual) 1 Abs Neuts (Manual) 6.8 Lymphocytes # (Manual) 2.3 Monocytes # (Manual) 1.4 H Basophils # (Manual) 0.1 Platelet Estimate NORMAL Plt Morphology Comment NORMAL RBC Morphology NOTED Ovalocytes 1+ (5-14) VBG pH VBG pCO2 VBG pO2 VBG HCO3 VBG O2 Saturation VBG Base Excess Sodium 135 144 Potassium 3.2 L 3.3 Chloride 104 118 H Carbon Dioxide 20 L 19 L Anion Gap 14 10 L BUN 18 H 10 Creatinine 0.96 0.70 Estim Creat Clear Calc 83.6 109.6 Estimated GFR > 60 > 60 Random Glucose 103 104 Calcium 9.5 8.2 L D Phosphorus 2.0 L Magnesium 1.7 Total Bilirubin 1.1 H 0.8 AST 41 H 28 ALT 32 H 23 Alkaline Phosphatase 67 43 Ammonia 27 Total Creatine Kinase 1453 H 1183 H 723 H Total Protein 6.4 L 5.0 L Albumin 3.6 3.0 L TSH 1.93 Hold Yellow Top See Note Valproic Acid < 12.5 L 08/24/23 05:38 WBC RBC Hgb Hct MCV MCH MCHC RDW Plt Count MPV Immature Gran % (Auto) Neut % (Auto) Lymph % (Auto) [place] % (Auto) Eos % (Auto) Baso % (Auto) Lymph # (Auto) [place] # (Auto) Eos # (Auto) Baso # (Auto) Abs Immat Gran (auto) Absolute Neuts (auto) Absolute Nucleated RBC Nucleated RBC % (auto) Neutrophils % (Manual) Band Neutrophils % Lymphocytes % (Manual) Monocytes % (Manual) Basophils % (Manual) Abs Neuts (Manual) Lymphocytes # (Manual) Monocytes # (Manual) Basophils # (Manual) Platelet Estimate Plt Morphology Comment RBC Morphology Ovalocytes VBG pH 7.43 VBG pCO2 28 VBG pO2 68 VBG HCO3 19 L VBG O2 Saturation 95.0 VBG Base Excess -3.7 Sodium Potassium Chloride Carbon Dioxide Anion Gap BUN Creatinine Estim Creat Clear Calc Estimated GFR Random Glucose Calcium Phosphorus Magnesium Total Bilirubin AST ALT Alkaline Phosphatase Ammonia Total Creatine Kinase Total Protein Albumin TSH Hold Yellow Top Valproic Acid Mental Status Exam Mental Status Exam Narrative: disheveled, dressed in [facility], in soft restraints in bed in ICU. demanding release, thrashing about. not cooperative. speech incr amount, loudness. decr latency. nml rate. thoughts disorganized, tangential. affect hyperintense, labile. mood not assessed. no SI/HI/AVH expressed. Medications Medications Current Medications Albuterol Sulfate (Albuterol Sulfate 90 Mcg 8 Gm Inhaler) 2 puff INHALE Q6H PRN PRN Reason: Wheezing Benztropine Mesylate (Benztropine Mesylate 1 Mg Tablet) 1 mg PO DAILY@0900 [facility] Last Admin: 08/24/23 07:59 Dose: Not Given Benztropine Mesylate (Benztropine Mesylate 1 Mg Tablet) 2 mg PO BEDTIME [facility] Last Admin: 08/23/23 21:16 Dose: Not Given Buspirone HCl (Buspirone Hcl 5 Mg Tablet) 15 mg PO BID [facility] Last Admin: 08/24/23 07:59 Dose: Not Given Haloperidol Lactate (Haloperidol Lactate 5 Mg/Ml Vial) 5 mg IVPUSH BID [facility] Last Admin: 08/24/23 08:56 Dose: 5 mg Heparin Sodium (Porcine) (Heparin Sodium,Porcine 5,000 Unit/Ml Vial) 5,000 unit SUBCUT Q8H [facility] Last Admin: 08/24/23 16:02 Dose: 5,000 unit Dexmedetomidine HCl (Precedex) 400 mcg in 100 mls @ 0 mls/hr IVCONT .Q0M [facility]; Protocol Last Titration: 08/24/23 16:12 Dose: 1 mcg/kg/hr, 22.28 mls/hr Valproic Acid 1,000 mg/ (Dextrose) 60 mls @ 60 mls/hr IV BID [facility] Last Infusion: 08/24/23 09:30 Dose: Infused Phenylephrine HCl 20 mg/ (Sodium Chloride) 252 mls @ 0 mls/hr IVCONT .Q0M [facility]; Protocol Last Titration: 08/24/23 08:29 Dose: 0 mcg/kg/min, 0 mls/hr Albumin Human (Kedbumin 25 %) 100 mls @ 100 mls/hr IV Q6H [facility] Stop: 08/25/23 02:59 Last Infusion: 08/24/23 15:33 Dose: Infused Levothyroxine Sodium (Levothyroxine Sodium 100 Mcg/5 Ml Vial) 37.5 mcg IVPUSH DAILY@0600 [facility] Last Admin: 08/24/23 05:08 Dose: 37.5 mcg Loratadine (Loratadine 10 Mg Tablet) 10 mg PO DAILY [facility] Last Admin: 08/24/23 07:59 Dose: Not Given Lorazepam (Lorazepam 1 Mg Tablet) 1 mg PO BID PRN PRN Reason: Anxiety Magnesium Oxide (Magnesium Oxide 400 Mg Tablet) 400 mg PO DAILY [facility] Last Admin: 08/24/23 07:59 Dose: Not Given Vitamin E (Vitamin E (Dl,Tocopheryl Acet) 180 Mg (400 Unit) Capsule) 180 mg PO BID [facility] Last Admin: 08/24/23 07:59 Dose: Not Given Allergies Allergies Allergy/AdvReac Type Severity Reaction Status Date / Time acetaminophen [From Vicodin] Allergy Intermediate Hives Verified 08/21/23 17:47 celecoxib [From Celebrex] Allergy Intermediate Hives Verified 08/21/23 17:47 hydrocodone [From Vicodin] Allergy Intermediate Hives Verified 08/21/23 17:47 ibuprofen Allergy Intermediate Stomach Verified 08/21/23 17:47 Upset oxycodone [From Percocet] Allergy Intermediate Hives Verified 08/21/23 17:47 shrimp Allergy Intermediate swelling Verified 08/21/23 17:47 mouth/tongue Sulfa (Sulfonamide Allergy Intermediate Hives Verified 08/21/23 17:47 Antibiotics) sulfamethoxazole Allergy Intermediate Hives Verified 08/21/23 17:47 [From Bactrim] trimethoprim [From Bactrim] Allergy Intermediate Hives Verified 08/21/23 17:47 penicillin G Allergy Unknown Unknown Verified 08/21/23 17:47 Grapefruit Flavor Allergy Unknown Unknown Uncoded 07/22/22 09:15 Assessment & Plan Assessment & Plan (1) Schizoaffective disorder: Status: Acute Code(s): F25.9 - Schizoaffective disorder, unspecified Assessment and Plan: gallito Plan continue treatment with IV depakote and haldol. depakote - pt has been maintained on a total daily dose of 2500 mg in the past, PO. IV dosing recommendations are for a total daily dose equivalent to usual PO dose, but divided Q6H. that would come out to about 600 mg (625 mg to be exact) every 6 hours. i would recommend this patient receive 600-625 mg of IV depakote every 6 hours. haldol - IV haldol dosing recommendations are less clear, but a dosing interval of Q6H also seems reasonable for this medication. a range would be 2-10 mg Q6H up to 30 mg daily. as you presently are providing this patient with 5 mg BID, or a total of 10 mg daily, i would recommend modifying dosing to 2.5 mg IV Q6H for now, titrating upward as needed for better symptom control. benztropine - this patient has been on benztropine in the past, indicating potential h/o EPS. you may give 1 mg benztropine IV 2-3 times daily as needed for akathisia (restlessness secondary to neuroleptic as opposed to agitation due to mental illness, which may be difficult or impossible to distinguish aside from response to benztropine) or for any dystonic reaction. lorazepam - limited use of lorazepam for agitation and as an anti-manic agent may be useful. i would recommend 1-2 mg IV ativan Q4-6H PRN agitation, as you titrate depakote and haldol to effective doses. transfer to inpatient psychiatry once adequately stable Total time managing care of this patient today __55__ minutes.
[2023-08-24] MEDS: dexmedeTOMIDidine HCL/NS 400 MCG/100 ML INFUS..BTL 17.82 MCG IVCONT (19:15)
[2023-08-24] MEDS: Valproic Acid (as Sodium Salt) 500 MG in Dextrose 5 % 50 ML 55 MG IV (21:37)
[2023-08-25] VITALS (18 sets, daily range): BP systolic 123–157; BP diastolic 40–99; PULSE 35–78; RESP 12–25; TEMP 36.2–36.9; O2SAT 94–99; BMI 31.9
[2023-08-25] MEDS: Benztropine Mesylate 2 MG/2 ML VIAL 1 MG IVPUSH ×4 (00:40→23:40)
[2023-08-25] MEDS: Albumin Human 25 % 100 ML IV (01:02)
[2023-08-25] MEDS: Valproic Acid (as Sodium Salt) 500 MG in Dextrose 5 % 50 ML 55 MG IV ×4 (02:10→19:53)
[2023-08-25] MEDS: Levothyroxine Sodium 100 MCG/5 ML VIAL 37.5 MCG IVPUSH (05:13)
[2023-08-25 05:38] LABS: MANUAL DIFF FLAG NO
[2023-08-25 05:42] LABS: Basophils Percent Auto 0.5 % (0-2); Eosinophils Percent Auto 0.5 % (0-4); Hematocrit 30.2 % (37.0-47.0); Hemoglobin 11.1 g/dl (12.0-16.0); Imm Gran Abs Auto 0.02 X10*3/uL (0.00-0.03); Imm Gran Pct Auto 0.4 % (0.0-0.4); Lymphocytes Absolute Auto 2.1 X10*3/uL (1.2-4.9); Lymphocytes Percent Auto 36.4 % (20-40); Mean Corpuscular HGB Conc 36.8 g/dl (31.0-35.0); Mean Corpuscular Hemoglobin 30.4 pg (27.0-33.0); Mean Corpuscular Volume 82.7 fL (80.0-98.0); Mean Platelet Volume 10.3 fL (9.4-12.3); Monocytes Absolute Auto 0.5 X10*3/uL (0.1-1.2); Monocytes Percent Auto 8.8 % (2-11); Neutrophils Percent Auto 53.4 % (45-73); Platelet Count 287 X10*3/uL (160-400); Red Blood Count 3.65 X10*6/uL (4.20-5.50); Red Cell Distribution Width 12.8 % (11.0-16.0); White Blood Count 5.7 X10*3/uL (4.8-10.8)
[2023-08-25 05:55] LABS: Valproate 106.2 mcg/mL (50.0-100.0)
[2023-08-25] MEDS: dexmedeTOMIDidine HCL/NS 400 MCG/100 ML INFUS..BTL 11.14 MCG IVCONT (05:55)
[2023-08-25 05:58] LABS: Alanine Aminotransferase 20 U/L (0-31); Alkaline Phosphatase 36 U/L (39-117); Anion Gap 16 (12-20); Aspartate Amino Transferase 20 U/L (5-31); Bilirubin Total 1.6 mg/dL (0.0-1.0); Blood Urea Nitrogen 7 mg/dL (9-16); Calcium 8.9 mg/dL (8.4-10.2); Carbon Dioxide 22 mmol/L (22-29); Chloride 110 mmol/L (96-108); Estimated Glomerular Filt Rate > 60; Glucose Random 86 mg/dL (60-115); Magnesium 1.7 mg/dL (1.6-2.6); Phosphorus 2.5 mg/dL (2.7-4.5); Potassium 3.5 mmol/L (3.3-5.1); Sodium 144 mmol/L (135-145); Total Protein 5.8 g/dL (6.5-8.0)
[2023-08-25] MEDS: Potassium Phosphate/NS 15 MMOL/250 ML PLAST..BAG 62.5 MMOL IV (08:10)
[2023-08-25] MEDS: Haloperidol Lactate 5 MG/ML VIAL IVPUSH ×2 (08:14→19:44)
[2023-08-25] MEDS: diazePAM 10 MG/2 ML CARTRIDGE 5 MG IVPUSH ×2 (08:49→23:40)
--- NOTE | 2023-08-25 11:54 | P.PNCC_ITS ---
Subjective Subjective Date of Service: 08/25/23 Interval History: 53-year-old lady with underlying history of schizoaffective disorder, asthma, hypothyroidism, psoriatic arthritis admitted on 08/23/2023 with acute psychosis requiring Precedex drip. No events overnight. Titrated off Precedex drip. Critical Care Time (minutes): 0 Physical Exam 2 Vital Signs: Vital Signs: Last Vital Signs Temp 97.5 F 08/25/23 08:00 Pulse 56 08/25/23 11:00 Resp 22 H 08/25/23 10:00 BP 136/99 H 08/25/23 11:00 Pulse Ox 98 08/25/23 11:00 O2 Del Method Room Air 08/25/23 11:00 BMI result Body Mass Index 31.9 Const: General: no acute distress and other (Intermittently agitated) Eyes: Sclerae: sclerae normal EOM: EOMs intact bilaterally Neck: Neck: Yes no lymphadenopathy, Yes trachea midline and Yes supple Resp: Effort & Inspection: normal respiratory effort and no respiratory distress Auscultation: clear to auscultation bilaterally Cardio: Rate: regular rate Rhythm: regular rhythm Heart sounds: no gallops, no murmurs and no rubs GI: Palpation (GI): Soft to palpation and Other GI palpation findings present ( Nontender) Auscultation: normal bowel sounds Extrem: General: Yes no pedal edema, No clubbing and No cyanosis Objective Data Labs 08/25/23 05:03 08/25/23 05:03 Labs: Laboratory Results - last 24 hr 08/25/23 05:03 WBC 5.7 RBC 3.65 L Hgb 11.1 L Hct 30.2 L MCV 82.7 MCH 30.4 MCHC 36.8 H RDW 12.8 Plt Count 287 MPV 10.3 Immature Gran % (Auto) 0.4 Neut % (Auto) 53.4 Lymph % (Auto) 36.4 [place] % (Auto) 8.8 Eos % (Auto) 0.5 Baso % (Auto) 0.5 Lymph # (Auto) 2.1 [place] # (Auto) 0.5 Eos # (Auto) 0.0 Baso # (Auto) 0.0 Abs Immat Gran (auto) 0.02 Absolute Neuts (auto) 3.0 Absolute Nucleated RBC 0.000 Nucleated RBC % (auto) 0.0 Sodium 144 Potassium 3.5 Chloride 110 H Carbon Dioxide 22 Anion Gap 16 BUN 7 L Creatinine 0.70 Estim Creat Clear Calc 106.0 Estimated GFR > 60 Random Glucose 86 Calcium 8.9 D Phosphorus 2.5 L Magnesium 1.7 Total Bilirubin 1.6 H AST 20 ALT 20 Alkaline Phosphatase 36 L Total Protein 5.8 L Albumin 4.0 Valproic Acid 106.2 H Progress Note: A&P Assessment and plan (1) Acute psychosis: Status: Acute (2) Schizoaffective disorder: Status: Acute (3) Hypothyroidism: Status: Acute Plan Assessment: 53-year-old admitted with acute psychosis requiring Precedex drip. Plan: Neuro: No acute issues. Cardiac: No acute issues. Pulmonary: No acute issues. Renal: Minor rhabdomyolysis, improving. Non oliguric. Endo: No acute issues. GI: No acute issues. ID: No acute issues Heme/Onc: No acute issues. Psych: Psychiatric service care appreciated. Titrated off Precedex drip. Continue Depakote, Haldol, Valium, and Cogentin. Miscellaneous: No acute issues. Prophylaxis: Heparin Diet: NPO Quality Stroke Does the patient have a stroke diagnosis?: No VTE Prior VTE?: No VTE Risk Level:: Medical - moderate - high VTE Device Contraindication: Treatment Not Indicated VTE Drug Contraindication: N/A - Med Ordered
--- NOTE | 2023-08-25 15:01 | MHC.CM.PN ---
Pt continues care in ICU: aggitated and requiring sedation to manage behaviors: refusing po intake including fluids/meds/food. Pt will need INPT psych placement once medically stable. CM to follow.
--- NOTE | 2023-08-25 16:25 | PM.EVENT ---
Event Note Date of Service: 08/25/23 Event Note: Discussed case with ICU attending, tx to medical floor. off precedex drip. Acute psychosis. Time Spent With Patient Time: Total time managing care of this patient today ____ minutes.
[2023-08-25] MEDS: OLANZapine 10 MG VIAL 5 MG IM (19:45)
--- NOTE | 2023-08-25 21:35 | PC.NURSE ---
Addendum entered by Stu Vargas RN 08/25/23 22:42: REPORT CALLED TO [facility] ON S-3...TRANSFERRED TO [facility] PER NURSING SUPPERVISOR ACCOMPANIED BY STAFF AND SECURITY Original Note: CARE ASSUMED 7PM...AWAKE WHEN INTRODUCED MYSELF..SCREAMED WHO'S IN MY ROOM...SECURITY HELP! 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
--- NOTE | 2023-08-25 22:49 | MHC.CARE ---
RAD Team conducted a bed search for this pt, bed search is exhausted and will resume tomorrow (08/26) if deemed necessary
[2023-08-25] MEDS: Heparin Sodium,Porcine 5,000 UNIT/ML VIAL 5000 UNIT SUBCUT (23:43)
--- NOTE | 2023-08-26 00:17 | PC.NURSE ---
Bladder scanned pt at 2300 for 538 ml. [place] text to Dr. Pinedo, straight cath ordered. Straight cath put in place, pt removed with her feet shortly after but she did put out 500 ml. Will continue to monitor.
[2023-08-26 01:13] VITALS: BP 106/58; PULSE 82; RESP 18; TEMP 36.9; O2SAT 99
[2023-08-26] MEDS: Valproic Acid (as Sodium Salt) 500 MG in Dextrose 5 % 50 ML 55 MG IV (02:58)
[2023-08-26 03:13] VITALS: BP 118/64; PULSE 75; RESP 18; TEMP 36.6; O2SAT 95
[2023-08-26] MEDS: Acetaminophen 325 MG TABLET 650 MG PO (03:43)
[2023-08-26] MEDS: Levothyroxine Sodium 100 MCG/5 ML VIAL 37.5 MCG IVPUSH (05:08)
[2023-08-26 05:13] VITALS: BP 106/60; PULSE 61; RESP 16; TEMP 37; O2SAT 98
[2023-08-26 05:53] VITALS: BMI 30.4
--- NOTE | 2023-08-26 07:20 | MHC.CARE ---
Patient was assessed by the CARE team 08/25 @1815 and determined to meet Adult inpatient psychaitric LOC. Admissions team or CARE team to call with placement updated.
[2023-08-26 07:24] VITALS: BP 133/80; PULSE 65; RESP 18; TEMP 36.7; O2SAT 100
[2023-08-26 07:49] LABS: Valproate 138.1 mcg/mL (50.0-100.0)
[2023-08-26 07:51] LABS: Alanine Aminotransferase 24 U/L (0-31); Albumin Level 4.3 g/dL (3.5-5.0); Alkaline Phosphatase 51 U/L (39-117); Anion Gap 15 (12-20); Aspartate Amino Transferase 27 U/L (5-31); Bilirubin Total 1.7 mg/dL (0.0-1.0); Blood Urea Nitrogen 8 mg/dL (9-16); Calcium 9.6 mg/dL (8.4-10.2); Carbon Dioxide 19 mmol/L (22-29); Chloride 109 mmol/L (96-108); Creatinine Clr Calc Pharmacy 88.4; Estimated Glomerular Filt Rate > 60; Glucose Random 109 mg/dL (60-115); Magnesium 1.9 mg/dL (1.6-2.6); Phosphorus 2.9 mg/dL (2.7-4.5); Potassium 3.4 mmol/L (3.3-5.1); Sodium 140 mmol/L (135-145)
[2023-08-26 08:59] LABS: MANUAL DIFF FLAG NO
[2023-08-26 09:06] LABS: Basophils Percent Auto 0.3 % (0-2); Eosinophils Percent Auto 0.5 % (0-4); Hematocrit 36.2 % (37.0-47.0); Hemoglobin 13.2 g/dl (12.0-16.0); Imm Gran Abs Auto 0.05 X10*3/uL (0.00-0.03); Imm Gran Pct Auto 0.6 % (0.0-0.4); Lymphocytes Absolute Auto 2.4 X10*3/uL (1.2-4.9); Mean Corpuscular HGB Conc 36.5 g/dl (31.0-35.0); Mean Corpuscular Hemoglobin 30.6 pg (27.0-33.0); Mean Corpuscular Volume 83.8 fL (80.0-98.0); Mean Platelet Volume 10.1 fL (9.4-12.3); Monocytes Absolute Auto 0.6 X10*3/uL (0.1-1.2); Monocytes Percent Auto 8.3 % (2-11); Neutrophils Absolute Auto 4.6 x10*3/uL (2.0-8.3); Neutrophils Percent Auto 59.3 % (45-73); Platelet Count 307 X10*3/uL (160-400); Red Blood Count 4.32 X10*6/uL (4.20-5.50); Red Cell Distribution Width 12.6 % (11.0-16.0); White Blood Count 7.7 X10*3/uL (4.8-10.8)
[2023-08-26 09:10] LABS: Ammonia 15 umol/L (13-55)
[2023-08-26 09:28] LABS: COVID-19 Test Negative (Negative); IDNOW Serial# 152EDE1D
[2023-08-26 09:50] VITALS: BP 127/60; PULSE 77; RESP 16; O2SAT 99
[2023-08-26] MEDS: Benztropine Mesylate 1 MG TABLET PO (10:29)
[2023-08-26] MEDS: HaloperidoL 5 MG TABLET PO (10:29)
--- NOTE | 2023-08-26 11:12 | MHC.CM.PN ---
EMR reviewed. Per MD rounds patient is medically cleared awaiting psych placement. CM met with patient at bedside. Patient able to answer some questions, but not making sense at times. Patient reports she lives alone and has no DME or services. Was previously active with [facility] for SN, but now manages own medications. PCP: Gagan Reddy MD HCP: See previous CM note re: HCP. Current HCP on file does not wish to serve in this role. Patient not able to complete a new HCP at this time. DP: Evaluated by CARE team. Bed search for I/P psych. CM will continue to follow.
--- NOTE | 2023-08-26 11:22 | P.DS_ITS ---
DS: Providers Provider Date of Service: 08/26/23 Date of admission: 08/23/23 16:43 Primary care physician: Luz Hernandez MD Consults: 08/23/23 14:49 Consult to Psychiatry Stat Consulting Provider: Psych Covering Reason for consultation: Acute agitation despite multiple medications IM Has provider been notified: No 08/25/23 14:25 Consult to Care Team Routine Comment: Reason for consultation: Decompensated psychosis DS: Diagnosis Discharge Diagnosis (1) Acute psychosis: Status: Acute (2) Schizoaffective disorder: Status: Acute (3) Hypothyroidism: Status: Acute DS: Summary Hospital Course Hospital Course: HP as per admitting provider. The patient is a 53-year-old female with a past medical history of schizoaffective disorder, asthma, hypothyroidism, GERD, and psoriatic arthritis? who presented to the emergency department on 08/21/23? were altered mental status.? She presented confused, agitated and has been on behavioral? observation in the emergency department bed since thursday. ? She has been? extremely agitated,? combative,? requiring multiple doses of antipsychotic medications and restraints? with no resolution of? psychiatry symptoms.?Today,? patient required? initiation of Precedex.? Laboratory was significant for potassium 3.2 and CK elevated to 1453.? 53-year-old woman with history of schizoaffective disorder, psychosis presented to the emergency department with altered mental status, confusion. She was initially on behavioral observation and had a psychotic break requiring multiple doses of antipsychotic medications and restraints with no resolution of symptoms. Ultimately she required initiation of a Precedex drip which therefore she was transferred to the ICU. She was downgraded from the ICU on 08/25/2023. At this time patient is hemodynamically stable, no severe psychotic episodes at this time but will require admission to psychiatric unit for further mental hea lth care. Mental health. Continue medications versus adjustment or addition of new medications during psych admission Hypothyroidism. Continue levothyroxine History of asthma. No exacerbation. Continue home inhalers GERD. Continue PPI Time Attestation Discharge coordination time: Greater than 30 minutes Quality: Safe Use of Opioids Does Pt have an Active Cancer Diagnosis on the Problem List?: No Quality: Stroke Does the patient have a stroke diagnosis?: No Physical Exam Vital Signs: Vital Signs: Last Vital Signs Temp 98.1 F 08/26/23 07:24 Pulse 77 08/26/23 09:50 Resp 16 08/26/23 09:50 BP 127/60 08/26/23 09:50 Pulse Ox 99 08/26/23 09:50 O2 Del Method Room Air 08/26/23 09:50 BMI result Body Mass Index 30.4 Appearing in no acute distress, confusion, hallucinations mouth throat mucous membranes are intact and moist neck is supple no lymphadenopathy, no JVD noted lung sounds are clear to auscultation heart regular rate rhythm, clear S1, S2 positive bowel sounds, abdomen is soft, nontender neuro patient is alert, hypervigilant DS: Data Data Completed and Pending Labs on day of discharge: Laboratory Results - last 24 hr 08/26/23 08/26/23 08/26/23 07:17 08:53 08:54 WBC 7.7 RBC 4.32 Hgb 13.2 Hct 36.2 L MCV 83.8 MCH 30.6 MCHC 36.5 H RDW 12.6 Plt Count 307 MPV 10.1 Immature Gran % (Auto) 0.6 H Neut % (Auto) 59.3 Lymph % (Auto) 31.0 Hooker % (Auto) 8.3 Eos % (Auto) 0.5 Baso % (Auto) 0.3 Lymph # (Auto) 2.4 Hooker # (Auto) 0.6 Eos # (Auto) 0.0 Baso # (Auto) 0.0 Abs Immat Gran (auto) 0.05 H Absolute Neuts (auto) 4.6 Absolute Nucleated RBC 0.000 Nucleated RBC % (auto) 0.0 Sodium 140 Potassium 3.4 Chloride 109 H Carbon Dioxide 19 L Anion Gap 15 BUN 8 L Creatinine 0.82 Estim Creat Clear Calc 88.4 Estimated GFR > 60 Random Glucose 109 Calcium 9.6 D Phosphorus 2.9 Magnesium 1.9 Total Bilirubin 1.7 H AST 27 ALT 24 Alkaline Phosphatase 51 Ammonia 15 Total Protein 7.0 Albumin 4.3 Valproic Acid 138.1 H* COVID-19 ([facility]) Negative COVID-19 Clin Com See Note Discharge Plan Discharge Anticipated Discharge Date/Time: 08/26/23 12:11 Patient Disposition: Xfer Psychiatric Hosp Discharge Diagnosis: Acute psychosis Referrals: Luz Hernandez MD [Primary Care Provider] - 1 Week Discharge Medications: Continued buspirone 10 mg tablet 15 mg PO BID levothyroxine 50 mcg tablet 50 mcg PO DAILY benztropine 1 mg tablet 1 mg PO QAM benztropine 1 mg tablet 2 mg PO BEDTIME divalproex 500 mg tablet,delayed release (DR/EC) 500 mg PO BEDTIME haloperidol 10 mg tablet 5 mg PO BEDTIME acetaminophen 500 mg tablet 500 mg PO TID PRN (Reason: pain) lorazepam 1 mg tablet 1 mg PO BID PRN (Reason: Anxiety) 30 Days Qty: 14 4RF magnesium oxide 400 mg magnesium tablet 400 mg PO DAILY pantoprazole 40 mg tablet,delayed release (DR/EC) 40 mg PO DAILY albuterol sulfate [ProAir HFA] 90 mcg/actuation HFA aerosol inhaler 2 puff inhalation Q6H PRN (Reason: Wheezing) Rx Instructions: asthma, wheezing loratadine 10 mg tablet 10 mg PO DAILY vitamin E (dl, acetate) 180 mg (400 unit) capsule 180 mg PO BID Discharge Orders: Discharge Order (Routine); Ordered 08/26/23 Ordered By: Pat Toribio Diet: Advance to usual diet Activity on Discharge: As tolerated Stand Alone Forms: Patient Portal Discharge page Care Plan Goals: Elevated Depakote level, hold for 24 hours and recheck levels Health Concerns: Psychosis Plan of Treatment: Transfer to psychiatric unit for mental health care Assessment: See discharge summary Discharge Date/Time: 08/26/23 14:49
[2023-08-26 11:57] VITALS: BP 113/55; PULSE 65; RESP 16; TEMP 36.3; O2SAT 97
[2023-08-26] MEDS: LORazepam 0.5 MG TABLET PO (13:47)
== END 2023-08-26 14:49 | DRG 558 ==
LOC: HO.ED 08-23 16:29 → HO.EDOVER 08-23 16:50 → HO.ICU 08-23 17:11 → HO.S3 08-25 22:14
PROVIDERS: Emergency Medicine; Internal Medicine; Admitting Provider Internal Medicine Pulmonary Disease; Emergency Provider Emergency Medicine Emergency Medical Services; PCP Internal Medicine; Visit Provider Nurse Practitioner Acute Care
DX: M62.82 Rhabdomyolysis (principal); F23 Brief psychotic disorder; F25.9 Schizoaffective disorder, unspecified; E87.6 Hypokalemia; I95.2 Hypotension due to drugs; J45.909 Unspecified asthma, uncomplicated; T42.6X5A Adverse effect of other antiepileptic and sedative-hypnotic drugs, initial encounter; R00.1 Bradycardia, unspecified; E03.9 Hypothyroidism, unspecified; L40.50 Arthropathic psoriasis, unspecified; Z20.822 Contact with and (suspected) exposure to COVID-19; Z78.1 Physical restraint status; Z87.891 Personal history of nicotine dependence; Z79.890 Hormone replacement therapy; Z79.899 Other long term (current) drug therapy
CPT/HCPCS: 36415; 80048; 80051; 80053; 80076; 80164; 80307; 81001; 82140; 82550; 82803; 83735; 84100; 84443; 85007; 85025; 85027; 87635; 93005; 99285; C1758; J0515; J1200; J1630; J1644; J2250; J2359; J2371; J3230; J3360; J3480; J3486; J7120; P9047; S9485

== ENCOUNTER → 2023-08-22 01:29 | Outpatient (BNV) | payer OTHER, SELFPAY | PROVIDERS: Emergency Provider Emergency Medicine Emergency Medical Services; Visit Provider Internal Medicine | DX: R00.1 Bradycardia, unspecified (principal); R94.31 Abnormal electrocardiogram [ECG] [EKG] | CPT/HCPCS: 93010 ==

== ENCOUNTER → 2023-08-23 13:51 | Outpatient (BNV) | payer OTHER, SELFPAY | PROVIDERS: Admitting Provider Internal Medicine Pulmonary Disease; Emergency Provider Emergency Medicine Emergency Medical Services; PCP Internal Medicine; Visit Provider Internal Medicine Cardiovascular Disease | DX: R94.31 Abnormal electrocardiogram [ECG] [EKG] (principal) | CPT/HCPCS: 93010 ==

== ENCOUNTER → 2023-08-23 16:43 | Outpatient (BNV) | payer OTHER, SELFPAY | PROVIDERS: Admitting Provider Internal Medicine Pulmonary Disease; Emergency Provider Emergency Medicine Emergency Medical Services; PCP Internal Medicine; Visit Provider Internal Medicine Pulmonary Disease | DX: F23 Brief psychotic disorder (principal); F25.9 Schizoaffective disorder, unspecified; E03.9 Hypothyroidism, unspecified | CPT/HCPCS: 99232 ==

== ENCOUNTER → 2023-08-23 16:43 | Outpatient (BNV) | payer OTHER, SELFPAY | PROVIDERS: Admitting Provider Internal Medicine Pulmonary Disease; Emergency Provider Emergency Medicine Emergency Medical Services; PCP Internal Medicine; Visit Provider Registered Nurse Community Health | DX: M62.82 Rhabdomyolysis (principal); F25.9 Schizoaffective disorder, unspecified; E87.6 Hypokalemia; R45.1 Restlessness and agitation | CPT/HCPCS: 99223 ==

== ENCOUNTER → 2023-08-23 16:43 | Outpatient (BNV) | payer OTHER, SELFPAY | PROVIDERS: Admitting Provider Internal Medicine Pulmonary Disease; Emergency Provider Emergency Medicine Emergency Medical Services; PCP Internal Medicine; Visit Provider Psychiatry & Neurology Psychiatry | DX: F25.0 Schizoaffective disorder, bipolar type (principal); R45.1 Restlessness and agitation | CPT/HCPCS: 99222 ==

== ENCOUNTER → 2023-08-23 16:43 | Outpatient (BNV) | payer OTHER, SELFPAY | PROVIDERS: Admitting Provider Internal Medicine Pulmonary Disease; Emergency Provider Emergency Medicine Emergency Medical Services; PCP Internal Medicine; Visit Provider Nurse Practitioner Acute Care | DX: E03.9 Hypothyroidism, unspecified (principal); R45.1 Restlessness and agitation; F23 Brief psychotic disorder; F25.9 Schizoaffective disorder, unspecified | CPT/HCPCS: 99238; 99499 ==

== ENCOUNTER 2023-08-26 15:11 | Outpatient (BNV) | payer OTHER, SELFPAY | END 2023-09-14 15:31 | PROVIDERS: Admitting Provider Psychiatry & Neurology Psychiatry; Visit Provider Internal Medicine Cardiovascular Disease | DX: F25.9 Schizoaffective disorder, unspecified (principal) | CPT/HCPCS: 93010 ==

== ENCOUNTER 2023-08-26 15:11 | Inpatient (IN) | payer OTHER, SELFPAY ==
--- OUTSIDE RECORDS SUMMARY | 2023-08-26 15:14 | XMS_ITS | Continuity of Care Document ---
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 Name Role Phone Luz Hernandez MD Primary Care Physician Encounter [facility] [place] Date(s): 01/07/23 - 01/21/[address] [address]- Encounter Diagnosis Delusional disorder(Final) - 01/09/23 Schizoaffective disorder(Final) - 01/09/23 Discharge Disposition: A-Transfer VNA/Home Health Attending Physician: Juni Muller MD, David Admitting Physician: Nancy NICOLE, Yun Hatch Referring Physician: Not on Staff, Referring MD Allergies, Adverse Reactions, Alerts Substance Reaction Severity Status ibuprofen Active penicillins Active sulfa drugs Active Vicodin Active Celebrex Active Shrimp Anaphylaxis Severe Active Percocet 5/325 Active Medications albuterol 90 [...] tablet, Refills 1, Tot. Refills 1, Maintenance, 10/17/22 11:44:00 EDT, Route to Pharmacy Electronically, [facility] #[id number], Partial fill uponpatient request if the prescription is for a schedu... Start Date: 10/17/22 Stop Date: 04/15/23 Status: Ordered busPIRone 10 mg oral tablet 15 mg, 1.5, tablet, By Mouth, 2 times a day, # 270 tablet, Refills 1, Tot. Refills 1, Maintenance, 10/17/22 11:44:00 EDT, Route to Pharmacy Electronically, [facility] #[id number], Partial fill upon patient request if the prescription is for a jeff... Start Date: 10/17/22 Stop Date: 04/15/23 Status: Ordered Claritin 10 mg oral tablet 10 mg, 1, tablet, By Mouth, Daily at bedtime, # 30 tablet, Refills 0, Tot. Refills 0, Maintenance, 10/22/20 15:18:00 EDT, Route to Pharmacy Electronically, [facility] #[id number], Partial fill upon patient request if the prescription is for a jeff... Start Date: 10/22/20 Stop Date: 11/21/20 Status: Ordered divalproex sodium 250 mg oral enteric coated tablet = 750 mg, By Mouth, Daily, # 90 tablet, 0 Refills, Maintenance, 01/21/23 15:53:00 EDT, Tablet, [facility] #[id number], Partial fill upon patient request if the prescription is for a schedule II opioid drug., 170, cm, 01/21/23 9:37:00 EDT, Height,... Start Date: 01/21/23 Stop Date: 02/20/23 Status: Ordered divalproex sodium 500 mg oral enteric coated tablet = 1,000 mg, By Mouth, Daily at bedtime, # 60 tablet, 0 Refills, Maintenance, 01/21/23 15:53:00 EDT,Tablet, [facility] #[id number], Partial fill upon patient request if the prescription is for aschedule II opioid drug., 170, cm, 01/21/23 9:37:00... Start Date: 01/21/23 Stop Date: 02/20/23 Status: Ordered haloperidol 5 mg oral tablet See Instructions, 1 tablet By Mouth Daily in AM and 2 tab by nouth at HS, # 90 tablet, Refills 0, Tot. Refills 0, Maintenance, 01/21/23 15:52:00 EDT, Instructions Replace Required Details, Route to Pharmacy Electronically, [facility] #[id number],... Start Date: 01/21/23 Status: Ordered levothyroxine 0.05 mg oral tablet 1 tablet = 50 mcg, By Mouth, Daily, # 30 tablet, 0 Refills, Maintenance, 10/22/20 15:22:00 EDT, Tablet, [facility] #[id number], Partial fill upon patient request if the prescription is for a schedule II opioid drug., 170, cm, 10/21/20 18:03:00 ED... Start Date: 10/22/20 Stop Date: 11/21/20 Status: Ordered LORazepam 1 mg oral tablet 1 tablet = 1 mg, By Mouth, 2 times a day, PRN for anxiety, # 60 tablet, 4 Refills, Maintenance, 10/17/22 11:44:00 EDT, Tablet, [facility] #[id number], Partial fill upon patient request if the prescription is for a schedule II opioid drug., 167, c... Start Date: 10/17/22 Stop Date: 03/16/23 Status: Ordered magnesium oxide 400 mg oral tablet 1 tablet = 400 mg, By Mouth, Daily, # 90 tablet, 1 Refills, Maintenance, 10/17/22 11:44:00 EDT, [facility] #[id number], Partial fill upon patient request if the prescription is for a schedule IIopioid drug., 167, cm, 10/09/22 16:21:00 EDT, Height Start Date: 10/17/22 Stop Date: 04/15/23 Status: Ordered pantoprazole 40 mg oral delayed release tablet = 40 mg, By Mouth, Daily, # 30 tablet, 0 Refills, Maintenance, 10/22/20 15:19:00 EDT, EC Tablet, 170, cm, 10/21/20 18:03:00 EDT, Height, 102, kg, 10/11/20 18:35:00 EDT, Dry Weight Start Date: 10/22/20 Stop Date: 11/21/20 Status: Ordered traMADol 50 mg oral tablet 50 mg, Tablet, By Mouth, Every 4 hours, PRN for Pain , Moderate, Routine, 01/08/23 9:30:00 EDT Start Date: 01/08/23 Stop Date: 01/22/23 Status: Discontinued Tylenol 325 mg oral tablet 2 tablet = 650 mg, By Mouth, Every 4 hours, PRN for pain, (not to exceed 4000 mg/day), # 50 tablet,0 Refills, Maintenance, Tablet Start Date: 12/20/11 Status: Ordered vitamin E 400 iu oral capsule 1 capsule = 400 International_Units, By Mouth, 2 times a day, # 180 capsule, 1 Refills, Maintenance, 12/12/22 10:43:00 EDT, Capsule, [facility] #[id number], Partial fill upon patient request if the prescription is for a schedule II opioid drug.,... Start Date: 12/12/22 Stop Date: 06/10/23 Status: Ordered Problem List Condition Confirmation Course Effective Dates Status H ealth Status Informant Anxiety Confirmed Active Gastroesophageal reflux disease with hiatal hernia Confirmed Active Generalized anxiety disorder with panic attacks Confirmed Active Hyperlipidemia Confirmed Active Hypertension Confirmed Active Obese class I Confirmed Active Obsessive compulsive disorder Confirmed Active Schizoaffective disorder Confirmed Active Smoker Confirmed Active Vital Signs Most recent to oldest [Reference Range]: 1 2 3 Height 170 cm (01/20/23 4:58 PM) Weight 91 kg (01/20/23 4:58 PM) 91 kg (01/20/23 1:00 PM) Oxygen Saturation [94-100 %] 97 % (01/21/23 3:00 PM) 99 % (01/21/23 8:00 AM) 100 % (01/21/23 5:16 AM) Pulse Rate [55-90 bpm] 80 bpm (01/21/23 3:00 PM) 66 bpm (01/21/23 8:00 AM) 61 bpm (01/21/23 5:16 AM) Body Mass Index [18.5-24.99 kg/m2] 31.49 kg/m2 *>HHI* (01/20/23 4:58 PM) Blood Pressure [90-138/55-84 mm Hg] 134/97mm Hg (01/21/23 3:00 PM) 161/96mm Hg *H* (01/21/23 8:00 AM) 150/74mm Hg *H* (01/21/23 5:16 AM) Respiratory Rate [16-30 br/min] 16 br/min (01/21/23 3:00 PM) 16 br/min (01/21/23 8:50 AM) 20 br/min (01/21/23 8:00 AM) Temperature [96.8-100.4 DegF] 98.1 DegF (01/21/23 3:00 PM) 98.6 DegF (01/21/23 8:00 AM) 98.2 DegF (01/20/23 9:42 PM) Mode of Delivery (Oxygen) Room air (01/21/23 3:00 PM) Room air (01/21/23 8:00 AM) Room air (01/21/23 5:16 AM) Blood pressure sites Arm, right (01/21/23 3:00 PM) Arm, right (01/21/23 8:00 AM) Arm, right (01/21/23 5:16 AM) Temperature Route Oral (01/21/23 3:00 PM) Oral (01/21/23 8:00 AM) Oral (01/21/23 5:16 AM) Dry Weight 91 kg (01/20/23 4:58 PM) Social History Social History Type Response Smoking Status Former smoker, quit more than 30 days ago entered on: 10/11/19 Sex Admission evaluation note * Nevin Mckinnon: MODIFY, MODIFY, MODIFY, PERFORM, MODIFY, MODIFY, MODIFY Event Display: Admission Note Authored Date: [id number] Patient: ??ANAMARIA DUMONT ? Age:??52 Years?Sex:??Female?:??1970?? Chief Complaint/Reason for Consultation Worsening vision in setting of bilateral cataracts History of Present Illness 52-year-old female with a past medical history of bilateral cataracts, hypertension, hypothyroidism, schizoaffective disorder,??psoriatic arthritis, asthma, GERD presented to ED on 01/07 for concerns of worsening vision. Denies any trauma to eyes. No eye pain or??tearing. No headache. She has been socially admitted after 10 day stay in ED in search for inpatient psych placement. States feeling unsafe at home due to vision changes and hopes for visiting nurse assistance at home. ?? Hemodynamically stable. No fever, chills, weakness. No nausea or vomiting. No chest pain or palpitations. No SOB, lightheadedness. No other complaints. Review of Systems Negative except for what is stated above. Objective Measurements?? Weight: 91 kg (01/20/23) ?? Vital Signs?? Temperature: 98 DegF (01/20/23 14:00:00) Temperature Route: Oral (01/20/23 14:00:00) Pulse Rate: 78 bpm (01/20/23 14:00:00) Respiratory Rate: 18 br/min (01/20/23 14:00:00) Vented: No (01/20/23 08:40:00) Systolic Blood Pressure:??154 mm Hg??High (01/20/23 14:00:00) Diastolic Blood Pressure:??96 mm Hg??High (01/20/23 14:00:00) Blood pressure sites: Arm, right (01/20/23 14:00:00) Pulse Pressure: 58 mm Hg (01/20/23 14:00:00) Oxygen Saturation: 100 % (01/20/23 14:00:00) Mode of Delivery (Oxygen): Room air (01/20/23 14:00:00) Early Warning Score: 0 (01/20/23 15:13:09) ? Intake/Output? 01/07 11:11 01/20 07:00 01/19 07:00 01/18 07:00 01/17 07:00 ?? 01/20 17:20 01/20 17:20 01/20 06:59 01/19 06:59 01/18 06:59 Intake ?360 ?360 ?0 ?0 ?0 Output ?0 ?0 ?0 ?0 ?0 Net Total ?360 ?360 ?0 ?0 ?0 ? Physical Exam Constitutional: Alert, no acute distress. Skin: Warm, dry. No rashes or lesions. Head: Normocephalic. EENT: Bilateral cataracts. PERRLA, EOMI. Mucous membranes moist. Neck: Supple, Full range of motion. Respiratory: Clear to auscultation. No wheezing, rales or rhonchi. Cardiovascular: S1 S2 regular. No murmurs, rubs or gallops. Gastrointestinal: Abdomen soft, non-tender, non-distended. Normal bowel sounds. Neurologic: Cranial nerves II-XII grossly intact. No focal neurological deficits. Psychiatric:??Cooperative, anxious, delusional thinking Assessment/Plan 52-year-old female with a past medical history of bilateral cataracts, hypertension, hypothyroidism, schizoaffective disorder,??psoriatic arthritis, asthma, GERD presented to ED on 01/07 for concerns of worsening vision. ? Diagnoses Cataracts, bilateral ??(H26.9) Delusional disorder ??(F22) Schizoaffective disorder ??(F25.9) ?? Cataracts -pt followed by outpatient ophthalmology and scheduled for cataract surgery in March ?? Schizoaffective Disorder Anxiety -continue cogentin, haloperidol, buspirone, Depakote as per psych -lorazepam prn for anxiety -inpatient psychiatry bed search in progress ? -Full code -Regular diet -Pt is ambulatory with assistance; chemical DVT prophylaxis can be held at this time ? This note was contributed to by FLASH Connolly under the supervision of Dr. Nicole. Histories Allergies Allergies ?(Active and Proposed Allergies Only) Shrimp? (Severity: Severe, Onset: Unknown) ?Reactions: Anaphylaxis Celebrex? (Severity: Unknown severity, Onset: Unknown) sulfa drugs? (Severity: Unknown severity, Onset: Unknown) ibuprofen? (Severity: Unknown severity, Onset: Unknown) Percocet 5/325? (Severity: Unknown severity, Onset: Unknown) Vicodin? (Severity: Unknown severity, Onset: Unknown) penicillins? (Severity: Unknown severity, Onset: Unknown) ? Past Medical History/Problem List Active Problems??(9) Anxiety Gastroesophageal reflux disease with hiatal hernia Generalized anxiety disorder with panic attacks Hyperlipidemia Hypertension Obsessive compulsive disorder Schizoaffective disorder Severe obesity (BMI 35.0-39.9) with comorbidity Smoker ? Past Surgical History No surgery history documented. ? Social History Alcohol Details:??Use: Never. Substance Abuse Details:??Use: Current. ??Type: Marijuana. Tobacco Details:??Use: Former smoker, quit more than 30 days ago. Details:??Former smoker ? Family History No family history recorded. ? Medications Home Medications Acetaminophen (Tylenol 325 mg oral tablet)?2?tab(s)?650?Milligram?By Mouth?Every 4 hours?as needed?for pain?(not to exceed 4000 mg/day) Albuterol (albuterol 90 mcg/inh inhalation aerosol)?2?puff(s)?Inhalation?4 times a day?as needed?as needed for wheezing Benztropine (benztropine 1 mg oral tablet)?1?Milligram?1?tablet?By Mouth?2 times a day?for 90?Days BusPIRone (busPIRone 10 mg oral tablet)?15?Milligram?1.5?tablet?By Mouth?2 times a day?for 90?Days Divalproex Sodium (divalproex sodium 500 mg oral enteric coated tablet)?See Instructions?take1 tablet in the morning ; take 2 tablets at nightTDD 1500mg Haloperidol (haloperidol 5 mg oral tablet)?5?Milligram?1?tablet?By Mouth?Daily atbedtime?for 90?Days Levothyroxine (levothyroxine 0.05 mg oral tablet)?1?tab(s)?50?Microgram?By Mouth?Daily?for 30?Days Loratadine (Claritin 10 mg oral tablet)?10?Milligram?1?tablet?By Mouth?Daily at bedtime?for 30?Days Lorazepam (LORazepam 1 mg oral tablet)?1?tab(s)?1?Milligram?By Mouth?2 times a day?as needed?for anxiety?for 30?Days Magnesium Oxide (magnesium oxide 400 mg oral tablet)?1?tab(s)?400?Milligram?By Mouth?Daily?for 90?Days Pantoprazole (pantoprazole 40 mg oral delayed release tablet)?40?Milligram?By Mouth?Daily?for 30?Days Vitamin E (vitamin E 400 iu oral capsule)?1?capsule?400?International Unit?By Mouth?2 times a day?for 90?Days ? Inpatient Medications Medications (25) Active SCHEDULED: (12) Benztropine 1 mg Tablet (benztropine 1 mg oral tablet) ??1 mg, By Mouth, 2 times a day BusPIRone 10 mg Tablet (busPIRone 10 mg oral tablet) ??15 mg, By Mouth, 2 times a day Divalproex 250 mg Tablet (Depakote Tablet) ??750 mg, By Mouth, Daily Divalproex 500 mg Tablet (divalproex sodium delayed release) ??1,000 mg, By Mouth, Daily at bedtime Haloperidol 10 mg Tablet (haloperidol 10 mg oral tablet) ??10 mg, By Mouth, Daily at bedtime Haloperidol 5 mg Tablet (haloperidol 5 mg oral tablet) ??5 mg, By Mouth, Daily in AM Levothyroxine 25 mcg Tablet (levothyroxine 0.025 mg oral tablet) ??50 mcg, By Mouth, Daily Loratadine 10 mg Tablet (Claritin 10 mg oral tablet) ??10 mg, By Mouth, Daily at bedtime Magnesium Oxide 400 mg Tablet (magnesium oxide 400 mg oral tablet) ??400 mg, By Mouth, Daily NaCl 0.9% Flush 3ml (NaCL 0.9% Flush) ??3 mL, IV Push, Every 8 hours Pantoprazole 40 mg EC Tablet (pantoprazole 40 mg oral delayed release tablet) ??40 mg, By Mouth, Daily Vitamin E 400 Internatl Units Capsule (vitamin E 400 iu oral capsule) ??400 International_Units, ByMouth, 2 times a day CONTINUOUS: (0) PRN: (13) Acetaminophen 325 mg Tablet (Acetaminophen Tablet) ??650 mg, By Mouth, Every 8 hours Al hydroxide/Mg hydroxide/simethicone 200 mg-200 mg-20 mg/5 mL Susp UD (Maalox Plus Liquid) ??30 mL, By Mouth, Every 8 hours Dextromethorphan-Guaifenesin 20 mg-200 mg/10 mL Liqu UD (Robitussin DM Liquid) ??10 mL, By Mouth, Every 4 hours Haloperidol 5 mg Tablet (haloperidol 5 mg oral tablet) ??5 mg, By Mouth, Every 6 hours Lorazepam 1 mg Tablet (LORazepam 1 mg oral tablet) ??1 mg, By Mouth, 2 times a day Melatonin 3 mg Tablet (Melatonin Tablet) ??9 mg, By Mouth, Daily at bedtime NaCl 0.9% Flush 3ml (NaCL 0.9% Flush) ??3 mL, IV Push, Every 8 hours Ondansetron 4 mg ODT (Zofran ODTablet) ??4 mg, By Mouth, Every 8 hours Polyethylene Glycol 17 Gm Powder (MiraLax Powder) ??17 Gm 1 pack/packet, By Mouth, Daily Polyethylene Glycol 17 Gm Powder (MiraLax Powder) ??17 Gm 1 pack/packet, By Mouth, Daily Senna 8.6 mg / Docusate 50 mg tablet (Docusate/Senna Tablet) ??1 tablet, By Mouth, 2 times a day Simethicone 80 mg Chewable Tablet (Simethicone Tablet) ??80 mg, Chew, 3 times a day TraMADOL 50 mg Tablet (traMADol 50 mg oral tablet) ??50 mg, By Mouth, Every 4 hours ? Results Recent Labs BLOOD COUNT & DIFF WBC 6.2 k/mm3 ()?? 01/20/2023 06:54 RBC 4.13 m/mm3 (Low)?? 01/20/2023 06:54 Hgb 12.6 Gm/dL ()?? 01/20/2023 06:54 Hct 37.2 % ()?? 01/20/2023 06:54 MCV 90.1 femtoliters ()?? 01/20/2023 06:54 MCH 30.5 pg ()?? 01/20/2023 06:54 MCHC 33.9 g/dL ()?? 01/20/2023 06:54 Platelet Count 215 k/mm3 ()?? 01/20/2023 06:54 RDW-SD 37.9 femtoliters ()?? 01/20/2023 06:54 MPV 10.4 femtoliters ()?? 01/20/2023 06:54 Nucleated RBC (Automated) 0.0 #/100 WBC'S ()?? 01/20/2023 06:54 Abs. NRBC 0.0 k/mm3 ()?? 01/20/2023 06:54 Abs. Neut 2.4 k/mm3 ()?? 01/20/2023 06:54 Abs. Lymph 3.0 k/mm3 ()?? 01/20/2023 06:54 Abs. [place] 0.7 k/mm3 ()?? 01/20/2023 06:54 Abs. Eo 0.1 k/mm3 ()?? 01/20/2023 06:54 Abs. Baso 0.0 k/mm3 ()?? 01/20/2023 06:54 Neut % 38.3 % (Low)?? 01/20/2023 06:54 Lymph % 48.5 % (High)?? 01/20/2023 06:54 [place] % 10.5 % ()?? 01/20/2023 06:54 Eos % 1.6 % ()?? 01/20/2023 06:54 Baso % 0.6 % ()?? 01/20/2023 06:54 Imm Gran 0.5 % ()?? 01/20/2023 06:54 Abs. Imm Gran 0.0 k/mm3 ()?? 01/20/2023 06:54 ?? CHEM GENERAL Sodium 138 mmol/L ()?? 01/20/2023 06:54 Potassium 3.7 mmol/L ()?? 01/20/2023 06:54 Chloride 101 mmol/L ()?? 01/20/2023 06:54 Bicarbonate Level 26 mmol/L ()?? 01/20/2023 06:54 Anion Gap 11 ()?? 01/20/2023 06:54 Glucose Level 177 mg/dL (High)?? 01/20/2023 06:54 BUN 14 mg/dL ()?? 01/20/2023 06:54 Creatinine-Blood 0.9 mg/dL ()?? 01/20/2023 06:54 Estimated GFR Creatinine 76 ML/MIN/1.73 M2 ()?? 01/20/2023 06:54 Calcium 8.9 mg/dL ()?? 01/20/2023 06:54 ?? UA/URINALYSIS Appear/Color, Urine COLORLESS ()?? 01/20/2023 08:20 Specific [place], Urine 1.007 ()?? 01/20/2023 08:20 pH, Urine 7.0 ()?? 01/20/2023 08:20 Albumin, Urine NEGATIVE ()?? 01/20/2023 08:20 Glucose, Urine NEGATIVE ()?? 01/20/2023 08:20 Ketones, Urine NEGATIVE ()?? 01/20/2023 08:20 Bilirubin, Urine NEGATIVE ()?? 01/20/2023 08:20 Hemoglobin, Urine NEGATIVE ()?? 01/20/2023 08:20 Nitrite, Urine NEGATIVE ()?? 01/20/2023 08:20 Leukocyte, Urine NEGATIVE ()?? 01/20/2023 08:20 Urobilinogen NORMAL mg/dL ()?? 01/20/2023 08:20 WBC's, Urine <1 /HPF ()?? 01/20/2023 08:20 RBC's, Urine 1 /HPF ()?? 01/20/2023 08:20 Bacteria SLIGHT HPF (Abnormal)?? 01/20/2023 08:20 Squamous Epith 3 /HPF ()?? 01/20/2023 08:20 Mucus SLIGHT /LPF ()?? 01/20/2023 08:20 Hold Urine Culture Testing available 48 hours from time of collection. ()?? 01/20/2023 08:20 ? Abnormal Labs ?? BLOOD COUNT & DIFF ??Abs. Imm Gran ??0.0 k/mm3 () ??01/20/2023 06:54 ??Abs. NRBC ??0.0 k/mm3 () ??01/20/2023 06:54 ??Imm Gran ??0.5 % () ??01/20/2023 06:54 ??Lymph % ??48.5 % (High) ??01/20/2023 06:54 ??Neut % ??38.3 % (Low) ??01/20/2023 06:54 ??Nucleated RBC (Automated) ??0.0 #/100 WBC'S () ??01/20/2023 06:54 ??RBC ??4.13 m/mm3 (Low) ??01/20/2023 06:54 ??RDW-SD ??37.9 femtoliters () ??01/20/2023 06:54 ? CHEM GENERAL ??Estimated GFR Creatinine ??76 ML/MIN/1.73 M2 () ??01/20/2023 06:54 ??Glucose Level ??177 mg/dL (High) ??01/20/2023 06:54 ? UA/URINALYSIS ??Albumin, Urine ??NEGATIVE () ??01/20/2023 08:20 ??Appear/Color, Urine ??COLORLESS () ??01/20/2023 08:20 ??Bacteria ??SLIGHT HPF (Abnormal) ??01/20/2023 08:20 ??Bilirubin, Urine ??NEGATIVE () ??01/20/2023 08:20 ??Glucose, Urine ??NEGATIVE () ??01/20/2023 08:20 ??Hemoglobin, Urine ??NEGATIVE () ??01/20/2023 08:20 ??Hold Urine Culture ??Testing available 48 hours from time of collection. () ??01/20/2023 08:20 ??Ketones, Urine ??NEGATIVE () ??01/20/2023 08:20 ??Leukocyte, Urine ??NEGATIVE () ??01/20/2023 08:20 ??Mucus ??SLIGHT /LPF () ??01/20/2023 08:20 ??Nitrite, Urine ??NEGATIVE () ??01/20/2023 08:20 ??Urobilinogen ??NORMAL mg/dL () ??01/20/2023 08:20 ? Note: Critical results are displayed in red. ? * Corey NICOLE, [facility]: PERFORM Event Display: Admission Note Authored Date: 52-year-old female with past??medical history significant for psoriatic arthritis, schizoaffective disorder, obsessive compulsive Disorder, panic disorder & generalized anxiety disorder,??as wellas longstanding cataracts bilaterally who initially presented to [facility] for decreased vision was medically cleared and pending [facility] admission. ??Cleared by psych now.?? Case management team working on arranging??home services.?Patient is hemodynamically stable, blood work-up without significant finding. ?? Per psych note - Once [employer] services are confirmed, patient may discharge. Continue current medication as ordered DVT prophylaxis pneumatic compression, patient for discharge ?? EKG study * Event Display: EKG Authored Date: * Event Display: ECG 12-Lead Authored Date: Please click on pdf link to open report * Event Display: ECG 12-Lead Authored Date: Ventricular Rate: 54 BPM Atrial Rate: 54 BPM P-R Interval: 148 ms QRS Duration: 78 ms Q-T Interval: 440 ms QTC Calculation(Bazett): 417 ms P Fenton: 48 degrees R Fenton: 35 degrees T Fenton: 43 degrees Sinus bradycardia Otherwise normal ECG When compared with ECG of 09-OCT-2022 17:52, No significant change was found Confirmed by RENEE NICOLE [facility] ([id number]) on 01/14/2023 10:29:08 AM Nunda: [facility] * Juni Muller MD, David: PERFORM Event Display: Progress Note Hospital Authored Date: [id number] Patient: ??ANAMARIA DUMONT ? Age:??52 Years?Sex:??Female?:??1970?? Subjective Patient is extremely frustrated about being in the hospital for??2 weeks now.?? Case management and social work are working to find a [employer]??prior to discharge. Patient is currently medically stable. ??Psychiatry cleared. Review of Systems Noncontributory Objective Vital Signs?? Temperature: 98.6 DegF (01/21/23 08:00:00) Temperature Route: Oral (01/21/23 08:00:00) Pulse Rate: 66 bpm (01/21/23 08:00:00) Respiratory Rate: 16 br/min (01/21/23 08:50:00) Systolic Blood Pressure:??161 mm Hg??High (01/21/23 08:00:00) Diastolic Blood Pressure:??96 mm Hg??High (01/21/23 08:00:00) Blood pressure sites: Arm, right (01/21/23 08:00:00) Mean Arterial Pressure: 99 mm Hg (01/21/23 05:16:00) Pulse Pressure: 65 mm Hg (01/21/23 08:00:00) Oxygen Saturation: 99 % (01/21/23 08:00:00) Mode of Delivery (Oxygen): Room air (01/21/23 08:00:00) Early Warning Score: 0 (01/21/23 09:38:32) ? Physical Exam General: lying on the bed, saturating well on room air.?? Cardiovascular: S1, S2. Regular rhythm. No MRG. Respiratory: Reduced breath sound on bases, No RRR.?? Gastrointestinal: Soft, Nontender, Non distended, Normal bowel sounds.?? Neurological: Cranial nerves intact. Motor and sensory intact. Results Recent Labs BLOOD COUNT & DIFF WBC 6.2 k/mm3 ()?? 01/20/2023 06:54 RBC 4.13 m/mm3 (Low)?? 01/20/2023 06:54 Hgb 12.6 Gm/dL ()?? 01/20/2023 06:54 Hct 37.2 % ()?? 01/20/2023 06:54 MCV 90.1 femtoliters ()?? 01/20/2023 06:54 MCH 30.5 pg ()?? 01/20/2023 06:54 MCHC 33.9 g/dL ()?? 01/20/2023 06:54 Platelet Count 215 k/mm3 ()?? 01/20/2023 06:54 RDW-SD 37.9 femtoliters ()?? 01/20/2023 06:54 MPV 10.4 femtoliters ()?? 01/20/2023 06:54 Nucleated RBC (Automated) 0.0 #/100 WBC'S ()?? 01/20/2023 06:54 Abs. NRBC 0.0 k/mm3 ()?? 01/20/2023 06:54 Abs. Neut 2.4 k/mm3 ()?? 01/20/2023 06:54 Abs. Lymph 3.0 k/mm3 ()?? 01/20/2023 06:54 Abs. [place] 0.7 k/mm3 ()?? 01/20/2023 06:54 Abs. Eo 0.1 k/mm3 ()?? 01/20/2023 06:54 Abs. Baso 0.0 k/mm3 ()?? 01/20/2023 06:54 Neut % 38.3 % (Low)?? 01/20/2023 06:54 Lymph % 48.5 % (High)?? 01/20/2023 06:54 [place] % 10.5 % ()?? 01/20/2023 06:54 Eos % 1.6 % ()?? 01/20/2023 06:54 Baso % 0.6 % ()?? 01/20/2023 06:54 Imm Gran 0.5 % ()?? 01/20/2023 06:54 Abs. Imm Gran 0.0 k/mm3 ()?? 01/20/2023 06:54 ?? CHEM GENERAL Sodium 138 mmol/L ()?? 01/20/2023 06:54 Potassium 3.7 mmol/L ()?? 01/20/2023 06:54 Chloride 101 mmol/L ()?? 01/20/2023 06:54 Bicarbonate Level 26 mmol/L ()?? 01/20/2023 06:54 Anion Gap 11 ()?? 01/20/2023 06:54 Glucose Level 177 mg/dL (High)?? 01/20/2023 06:54 Hemoglobin A1C (Monitoring) 5.5 % ()?? 01/20/2023 06:54 BUN 14 mg/dL ()?? 01/20/2023 06:54 Creatinine-Blood 0.9 mg/dL ()?? 01/20/2023 06:54 Estimated GFR Creatinine 76 ML/MIN/1.73 M2 ()?? 01/20/2023 06:54 Calcium 8.9 mg/dL ()?? 01/20/2023 06:54 ?? UA/URINALYSIS Appear/Color, Urine COLORLESS ()?? 01/20/2023 08:20 Specific [place], Urine 1.007 ()?? 01/20/2023 08:20 pH, Urine 7.0 ()?? 01/20/2023 08:20 Albumin, Urine NEGATIVE ()?? 01/20/2023 08:20 Glucose, Urine NEGATIVE ()?? 01/20/2023 08:20 Ketones, Urine NEGATIVE ()?? 01/20/2023 08:20 Bilirubin, Urine NEGATIVE ()?? 01/20/2023 08:20 Hemoglobin, Urine NEGATIVE ()?? 01/20/2023 08:20 Nitrite, Urine NEGATIVE ()?? 01/20/2023 08:20 Leukocyte, Urine NEGATIVE ()?? 01/20/2023 08:20 Urobilinogen NORMAL mg/dL ()?? 01/20/2023 08:20 WBC's, Urine <1 /HPF ()?? 01/20/2023 08:20 RBC's, Urine 1 /HPF ()?? 01/20/2023 08:20 Bacteria SLIGHT HPF (Abnormal)?? 01/20/2023 08:20 Squamous Epith 3 /HPF ()?? 01/20/2023 08:20 Mucus SLIGHT /LPF ()?? 01/20/2023 08:20 Hold Urine Culture Testing available 48 hours from time of collection. ()?? 01/20/2023 08:20 ?? URINE OTHER Est Creatinine Clearance 71.72 mL/min ()?? 01/21/2023 09:38 ? Assessment/Plan 52-year-old female with past??medical history significant for psoriatic arthritis, schizoaffective disorder, obsessive compulsive Disorder, panic disorder & generalized anxiety disorder,??as wellas longstanding cataracts bilaterally who initially presented to [facility] for decreased vision was medically and psychiatrically cleared is pending disposition at this time.?? Social work and case management team following along.?Patient is hemodynamically stable, blood work-up without significant finding. ?? Schizoaffective disorder Anxiety disorder Delusional disorder ?? Per psych note - Once [employer] services are confirmed, patient may discharge. Continue Cogentin, BuSpar.?? Increased Depakote and Haldol.?? Discontinued constant student services advisor.?? Patient tolerating p.o. meds.?? As needed Haldol for agitation. ?? Cataracts bilaterally -pt followed by outpatient ophthalmology and scheduled for cataract surgery in March ?? -Full code -Regular diet -Pt is ambulatory with assistance; chemical DVT prophylaxis can be held at this time ?? I spent a total of 30 minutes today reviewing the chart/medical records, speaking with the patient,formulating and discussing the treatment plan and documenting the findings in encounter ?? Disclaimer: This dictation was accomplished with use of IMNEXT voice recognition software, prone tomedical word misidentifications and grammatical errors. The physician does strive to identify and correct these, but some could still be present. Please do not hesitate to contact physician for clarifications.? * Deanna Corcoran RN: PERFORM, SIGN, VERIFY Event Display: Progress Note Hospital Authored Date: [id number] Patient: ANAMARIA DUMONT Age: 52 years Sex: Female : 1970 Associated Diagnoses: None Author: Deanna Corcoran RN Findings Problem Related to Self Care Deficit : Self Care Deficit/new 01/21/2023 11:00 EDT Self Care Deficit Related to Other: physical barrier: blindness and vision impairment Goals & Outcomes, Self Care Deficit Pt will safely perform self care to maximum ability Interventions, Self Care Deficit Allow adequate time for pt to complete tasks, Assess ability to carry out ADL's, Assess patient's need for assistive devices, Evaluate responses to different interventions implemented, Teach and encourage good hygiene to preven infection, Provide appropriate assistive devices, Assist patient with ADLs prn, Encourage patient to participate in ADLs prn . Evaluation Ms. Dumont is A+Ox4, cooperative and pleasant with care, frequently walking out to nurses station to ask staff questions, intermittently anxious. VSS. Pt medically and psychiatrically cleared for dc,pending [employer] services for safe dispo at this time. Pt OOB ad zulma with independent gait, but needs assistance with some ADLs due to severe vision impairment. All needs met at this time, see [facility] for full assessment.. * Carole Adamson RN: PERFORM, SIGN, VERIFY Event Display: Progress Note Hospital Authored Date: Patient: ANAMARIA DUMONT Age: 52 years Sex: Female : 1970 Associated Diagnoses: None Author: Carole Adamson RN Findings Patient ambulated to restroom multiple times throughout shift today with minimal assistance. Pt hasdemonstrated steady gate, only needing guidance due to blindness. Consult note * Layne COBB, Nimco Rosado: PERFORM Event Display: Consultation Note Authored Date: Patient: ??ANAMARIA DUMONT ? Age:??52 Years?Sex:??Female?:??1970?? Subjective ?? Chief complaint:?Medication management ?? Patient seen, chart reviewed, and discussed with treatment team.? Interval History: No acute overnight events. Patient has had not reported episodes of agitation or intrusiveness in the last 48 hours. Has not??utilized any Haldol PRNs in the last 48 hours. She tells me, I talked to my doctor Joy Mendoza two weeks ago and she says I'm good to go! Tells me that I need to make two phone calls, to Funmi Roman ([phone]) and Donna Alexis to coordinate the??[employer]. Denies any auditory or visual hallucinations, reports I heard a loud movie that woke me up??butthat was it. ??Continues to endorse that she is in a relationship with the woman who runs the [employer] ([phone] ext [phone]). Asks me to call her to explain why she hasn't been??able to pay her security check. Denies any adverse effects on current medication regimen. Reports good appetite and eating meals regularly. ??Sleeping well overnight, reporting no sleep disturbances, daytime sedation, or fatigue. ??ADLs??appear??fair without incident. ??Able to make needs known.??Patient denies any additional??symptoms concerning for anxiety, depression, gallito, psychosis or PTSD. Patient denies any suicidal ideation, homicidal ideation or desires for self-injurious behaviors.? Review of Systems Pertinent positives as listed above in HPI. ??Otherwise, remainder of review of systems negative. ? Objective Vitals & Measurements T:??98.6?F?? TMIN:??98.2?F?? TMAX:??98.6?F?? HR:??65??(Peripheral)?? RR:??18?? BP:??139/82?? SpO2:??95%? MENTAL STATUS EXAMINATION Appearance: disheveled, dressed in a hospital gown, overweight; normal eye contact Attitude: cooperative Motor Activity: calm, slight tremor; coordination and gait unremarkable Sight and hearing: hearing intact, bilateral cataracts Mood: euthymic, not anxious Affect: appropriate, full range, normal intensity, congruent with mood Speech: slightly pressured; normal prosody - spontaneous, good articulation, clear tone, appropriately placed inflections; normal volume Perception: no impairment - denies auditory and visual hallucinations; no objective impairment, preoccupation, or responding to internal stimuli?? Cognition: alert, oriented to person/place/time/situation/object, memory intact, appropriate level of abstraction, good attention span, able to concentrate Judgment: fair Insight: fair Thought Process: normal productivity, goal-directed Thought Content: fixed delusions; denies current suicidal ideas, suicide plans, and suicide intent,including active or passive thoughts of suicide or ; denies current aggressive or psychotic ideas, including thoughts of physical or sexual aggression or homicide? Adherence: good Reliability:??fair historian Suicidality/Self-destructive Behavior: none Homicidality/Violence: none?? Amenia Suicide Score Amenia Suicide Score Last Asked Ca (01/19/23) Suicidal Thoughts Since Last Asked-CSSRS: No (01/19/23) Suicide Behavior Since Last Asked-CSSRS: No (01/19/23) Assessment/Plan Assessment? In brief, this is a 52-year-old female with past??medical history significant for psoriatic arthritis, schizoaffective disorder, obsessive compulsive Disorder, panic disorder & generalized anxiety disorder,??as well as longstanding cataracts bilaterally who initially presented to [facility] for decreased vision.?At this point in time, the patient has been medically cleared andreferred to??crisis clinicians??for evaluation and assistance with disposition for potential inpatient psychiatric hospitalization. The emergency psychiatry service was consulted for assistance with medication management. Reviewed data including medical records, crisis evaluation, test results. Hasnot required restraints, seclusion, or IMs since arrival but nursing staff has reported that she isself-dialoguing and has been anxious and demanding but redirectable. Has been adherent with medications. Initial psychiatric evaluation revealed patient to be euthymic, denying all psychiatric symptoms but delusional, reporting that she has multiple wives, that she is to the [employer] of the [employer] but can only contact her on her business line, and that she invented the COVID-19 vaccine. Reports that her only concern is her deteriorating vision due to cataracts and her need for a [employer]. Denies suicidal ideation, homicidal ideation, and desire for nonsuicidal self-injury. Current presentation represents an established problem that is inadequately controlled. Depakote level is therapeutic and patient reports adherence to medication but delusions persist. Asked the patient about treatment-related preferences. Explained to the patient the differential diagn osis, risks of untreated illness, treatment options, and benefits and risks of treatment. Patient is satisfied with current regiment. Will titrate antipsychotic dose, targeting positive symptoms of psychosis (delusions). Disposition as per crisis services. 01/16/23 - Patient has been disorganized at times but redirectable, per nursing staff. Has been observed responding to internal stimuli, talking to herself. Speech is somewhat pressured and has momentsof grandiosity My psychiatric provider is a nurse practitioner and a doctor and a surgeon. Deniesany psychiatric symptoms or concerns except for missing my marijuana for pain. Denies suicidal ideation, homicidal ideation, desire for nonsuicidal self-injury. 01/19/23 - Patient's behavior has improved considerably per nursing notes. No episodes of intrusiveness, no need for redirection in > 48 hours. Has not utilized any Haldol PRNs in the last 48 hours. No reports of patient responding to internal stimuli. Patient continues to be delusional but this appears to be her baseline. [employer] services are being established for her due to her vision impairment from cataracts. Denies suicidal ideation, homicidal ideation, or desire for nonsuicidal self-injury.Denies auditory or visual hallucinations. Has no history of suicidal ideation or suicide attempts. Has outpatient providers, including Joy Mendoza NP at the [facility]. ?? Diagnoses Schizoaffective disorder, bipolar type, by history Paranoid delusions Generalized anxiety disorder, by history Obsessive compulsive disorder, by history Cannabis use disorder ?? Recommendations -Disposition as per??[facility], -Once [employer] services are confirmed, patient may discharge. -Continue home medications: ? -Cogentin 1 mg PO twice daily ? -Buspar 15 mg PO twice daily -Increase Depakote from 500 mg PO daily in AM + 1000 mg PO daily at bedtime --> 750 mg PO daily in AM + 1000 mg PO daily at bedtime, targeting pressured speech and grandiosity. Recommend followingup with trough Depakote level, drawn in 48- 96 hours. ? -Ativan 1 mg PO twice daily PRN anxiety -Increase home medication: -Increase Haldol from 5 mg PO twice daily --> 5 mg PO daily in AM + 10 mg PO daily at bedtime, targeting delusional thinking -Labs - Hepatic function panel, due to use of Depakote. Was not drawn when she first arrived. -Start Haldol 5 mg PO??q6h PRN agitation -The preference is for PO medications, but if the patient refuses the oral medications and there issufficient acute safety concern, can judiciously utilize IM equivalents for severe agitation.?? -Would note that these medications are only being utilized in the ER while the patient awaits placement. Long-term need for these medications will need to be assessed by the patient's future treatingpsychiatrist. -Because patient is here in a psychiatric crisis, it is particularly important to be clear when communicating with them. Please try to avoid medical jargon. -Seclusion or restraint may only be used as interventions of last resort in the management of severe agitation in patient. If they are used, seclusion and restraint episodes should be as short as possible, dignified, and as safe as possible for all involved. Patient preference should always be considered when feasible. ?? Thank you for allowing us to participate in this patient's care. We will continue to follow the patient as needed by the primary team. Please feel free to contact the Psychiatry consult service ([phone] or page [phone]) with any questions or concerns.? Case discussed with supervising physician, Dr. Megan Silveira. Cortexted recommendations to Evelina Guajardo NP. ?? Nimco Tillman BA MSN PMHNP- Emergency Psychiatry Services Division of Consultation-Liaison Psychiatry [facility] * Layne COBB, Nimco Rosado: PERFORM Event Display: Consultation Note Authored Date: Patient: ??ANAMARIA DUMONT ? Age:??52 Years?Sex:??Female?:??1970?? Subjective Chief complaint:? Medication management ?? Patient seen, chart reviewed, and discussed with treatment team.? Interval History: No acute overnight events. No restraints/seclusion/IMs. ?? Selected nursing notes since initial evaluation include: 01/15/23??0505 patient resting on stretcher. Perseverates on delusional thoughts, still seeing peoplewho are not present and having conversations with them. has been laughing inappropriately at conversations that are not occuring. Patient redirectable at this time ?? 01/15/23 0859 pt medicated as ordered with scheduled and prn meds. denies SI/HI. often talks to herself, denies AH/VH ? On approach, patient??is lying in her??stretcher, and tells me that her biggest concern is that I need a [employer].??It is being set up with my insurance. ??Tells me that the ED Attending told her that someone would??be contacting??Funmi Roman, her [employer] coordinator, about that. Anamaria only has one complaint about being here: I miss my marijuana for pain. Tells me that I should contact her outpatient??psychiatric provider, Joy Mendoza, who is a nurse practitioner, doctor, and surgeon. Denies any adverse effects on current medication regimen. Reports good appetite and eating meals regularly. ??Sleeping well overnight, reporting no sleep disturbances, daytime sedation, or fatigue. ??ADLs??appear fair. ??Able to make needs known.??Patient denies any additional??symptoms concerning for anxiety, depression, gallito, psychosis or PTSD. Patient denies any suicidal ideation, homicidal ideation ordesires for self-injurious behaviors.? Review of Systems Pertinent positives as listed above in HPI. ??Otherwise, remainder of review of systems negative. ? Objective Vitals & Measurements T:??98.4?F?? TMIN:??98.1?F?? TMAX:??98.6?F?? HR:??73??(Peripheral)?? RR:??18?? BP:??164/87?? SpO2:??95%? MENTAL STATUS EXAM Appearance: disheveled, dressed in a hospital gown, overweight; normal eye contact Attitude: cooperative Motor Activity: calm, slight tremor; coordination and gait unremarkable Sight and hearing: hearing intact, bilateral cateracts Mood: euthymic, not anxious Affect: appropriate, full range, normal intensity, congruent with mood Speech: slightly pressured; normal prosody - spontaneous, good articulation, clear tone, appropriately placed inflections; normal volume Perception: no impairment - denies auditory and visual hallucinations; no objective impairment, preoccupation, or responding to internal stimuli?? Cognition: alert, oriented to person/place/time/situation/object, memory intact, appropriate level of abstraction, good attention span, able to concentrate Judgment: fair Insight: fair Thought Process: normal productivity, goal-directed Thought Content: delusions, grandiosity; denies current suicidal ideas, suicide plans, and suicide intent, including active or passive thoughts of suicide or ; denies current aggressive or psychotic ideas, including thoughts of physical or sexual aggression or homicide? Adherence: good Reliability:??fair historian Suicidality/Self-destructive Behavior: none Homicidality/Violence: none? Amenia Suicide Score Amenia Suicide Score Last Asked Ca (01/16/23) Suicidal Thoughts Since Last Asked-CSSRS: No (01/16/23) Suicide Behavior Since Last Asked-CSSRS: No (01/15/23) Assessment/Plan Assessment? In brief, this is a 52-year-old female with past??medical history significant for psoriatic arthritis, schizoaffective disorder, obsessive compulsive Disorder, panic disorder & generalized anxiety disorder,??as well as longstanding cataracts bilaterally who initially presented to [facility] for decreased vision.?At this point in time, the patient has been medically cleared andreferred to??crisis clinicians??for evaluation and assistance with disposition for potential inpatient psychiatric hospitalization. The emergency psychiatry service was consulted for assistance with medication management. Reviewed data including medical records, crisis evaluation, test results. Hasnot required restraints, seclusion, or IMs since arrival but nursing staff has reported that she isself-dialoguing and has been anxious and demanding but redirectable. Has been adherent with medications. Initial psychiatric evaluation revealed patient to be euthymic, denying all psychiatric symptoms but delusional, reporting that she has multiple wives, that she is to the [employer] Driver [employer] of the [employer] but can only contact her on her business line, and that she invented the COVID-19 vaccine. Reports that her only concern is her deteriorating vision due to cataracts and her need for a [employer]. Denies suicidal ideation, homicidal ideation, and desire for nonsuicidal self-injury. Current presentation represents an established problem that is inadequately controlled. Depakote level is therapeutic and patient reports adherence to medication but delusions persist. Asked the patient about treatment-related preferences. Explained to the patient the differential diagn osis, risks of untreated illness, treatment options, and benefits and risks of treatment. Patient is satisfied with current regiment. Will titrate antipsychotic dose, targeting positive symptoms of psychosis (delusions). Disposition as per crisis services. 01/16/23 - Patient has been disorganized at times but redirectable, per nursing staff. Has been observed responding to internal stimuli, talking to herself. Speech is somewhat pressured and has momentsof grandiosity My psychiatric provider is a nurse practitioner and a doctor and a surgeon. Deniesany psychiatric symptoms or concerns except for missing my marijuana for pain. Denies suicidal ideation, homicidal ideation, desire for nonsuicidal self-injury. ?? Diagnoses Schizoaffective disorder, bipolar type, by history Paranoid delusions Generalized anxiety disorder, by history Obsessive compulsive disorder, by history Cannabis use disorder ?? Recommendations -Disposition as per??[facility], albeit currently a bed search for inpatient psychiatric hospitalization. -Continue home medications: ? -Cogentin 1 mg PO twice daily ? -Buspar 15 mg PO twice daily -Increase Depakote from 500 mg PO daily in AM + 1000 mg PO daily at bedtime --> 750 mg PO daily in AM + 1000 mg PO daily at bedtime, targeting pressured speech and grandiosity. Recommend followingup with trough Depakote level, drawn in 48- 96 hours. ? -Ativan 1 mg PO twice daily PRN anxiety -Increase home medication: -Increase Haldol from 5 mg PO twice daily --> 5 mg PO daily in AM + 10 mg PO daily at bedtime, targeting delusional thinking -Labs - Hepatic function panel, due to use of Depakote. Was not drawn when she first arrived. -Start Haldol 5 mg PO??q6h PRN agitation -The preference is for PO medications, but if the patient refuses the oral medications and there issufficient acute safety concern, can judiciously utilize IM equivalents for severe agitation.?? -Would note that these medications are only being utilized in the ER while the patient awaits placement. Long-term need for these medications will need to be assessed by the patient's future treatingpsychiatrist. -Because patient is here in a psychiatric crisis, it is particularly important to be clear when communicating with them. Please try to avoid medical jargon. -Seclusion or restraint may only be used as interventions of last resort in the management of severe agitation in patient. If they are used, seclusion and restraint episodes should be as short as possible, dignified, and as safe as possible for all involved. Patient preference should always be considered when feasible. ?? Thank you for allowing us to participate in this patient's care. We will continue to follow the patient as needed by the primary team. Please feel free to contact the Psychiatry consult service ([phone] or [phone]) with any questions or concerns.? Case discussed with supervising physician, Dr. Megan Silveira. Cortexted recommendations to Dr. Brenda Rollins. ?? Nimco Tillman BA MSN [facility]- Emergency Psychiatry Services Division of Consultation-Liaison Psychiatry [facility] * Megan Silveira DO: PERFORM Event Display: Consultation Note Authored Date: Supervising Physician: Patient was not seen by this screen writer, but chart reviewed and discussed the case and its management??with??Nimco Tillman,??[facility] as documented. ??I agree with the assessment and plan as documented above based upon her evaluation.? Megan Silveira, D.Afua.?? Oim Architect, Emergency Psychiatry Services Division of Consultation-Liaison Psychiatry Department of Psychiatry [facility] ?? * Layne COBB, Nimco Rosado: MODIFY, MODIFY, MODIFY, PERFORM Event Display: Consultation Note Authored Date: Patient: ??ANAMARIA DUMONT ? Age:??52 Years?Sex:??Female?:??1970?? Chief Complaint pt here for for loss of vision, dx with cataracts in both eyes but worsened yesterday. denies any trauma. states feeling unsafe at home due to not having adequate staff to care for at home. [id number] ?? Reason for Consultation: Medication evaluation ?? Referring Physician: Vinayak Valdez MD ?? Source of information:?? Per patient,??[facility] records, crisis evaluations ?? Identifying information: Anamaria Dumont is a 52-year-old female with past??medical history significant for psoriatic arthritis, schizoaffective disorder, obsessive compulsive Disorder, panic disorder & generalized anxiety disorder,??as well as longstanding cataracts bilaterally who initially presented to [facility] for decreased vision. ?? History of Present Illness Anamaria??is known to the [facility] psychiatry service from prior consultations (10/09/2022) and/or inpatient hospitalizations, most recently at [facility] in October,. Per ED??documentation,?? Patient states recently evaluated by her ring barker operator told she needs cataract surgery. ??She is scheduled for March at this time. ??Her visual acuity had been decreasing and possibly slightly worsefrom yesterday. ??States that she is having trouble seeing food as well as drinking water due to unable to see any of food stuff she feels unsafe at home he came into the ER today. ??She has some minor bilateral eye pressure but otherwise no other pain no trauma no other complaints at this time. ?? Initial vital signs in the ED were notable for hypertension (165/98). Labs were reviewed and showednormocytic anemia, no leukocytosis. BMP recorded elevated non-fasting glucose, mildly decreased GFR(78), otherwise normal. TSH level normal. No alcohol detected. Expanded urine toxicology positive for cannabis, otherwise negative. Depakote level therapeutic. ECG recorded mildly decreased GFR. ?? Anamaria??was subsequently medically cleared and referred to the crisis team for evaluation and assistance with disposition for potential inpatient psychiatric hospitalization. Per crisis evaluation, Anamaria arrived at [facility] reporting??loss of vision, dx with cataracts in both eyes but worsened ye sterday. denies any trauma. states feeling unsafe at home due to not having adequate staff to care for at home. She has outpatient provider through [facility].??Anamaria reported her insurance willbe switching to [employer] as of??January 10 and she will be able to get a??[employer], until then she doesn't feelsafe at home. Anamaria denied any suicidal ideation, plan or intent. She appears delusional and is stating that her parents killed her friends and her father was executed for this while her mother in senior care. She also stated that she was informed by the FBI that she was kidnapped at gun point [place] [facility] airport. She??states I'm not delusional , this is all the truth and??my eye is the crisis not me . She appears to be in a elevated , irritable and anxious in mood. ?? The emergency psychiatry service??was consulted for evaluation of psychotropic medication management. Since arrival, nursing staff has observed that patient has been paranoid and has been observedtalking to herself. She has been described as agitated/anxious but cooperative, as demanding but red irectable. Yesterday she was overheard telling an unknown person on the phone that she was going??to be killed. Today she was perseverating on calling the bank to prevent her accounts being closed. She has not required restraints/seclusions/IMs since arrival. On approach, Anamaria is resting but wakes quickly and is eager to participate in an evaluation. She states that she is only here because of her vision and her need for cataract surgery. She says she came because it was January 07 and was going to have to wait three days until January 10 before her insurance would pay for a [employer]PER[employer]PAR[employer] to help her. She has a consultation regarding cataract surgery scheduled for March 23. Reports that she has been adherent with her medications. Reports that she is frustrated because ED staff stated that she called 911 from the ED but she expresses confusion as to how she could perform the task given her poor eyesight. Denies all psychiatric symptoms. ?? Anamaria reports that she was in the hospital three months ago and was told at the time that she might have been poisoned. She denies any history of psychosis or gallito. Reports regular cannabis use for pain management due to her allergy to opioid medication. She reports that her is Claudio Meeks and provides a phone number with an extension. Notably, this phone number and name are associated with the [employer]. When asked if she has children, she replies, she [my ] says we do but I haven't met them. When asked how she is supporting herself,??Anamaria reports that she inventing the COVID-19 vaccine and that her wives have purchased several cannabis dispensaries for her. At times she refuses to elaborate, saying, You wouldn't believe me anyways. Denies any suicidal ideation,??homicidal ideation or desires for nonsuicidal self-injury. ?? Psychiatric ROS (positives in bold) DEPRESSION: depressed mood, diminished interest, weight loss or appetite change, insomnia/hypersomnia, psychomotor agitation/retardation, fatigue, feelings of worthlessness or guilt, inability to concentrate/indecisiveness, recurrent thoughts of ANXIETY: restlessness, fatigue, difficulty concentrating, irritability, muscle tension, sleep disturbance; panic attacks GALLITO: grandiosity, decreased need for sleep, pressured speech, flight of ideas, distractibility, increase in goal-directed activity/psychomotor agitation, dangerous activities PSYCHOSIS: delusions, hallucinations, disorganized speech, disorganized behavior, diminished emotional expression/avolition TRAUMA: intrusion symptoms, avoidance, negative alterations in cognition and mood, alterations in arousal and reactivity MISCELLANEOUS: sleep apnea; impulsivity ? Psychiatric History Past??and??current psychiatric diagnoses: Anxiety, Depression, Schizoaffective disorder, Obsessive compulsive disorder, Panic disorder, & Generalized anxiety disorder History of psychiatric hospitalization: 09/2022 - [facility] 10/11/2020 - 10/23/2020 - [facility] 06/06/2020 - 06/25/2020 - [facility] Past psychiatric treatments and medications: Current: benztropine 1 mg 2x/day; buspirone 10 mg 1.5 tablet 2x/day; magnesium oxide 400mg; ??divalproex sodium 500mg 2 tablet poqhs & 1 tablet poqam TDD 1,500mg); Lorazepam 1mg 2x/day for agitation/anxiety; haloperidol 5mg tablet poqhs. Past: propranolol, trazodone, paliperidone, Risperdal, Paxil, Zyprexa, Geodon, Mellaril. No history of ECT treatments. Outpatient treatment providers: Joy Mendoza NP History of unsafe ideas and behaviors: No history of??suicidal??ideas, suicide plans, or suicide attempts. No history of prior intentional self-injury in which there was no suicide intent. No history of prior aggressive behaviors. No history of prior psychotic or aggressive ideas. ? Substance Use History Tobacco: -??denies any current use Alcohol: -??denies any current use Other substances (marijuana, cocaine, heroin, hallucinogens (LSD, PCP), methamphetamines): - regular cannabis use (sourced from [facility]) for pain management, denies past or current use of other substances Prescribed or [id number] medications or supplements: - denies any past or current misuse Diagnoses: Denies any current or recent substance use disorder. Denies any current or recent change in use of alcohol or other substances ? Medical History PCP: Luz Hernandez MD No history of head injuries, seizures, or chronic headaches. No history of neurological or neurocognitive disorders or symptoms. ? Family History Denied??any known psychiatric illness or substance use disorders in biological relatives. ? Personal and Social History Brief biography: Anamaria is currently single, resides in an apartment in [place], [place].?? She is currently unemployed and receiving SSDI.?? She has no children.?? Reports that her Mormonism abdiel is important to her ([employer] has recorded that she is Pentecostalism.) She grew up in both [place] with her parents and siblings.?? Says her current support system consists of people she has met at the [facility] and her [employer] TECHNICIAN. She graduated high school and went to college for about 6 years, studying nursing, but she did not receive a degree. ??She denied any?? history. No history of arrests, incarcerations, probation, or other disciplinary consequences due to past aggressive behavior. Stressors: Limited finances. Limited social support. Chronic pain from psoriatic arthritis. Trauma History: Denies any history of emotional, verbal, physical, and/or??sexual trauma.??Denies any??exposure to??violence or aggressive behavior.? Review of Systems Pertinent positives as listed above in HPI. ??Otherwise, remainder of review of systems negative. ?? Mental Status Vitals & Measurements T:??98.1?F?? HR:??63??(Peripheral)?? RR:??20?? BP:??148/95?? SpO2:??98%? MENTAL STATUS EXAMINATION Appearance: disheveled, dressed in a hospital gown, overweight; normal eye contact Attitude: cooperative for the most part but guarded at times Motor Activity: calm, slight tremor; coordination unremarkable, not observed ambulating Sight and hearing: apparently intact Mood: euthymic, not anxious Affect: expansive Speech: normal rate; normal prosody - spontaneous, good articulation, clear tone, appropriately placed inflections; normal volume Perception: no impairment - denies auditory and visual hallucinations; no objective impairment, preoccupation, or responding to internal stimuli??(nursing staff has observed patient talking to self) Cognition: alert, oriented to person/place/time/situation/object, memory intact, appropriate level of abstraction, good attention span, able to concentrate Judgment: poor Insight: poor Thought Process: normal productivity, goal-directed Thought Content: delusions; denies current suicidal ideas, suicide plans, and suicide intent, including active or passive thoughts of suicide or ; denies current aggressive or psychotic ideas, including thoughts of physical or sexual aggression or homicide? Adherence: good Reliability:??poor historian Suicidality/Self-destructive Behavior: none Homicidality/Violence: none?? Am[place] Suicide Score Am[place] Suicide Score Last Asked Ca (01/14/23) Suicidal Thoughts Since Last Asked-CSSRS: No (01/14/23) Suicide Behavior Since Last Asked-CSSRS: No (01/14/23) Assessment/Plan ?? Assessment? In brief, this is a 52-year-old female with past??medical history significant for psoriatic arthritis, schizoaffective disorder, obsessive compulsive Disorder, panic disorder & generalized anxiety disorder,??as well as longstanding cataracts bilaterally who initially presented to [facility] for decreased vision.?At this point in time, the patient has been medically cleared andreferred to??crisis clinicians??for evaluation and assistance with disposition for potential inpatient psychiatric hospitalization. The emergency psychiatry service was consulted for assistance with medication management. Reviewed data including medical records, crisis evaluation, test results. Hasnot required restraints, seclusion, or IMs since arrival but nursing staff has reported that she isself-dialoguing and has been anxious and demanding but redirectable. Has been adherent with medications. Initial psychiatric evaluation revealed patient to be euthymic, denying all psychiatric symptoms but delusional, reporting that she has multiple wives, that she is to the [employer] but can only contact her on her business line, and that she invented the COVID-19 vaccine. Reports that her only concern is her deteriorating vision due to cataracts and her need for a [employer]PAR[employer]. Denies suicidal ideation, homicidal ideation, and desire for nonsuicidal self-injury. Current presentation represents an established problem that is inadequately controlled. Depakote level is therapeutic and patient reports adherence to medication but delusions persist. Asked the patient about treatment-related preferences. Explained to the patient the differential diagn osis, risks of untreated illness, treatment options, and benefits and risks of treatment. Patient is satisfied with current regiment. Will titrate antipsychotic dose, targeting positive symptoms of psychosis (delusions). Disposition as per crisis services. ?? Diagnoses Schizoaffective disorder, bipolar type, by history Paranoid delusions Generalized anxiety disorder, by history Obsessive compulsive disorder, by history Cannabis use disorder ?? Recommendations -Disposition as per??[facility], albeit currently a bed search for inpatient psychiatric hospitalization. -Continue home medications: ? -Cogentin 1 mg PO twice daily ? -Buspar 15 mg PO twice daily ? -Depakote 500 mg PO daily in AM + 1000 mg PO daily at bedtime ? -Ativan 1 mg PO twice daily PRN anxiety -Increase home medication: ? -Haldol 5 mg PO daily at bedtime --> Haldol 5 mg PO twice daily, targeting delusions -Start Haldol 5 mg PO??q6h PRN agitation -The preference is for PO medications, but if the patient refuses the oral medications and there issufficient acute safety concern, can judiciously utilize IM equivalents for severe agitation.?? -Would note that these medications are only being utilized in the ER while the patient awaits placement. Long-term need for these medications will need to be assessed by the patient's future treatingpsychiatrist. -Because patient is here in a psychiatric crisis, it is particularly important to be clear when communicating with them. Please try to avoid medical jargon. -Seclusion or restraint may only be used as interventions of last resort in the management of severe agitation in patient. If they are used, seclusion and restraint episodes should be as short as possible, dignified, and as safe as possible for all involved. Patient preference should always be considered when feasible. ?? Thank you for allowing us to participate in this patient's care. We will continue to follow the patient as needed by the primary team. Please feel free to contact the Psychiatry consult service ([id number] or page [phone]) with any questions or concerns.? Recommendations??cortexted to Dr. Vinayak Valdez. ? Nimco Tillman BA MSN PMHNP- Emergency Psychiatry Services Division of Consultation-Liaison Psychiatry [facility] ? Problem List/Past Medical History Ongoing Anxiety Gastroesophageal reflux disease with hiatal hernia Generalized anxiety disorder with panic attacks Hyperlipidemia Hypertension Obsessive compulsive disorder Schizoaffective disorder Severe obesity (BMI 35.0-39.9) with comorbidity Smoker Procedure/Surgical History No qualifying data available. Medications Acetaminophen Tablet, 650 mg, By Mouth, Every 8 hours, PRN albuterol 90 mcg/inh inhalation aerosol, 2 puffs, Inhalation, 4 times a day, PRN, 5 refills benztropine 1 mg oral tablet, 1 mg, By Mouth, 2 times a day benztropine 1 mg oral tablet, 1 mg= 1 tablet, By Mouth, 2 times a day, 1 refills busPIRone 10 mg oral tablet, 15 mg, By Mouth, 2 times a day busPIRone 10 mg oral tablet, 15 mg= 1.5 tablet, By Mouth, 2 times a day, 1 refills Claritin 10 mg oral tablet, 10 mg, By Mouth, Daily at bedtime Claritin 10 mg oral tablet, 10 mg= 1 tablet, By Mouth, Daily at bedtime Depakote Tablet, 500 mg, By Mouth, Daily divalproex sodium 500 mg oral enteric coated tablet, See Instructions, 1 refills divalproex sodium delayed release, 1000 mg, By Mouth, Daily at bedtime haloperidol 5 mg oral tablet, 5 mg, By Mouth, Daily at bedtime haloperidol 5 mg oral tablet, 5 mg= 1 tablet, By Mouth, Daily at bedtime, 1 refills levothyroxine 0.025 mg oral tablet, 50 mcg, By Mouth, Daily levothyroxine 0.05 mg oral tablet, 50 mcg= 1 tablet, By Mouth, Daily LORazepam 1 mg oral tablet, 1 mg, By Mouth, 2 times a day, PRN LORazepam 1 mg oral tablet, 1 mg= 1 tablet, By Mouth, 2 times a day, PRN, 4 refills Maalox Plus Liquid, 30 mL, By Mouth, Every 8 hours, PRN magnesium oxide 400 mg oral tablet, 400 mg, By Mouth, Daily magnesium oxide 400 mg oral tablet, 400 mg= 1 tablet, By Mouth, Daily, 1 refills Melatonin Tablet, 9 mg, By Mouth, Daily at bedtime, PRN MiraLax Powder, 17 Gm= 1 pack/packet, By Mouth, Daily, PRN pantoprazole 40 mg oral delayed release tablet, 40 mg, By Mouth, Daily pantoprazole 40 mg oral delayed release tablet, 40 mg, By Mouth, Daily traMADol 50 mg oral tablet, 50 mg, By Mouth, Every 4 hours, PRN Tylenol 325 mg oral tablet, 650 mg= 2 tablet, By Mouth, Every 4 hours, PRN vitamin E 400 iu oral capsule, 400 International_Units, By Mouth, 2 times a day vitamin E 400 iu oral capsule, 400 International_Units= 1 capsule, By Mouth, 2 times a day, 1 refills Zofran ODTablet, 4 mg, By Mouth, Every 8 hours, PRN Allergies Celebrex Percocet 5/325 Vicodin ibuprofen penicillins sulfa drugs Social History Alcohol Use: Never. Substance Abuse Use: Current. Type: Marijuana. Tobacco Use: Former smoker, quit more than 30 days ago. Health Maintenance Health Maintenance ?Pending??(in the next year) ?OverDue ?Cervical Smear Screening due?02/13/15?and every 5?years ?Due?Colorectal Cancer Screening due?01/14/23?Variable frequency ?HIV Screening due?01/14/23?One-time only ?Health Care Proxy due?01/14/23?Variable frequency ?Hepatitis C Screening due?01/14/23?One-time only ?Mammography Screening due?01/14/23?Variable frequency ?Due In Future?Basic Metabolic Panel not due until?01/07/24?and every 1?years ?Satisfied??(in the past 1 year) ?Satisfied?Basic Metabolic Panel on?01/07/23.?Satisfied by [facility]ributor[facility]system , [facility] ?Diabetes Screening on?01/07/23.?Satisfied by [employer] , [employer] ?? Lab Results Abs. Baso: 0 k/mm3 (01/07/23) Abs. Eo: 0 k/mm3 (01/07/23) Abs. Imm Gran: 0 k/mm3 (01/07/23) Abs. Lymph: 1.8 k/mm3 (01/07/23) Abs. [place]: 0.5 k/mm3 (01/07/23) Abs. Neut: 4.1 k/mm3 (01/07/23) Abs. NRBC: 0 k/mm3 (01/07/23) Amphetamine Screen, Urine: NONE DETECTED (01/09/23) Anion Gap: 11 (01/07/23) Barbiturate Screen, Urine: NONE DETECTED (01/09/23) Baso %: 0.5 % (01/07/23) Benzodiazepine Screen, Urine: NONE DETECTED (01/09/23) Bicarbonate Level: 24 mmol/L (01/07/23) BUN: 17 mg/dL (01/07/23) Calcium: 9.4 mg/dL (01/07/23) Cannabinoid Screen, Urine: POSITIVE Abnormal (01/09/23) Chloride: 104 mmol/L (01/07/23) Cocaine Metabolite Screen, Urine: NONE DETECTED (01/09/23) COVID-19 by RT-PCR: NEGATIVE (01/07/23) COVID-19 POC Result: NEGATIVE (01/09/23) Creatinine-Blood: 0.9 mg/dL (01/07/23) Eos %: 0.3 % (01/07/23) Estimated GFR Creatinine: 78 ML/MIN/1.73 M2 (01/07/23) Glucose Level:??136 mg/dL??High (01/07/23) Hct: 38 % (01/07/23) Hgb: 13.1 Gm/dL (01/07/23) Hold Blue Top: SPECIMEN DISCARDED AFTER 4 HOURS. (01/07/23) Hold Green Top: SPECIMEN DISCARDED AFTER 1 WEEK (01/07/23) Imm Gran: 0.3 % (01/07/23) Lymph %: 28 % (01/07/23) MCH: 31.3 pg (01/07/23) MCHC: 34.5 g/dL (01/07/23) MCV: 90.9 femtoliters (01/07/23) [place] %: 7.3 % (01/07/23) MPV: 11 femtoliters (01/07/23) Neut %: 63.6 % (01/07/23) Nucleated RBC (Automated): 0 #/100 WBC'S (01/07/23) Opiate Screen, Urine: NONE DETECTED (01/09/23) Platelet Count: 201 k/mm3 (01/07/23) Potassium: 4.2 mmol/L (01/07/23) RBC:??4.18 m/mm3??Low (01/07/23) RDW-SD: 39 femtoliters (01/07/23) Sodium: 139 mmol/L (01/07/23) TSH: 1.68 uIU/mL (01/07/23) Valproic Level: 74.5 mg/L (01/07/23) WBC: 6.4 k/mm3 (01/07/23) Diagnostic Results [id number] Ventricular Rate: 54 ??BPM Atrial Rate: 54 ??BPM P-R Interval: 148 ??ms QRS Duration: 78 ??ms Q-T Interval: 440 ??ms QTC Calculation(Bazett): 417 ??ms P Fenton: 48 ??degrees R Fenton: 35 ??degrees T Fenton: 43 ??degrees Sinus bradycardia Otherwise normal ECG When compared with ECG of 09-OCT-2022 17:52, No significant change was found Confirmed by CLARICE DURAN MD ([id number]) on 01/14/2023 10:29:08 AM Note * Deanna Corcoran RN: PERFORM Event Display: Discharge/Transfer Note Hospital Authored Date: [id number] Nursing Discharge Note Entered On: 01/21/2023 16:28 EDT Performed On: 01/21/2023 16:28 EDT by Deanna Corcoran RN Nursing Discharge Note 2 Discharge Time : 01/21/2023 16:20 EDT Discharge Level of Care at Discharge : Homehealth/VNA Discharge VNA/Hospice/Home Care(v001) : [facility] [phone] Patient Left Unit Via : Wheelchair Patient Accompanied Off Unit with : Responsible adult DC Instructions Provided & Signed by Pt : Yes Patient Understands D/C Instructions : Yes Patient Instructions Discharge Signed : Yes Did Pt have Specialty Bed or Wound Vac : No Deanna Corcoran RN - 01/21/2023 16:28 EDT * Juni Muller MD, David: PERFORM, MODIFY Event Display: Discharge/Transfer Note Hospital Authored Date: [id number] Patient: ??ANAMARIA DUMONT ? Age:??52 Years?Sex:??Female?:??1970?? Patient Information Discharge Location: W4 Primary Care Physician: Luz Hernandez MD Admit Date/Time: 01/07/23 11:11 Discharge Disposition Discharge Disposition: Home with Home Health Discharge Diagnosis Cataracts, bilateral (H26.9) Delusional disorder (F22) Schizoaffective disorder (F25.9) _ Discharge Medications Acetaminophen (Tylenol 325 mg oral tablet)?2?tab(s)?650?Milligram?By Mouth?Every 4 hours?as needed?for pain?(not to exceed 4000 mg/day) Albuterol (albuterol 90 mcg/inh inhalation aerosol)?2?puff(s)?Inhalation?4 times a day?as needed?as needed for wheezing Benztropine (benztropine 1 mg oral tablet)?1?Milligram?1?tablet?By Mouth?2 times a day?for 90?Days BusPIRone (busPIRone 10 mg oral tablet)?15?Milligram?1.5?tablet?By Mouth?2 times a day?for 90?Days Divalproex Sodium (divalproex sodium 250 mg oral enteric coated tablet)?750?Milligram?By Mouth?Daily?for 30?Days Divalproex Sodium (divalproex sodium 500 mg oral enteric coated tablet)?1,000?Milligram?ByMouth?Daily at bedtime?for 30?Days Haloperidol (haloperidol 5 mg oral tablet)?5?Milligram?1?tablet?By Mouth?Daily Suresh Haloperidol (haloperidol 10 mg oral tablet)?10?Milligram?By Mouth?Daily at bedtime?for 30?Days Levothyroxine (levothyroxine 0.05 mg oral tablet)?1?tab(s)?50?Microgram?By Mouth?Daily?for 30?Days Loratadine (Claritin 10 mg oral tablet)?10?Milligram?1?tablet?By Mouth?Daily at bedtime?for 30?Days Lorazepam (LORazepam 1 mg oral tablet)?1?tab(s)?1?Milligram?By Mouth?2 times a day?as needed?for anxiety?for 30?Days Magnesium Oxide (magnesium oxide 400 mg oral tablet)?1?tab(s)?400?Milligram?By Mouth?Daily?for 90?Days Pantoprazole (pantoprazole 40 mg oral delayed release tablet)?40?Milligram?By Mouth?Daily?for 30?Days Vitamin E (vitamin E 400 iu oral capsule)?1?capsule?400?International Unit?By Mouth?2 times a day?for 90?Days Medications Started None Medications Discontinued None Doses Changed Depakote, Haldol PCP Follow-Up/Heads-Up Follow-up in about 1 to 2 weeks PCP to check trough Depakote level, drawn in 48-96 hours. Future Appointments Thursday 11:30 AM EDT ?? With: Miryam COBB, Joy Hatch Where: [facility] [address] [place] [address]- Status: Pending Objective Assessment and Plan 52-year-old female with past??medical history significant for psoriatic arthritis, schizoaffective disorder, obsessive compulsive Disorder, panic disorder & generalized anxiety disorder,??as wellas longstanding cataracts bilaterally who initially presented to [facility] for decreased vision was medically and psychiatrically cleared. ??PT recommends home with services.??Social work and case management team on board.??Patient is hemodynamically stable, blood work-up without significant finding. ??Home with services arranged until the patient's outpatient insurance and [employer] search are activated. ?? Schizoaffective disorder Anxiety disorder Delusional disorder ?? Per psych note - Continue Cogentin, BuSpar.?? Increased Depakote and Haldol. -Continue home medications: ? -Cogentin 1 mg PO twice daily ? -Buspar 15 mg PO twice daily ? -Increase Depakote from 500 mg PO daily in AM + 1000 mg PO daily at bedtime --> 750 mg PO daily in AM + 1000 mg PO daily at bedtime. PCP to check trough Depakote level, drawn in 48-96 hours. ? -Increase Haldol from 5 mg PO twice daily --> 5 mg PO daily in AM + 10 mg PO daily at bedtime, targeting delusional thinking Prescription sent to [facility]??for pickup. Patient tolerating p.o. meds.? Cataracts bilaterally -pt followed by outpatient ophthalmology and scheduled for cataract surgery in March ?? -Full code -Regular diet ?? Disclaimer: This dictation was accomplished with use of IMNEXT voice recognition software, prone tomedical word misidentifications and grammatical errors. The physician does strive to identify and correct these, but some could still be present. Please do not hesitate to contact physician for clarifications.? Vital Signs?? Temperature: 98.1 DegF (01/21/23 15:00:00) Temperature Route: Oral (01/21/23 15:00:00) Pulse Rate: 80 bpm (01/21/23 15:00:00) Respiratory Rate: 16 br/min (01/21/23 15:00:00) Systolic Blood Pressure: 134 mm Hg (01/21/23 15:00:00) Diastolic Blood Pressure:??97 mm Hg??High (01/21/23 15:00:00) Blood pressure sites: Arm, right (01/21/23 15:00:00) Mean Arterial Pressure: 99 mm Hg (01/21/23 05:16:00) Pulse Pressure: 37 mm Hg (01/21/23 15:00:00) Oxygen Saturation: 97 % (01/21/23 15:00:00) Mode of Delivery (Oxygen): Room air (01/21/23 15:00:00) Early Warning Score: 0 (01/21/23 15:06:12) ? . Physical Exam General: lying on the bed, saturating well on room air.?? Cardiovascular: S1, S2. Regular rhythm. No MRG. Respiratory: Reduced breath sound on bases, No RRR.?? Gastrointestinal: Soft, Nontender, Non distended, Normal bowel sounds.?? Neurological: Cranial nerves intact. Motor and sensory intact. Consultants Psychaitry Pending Results Add On Lab Order ordered on 01/20/2023 Follow-Up Appointments Added Follow Up ?Time Frame ?Comments Luz Hernandez?1 to 2 weeks Post Discharge Care Discharge ?01/21/23 15:16:00 EDT Home Health Face to Face *Denotes mandatory moss ?? *I certify that this patient is under my care and that I or an allowed non- physician working with me had a face to face encounter with the patient on this date:??01/21/2023 15:33 ?? *The encounter with the patient was in whole, or in part, for the following medical condition, which is the primary diagnosis(es) for home health care:??Cataracts, bilateral (H26.9) Delusional disorder (F22) Schizoaffective disorder (F25.9) ? *Select the indications for the discipline/s that are being arranged for this patient. Nursing (select all that apply): [_] None [X] Medication management (reconciliation, teaching)?? [_] Chronic disease management?? [_] Wound care and treatment?? [_] Home safety evaluation [_] Administer SQ/IM/IV medications?? [_] Cath care?? [_] Drain care?? [_] Trach or GT care?? Other _ Occupation Therapy (select all that apply): [_] None [_] ADL Management [_X] Fall prevention training [_] Energy conservation [_] Cognitive training Other _ Physical Therapy (select all that apply): [_] None [_X] Functional mobility training [X] Home exercise program to strengthen [_] Increase ROM?? [_] Falls prevention training [_] Home maintenance program for chronic disease Other _ Speech Therapy (select all that apply): [_] None [_] Swallow evaluation and training [_] Speech and language training [_] Cognitive training to process, organize, and/or recall information Other _ ? *Homebound due to (select all that apply): [_X Inability to leave home without assistance/supervision [X] Inability to ambulate without assistance [_] Pain [_] Decreased strength and endurance [_] Unsteady gait [_] Severe SOB and fatigue [_] Impaired transfers [_] Inability to negotiate stairs [_] Limited weight bearing [_] Mental status change? *Physician Signature:??Juni Muller ?? *By signing this, I certify that I have personally evaluated the patient and agree with the findings and recommendations as documented above. ? Results Discharge Labs BLOOD COUNT & DIFF WBC 6.2 k/mm3 ()?? 01/20/2023 06:54 RBC 4.13 m/mm3 (Low)?? 01/20/2023 06:54 Hgb 12.6 Gm/dL ()?? 01/20/2023 06:54 Hct 37.2 % ()?? 01/20/2023 06:54 MCV 90.1 femtoliters ()?? 01/20/2023 06:54 MCH 30.5 pg ()?? 01/20/2023 06:54 MCHC 33.9 g/dL ()?? 01/20/2023 06:54 Platelet Count 215 k/mm3 ()?? 01/20/2023 06:54 RDW-SD 37.9 femtoliters ()?? 01/20/2023 06:54 MPV 10.4 femtoliters ()?? 01/20/2023 06:54 Nucleated RBC (Automated) 0.0 #/100 WBC'S ()?? 01/20/2023 06:54 Abs. NRBC 0.0 k/mm3 ()?? 01/20/2023 06:54 Abs. Neut 2.4 k/mm3 ()?? 01/20/2023 06:54 Abs. Lymph 3.0 k/mm3 ()?? 01/20/2023 06:54 Abs. [place] 0.7 k/mm3 ()?? 01/20/2023 06:54 Abs. Eo 0.1 k/mm3 ()?? 01/20/2023 06:54 Abs. Baso 0.0 k/mm3 ()?? 01/20/2023 06:54 Neut % 38.3 % (Low)?? 01/20/2023 06:54 Lymph % 48.5 % (High)?? 01/20/2023 06:54 [place] % 10.5 % ()?? 01/20/2023 06:54 Eos % 1.6 % ()?? 01/20/2023 06:54 Baso % 0.6 % ()?? 01/20/2023 06:54 Imm Gran 0.5 % ()?? 01/20/2023 06:54 Abs. Imm Gran 0.0 k/mm3 ()?? 01/20/2023 06:54 ?? CHEM GENERAL Sodium 138 mmol/L ()?? 01/20/2023 06:54 Potassium 3.7 mmol/L ()?? 01/20/2023 06:54 Chloride 101 mmol/L ()?? 01/20/2023 06:54 Bicarbonate Level 26 mmol/L ()?? 01/20/2023 06:54 Anion Gap 11 ()?? 01/20/2023 06:54 Glucose Level 177 mg/dL (High)?? 01/20/2023 06:54 Hemoglobin A1C (Monitoring) 5.5 % ()?? 01/20/2023 06:54 BUN 14 mg/dL ()?? 01/20/2023 06:54 Creatinine-Blood 0.9 mg/dL ()?? 01/20/2023 06:54 Estimated GFR Creatinine 76 ML/MIN/1.73 M2 ()?? 01/20/2023 06:54 Calcium 8.9 mg/dL ()?? 01/20/2023 06:54 Protein, Total 6.1 Gm/dL (Low)?? 01/16/2023 09:49 Albumin 4.0 Gm/dL ()?? 01/16/2023 09:49 Alkaline Phosphatase 58 units/L ()?? 01/16/2023 09:49 AST (SGOT) 13 units/L ()?? 01/16/2023 09:49 ALT (SGPT) 14 units/L ()?? 01/16/2023 09:49 Bilirubin, Total 0.5 mg/dL ()?? 01/16/2023 09:49 Bilirubin, Direct <0.2 mg/dL ()?? 01/16/2023 09:49 Bilirubin, Indirect Direct bilirubin is less than the measureable limit. Therefore, indirect mg/dL ()?? 01/16/2023 09:49 ? ENDOCRINE/TUMOR MARKER TSH 1.68 uIU/mL ()?? 01/07/2023 13:58 ? HEME OTHER Hold Blue Top SPECIMEN DISCARDED AFTER 4 HOURS. ()?? 01/07/2023 13:58 ? MISC. CHEMISTRY Hold Green Top SPECIMEN DISCARDED AFTER 1 WEEK ()?? 01/07/2023 13:58 ? TOXICOLOGY/TDM Valproic Level 74.5 mg/L ()?? 01/07/2023 13:58 Barbiturate Screen, Urine NONE DETECTED ()?? 01/09/2023 10:25 Cannabinoid Screen, Urine POSITIVE (Abnormal)?? 01/09/2023 10:25 Cocaine Metabolite Screen, Urine NONE DETECTED ()?? 01/09/2023 10:25 Benzodiazepine Screen, Urine NONE DETECTED ()?? 01/09/2023 10:25 Amphetamine Screen, Urine NONE DETECTED ()?? 01/09/2023 10:25 Opiate Screen, Urine NONE DETECTED ()?? 01/09/2023 10:25 ? UA/URINALYSIS Appear/Color, Urine COLORLESS ()?? 01/20/2023 08:20 Specific [place], Urine 1.007 ()?? 01/20/2023 08:20 pH, Urine 7.0 ()?? 01/20/2023 08:20 Albumin, Urine NEGATIVE ()?? 01/20/2023 08:20 Glucose, Urine NEGATIVE ()?? 01/20/2023 08:20 Ketones, Urine NEGATIVE ()?? 01/20/2023 08:20 Bilirubin, Urine NEGATIVE ()?? 01/20/2023 08:20 Hemoglobin, Urine NEGATIVE ()?? 01/20/2023 08:20 Nitrite, Urine NEGATIVE ()?? 01/20/2023 08:20 Leukocyte, Urine NEGATIVE ()?? 01/20/2023 08:20 Urobilinogen NORMAL mg/dL ()?? 01/20/2023 08:20 WBC's, Urine <1 /HPF ()?? 01/20/2023 08:20 RBC's, Urine 1 /HPF ()?? 01/20/2023 08:20 Bacteria SLIGHT HPF (Abnormal)?? 01/20/2023 08:20 Squamous Epith 3 /HPF ()?? 01/20/2023 08:20 Mucus SLIGHT /LPF ()?? 01/20/2023 08:20 Hold Urine Culture Testing available 48 hours from time of collection. ()?? 01/20/2023 08:20 ? URINE OTHER Est Creatinine Clearance 71.72 mL/min ()?? 01/21/2023 09:38 ? VIROLOGY COVID-19 by RT-PCR NEGATIVE ()?? 01/07/2023 14:35 COVID-19 POC Result NEGATIVE ()?? 01/09/2023 19:44 ? 45 minutes spent on discharge * Nilo JOEL, Deanna: PERFORM Event Display: Patient Education/Instruction Authored Date: [id number] Inpatient Adult Discharge Instructions [address] [id number] Name: ANAMARIA DUMONT : 1970 Visit: 01/07/2023 11:11:00 Current Date: 01/21/2023 15:24 Account: [id number] Inpatient Adult Discharge Instructions We would like to thank you for allowing us to assist you with your healthcare needs. The following includes patient education materials and information regarding your injury/illness. Our entire staffstrives to provide an excellent experience for our patients and their families. PLEASE ENSURE YOU FOLLOW-UP PER THE INSTRUCTIONS BELOW! ?? YOUR OPINION IS IMPORTANT TO US! Please complete the survey you may receive by mail or email. Your feedback will be used to make improvements to the healthcare experiences of our patients and their families. Surveys are administered by [employer] ?? If further treatment with your primary care physician or another doctor is recommended, it is important for you to keep the appointment. Call your primary care physician or return to the Emergency Department immediately if your condition worsens, fails to improve, or new symptoms develop. If you need to find a doctor, you can call [facility] for a referral at [phone] or toll free at [phone] or log in to [email or web address].. ?? You can view and manage your care through the patient portal or by using a health care gregory of your choosing. [employer] is a website that allows you to securely view your medical information including your hospital discharge summary, office visit summaries, medications and follow-up visits. You can also request appointments, renew medications, and request access to your medical information using a health care gregory of your choosing, or just ask a question. You can enroll at [email or web address] or register during your next office visit. You have been discharged from [facility], Patient Care Unit: W4. If you have any questions regarding these instructions after you leave, please call us and we will be happy to assist you. [facility] Your Care Team Attending Physician David Singleton MD Discharging Providers Juni Muller MD, David Reason for Admission pt here for for loss of vision, dx with cataracts in both eyes but worsened yesterday. denies any trauma. states feeling unsafe at home due to not having adequate staff to care for at home. [id number] Your Diagnosis Cataracts, bilateral Delusional disorder Schizoaffective disorder Tests Performed Below is a partial list of the tests performed during your hospitalization. You may have had other tests and procedures not included in this list. Please discuss all test results with your provider. Amphetamine Urine Screen Barbiturate Urine Screen Basic Metabolic Panel Benzodiazepine Urine Screen Cannabinoid Urine Screen CBC w/ Differential Cocaine Urine Screen COVID-19 (Novel Coronavirus), Rapid PCR COVID-19 RNA POC Depakote Level HEMOGLOBIN A1C Hepatic Function Panel HOLD BLUE TUBE HOLD GREEN TUBE Opiate Screen Urine TSH with T4 Reflex (Adults Only) Urinalysis w/hold for Urine Culture Primary Care Provider Luz Hernandez MD Advance Directive Health Care Proxy on File No Patient refuses to discuss Discharge Vitals Temperature: 98.1 DegF Height: 170 cm Pulse Rate: 80 bpm Weight: 91 kg Respiratory Rate: 16 br/min Body Mass Index:??31.49 kg/m2??Critical Systolic Blood Pressure: 134 mm Hg Body surface area: 2.07 Diastolic Blood Pressure:??97 mm Hg??High ?? Oxygen Saturation: 97 % ?? Studies Pending All tests and labs ordered during this hospital stay have been completed unless listed below. Please discuss all pending results with your provider listed above in these instructions. ?? Add On Lab Order What to do next Instructions From Your Doctor Discharge Orders Scheduled Follow-Up Appointments Thursday 11:30 AM EDT ?? With: Miryam COBB, Joy Hatch Where: [facility] [address] [place] [address]- Status: Pending Discharge Medications ANAMARIA DUMONT :1970 Visit Date:01/07/2023 Medications: Please continue your medications until treatment is completed or stopped by your provider. Medications not listed below should be discontinued. Discuss any questions related to medications with your provider. What How Much When Instructions Next Dose Changed Haloperidol (haloperidol 10 mg oral tablet) 10 Milligram Oral Daily at Bedtime Duration: 30 Days Pickup at [facility] 3 01/21 @ 9pm tonight Changed Haloperidol (haloperidol 5 mg oral tablet) 1 tab(s) Oral Daily in the morning Pickup at [facility] 3 01/22 @ 9am tomorrow Unchanged Albuterol (albuterol 90 mcg/ inh inhalation aerosol) 2 puff(s) Inhalation 4 times a day as needed for as needed for wheezing as needed Unchanged Benztropine (benztropine 1 mg oral tablet) 1 tab(s) Oral Twice a day Duration: 90 Days 01/21 @ 9pm tonight Unchanged BusPIRone (busPIRone 10 mg oral tablet) 1.5 tab(s) Oral Twice a day Duration: 90 Days 01/21 @ 9pm tonight Unchanged Divalproex Sodium (divalproex sodium 500 mg oral enteric coated tablet) See instructions take 1 tablet in the morning ; take 2 tablets at night TDD 1500mg ?? 01/21 @ 9pm tonight Unchanged Levothyroxine (levothyroxine 0.05 mg oral tablet) 1 tab(s) Oral Daily Duration: 30 Days 01/22 @ 9am tomorrow Unchanged Loratadine (Claritin 10 mg oral tablet) 1 tab(s) Oral Daily at Bedtime Duration: 30 Days 01/21 @ 9pm tonight Unchanged Lorazepam (LORazepam 1 mg oral tablet) 1 tab(s) Oral Twice a day as needed for for anxiety Duration: 30 Days as needed Unchanged Magnesium Oxide (magnesium oxide 400 mg oral tablet) 1 tab(s) Oral Daily Duration: 90 Days 01/22 @ 9am tomorrow Unchanged Pantoprazole (pantoprazole 40 mg oral delayed release tablet) 40 Milligram Oral Daily Duration: 30 Days 01/22 @ 9am tomorrow Unchanged Vitamin E (vitamin E 400 iu oral capsule) 1 capsule Oral Twice a day Duration: 90 Days 01/21 @ 9pm [facility] Pharmacy Information [facility] 3: [address] [place], [place] [id number] [phone] Test Results Below is a partial list of the most recent Laboratory test results done prior to this discharge. You may have had other tests and procedures not included in this list. Please discuss all test resultswith your provider. Est Creatinine Clearance - 71.72 mL/min (01/21/2023) Amphetamine Urine Screen (01/09/2023) ???Amphetamine Screen, Urine - NONE DETECTED Barbiturate Urine Screen (01/09/2023) ???Barbiturate Screen, Urine - NONE DETECTED Basic Metabolic Panel (01/20/2023) ???Sodium - 138 mmol/L???Potassium - 3.7 mmol/L???Chloride - 101 mmol/L???Bicarbonate Level - 26 mmol/L???Anion Gap - 11???Glucose Level - 177 mg/dL???BUN - 14 mg/dL???Creatinine-Blood - 0.9 mg/dL???Estimated GFR Creatinine - 76 ML/MIN/1.73 M2???Calcium - 8.9 mg/dL Benzodiazepine Urine Screen (01/09/2023) ???Benzodiazepine Screen, Urine - NONE DETECTED Cannabinoid Urine Screen (01/09/2023) ???Cannabinoid Screen, Urine - POSITIVE CBC w/ Differential (01/20/2023) ???WBC - 6.2 k/mm3???RBC - 4.13 m/mm3???Hgb - 12.6 Gm/dL???Hct - 37.2 %???MCV - 90.1 femtoliters???MCH - 30.5 pg???MCHC - 33.9 g/dL???Platelet Count - 215 k/mm3???RDW-SD - 37.9 femtoliters???MPV - 10.4 femtoliters???Nucleated RBC (Automated) - 0.0 #/100 WBC'S???Abs. NRBC - 0.0 k/mm3???Abs. Neut - 2.4 k/mm3???Abs. Lymph - 3.0 k/mm3???Abs. [place] - 0.7 k/mm3???Abs. Eo - 0.1 k/mm3???Abs. Baso - 0.0 k/mm3???Neut % - 38.3 %???Lymph % - 48.5 %???[place] % - 10.5 %???Eos % - 1.6 %???Baso % - 0.6 %???Imm Gran - 0.5 %???Abs. Imm Gran - 0.0 k/mm3 Cocaine Urine Screen (01/09/2023) ???Cocaine Metabolite Screen, Urine - NONE DETECTED COVID-19 (Novel Coronavirus), Rapid PCR (01/07/2023) ???COVID-19 by RT-PCR - NEGATIVE COVID-19 RNA POC (01/09/2023) ???COVID-19 POC Result - NEGATIVE Depakote Level (01/07/2023) ???Valproic Level - 74.5 mg/L HEMOGLOBIN A1C (01/20/2023) ???Hemoglobin A1C (Monitoring) - 5.5 % Hepatic Function Panel (01/16/2023) ???Protein, Total - 6.1 Gm/dL???Albumin - 4.0 Gm/dL???Alkaline Phosphatase - 58 units/L???AST (SGOT) - 13 units/L? ?ALT (SGPT) - 14 units/L? ?Bilirubin, Total - 0.5 mg/dL? ?Bilirubin, Direct - <0.2 mg/dL???Bilirubin, Indirect - Direct bilirubin is less than the measureable limit. Therefore, indirect HOLD BLUE TUBE (01/07/2023) ???Hold Blue Top - SPECIMEN DISCARDED AFTER 4 HOURS. HOLD GREEN TUBE (01/07/2023) ???Hold Green Top - SPECIMEN DISCARDED AFTER 1 WEEK Opiate Screen Urine (01/09/2023) ???Opiate Screen, Urine - NONE DETECTED TSH with T4 Reflex (Adults Only) (01/07/2023) ???TSH - 1.68 uIU/mL Urinalysis w/hold for Urine Culture (01/20/2023) ???Appear/Color, Urine - COLORLESS???Specific [place], Urine - 1.007???pH, Urine - 7.0???Albumin, Urine - NEGATIVE???Glucose, Urine - NEGATIVE???Ketones, Urine - NEGATIVE???Bilirubin, Urine - NEGATIVE???Hemoglobin, Urine - NEGATIVE???Nitrite, Urine - NEGATIVE???Leukocyte, Urine - NEGATIVE???Urobilin ogen - NORMAL? ?WBC's, Urine - <1 /HPF? ?RBC's, Urine - 1 /HPF? ?Bacteria - SLIGHT? ?Squamous Epith - 3 /HPF???Mucus - SLIGHT???Hold Urine Culture - Testing available 48 hours from time of collection. Allergies (NKA means No Known Allergies) Shrimp??(Anaphylaxis) Celebrex Percocet 5/325 Vicodin ibuprofen penicillins sulfa drugs Problems Active Problems??(9) Anxiety?? Gastroesophageal reflux disease with hiatal hernia?? Generalized anxiety disorder with panic attacks?? Hyperlipidemia?? Hypertension?? Obese class I?? Obsessive compulsive disorder?? Schizoaffective disorder?? Smoker?? Education Materials Below is the list of Educational Leaflet Providered with your Discharge Instructions. Valuables and Belongings I fully understand and agree that [facility] accepts no responsibility for all my personal property including clothing, toilet articles, radios, jewelry, dentures, hearing aids, rings, money, or any other property that is in my possession or is brought to me after admission. I understand certain valuables may be placed in a hospital safe for a short period of time. I understand that the hospital is not liable for loss or damage due to accident, fire, or other natural occurrence while said property is in the safe. I accept full responsibility for any personal property that I keep with me, and will not hold the hospital responsible in case of loss or disappearance. I acknowledge that i have been encouraged to send valuables and belongings home. ?? Safe envelope number: [id number] Deposit/Withdrawal: Deposit Money/Amount: 205 Review of Valuable and Belonging List: With patient Disposition of Belongings: Valuables Locked Date for Pt to Sign Valuables/Belongings: 01/20/23 13:32:00 ?? Other Discharge Information ? Pulmonary Rehab Status?? Pulmonary Rehab Discharge Status?? Respiratory Rate: 16 br/min ? Common Emergency Awareness Tips IS IT A STROKE? Act FAST and Check for these signs: FACE Does the face look uneven? ARM Does one arm drift down? SPEECH Does their speech sound strange? TIME Call at any sign of stroke ?? Heart Attack Signs Chest discomfort: Most heart attacks involve discomfort in the center of the chest and lasts more than a few minutes, or goes away and comes back. It can feel like uncomfortable pressure, squeezing, fullness or pain. Discomfort in upper body: Symptoms can include pain or discomfort in one or both arms, back, neck, jaw or stomach. Shortness of breath: With or without discomfort. Other signs: Breaking out in a cold sweat, nausea, or lightheaded. Remember, MINUTES DO MATTER. If you experience any of these heart attack warning signs, call to get immediate medical attention! ?? Smoking can increase your chances of developing chronic health problems and can cause harmful effects to other family members in your house. If you smoke, you are strongly encouraged to quit. Please call [facility] at [phone] or [phone]) or log in to [email or web address] for referrals to smoking cessation programs. ?? 144 Suicide & Crisis Lifeline is available 02/02 if you or someone you know needs to find a reason to keep living. By calling 675 you'll be connected to a skilled, trained counselor at a crisis center in your area. INPATIENT DISCHARGE INSTRUCTIONS SIGNATURE PAGE ANAMARIA DUMONT Location:[facility] Registration Date and Time:01/07/2023 11:11 EDT Primary Care Physician: Luz Hernandez MD, Attending Physician: David Singleton MD, I ANAMARIA DUMONT, have received the above patient education materials/instructions and have verbalized understanding. If ambulance or transport services are being used I further acknowledge being given a choice of service. ?? If you need to contact me, please call me at this number: . Patient/Senior Business Intelligence Analyst Name: Patient/Senior Business Intelligence Analyst Signature: Relationship to Patient: Witness Name/Signature: Date: * Deanna Corcoran RN: PERFORM Event Display: Patient Education/Instruction Authored Date: [id number] Inpatient [place] [address] Name: ANAMARIA DUMONT : 1970 Visit: 01/07/2023 11:11:00 Current Date: 01/21/2023 15:18 Account: [id number] Inpatient Adult Discharge Instructions We would like to thank you for allowing us to assist you with your healthcare needs. The following includes patient education materials and information regarding your injury/illness. Our entire staffstrives to provide an excellent experience for our patients and their families. PLEASE ENSURE YOU FOLLOW-UP PER THE INSTRUCTIONS BELOW! ?? YOUR OPINION IS IMPORTANT TO US! Please complete the survey you may receive by mail or email. Your feedback will be used to make improvements to the healthcare experiences of our patients and their families. Surveys are administered by [employer]. ?? If further treatment with your primary care physician or another doctor is recommended, it is important for you to keep the appointment. Call your primary care physician or return to the Emergency Department immediately if your condition worsens, fails to improve, or new symptoms develop. If you need to find a doctor, you can call [facility] [employer] for a referral at [phone] or toll free at [phone] or log in to [email or web address].. ?? You can view and manage your care through the patient portal or by using a health care gregory of your choosing. [employer] is a website that allows you to securely view your medical information including your hospital discharge summary, office visit summaries, medications and follow-up visits. You can also request appointments, renew medications, and request access to your medical information using a health care gregory of your choosing, or just ask a question. You can enroll at [email or web address] or register during your next office visit. You have been discharged from [facility], Patient Care Unit: W4. If you have any questions regarding these instructions after you leave, please call us and we will be happy to assist you. [facility] Your Care Team Attending Physician David Singleton MD Discharging Providers David Singleton MD Reason for Admission pt here for for loss of vision, dx with cataracts in both eyes but worsened yesterday. denies any trauma. states feeling unsafe at home due to not having adequate staff to care for at home. [id number] Your Diagnosis Cataracts, bilateral Delusional disorder Schizoaffective disorder Tests Performed Below is a partial list of the tests performed during your hospitalization. You may have had other tests and procedures not included in this list. Please discuss all test results with your provider. Amphetamine Urine Screen Barbiturate Urine Screen Basic Metabolic Panel Benzodiazepine Urine Screen Cannabinoid Urine Screen CBC w/ Differential Cocaine Urine Screen COVID-19 (Novel Coronavirus), Rapid PCR COVID-19 RNA POC Depakote Level HEMOGLOBIN A1C Hepatic Function Panel HOLD BLUE TUBE HOLD GREEN TUBE Opiate Screen Urine TSH with T4 Reflex (Adults Only) Urinalysis w/hold for Urine Culture Primary Care Provider Luz Hernandez MD Advance Directive Health Care Proxy on File No Patient refuses to discuss Discharge Vitals Temperature: 98.1 DegF Height: 170 cm Pulse Rate: 80 bpm Weight: 91 kg Respiratory Rate: 16 br/min Body Mass Index:??31.49 kg/m2??Critical Systolic Blood Pressure: 134 mm Hg Body surface area: 2.07 Diastolic Blood Pressure:??97 mm Hg??High ?? Oxygen Saturation: 97 % ?? Studies Pending All tests and labs ordered during this hospital stay have been completed unless listed below. Please discuss all pending results with your provider listed above in these instructions. ?? Add On Lab Order What to do next Instructions From Your Doctor Discharge Orders Scheduled Follow-Up Appointments Thursday 11:30 AM EDT ?? With: Miryam COBB, Joy Hatch Where: [facility] [address] [place] [address]- Status: Pending Discharge Medications ANAMARIA DUMONT :1970 Visit Date:01/07/2023 Medications: Please continue your medications until treatment is completed or stopped by your provider. Medications not listed below should be discontinued. Discuss any questions related to medications with your provider. What How Much When Instructions Next Dose Unchanged Acetaminophen (Tylenol 325 mg oral tablet) 2 tab(s) Oral Every 4 hours as needed for for pain (not to exceed 4000 mg/ day) ?? as needed Unchanged Albuterol (albuterol 90 mcg/ inh inhalation aerosol) 2 puff(s) Inhalation 4 times a day as needed for as needed for wheezing as needed Unchanged Benztropine (benztropine 1 mg oral tablet) 1 tab(s) Oral Twice a day Duration: 90 Days 01/21 @ 9pm tonight Unchanged BusPIRone (busPIRone 10 mg oral tablet) 1.5 tab(s) Oral Twice a day Duration: 90 Days 01/21 @ 9pm tonight Unchanged Divalproex Sodium (divalproex sodium 500 mg oral enteric coated tablet) See instructions take 1 tablet in the morning ; take 2 tablets at night TDD 1500mg ?? 01/21 @ 9pm tonight Unchanged Haloperidol (haloperidol 5 mg oral tablet) 1 tab(s) Oral Daily at Bedtime Duration: 90 Days 01/21 @ 9pm tonight Unchanged Levothyroxine (levothyroxine 0.05 mg oral tablet) 1 tab(s) Oral Daily Duration: 30 Days 01/22 @ 9am tomorrow Unchanged Loratadine (Claritin 10 mg oral tablet) 1 tab(s) Oral Daily at Bedtime Duration: 30 Days 01/21 @ 9pm tonight Unchanged Lorazepam (LORazepam 1 mg oral tablet) 1 tab(s) Oral Twice a day as needed for for anxiety Duration: 30 Days as needed Unchanged Magnesium Oxide (magnesium oxide 400 mg oral tablet) 1 tab(s) Oral Daily Duration: 90 Days 01/22 @ 9am tomorrow Unchanged Pantoprazole (pantoprazole 40 mg oral delayed release tablet) 40 Milligram Oral Daily Duration: 30 Days 01/22 @ 9am tomorrow Unchanged Vitamin E (vitamin E 400 iu oral capsule) 1 capsule Oral Twice a day Duration: 90 Days 01/21 @ 9pm tonight Test Results Below is a partial list of the most recent Laboratory test results done prior to this discharge. You may have had other tests and procedures not included in this list. Please discuss all test resultswith your provider. Est Creatinine Clearance - 71.72 mL/min (01/21/2023) Amphetamine Urine Screen (01/09/2023) ???Amphetamine Screen, Urine - NONE DETECTED Barbiturate Urine Screen (01/09/2023) ???Barbiturate Screen, Urine - NONE DETECTED Basic Metabolic Panel (01/20/2023) ???Sodium - 138 mmol/L???Potassium - 3.7 mmol/L???Chloride - 101 mmol/L???Bicarbonate Level - 26 mmol/L???Anion Gap - 11???Glucose Level - 177 mg/dL???BUN - 14 mg/dL???Creatinine-Blood - 0.9 mg/dL???Estimated GFR Creatinine - 76 ML/MIN/1.73 M2???Calcium - 8.9 mg/dL Benzodiazepine Urine Screen (01/09/2023) ???Benzodiazepine Screen, Urine - NONE DETECTED Cannabinoid Urine Screen (01/09/2023) ???Cannabinoid Screen, Urine - POSITIVE CBC w/ Differential (01/20/2023) ???WBC - 6.2 k/mm3???RBC - 4.13 m/mm3???Hgb - 12.6 Gm/dL???Hct - 37.2 %???MCV - 90.1 femtoliters???MCH - 30.5 pg???MCHC - 33.9 g/dL???Platelet Count - 215 k/mm3???RDW-SD - 37.9 femtoliters???MPV - 10.4 femtoliters???Nucleated RBC (Automated) - 0.0 #/100 WBC'S???Abs. NRBC - 0.0 k/mm3???Abs. Neut - 2.4 k/mm3???Abs. Lymph - 3.0 k/mm3???Abs. [place] - 0.7 k/mm3???Abs. Eo - 0.1 k/mm3???Abs. Baso - 0.0 k/mm3???Neut % - 38.3 %???Lymph % - 48.5 %???[place] % - 10.5 %???Eos % - 1.6 %???Baso % - 0.6 %???Imm Gran - 0.5 %???Abs. Imm Gran - 0.0 k/mm3 Cocaine Urine Screen (01/09/2023) ???Cocaine Metabolite Screen, Urine - NONE DETECTED COVID-19 (Novel Coronavirus), Rapid PCR (01/07/2023) ???COVID-19 by RT-PCR - NEGATIVE COVID-19 RNA POC (01/09/2023) ???COVID-19 POC Result - NEGATIVE Depakote Level (01/07/2023) ???Valproic Level - 74.5 mg/L HEMOGLOBIN A1C (01/20/2023) ???Hemoglobin A1C (Monitoring) - 5.5 % Hepatic Function Panel (01/16/2023) ???Protein, Total - 6.1 Gm/dL???Albumin - 4.0 Gm/dL???Alkaline Phosphatase - 58 units/L???AST (SGOT) - 13 units/L? ?ALT (SGPT) - 14 units/L? ?Bilirubin, Total - 0.5 mg/dL? ?Bilirubin, Direct - <0.2 mg/dL???Bilirubin, Indirect - Direct bilirubin is less than the measureable limit. Therefore, indirect HOLD BLUE TUBE (01/07/2023) ???Hold Blue Top - SPECIMEN DISCARDED AFTER 4 HOURS. HOLD GREEN TUBE (01/07/2023) ???Hold Green Top - SPECIMEN DISCARDED AFTER 1 WEEK Opiate Screen Urine (01/09/2023) ???Opiate Screen, Urine - NONE DETECTED TSH with T4 Reflex (Adults Only) (01/07/2023) ???TSH - 1.68 uIU/mL Urinalysis w/hold for Urine Culture (01/20/2023) ???Appear/Color, Urine - COLORLESS???Specific [place], Urine - 1.007???pH, Urine - 7.0???Albumin, Urine - NEGATIVE???Glucose, Urine - NEGATIVE???Ketones, Urine - NEGATIVE???Bilirubin, Urine - NEGATIVE???Hemoglobin, Urine - NEGATIVE???Nitrite, Urine - NEGATIVE???Leukocyte, Urine - NEGATIVE???Urobilin ogen - NORMAL? ?WBC's, Urine - <1 /HPF? ?RBC's, Urine - 1 /HPF? ?Bacteria - SLIGHT? ?Squamous Epith - 3 /HPF???Mucus - SLIGHT???Hold Urine Culture - Testing available 48 hours from time of collection. Allergies (NKA means No Known Allergies) Shrimp??(Anaphylaxis) Celebrex Percocet 5/325 Vicodin ibuprofen penicillins sulfa drugs Problems Active Problems??(9) Anxiety?? Gastroesophageal reflux disease with hiatal hernia?? Generalized anxiety disorder with panic attacks?? Hyperlipidemia?? Hypertension?? Obese class I?? Obsessive compulsive disorder?? Schizoaffective disorder?? Smoker?? Education Materials Below is the list of Educational Leaflet Providered with your Discharge Instructions. Valuables and Belongings I fully understand and agree that [facility] accepts no responsibility for all my personal property including clothing, toilet articles, radios, jewelry, dentures, hearing aids, rings, money, or any other property that is in my possession or is brought to me after admission. I understand certain valuables may be placed in a hospital safe for a short period of time. I understand that the hospital is not liable for loss or damage due to accident, fire, or other natural occurrence while said property is in the safe. I accept full responsibility for any personal property that I keep with me, and will not hold the hospital responsible in case of loss or disappearance. I acknowledge that i have been encouraged to send valuables and belongings home. ?? Safe envelope number: [id number] Deposit/Withdrawal: Deposit Money/Amount: 205 Review of Valuable and Belonging List: With patient Disposition of Belongings: Valuables Locked Date for Pt to Sign Valuables/Belongings: 01/20/23 13:32:00 ?? Other Discharge Information ? Pulmonary Rehab Status?? Pulmonary Rehab Discharge Status?? Respiratory Rate: 16 br/min ? Common Emergency Awareness Tips IS IT A STROKE? Act FAST and Check for these signs: FACE Does the face look uneven? ARM Does one arm drift down? SPEECH Does their speech sound strange? TIME Call at any sign of stroke ?? Heart Attack Signs Chest discomfort: Most heart attacks involve discomfort in the center of the chest and lasts more than a few minutes, or goes away and comes back. It can feel like uncomfortable pressure, squeezing, fullness or pain. Discomfort in upper body: Symptoms can include pain or discomfort in one or both arms, back, neck, jaw or stomach. Shortness of breath: With or without discomfort. Other signs: Breaking out in a cold sweat, nausea, or lightheaded. Remember, MINUTES DO MATTER. If you experience any of these heart attack warning signs, call to get immediate medical attention! ?? Smoking can increase your chances of developing chronic health problems and can cause harmful effects to other family members in your house. If you smoke, you are strongly encouraged to quit. Please call [facility] at [phone] or [phone] ([phone]) or log in to [email or web address] for referrals to smoking cessation programs. ?? 848 Suicide & Crisis Lifeline is available 02/02 if you or someone you know needs to find a reason to keep living. By calling 089 you'll be connected to a skilled, trained counselor at a crisis center in your area. INPATIENT DISCHARGE INSTRUCTIONS SIGNATURE PAGE ANAMARIA DUMONT Location:[facility] Registration Date and Time:01/07/2023 11:11 EDT Primary Care Physician: David NICOLE, Luz Patrick, Attending Physician: Juni Muller MD, [facility], I ANAMARIA DUMONT, have received the above patient education materials/instructions and have verbalized understanding. If ambulance or transport services are being used I further acknowledge being given a choice of service. ?? If you need to contact me, please call me at this number: . Patient/Senior Business Intelligence Analyst Name: Patient/Senior Business Intelligence Analyst Signature: Relationship to Patient: Witness Name/Signature: Date: * Juni Muller MD, David: PERFORM, SIGN, VERIFY Event Display: Patient Education Handout Authored Date: [id number] Patient Care team information Care Team Personnel Name: Deanna Corcoran RN Position: [facility] RN Member Role: Primary Care Nurse Name: Luz Hernandez MD Position: Reference Physician Member Role: PCP Address: Address: [address] [place] [id number] Name: Cheri Yun RN Position: [facility] RN Member Role: Primary Care Nurse Name: Kaelyn Marie RN Position: [facility] RN Member Role: Primary Care Nurse Name: Mariajose Thibodeaux [place] Position: [facility] RN Member Role: Primary Care Nurse Name: Caitlin Chávez Position: [facility] RN Member Role: Primary Care Nurse Name: Andrew Marques RN Position: [facility] RN Member Role: Primary Care Nurse Name: Renay Lagunas RN Position: [facility] RN Member Role: Primary Care Nurse Name: *SAL, ED Attending Position: [facility] ED Attendings Patient Name: *SAL Inpt Attending Position: [facility] ED Medicine MD Name: Brad Severino Position: [facility] ED TA [facility] Member Role: Lead Software Test Engineer Care Team Related Persons Name: RATNA SCHMIDT Address: home [address] [place] [address] Name: DIABLINGO, IRIS Name: SELINA SHULTZ Address: home [address] [place] [address] Name: CLAUDIO HUYNH Name: CLAUDETTE SR Address: [place] [address] Name: KANDI DUMONT Address: home [address] [place] [address]
--- OUTSIDE RECORDS SUMMARY | 2023-08-26 15:14 | XMS_ITS | Continuity of Care Document ---
Author Name Unknown Organization [facility] ter Address [address] [place] [id number]- Care Team Providers Care Sewing Machine Operator Zipper Name Role Phone Tessa NICOLE, Gagan Hirsch Primary Care Physician Encounter [facility] Date(s): 10/08/22 - 10/09/[address] [address]- Discharge Disposition: Transfer to [facility] Facility Attending Physician: Refugio Solis MD Admitting Physician: Refugio Solis MD Referring Physician: Not on Staff, Referring [...] 09/16/22 16:00:00 EST, Route to Pharmacy Electronically, [facility] #[id number], Partial fill uponpatient request if the prescription is for a schedu... Start Date: 09/16/22 Stop Date: 03/15/23 Status: Ordered busPIRone 10 mg oral tablet 15 mg, 1.5, tablet, By Mouth, 2 times a day, # 270 tablet, Refills 1, Tot. Refills 1, Maintenance, 09/16/22 16:00:00 EST, Route to Pharmacy Electronically, [facility] #[id number], Partial fill upon patient request if the prescription is for a jeff... Start Date: 09/16/22 Stop Date: 03/15/23 Status: Ordered Claritin 10 mg oral tablet 10 mg, 1, tablet, By Mouth, Daily at bedtime, # 30 tablet, Refills 0, Tot. Refills 0, Maintenance, 10/22/20 15:18:00 EDT, Route to Pharmacy Electronically, [facility] #[id number], Partial fill upon patient request if the prescription is for a jeff... Start Date: 10/22/20 Stop Date: 11/21/20 Status: Ordered divalproex sodium 500 mg oral enteric coated tablet See Instructions, take 1 tablet in the morning ; take 2 tablets at night TDD 1500mg, # 270 tablet, 1 Refills, Maintenance, 09/16/22 16:01:00 EST, [facility] #[id number], Partial fill upon patient request if the prescription is for a schedule II... Start Date: 09/16/22 Status: Ordered levothyroxine 0.05 mg oral tablet 1 tablet = 50 mcg, By Mouth, Daily, # 30 tablet, 0 Refills, Maintenance, 10/22/20 15:22:00 EDT, Tablet, [facility] #[id number], Partial fill upon patient request if the prescription is for a schedule II opioid drug., 170, cm, 10/21/20 18:03:00 ED... Start Date: 10/22/20 Stop Date: 11/21/20 Status: Ordered LORazepam 1 mg oral tablet 1 tablet = 1 mg, By Mouth, 2 times a day, PRN for anxiety, # 60 tablet, 4 Refills, Maintenance, 09/16/22 16:00:00 EST, Tablet, [facility] #[id number], Partial fill upon patient request if the prescription is for a schedule II opioid drug., 170, c... Start Date: 09/16/22 Stop Date: 02/13/23 Status: Ordered magnesium oxide 400 mg oral tablet 1 tablet = 400 mg, By Mouth, Daily, # 90 tablet, 1 Refills, Maintenance, 09/16/22 16:00:00 EST, [facility] #[id number], Partial fill upon patient request if the [...] 1 Refills, Maintenance, 04/25/22 11:57:00 EDT, Capsule, [facility] #[id number], Partial fill upon patient request if the [...] disorder Confirmed Active Schizoaffective disorder Confirmed Active Severe obesity (BMI 35.0-39.9) with comorbidity Confirmed Active Smoker Confirmed Active Vital Signs Most recent to oldest [Reference Range]: 1 2 3 Height 167 cm (10/09/22 4:21 PM) 167 cm (10/09/22 9:39 AM) Weight 100 kg (10/09/22 4:21 PM) 100 kg (10/09/22 9:39 AM) Oxygen Saturation [94-100 %] 97 % (10/09/22 8:59 PM) 97 % (10/09/22 4:21 PM) 99 % (10/09/22 9:39 AM) Pulse Rate [55-90 bpm] 62 bpm (10/09/22 8:59 PM) 61 bpm (10/09/22 4:21 PM) 70 bpm (10/09/22 9:39 AM) Body Mass Index [18.5-24.99 kg/m2] 35.86 kg/m2 *>HHI* (10/09/22 4:21 PM) Blood Pressure [90-138/55-84 mm Hg] 134/86mm Hg (10/09/22 8:59 PM) 126/90mm Hg (10/09/22 4:21 PM) 149/85mm Hg *H* (10/09/22 9:39 AM) Respiratory Rate [16-30 br/min] 18 br/min (10/09/22 8:59 PM) 18 br/min (10/09/22 4:21 PM) 16 br/min (10/09/22 9:39 AM) Temperature [96.8-100.4 DegF] 98.4 DegF (10/09/22 8:59 PM) 98.3 DegF (10/09/22 4:21 PM) 98.2 DegF (10/09/22 9:39 AM) Mode of Delivery (Oxygen) Room air (10/09/22 8:59 PM) Room air (10/09/22 4:21 PM) Room air (10/09/22 9:39 AM) Blood pressure sites Arm, right (10/09/22 4:21 PM) Arm, right (10/09/22 1:27 AM) Arm, right (10/08/22 2:17 PM) Temperature Route Oral (10/09/22 4:21 PM) Oral (10/09/22 9:39 AM) Oral (10/09/22 1:27 AM) Social History Social History Type Response Smoking Status Former smoker, quit more than 30 days ago entered on: 10/11/19 Sex Patient Care team information Care Team Personnel Name: Cheri Yun RN Position: [facility] RN Member Role: Primary Care Nurse Name: Kaelyn Marie RN Position: [facility] RN Member Role: Primary Care Nurse Name: Mariajose Buck Position: [facility] RN Member Role: Primary Care Nurse Name: Caitlin Chávez Position: [facility] RN Member Role: Primary Care Nurse Name: Gagan Zarate MD Position: Reference Physician Member Role: PCP Address: Address: [address] [place] [address] [place] [address]- [place] Name: Renay Lagunas RN Position: [facility] RN Member Role: Primary Care Nurse Name: Desi Gonsales RN Position: [facility] RN Member Role: Primary Care Nurse Name: *[facility], ED Attending Position: [facility] ED Attendings Patient Name: Iris Bennett Position: [facility] ED TA [facility] Member Role: Engineer Rf Deployment Name: Refugio Solis MD Position: [facility] ED Medicine MD Member Role: Admitting Physician Address: Address: [address] [place] [id number]- [place] Name: Desmond Fiore RN Position: [facility] ED RN W/OE and Tasks Member Role: Patient Care Provider Care Team Related Persons Name: RATNA SCHMIDT Address: home [address] [place] [address] Name: GENESISO, RACHID Name: SELINA SHULTZ Address: home [address] [place] [address] Name: CLAUDIO HUYNH Name: CLAUDETTE SR Address: [place] [address] Name: KANDI SORTO Address: home [address] [place] [address]
--- NOTE | 2023-08-26 17:43 | PC.ADMIT ---
Patient is a 53 year old female known to [facility] care team admitted to on 08/26/23 at 15:00 from [facility] Medical floor for treatment of Schizoaffective disorder, unspecified on a section 12b. Due to struggling in [facility] behavioral pod, Pt was sdmitted to [facility] for precedex drip. Patient is on 1:1 supervision, arrived to the floor by wheelchair, was loud and disorganized stating that she owned the hospital and needed her weed. Patient was disorganized but cooperative with skin check however was unable to contribute any relevant information during the admission process. Prior to admission, pt was brought to [facility] ED by ambulance, it is unsure who called the ambulance. PT was displaying impaired judgment and erratic behavior and unable to articulate any plan to maintain safety. Pt presents as delusional an her thought content is tangential. Pt is legally blind due to glaucoma. Vitals obtained, Pt remains on 1:1 supervision for safety.
[2023-08-26] MEDS: Divalproex Sodium 500 MG TABLET.DR PO (19:54)
[2023-08-26] MEDS: Vitamin E (Dl,Tocopheryl Acet) 180 MG (400 UNIT) CAPSULE PO (19:54)
[2023-08-26] MEDS: LORazepam 1 MG TABLET PO (19:54)
[2023-08-26] MEDS: Benztropine Mesylate 1 MG TABLET 2 MG PO (19:55)
[2023-08-26] MEDS: HaloperidoL 5 MG TABLET PO (19:55)
[2023-08-27] MEDS: Omeprazole 40 MG CAPSULE.DR PO (05:28)
[2023-08-27] MEDS: LORazepam 1 MG TABLET PO (05:33)
[2023-08-27 08:01] VITALS: BP 127/87; PULSE 88; RESP 16; TEMP 36.5; O2SAT 99
[2023-08-27 08:47] LABS: Ammonia 24 umol/L (13-55)
[2023-08-27 08:54] LABS: Estimated Average Glucose 97 mg/dL
[2023-08-27 08:55] LABS: Valproate 97.1 mcg/mL (50.0-100.0)
[2023-08-27 08:56] LABS: Alanine Aminotransferase 24 U/L (0-31); Albumin Level 4.4 g/dL (3.5-5.0); Alkaline Phosphatase 54 U/L (39-117); Anion Gap 12 (12-20); Aspartate Amino Transferase 24 U/L (5-31); Bilirubin Total 1.1 mg/dL (0.0-1.0); Blood Urea Nitrogen 19 mg/dL (9-16); Calcium 9.5 mg/dL (8.4-10.2); Carbon Dioxide 24 mmol/L (22-29); Chloride 104 mmol/L (96-108); Cholesterol 119 mg/dL (<200); Estimated Glomerular Filt Rate > 60; Glucose Fasting 119 mg/dL (60-99); HDL Cholesterol 34 mg/dL (>40); LDL Cholesterol Calculated 65 mg/dL (<100); Potassium 3.2 mmol/L (3.3-5.1); Sodium 137 mmol/L (135-145); Total Protein 6.8 g/dL (6.5-8.0); Triglycerides 101 mg/dL (<150)
[2023-08-27] MEDS: Magnesium Oxide 400 MG TABLET PO (09:11)
[2023-08-27] MEDS: Vitamin E (Dl,Tocopheryl Acet) 180 MG (400 UNIT) CAPSULE PO ×2 (09:12→20:51)
[2023-08-27] MEDS: Benztropine Mesylate 1 MG TABLET PO ×2 (09:12→20:51)
[2023-08-27] MEDS: Loratadine 10 MG TABLET PO (09:12)
[2023-08-27] MEDS: busPIRone HCl 5 MG TABLET 15 MG PO (09:12)
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
[2023-08-27] MEDS: HaloperidoL 5 MG TABLET 10 MG PO ×2 (10:42→20:51)
[2023-08-27] MEDS: LORazepam 1 MG TABLET 2 MG PO ×3 (10:42→20:50)
[2023-08-27 18:00] VITALS: BP 129/63; PULSE 102; RESP 22; TEMP 36.3; O2SAT 100
[2023-08-27] MEDS: traZODone HCL 50 MG TABLET PO (20:52)
[2023-08-28] MEDS: HaloperidoL 5 MG TABLET 10 MG PO ×3 (04:17→20:15)
[2023-08-28] MEDS: LORazepam 1 MG TABLET 2 MG PO ×2 (04:17→10:46)
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
[2023-08-28] MEDS: Benztropine Mesylate 1 MG TABLET PO ×2 (10:26→20:13)
[2023-08-28] MEDS: Vitamin E (Dl,Tocopheryl Acet) 180 MG (400 UNIT) CAPSULE PO ×2 (10:27→20:14)
[2023-08-28] MEDS: Magnesium Oxide 400 MG TABLET PO (10:27)
[2023-08-28] MEDS: Omeprazole 40 MG CAPSULE.DR PO (10:27)
[2023-08-28] MEDS: Loratadine 10 MG TABLET PO (10:30)
[2023-08-28 11:09] VITALS: RESP 18
[2023-08-28 17:22] VITALS: BP 118/65; PULSE 83; TEMP 35.7
[2023-08-28] MEDS: Divalproex Sodium ER 500 MG TAB.ER.24H 1000 MG PO (20:14)
[2023-08-29] MEDS: HaloperidoL 5 MG TABLET 10 MG PO ×2 (07:38→20:33)
[2023-08-29] MEDS: LORazepam 1 MG TABLET 2 MG PO ×3 (07:38→20:34)
[2023-08-29] MEDS: Vitamin E (Dl,Tocopheryl Acet) 180 MG (400 UNIT) CAPSULE PO ×2 (09:14→20:34)
[2023-08-29] MEDS: Levothyroxine Sodium 50 MCG TABLET PO (09:15)
[2023-08-29] MEDS: Benztropine Mesylate 1 MG TABLET PO ×2 (09:15→20:33)
[2023-08-29] MEDS: Loratadine 10 MG TABLET PO (09:16)
[2023-08-29] MEDS: Magnesium Oxide 400 MG TABLET PO (09:16)
[2023-08-29] MEDS: HaloperidoL 5 MG TABLET PO ×2 (09:23→22:48)
[2023-08-29] MEDS: LORazepam 1 MG TABLET PO (09:23)
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
--- NOTE | 2023-08-29 21:33 | PC.NURSE ---
Patient very agitated hyper verbal, Grandiose and delusional. Refused depakote this shift. Patient continues with 1:1 very impulsive. PRN medications utilized as ordered. WISAM JUAREZ.
[2023-08-29] MEDS: traZODone HCL 50 MG TABLET PO (22:52)
[2023-08-30] MEDS: LORazepam 1 MG TABLET 2 MG PO ×4 (03:42→20:23)
[2023-08-30] MEDS: Omeprazole 40 MG CAPSULE.DR PO (06:40)
[2023-08-30] MEDS: HaloperidoL 5 MG TABLET PO ×2 (06:41→15:48)
[2023-08-30] MEDS: Magnesium Oxide 400 MG TABLET PO (08:19)
[2023-08-30] MEDS: Benztropine Mesylate 1 MG TABLET PO ×2 (08:19→20:22)
[2023-08-30] MEDS: Loratadine 10 MG TABLET PO (08:19)
[2023-08-30] MEDS: Vitamin E (Dl,Tocopheryl Acet) 180 MG (400 UNIT) CAPSULE PO (08:19)
[2023-08-30] MEDS: Levothyroxine Sodium 50 MCG TABLET PO (08:20)
[2023-08-30] MEDS: HaloperidoL 5 MG TABLET 10 MG PO ×2 (08:20→20:22)
[2023-08-30 08:26] VITALS: BP 186/101; PULSE 83; RESP 15; TEMP 36.6; O2SAT 99
[2023-08-30 08:28] VITALS: BP 163/75
[2023-08-30] MEDS: LORazepam 1 MG TABLET PO ×2 (08:33→18:33)
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
[2023-08-30] MEDS: Divalproex Sodium ER 500 MG TAB.ER.24H 1000 MG PO (20:22)
[2023-08-30 20:33] VITALS: BP 128/60; PULSE 91; RESP 18; TEMP 36.2; O2SAT 95
[2023-08-31] MEDS: LORazepam 1 MG TABLET 2 MG PO ×5 (05:16→21:11)
[2023-08-31] MEDS: HaloperidoL 5 MG TABLET PO (05:17)
[2023-08-31] MEDS: Omeprazole 40 MG CAPSULE.DR PO (05:18)
[2023-08-31] MEDS: HaloperidoL 5 MG TABLET 10 MG PO ×2 (07:21→07:23)
[2023-08-31] MEDS: Magnesium Oxide 400 MG TABLET PO (07:22)
[2023-08-31] MEDS: Vitamin E (Dl,Tocopheryl Acet) 180 MG (400 UNIT) CAPSULE PO ×2 (07:22→19:22)
[2023-08-31] MEDS: Benztropine Mesylate 1 MG TABLET PO ×2 (07:22→19:23)
[2023-08-31] MEDS: Loratadine 10 MG TABLET PO (07:24)
[2023-08-31 07:29] VITALS: BP 133/90; PULSE 89; RESP 16; TEMP 36.3; O2SAT 98
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
[2023-08-31] MEDS: Divalproex Sodium ER 500 MG TAB.ER.24H 1000 MG PO (19:23)
[2023-08-31] MEDS: OLANZapine ODT 10 MG TAB.RAPDIS TRANSLINGU (21:11)
[2023-09-01] MEDS: LORazepam 1 MG TABLET 2 MG PO ×2 (05:16→22:56)
[2023-09-01] MEDS: OLANZapine ODT 10 MG TAB.RAPDIS TRANSLINGU (05:17)
[2023-09-01] MEDS: Omeprazole 40 MG CAPSULE.DR PO (05:17)
[2023-09-01 07:20] VITALS: BP 140/66; PULSE 80; RESP 16; TEMP 36.8; O2SAT 99
[2023-09-01] MEDS: Benztropine Mesylate 1 MG TABLET PO ×2 (07:31→21:41)
[2023-09-01] MEDS: HaloperidoL 5 MG TABLET 10 MG PO ×2 (07:31→21:40)
[2023-09-01] MEDS: Vitamin E (Dl,Tocopheryl Acet) 180 MG (400 UNIT) CAPSULE PO ×2 (07:31→21:40)
[2023-09-01] MEDS: LORazepam 1 MG TABLET PO ×2 (07:32→11:34)
[2023-09-01] MEDS: Loratadine 10 MG TABLET PO (07:32)
[2023-09-01] MEDS: Magnesium Oxide 400 MG TABLET PO (07:32)
[2023-09-01] MEDS: Levothyroxine Sodium 50 MCG TABLET PO (07:32)
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
[2023-09-01 18:00] VITALS: RESP 18
[2023-09-01] MEDS: Divalproex Sodium ER 500 MG TAB.ER.24H 1000 MG PO (21:41)
[2023-09-02] MEDS: Omeprazole 40 MG CAPSULE.DR PO (08:43)
[2023-09-02] MEDS: Vitamin E (Dl,Tocopheryl Acet) 180 MG (400 UNIT) CAPSULE PO ×2 (08:43→20:51)
[2023-09-02] MEDS: HaloperidoL 5 MG TABLET 10 MG PO ×2 (08:43→20:50)
[2023-09-02] MEDS: Magnesium Oxide 400 MG TABLET PO (08:43)
[2023-09-02] MEDS: LORazepam 1 MG TABLET 2 MG PO (08:44)
[2023-09-02] MEDS: Benztropine Mesylate 1 MG TABLET PO ×3 (08:44→21:17)
[2023-09-02] MEDS: Loratadine 10 MG TABLET PO (08:44)
--- NOTE | 2023-09-02 10:29 | PC.NURSE ---
Pt declines to answer questions related to smoking status. Pt has NRT prn orders, however pt has not utilized. Pt is not agreeable to a respiratory consult at this time.
[2023-09-02] MEDS: OLANZapine ODT 10 MG TAB.RAPDIS TRANSLINGU (11:02)
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
[2023-09-02 20:04] VITALS: BP 130/72; PULSE 100; TEMP 36.5; O2SAT 96
[2023-09-02] MEDS: Divalproex Sodium ER 500 MG TAB.ER.24H 1000 MG PO (20:51)
[2023-09-02] MEDS: Propranolol HCL 10 MG TABLET PO (21:17)
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
[2023-09-03 08:16] VITALS: BP 130/68; PULSE 94; RESP 16; TEMP 36.8; O2SAT 98
[2023-09-03] MEDS: Magnesium Oxide 400 MG TABLET PO (08:36)
[2023-09-03] MEDS: Benztropine Mesylate 1 MG TABLET PO ×2 (08:36→20:43)
[2023-09-03] MEDS: HaloperidoL 5 MG TABLET 10 MG PO ×2 (08:36→20:42)
[2023-09-03] MEDS: Loratadine 10 MG TABLET PO (08:36)
[2023-09-03] MEDS: Omeprazole 40 MG CAPSULE.DR PO (08:36)
[2023-09-03] MEDS: Vitamin E (Dl,Tocopheryl Acet) 180 MG (400 UNIT) CAPSULE PO ×2 (08:36→20:42)
[2023-09-03] MEDS: OLANZapine ODT 10 MG TAB.RAPDIS TRANSLINGU ×2 (09:02→20:46)
--- NOTE | 2023-09-03 09:21 | PC.NURSE ---
pt noted to have bilateral breast redness. Provider notified and Nystatin cream ordered. Will apply once brought from pharmacy
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
[2023-09-03] MEDS: Nystatin Cream 15 GM TUBE 1 APPL TOPICAL (15:13)
[2023-09-03] MEDS: LORazepam 1 MG TABLET 2 MG PO (16:36)
[2023-09-03 17:55] VITALS: BP 118/66; PULSE 91; RESP 16; TEMP 36.3; O2SAT 97
[2023-09-03] MEDS: Divalproex Sodium ER 500 MG TAB.ER.24H 1000 MG PO (20:41)
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
[2023-09-04 06:00] VITALS: BP 136/84; PULSE 91; TEMP 36.6; O2SAT 97
[2023-09-04] MEDS: Omeprazole 40 MG CAPSULE.DR PO (06:29)
[2023-09-04] MEDS: OLANZapine ODT 10 MG TAB.RAPDIS TRANSLINGU ×2 (06:29→13:36)
[2023-09-04] MEDS: Levothyroxine Sodium 50 MCG TABLET PO (08:41)
[2023-09-04] MEDS: Magnesium Oxide 400 MG TABLET PO (08:41)
[2023-09-04] MEDS: Vitamin E (Dl,Tocopheryl Acet) 180 MG (400 UNIT) CAPSULE PO ×2 (08:41→20:16)
[2023-09-04] MEDS: Loratadine 10 MG TABLET PO (08:41)
[2023-09-04] MEDS: HaloperidoL 5 MG TABLET 10 MG PO ×2 (08:41→20:17)
[2023-09-04] MEDS: Benztropine Mesylate 1 MG TABLET PO ×2 (08:41→20:18)
--- NOTE | 2023-09-04 16:10 | HO.PSYCHPN ---
Subjective Subjective Date of Service: 09/04/23 Reason For Visit: SEC 12 Subjective Notes: Section 7 Healthcare Proxy: No Guardianship: No Medical Problems Affecting Mental Status: No Interim History: Improved medicine compliance. Refused thyroid medications as I don't have that issue. She allows labs to validate for 09.07.23. Remains on one to one. Improved modulation of affect with med compliance. Continues with intermittent outbursts. Discussed going home today, rationale for Section VII and court. Pt is clear that she has not committed a crime which is affirmed. Education provided regarding rationale for Section VII due to illness and treatment. Pt become agitated when this is discussed as her focus is external. Medication Compliance: Intermittent Side effects from medications: No Attending Groups: No Review of Systems Acute medical concerns: No Medical Review of Systems: unchanged Review of Systems Review of Systems Yes all other systems are reviewed and are negative Mental Status Exam Mental Status Exam Patient Appearance: Fatigued, Disheveled, Inappropriate, Unkempt and Bizarre Patient Orientation: Person and Place Level of Consciousness: Awake, Disoriented, Restless, Alert and Combative Patient Behavior: Guarded, Talkative, Hyperactive, Suspicious, Aggressive, Restless, Belligerent, Wandering, Verbal Threats, Swearing, Anxious, Resistive to Care, Avoidant, Combative, Distractible, Confused, Uncooperative and Poor Eye Contact Mood Description: Suspicious, Hostile, Labile, Angry and Expansive Affect Description: Labile and Angry Patient Cognition Impaired: Yes Ability to Follow Directions: Poor Speech Pattern: Spontaneous Speech, Rambling, Cofabulation, Rapid, Inappropriate, Excessive, Loud, Pressured, Includes Profanity and Poor Articulation Memory Description: Remote Impaired and Immediate Impaired Hallucinations: Auditory (???) Delusions: Being Controlled, Paranoid Ideation, Grandiose, Present and Ideas of Reference Perceptual Disturbances: Depersonalization, Derealization and Hallucinations Thought Process: Disoriented, Racing, Illogical, Distracted, Rumination and Confusion Thought Content: positive for Flight of Ideas, positive for Racing, positive for Circumstantial, positive for Perseveration, positive for Preoccupation, positive for Loose Associations, positive for Thought Blocking, positive for Tangential and positive for Disorganized Depressive Symptoms: Increased Anxiety, Diff. Making Decisions, Increased Irritability, Crying Spells, Loss of Int. in Activity, Loss of Energy and Difficulty Concentrating Abnormal Motor Activity Signs and Symptoms: Aggression, Agitation and Restlessness Judgement: Poor Diagnostics Vital Signs (24Hr): Vital Signs - 24 hr 09/03/23 17:55 09/04/23 06:00 Temperature 97.3 F 97.8 F Pulse Rate 91 91 Respiratory Rate 16 Blood Pressure 118/66 136/84 Pulse Oximetry 97 97 Oxygen Delivery Method Room Air Room Air Labs 08/27/23 08:26 Medications Medications Current Medications Al Hydroxide/Mg Hydroxide (Magnesium Hydrox/Alum Hydrox 30 Ml Oral.Susp) 30 ml PO Q6H PRN PRN Reason: Heartburn/Nausea Albuterol Sulfate (Albuterol Sulfate 90 Mcg 8 Gm Inhaler) 2 puff INHALE RQ6H PRN PRN Reason: wheeze Benztropine Mesylate (Benztropine Mesylate 1 Mg Tablet) 1 mg PO BID [facility] Last Admin: 09/04/23 08:41 Dose: 1 mg Divalproex Sodium (Divalproex Sodium Er 500 Mg Tab.Er.24h) 1,000 mg PO BEDTIME [facility] Last Admin: 09/03/23 20:41 Dose: 1,000 mg Haloperidol (Haloperidol 5 Mg Tablet) 10 mg PO BID [facility] Last Admin: 09/04/23 08:41 Dose: 10 mg Levothyroxine Sodium (Levothyroxine Sodium 50 Mcg Tablet) 50 mcg PO DAILY@0600 [facility] Last Admin: 09/04/23 08:41 Dose: 50 mcg Loratadine (Loratadine 10 Mg Tablet) 10 mg PO DAILY [facility] Last Admin: 09/04/23 08:41 Dose: 10 mg Lorazepam (Lorazepam 1 Mg Tablet) 1 mg PO BID PRN PRN Reason: Anxiety Last Admin: 09/01/23 11:34 Dose: 1 mg Lorazepam (Lorazepam 1 Mg Tablet) 2 mg PO Q4H PRN PRN Reason: agitation Last Admin: 09/03/23 16:36 Dose: 2 mg Magnesium Hydroxide (Milk Of Magnesia 30 Ml Oral.Susp) 30 ml PO DAILY PRN PRN Reason: Constipation Magnesium Oxide (Magnesium Oxide 400 Mg Tablet) 400 mg PO DAILY [facility] Last Admin: 09/04/23 08:41 Dose: 400 mg Multi-Ingred Cream/Lotion/Oil/Oint (Mineral Oil/Petrolatum,White 106 Gm Tube) 1 appl TOPICAL BID [facility]; Protocol Last Admin: 09/04/23 05:14 Dose: Not Given Nicotine (Nicotine 21 Mg Patch.Td24) 21 mg TRANSDERMA DAILY PRN PRN Reason: smoking cessation Nicotine Polacrilex (Nicotine Polacrilex 2 Mg Gum) 4 mg BUCCAL Q2H PRN PRN Reason: Nicotine Cravings Nystatin (Nystatin Cream 15 Gm Tube) 1 appl TOPICAL BID [facility]; Protocol Last Admin: 09/04/23 05:14 Dose: Not Given Olanzapine (Olanzapine Odt 10 Mg Tab.Rapdis) 10 mg TRANSLINGU Q4H PRN PRN Reason: agitation Last Admin: 09/04/23 13:36 Dose: 10 mg Omeprazole (Omeprazole 40 Mg Capsule.Dr) 40 mg PO DAILY@0630 [facility] Last Admin: 09/04/23 06:29 Dose: 40 mg Trazodone HCl (Trazodone Hcl 50 Mg Tablet) 50 mg PO BEDTIME MRX1 PRN PRN Reason: Insomnia Last Admin: 08/29/23 22:52 Dose: 50 mg Vitamin E (Vitamin E (Dl,Tocopheryl Acet) 180 Mg (400 Unit) Capsule) 180 mg PO BID [facility] Last Admin: 09/04/23 08:41 Dose: 180 mg Allergies Allergies Allergy/AdvReac Type Severity Reaction Status Date / Time acetaminophen [From Vicodin] Allergy Intermediate Hives Verified 08/21/23 17:47 celecoxib [From Celebrex] Allergy Intermediate Hives Verified 08/21/23 17:47 hydrocodone [From Vicodin] Allergy Intermediate Hives Verified 08/21/23 17:47 ibuprofen Allergy Intermediate Stomach Verified 08/21/23 17:47 Upset oxycodone [From Percocet] Allergy Intermediate Hives Verified 08/21/23 17:47 shrimp Allergy Intermediate swelling Verified 08/21/23 17:47 mouth/tongue Sulfa (Sulfonamide Allergy Intermediate Hives Verified 08/21/23 17:47 Antibiotics) sulfamethoxazole Allergy Intermediate Hives Verified 08/21/23 17:47 [From Bactrim] trimethoprim [From Bactrim] Allergy Intermediate Hives Verified 08/21/23 17:47 penicillin G Allergy Unknown Unknown Verified 08/21/23 17:47 Grapefruit Flavor Allergy Unknown Unknown Uncoded 07/22/22 09:15 Assessment & Plan Assessment & Plan (1) Schizoaffective disorder: Status: Acute Code(s): F25.9 - Schizoaffective disorder, unspecified (2) Hypothyroidism: Status: Inactive Code(s): E03.9 - Hypothyroidism, unspecified Plan 09/03/23- Encourage treatment Section 7, court date 09/08/23. 09/04/23- Improved medication compliance with resulting decrease in distress Continue one to one Patient educated on: therapeutic strategies and other Informed Consent: does not understand Reason for continued inpatient stay Substantial Risk for: rapid decompensation Time Spent With Patient Time: Total time managing care of this patient today ____ minutes.
[2023-09-04 19:40] VITALS: BP 138/74; PULSE 94; RESP 18; TEMP 36; O2SAT 96
[2023-09-04] MEDS: Divalproex Sodium ER 500 MG TAB.ER.24H 1000 MG PO (20:16)
[2023-09-04] MEDS: Nystatin Cream 15 GM TUBE 1 APPL TOPICAL (20:18)
[2023-09-04] MEDS: traZODone HCL 50 MG TABLET PO (20:18)
[2023-09-04] MEDS: Mineral Oil/Petrolatum,White 106 GM Tube 1 APPL TOPICAL (20:18)
[2023-09-05] MEDS: Omeprazole 40 MG CAPSULE.DR PO (06:39)
[2023-09-05] MEDS: Levothyroxine Sodium 50 MCG TABLET PO (06:41)
[2023-09-05 08:00] VITALS: RESP 20
[2023-09-05] MEDS: HaloperidoL 5 MG TABLET 10 MG PO ×2 (08:29→19:54)
[2023-09-05] MEDS: OLANZapine ODT 10 MG TAB.RAPDIS TRANSLINGU (08:29)
[2023-09-05] MEDS: Vitamin E (Dl,Tocopheryl Acet) 180 MG (400 UNIT) CAPSULE PO ×2 (08:29→19:54)
[2023-09-05] MEDS: Benztropine Mesylate 1 MG TABLET PO ×2 (08:29→19:55)
[2023-09-05] MEDS: Loratadine 10 MG TABLET PO (08:29)
[2023-09-05] MEDS: Magnesium Oxide 400 MG TABLET PO (08:29)
[2023-09-05] MEDS: LORazepam 1 MG TABLET PO (11:18)
[2023-09-05] MEDS: Nystatin Cream 15 GM TUBE 1 APPL TOPICAL ×2 (12:50→19:58)
[2023-09-05] MEDS: Mineral Oil/Petrolatum,White 106 GM Tube 1 APPL TOPICAL ×2 (12:50→19:58)
--- NOTE | 2023-09-05 14:51 | HO.PSYCHPN ---
Subjective Subjective Date of Service: 09/05/23 Reason For Visit: SEC 12 Interim History: Improved medicine compliance. She remains easily irritable and paranoid. She is easily angered when discussing her treatment and says she doesn't want the unit psychiatrist to treat her. She wants her outpatient MANUFACTURING INDUSTRIAL ENGINEER to treat her and demands being discharged. She has pressured speech. She has poor insight saying she has to go back to work. She is disheveled. Denies SI. Adherent to medications. Review of Systems Review of Systems Yes all other systems are reviewed and are negative and Unobtainable due to mental status Mental Status Exam Mental Status Exam Patient Appearance: Fatigued, Disheveled, Inappropriate, Unkempt and Bizarre Patient Orientation: Person and Place Level of Consciousness: Awake, Disoriented, Restless, Alert and Combative Patient Behavior: Guarded, Talkative, Hyperactive, Suspicious, Aggressive, Restless, Belligerent, Wandering, Verbal Threats, Swearing, Anxious, Resistive to Care, Avoidant, Combative, Distractible, Confused, Uncooperative and Poor Eye Contact Mood Description: Suspicious, Hostile, Labile, Angry and Expansive Affect Description: Labile and Angry Patient Cognition Impaired: Yes Ability to Follow Directions: Poor Speech Pattern: Spontaneous Speech, Rambling, Cofabulation, Rapid, Inappropriate, Excessive, Loud, Pressured, Includes Profanity and Poor Articulation Memory Description: Remote Impaired and Immediate Impaired Thought Process: Racing Thought Content: positive for Perseveration Judgement: Poor Diagnostics Vital Signs (24Hr): Vital Signs - 24 hr 09/04/23 19:40 09/05/23 08:00 Temperature 96.8 F Pulse Rate 94 Respiratory Rate 18 20 Blood Pressure 138/74 Pulse Oximetry 96 Oxygen Delivery Method Room Air Labs 08/27/23 08:26 Medications Medications Current Medications Al Hydroxide/Mg Hydroxide (Magnesium Hydrox/Alum Hydrox 30 Ml Oral.Susp) 30 ml PO Q6H PRN PRN Reason: Heartburn/Nausea Albuterol Sulfate (Albuterol Sulfate 90 Mcg 8 Gm Inhaler) 2 puff INHALE RQ6H PRN PRN Reason: wheeze Benztropine Mesylate (Benztropine Mesylate 1 Mg Tablet) 1 mg PO BID [facility] Last Admin: 09/05/23 08:29 Dose: 1 mg Divalproex Sodium (Divalproex Sodium Er 500 Mg Tab.Er.24h) 1,000 mg PO BEDTIME [facility] Last Admin: 09/04/23 20:16 Dose: 1,000 mg Haloperidol (Haloperidol 5 Mg Tablet) 10 mg PO BID [facility] Last Admin: 09/05/23 08:29 Dose: 10 mg Levothyroxine Sodium (Levothyroxine Sodium 50 Mcg Tablet) 50 mcg PO DAILY@0600 [facility] Last Admin: 09/05/23 06:41 Dose: 50 mcg Loratadine (Loratadine 10 Mg Tablet) 10 mg PO DAILY [facility] Last Admin: 09/05/23 08:29 Dose: 10 mg Lorazepam (Lorazepam 1 Mg Tablet) 1 mg PO BID PRN PRN Reason: Anxiety Last Admin: 09/05/23 11:18 Dose: 1 mg Magnesium Hydroxide (Milk Of Magnesia 30 Ml Oral.Susp) 30 ml PO DAILY PRN PRN Reason: Constipation Magnesium Oxide (Magnesium Oxide 400 Mg Tablet) 400 mg PO DAILY [facility] Last Admin: 09/05/23 08:29 Dose: 400 mg Multi-Ingred Cream/Lotion/Oil/Oint (Mineral Oil/Petrolatum,White 106 Gm Tube) 1 appl TOPICAL BID [facility]; Protocol Last Admin: 09/05/23 12:50 Dose: 1 appl Nicotine (Nicotine 21 Mg Patch.Td24) 21 mg TRANSDERMA DAILY PRN PRN Reason: smoking cessation Nicotine Polacrilex (Nicotine Polacrilex 2 Mg Gum) 4 mg BUCCAL Q2H PRN PRN Reason: Nicotine Cravings Nystatin (Nystatin Cream 15 Gm Tube) 1 appl TOPICAL BID [facility]; Protocol Last Admin: 09/05/23 12:50 Dose: 1 appl Olanzapine (Olanzapine Odt 10 Mg Tab.Rapdis) 10 mg TRANSLINGU Q4H PRN PRN Reason: agitation Last Admin: 09/05/23 08:29 Dose: 10 mg Omeprazole (Omeprazole 40 Mg Capsule.Dr) 40 mg PO DAILY@0630 [facility] Last Admin: 09/05/23 06:39 Dose: 40 mg Trazodone HCl (Trazodone Hcl 50 Mg Tablet) 50 mg PO BEDTIME MRX1 PRN PRN Reason: Insomnia Last Admin: 09/04/23 20:18 Dose: 50 mg Vitamin E (Vitamin E (Dl,Tocopheryl Acet) 180 Mg (400 Unit) Capsule) 180 mg PO BID [facility] Last Admin: 09/05/23 08:29 Dose: 180 mg Allergies Allergies Allergy/AdvReac Type Severity Reaction Status Date / Time acetaminophen [From Vicodin] Allergy Intermediate Hives Verified 08/21/23 17:47 celecoxib [From Celebrex] Allergy Intermediate Hives Verified 08/21/23 17:47 hydrocodone [From Vicodin] Allergy Intermediate Hives Verified 08/21/23 17:47 ibuprofen Allergy Intermediate Stomach Verified 08/21/23 17:47 Upset oxycodone [From Percocet] Allergy Intermediate Hives Verified 08/21/23 17:47 shrimp Allergy Intermediate swelling Verified 08/21/23 17:47 mouth/tongue Sulfa (Sulfonamide Allergy Intermediate Hives Verified 08/21/23 17:47 Antibiotics) sulfamethoxazole Allergy Intermediate Hives Verified 08/21/23 17:47 [From Bactrim] trimethoprim [From Bactrim] Allergy Intermediate Hives Verified 08/21/23 17:47 penicillin G Allergy Unknown Unknown Verified 08/21/23 17:47 Grapefruit Flavor Allergy Unknown Unknown Uncoded 07/22/22 09:15 Assessment & Plan Assessment & Plan (1) Schizoaffective disorder: Status: Acute Code(s): F25.9 - Schizoaffective disorder, unspecified (2) Hypothyroidism: Status: Inactive Code(s): E03.9 - Hypothyroidism, unspecified Plan 09/03/23- Encourage treatment [place] [address], court date 09/08/23. 09/04/23- Improved medication compliance with resulting decrease in distress Continue one to one 09/05: Continue current management and treatment plan. Continue 1:1. Reason for continued inpatient stay Substantial Risk for: inability to function and rapid decompensation Time Spent With Patient Time: Total time managing care of this patient today ____ minutes.
[2023-09-05 16:41] VITALS: BP 147/65; PULSE 93; RESP 16; TEMP 36.7; O2SAT 95
--- NOTE | 2023-09-05 17:50 | P.PNPSI_ITS ---
Subjective Subjective Date of Service: 09/05/23 Reason For Visit: SEC 12 Interim History: Improved medicine compliance. She called to have MJ delivered to the unit and was accusing the unit staff of stealing it. She remains easily irritable and paranoid. She is easily angered when discussing her treatment and says she doesn't want the unit psychiatrist to treat her. She wants her outpatient WILDLIFE CONSERVATION OFFICER to treat her and demands being discharged. She has pressured speech. She has poor insight saying she has to go back to work. She is disheveled. Denies SI. Adherent to medications. Review of Systems Review of Systems Yes all other systems are reviewed and are negative and Unobtainable due to mental status Mental Status Exam Mental Status Exam Narrative: Could not examined today Patient Appearance: Fatigued, Disheveled, Inappropriate, Unkempt and Bizarre Patient Orientation: Person and Place Level of Consciousness: Awake, Disoriented, Restless, Alert and Combative Patient Behavior: Guarded, Talkative, Hyperactive, Suspicious, Aggressive, Restless, Belligerent, Wandering, Verbal Threats, Swearing, Anxious, Resistive to Care, Avoidant, Combative, Distractible, Confused, Uncooperative and Poor Eye Contact Mood Description: Suspicious, Hostile, Labile, Angry and Expansive Affect Description: Labile and Angry Patient Cognition Impaired: Yes Ability to Follow Directions: Poor Speech Pattern: Spontaneous Speech, Rambling, Cofabulation, Rapid, Inappropriate, Excessive, Loud, Pressured, Includes Profanity and Poor Articulation Memory Description: Remote Impaired and Immediate Impaired Diagnostics Vital Signs (24Hr): Vital Signs - 24 hr 09/04/23 19:40 09/05/23 08:00 09/05/23 16:41 Temperature 96.8 F 98.0 F Pulse Rate 94 93 Respiratory Rate 18 20 16 Blood Pressure 138/74 147/65 H Pulse Oximetry 96 95 Oxygen Delivery Method Room Air Room Air Labs 08/27/23 08:26 Medications Medications Current Medications Al Hydroxide/Mg Hydroxide (Magnesium Hydrox/Alum Hydrox 30 Ml Oral.Susp) 30 ml PO Q6H PRN PRN Reason: Heartburn/Nausea Albuterol Sulfate (Albuterol Sulfate 90 Mcg 8 Gm Inhaler) 2 puff INHALE RQ6H PRN PRN Reason: wheeze Benztropine Mesylate (Benztropine Mesylate 1 Mg Tablet) 1 mg PO BID [facility] Last Admin: 09/05/23 08:29 Dose: 1 mg Divalproex Sodium (Divalproex Sodium Er 500 Mg Tab.Er.24h) 1,000 mg PO BEDTIME [facility] Last Admin: 09/04/23 20:16 Dose: 1,000 mg Haloperidol (Haloperidol 5 Mg Tablet) 10 mg PO BID [facility] Last Admin: 09/05/23 08:29 Dose: 10 mg Levothyroxine Sodium (Levothyroxine Sodium 50 Mcg Tablet) 50 mcg PO DAILY@0600 [facility] Last Admin: 09/05/23 06:41 Dose: 50 mcg Loratadine (Loratadine 10 Mg Tablet) 10 mg PO DAILY [facility] Last Admin: 09/05/23 08:29 Dose: 10 mg Lorazepam (Lorazepam 1 Mg Tablet) 1 mg PO BID PRN PRN Reason: Anxiety Last Admin: 09/05/23 11:18 Dose: 1 mg Magnesium Hydroxide (Milk Of Magnesia 30 Ml Oral.Susp) 30 ml PO DAILY PRN PRN Reason: Constipation Magnesium Oxide (Magnesium Oxide 400 Mg Tablet) 400 mg PO DAILY [facility] Last Admin: 09/05/23 08:29 Dose: 400 mg Multi-Ingred Cream/Lotion/Oil/Oint (Mineral Oil/Petrolatum,White 106 Gm Tube) 1 appl TOPICAL BID [facility]; Protocol Last Admin: 09/05/23 12:50 Dose: 1 appl Nicotine (Nicotine 21 Mg Patch.Td24) 21 mg TRANSDERMA DAILY PRN PRN Reason: smoking cessation Nicotine Polacrilex (Nicotine Polacrilex 2 Mg Gum) 4 mg BUCCAL Q2H PRN PRN Reason: Nicotine Cravings Nystatin (Nystatin Cream 15 Gm Tube) 1 appl TOPICAL BID [facility]; Protocol Last Admin: 09/05/23 12:50 Dose: 1 appl Olanzapine (Olanzapine Odt 10 Mg Tab.Rapdis) 10 mg TRANSLINGU Q4H PRN PRN Reason: agitation Last Admin: 09/05/23 08:29 Dose: 10 mg Omeprazole (Omeprazole 40 Mg Capsule.Dr) 40 mg PO DAILY@0630 [facility] Last Admin: 09/05/23 06:39 Dose: 40 mg Trazodone HCl (Trazodone Hcl 50 Mg Tablet) 50 mg PO BEDTIME MRX1 PRN PRN Reason: Insomnia Last Admin: 09/04/23 20:18 Dose: 50 mg Vitamin E (Vitamin E (Dl,Tocopheryl Acet) 180 Mg (400 Unit) Capsule) 180 mg PO BID [facility] Last Admin: 09/05/23 08:29 Dose: 180 mg Allergies Allergies Allergy/AdvReac Type Severity Reaction Status Date / Time acetaminophen [From Vicodin] Allergy Intermediate Hives Verified 08/21/23 17:47 celecoxib [From Celebrex] Allergy Intermediate Hives Verified 08/21/23 17:47 hydrocodone [From Vicodin] Allergy Intermediate Hives Verified 08/21/23 17:47 ibuprofen Allergy Intermediate Stomach Verified 08/21/23 17:47 Upset oxycodone [From Percocet] Allergy Intermediate Hives Verified 08/21/23 17:47 shrimp Allergy Intermediate swelling Verified 08/21/23 17:47 mouth/tongue Sulfa (Sulfonamide Allergy Intermediate Hives Verified 08/21/23 17:47 Antibiotics) sulfamethoxazole Allergy Intermediate Hives Verified 08/21/23 17:47 [From Bactrim] trimethoprim [From Bactrim] Allergy Intermediate Hives Verified 08/21/23 17:47 penicillin G Allergy Unknown Unknown Verified 08/21/23 17:47 Grapefruit Flavor Allergy Unknown Unknown Uncoded 07/22/22 09:15 Assessment & Plan Assessment & Plan (1) Schizoaffective disorder: Status: Acute Code(s): F25.9 - Schizoaffective disorder, unspecified (2) Hypothyroidism: Status: Inactive Code(s): E03.9 - Hypothyroidism, unspecified Plan 09/03/23- Encourage treatment [place] [address], court date 09/08/23. 09/04/23- Improved medication compliance with resulting decrease in distress Continue one to one 09/05: Continue current management and treatment plan. Continue 1:1. Reason for continued inpatient stay Substantial Risk for: inability to function and rapid decompensation Time Spent With Patient Time: Total time managing care of this patient today ____ minutes.
--- NOTE | 2023-09-05 17:57 | P.PNPSI_ITS ---
Subjective Subjective Reason For Visit: SEC 12 Diagnostics Vital Signs (24Hr): Vital Signs - 24 hr 09/04/23 19:40 09/05/23 08:00 09/05/23 16:41 Temperature 96.8 F 98.0 F Pulse Rate 94 93 Respiratory Rate 18 20 16 Blood Pressure 138/74 147/65 H Pulse Oximetry 96 95 Oxygen Delivery Method Room Air Room Air Labs 08/27/23 08:26 Medications Medications Current Medications Al Hydroxide/Mg Hydroxide (Magnesium Hydrox/Alum Hydrox 30 Ml Oral.Susp) 30 ml PO Q6H PRN PRN Reason: Heartburn/Nausea Albuterol Sulfate (Albuterol Sulfate 90 Mcg 8 Gm Inhaler) 2 puff INHALE RQ6H PRN PRN Reason: wheeze Benztropine Mesylate (Benztropine Mesylate 1 Mg Tablet) 1 mg PO BID [facility] Last Admin: 09/05/23 08:29 Dose: 1 mg Divalproex Sodium (Divalproex Sodium Er 500 Mg Tab.Er.24h) 1,000 mg PO BEDTIME [facility] Last Admin: 09/04/23 20:16 Dose: 1,000 mg Haloperidol (Haloperidol 5 Mg Tablet) 10 mg PO BID [facility] Last Admin: 09/05/23 08:29 Dose: 10 mg Levothyroxine Sodium (Levothyroxine Sodium 50 Mcg Tablet) 50 mcg PO DAILY@0600 [facility] Last Admin: 09/05/23 06:41 Dose: 50 mcg Loratadine (Loratadine 10 Mg Tablet) 10 mg PO DAILY [facility] Last Admin: 09/05/23 08:29 Dose: 10 mg Lorazepam (Lorazepam 1 Mg Tablet) 1 mg PO BID PRN PRN Reason: Anxiety Last Admin: 09/05/23 11:18 Dose: 1 mg Magnesium Hydroxide (Milk Of Magnesia 30 Ml Oral.Susp) 30 ml PO DAILY PRN PRN Reason: Constipation Magnesium Oxide (Magnesium Oxide 400 Mg Tablet) 400 mg PO DAILY [facility] Last Admin: 09/05/23 08:29 Dose: 400 mg Multi-Ingred Cream/Lotion/Oil/Oint (Mineral Oil/Petrolatum,White 106 Gm Tube) 1 appl TOPICAL BID [facility]; Protocol Last Admin: 09/05/23 12:50 Dose: 1 appl Nicotine (Nicotine 21 Mg Patch.Td24) 21 mg TRANSDERMA DAILY PRN PRN Reason: smoking cessation Nicotine Polacrilex (Nicotine Polacrilex 2 Mg Gum) 4 mg BUCCAL Q2H PRN PRN Reason: Nicotine Cravings Nystatin (Nystatin Cream 15 Gm Tube) 1 appl TOPICAL BID [facility]; Protocol Last Admin: 09/05/23 12:50 Dose: 1 appl Olanzapine (Olanzapine Odt 10 Mg Tab.Rapdis) 10 mg TRANSLINGU Q4H PRN PRN Reason: agitation Last Admin: 09/05/23 08:29 Dose: 10 mg Omeprazole (Omeprazole 40 Mg Capsule.Dr) 40 mg PO DAILY@0630 [facility] Last Admin: 09/05/23 06:39 Dose: 40 mg Trazodone HCl (Trazodone Hcl 50 Mg Tablet) 50 mg PO BEDTIME MRX1 PRN PRN Reason: Insomnia Last Admin: 09/04/23 20:18 Dose: 50 mg Vitamin E (Vitamin E (Dl,Tocopheryl Acet) 180 Mg (400 Unit) Capsule) 180 mg PO BID [facility] Last Admin: 09/05/23 08:29 Dose: 180 mg Allergies Allergies Allergy/AdvReac Type Severity Reaction Status Date / Time acetaminophen [From Vicodin] Allergy Intermediate Hives Verified 08/21/23 17:47 celecoxib [From Celebrex] Allergy Intermediate Hives Verified 08/21/23 17:47 hydrocodone [From Vicodin] Allergy Intermediate Hives Verified 08/21/23 17:47 ibuprofen Allergy Intermediate Stomach Verified 08/21/23 17:47 Upset oxycodone [From Percocet] Allergy Intermediate Hives Verified 08/21/23 17:47 shrimp Allergy Intermediate swelling Verified 08/21/23 17:47 mouth/tongue Sulfa (Sulfonamide Allergy Intermediate Hives Verified 08/21/23 17:47 Antibiotics) sulfamethoxazole Allergy Intermediate Hives Verified 08/21/23 17:47 [From Bactrim] trimethoprim [From Bactrim] Allergy Intermediate Hives Verified 08/21/23 17:47 penicillin G Allergy Unknown Unknown Verified 08/21/23 17:47 Grapefruit Flavor Allergy Unknown Unknown Uncoded 07/22/22 09:15 Assessment & Plan Assessment & Plan (1) Schizoaffective disorder: Status: Acute Code(s): F25.9 - Schizoaffective disorder, unspecified (2) Hypothyroidism: Status: Inactive Code(s): E03.9 - Hypothyroidism, unspecified Plan 09/03/23- Encourage treatment [place] [address], court date 09/08/23. 09/04/23- Improved medication compliance with resulting decrease in distress Continue one to one 09/05: Continue current management and treatment plan. Continue 1:1. Time Spent With Patient Time: Total time managing care of this patient today ____ minutes.
[2023-09-05] MEDS: Divalproex Sodium ER 500 MG TAB.ER.24H 1000 MG PO (19:55)
[2023-09-06] MEDS: Levothyroxine Sodium 50 MCG TABLET PO (06:41)
[2023-09-06] MEDS: Omeprazole 40 MG CAPSULE.DR PO (06:41)
[2023-09-06] MEDS: Vitamin E (Dl,Tocopheryl Acet) 180 MG (400 UNIT) CAPSULE PO ×2 (08:17→19:54)
[2023-09-06] MEDS: Magnesium Oxide 400 MG TABLET PO (08:17)
[2023-09-06] MEDS: HaloperidoL 5 MG TABLET 10 MG PO ×2 (08:18→19:55)
[2023-09-06] MEDS: Loratadine 10 MG TABLET PO (08:18)
[2023-09-06] MEDS: Benztropine Mesylate 1 MG TABLET PO ×2 (08:18→19:55)
[2023-09-06] MEDS: LORazepam 1 MG TABLET PO (08:18)
[2023-09-06 08:37] VITALS: BP 125/67; PULSE 97; RESP 18; TEMP 36.2; O2SAT 95
--- NOTE | 2023-09-06 14:47 | HO.PSYCHPN ---
Subjective Subjective Date of Service: 09/06/23 Reason For Visit: SEC 12 Interim History: Improved medicine compliance. She is less irritable on approach today. She is pleasant. Continues pressured and perseverates on talking about how she is able to get her medications and even though she is legally blind because of her cataracts her medications are bubble packed and they come divided into morning medications on the left and night medications on the right . In her mind it indicates she is able to return home. Denies SI. Adherent to medications. Review of Systems Review of Systems Yes all other systems are reviewed and are negative and Unobtainable due to mental status Mental Status Exam Mental Status Exam Narrative: Could not examined today Patient Appearance: Fatigued, Disheveled, Inappropriate, Unkempt and Bizarre Patient Orientation: Person and Place Level of Consciousness: Awake, Disoriented, Restless, Alert and Combative Patient Behavior: Guarded, Talkative, Hyperactive, Suspicious, Aggressive, Restless, Belligerent, Wandering, Verbal Threats, Swearing, Anxious, Resistive to Care, Avoidant, Combative, Distractible, Confused, Uncooperative and Poor Eye Contact Mood Description: Suspicious, Hostile, Labile, Angry and Expansive Affect Description: Labile and Angry Patient Cognition Impaired: Yes Ability to Follow Directions: Poor Speech Pattern: Spontaneous Speech, Rambling, Cofabulation, Rapid, Inappropriate, Excessive, Loud, Pressured, Includes Profanity and Poor Articulation Memory Description: Remote Impaired and Immediate Impaired Diagnostics Vital Signs (24Hr): Vital Signs - 24 hr 09/05/23 16:41 09/06/23 08:37 Temperature 98.0 F 97.2 F Pulse Rate 93 97 Respiratory Rate 16 18 Blood Pressure 147/65 H 125/67 Pulse Oximetry 95 95 Oxygen Delivery Method Room Air Room Air Labs 08/27/23 08:26 Medications Medications Current Medications Al Hydroxide/Mg Hydroxide (Magnesium Hydrox/Alum Hydrox 30 Ml Oral.Susp) 30 ml PO Q6H PRN PRN Reason: Heartburn/Nausea Albuterol Sulfate (Albuterol Sulfate 90 Mcg 8 Gm Inhaler) 2 puff INHALE RQ6H PRN PRN Reason: wheeze Benztropine Mesylate (Benztropine Mesylate 1 Mg Tablet) 1 mg PO BID [facility] Last Admin: 09/06/23 08:18 Dose: 1 mg Divalproex Sodium (Divalproex Sodium Er 500 Mg Tab.Er.24h) 1,000 mg PO BEDTIME [facility] Last Admin: 09/05/23 19:55 Dose: 1,000 mg Haloperidol (Haloperidol 5 Mg Tablet) 10 mg PO BID [facility] [place] Last Admin: 09/06/23 08:18 Dose: 10 mg Levothyroxine Sodium (Levothyroxine Sodium 50 Mcg Tablet) 50 mcg PO DAILY@0600 [facility] [place] Last Admin: 09/06/23 06:41 Dose: 50 mcg Loratadine (Loratadine 10 Mg Tablet) 10 mg PO DAILY [facility] [place] Last Admin: 09/06/23 08:18 Dose: 10 mg Lorazepam (Lorazepam 1 Mg Tablet) 1 mg PO BID PRN PRN Reason: Anxiety Last Admin: 09/06/23 08:18 Dose: 1 mg Magnesium Hydroxide (Milk Of Magnesia 30 Ml Oral.Susp) 30 ml PO DAILY PRN PRN Reason: Constipation Magnesium Oxide (Magnesium Oxide 400 Mg Tablet) 400 mg PO DAILY [facility] [place] Last Admin: 09/06/23 08:17 Dose: 400 mg Multi-Ingred Cream/Lotion/Oil/Oint (Mineral Oil/Petrolatum,White 106 Gm Tube) 1 appl TOPICAL BID [facility] [place]; Protocol Last Admin: 09/06/23 14:02 Dose: Not Given Nicotine (Nicotine 21 Mg Patch.Td24) 21 mg TRANSDERMA DAILY PRN PRN Reason: smoking cessation Nicotine Polacrilex (Nicotine Polacrilex 2 Mg Gum) 4 mg BUCCAL Q2H PRN PRN Reason: Nicotine Cravings Nystatin (Nystatin Cream 15 Gm Tube) 1 appl TOPICAL BID [facility] [place]; Protocol Last Admin: 09/06/23 14:02 Dose: Not Given Olanzapine (Olanzapine Odt 10 Mg Tab.Rapdis) 10 mg TRANSLINGU Q4H PRN PRN Reason: agitation Last Admin: 09/05/23 08:29 Dose: 10 mg Omeprazole (Omeprazole 40 Mg Capsule.Dr) 40 mg PO DAILY@0630 [facility] Last Admin: 09/06/23 06:41 Dose: 40 mg Trazodone HCl (Trazodone Hcl 50 Mg Tablet) 50 mg PO BEDTIME MRX1 PRN PRN Reason: Insomnia Last Admin: 09/04/23 20:18 Dose: 50 mg Vitamin E (Vitamin E (Dl,Tocopheryl Acet) 180 Mg (400 Unit) Capsule) 180 mg PO BID [facility] [place] Last Admin: 09/06/23 08:17 Dose: 180 mg Allergies Allergies Allergy/AdvReac Type Severity Reaction Status Date / Time acetaminophen [From Vicodin] Allergy Intermediate Hives Verified 08/21/23 17:47 celecoxib [From Celebrex] Allergy Intermediate Hives Verified 08/21/23 17:47 hydrocodone [From Vicodin] Allergy Intermediate Hives Verified 08/21/23 17:47 ibuprofen Allergy Intermediate Stomach Verified 08/21/23 17:47 Upset oxycodone [From Percocet] Allergy Intermediate Hives Verified 08/21/23 17:47 shrimp Allergy Intermediate swelling Verified 08/21/23 17:47 mouth/tongue Sulfa (Sulfonamide Allergy Intermediate Hives Verified 08/21/23 17:47 Antibiotics) sulfamethoxazole Allergy Intermediate Hives Verified 08/21/23 17:47 [From Bactrim] trimethoprim [From Bactrim] Allergy Intermediate Hives Verified 08/21/23 17:47 penicillin G Allergy Unknown Unknown Verified 08/21/23 17:47 Grapefruit Flavor Allergy Unknown Unknown Uncoded 07/22/22 09:15 Assessment & Plan Assessment & Plan (1) Schizoaffective disorder: Status: Acute Code(s): F25.9 - Schizoaffective disorder, unspecified (2) Hypothyroidism: Status: Inactive Code(s): E03.9 - Hypothyroidism, unspecified Plan Assessment & Plan (1) Schizoaffective disorder: Status: Acute Code(s): F25.9 - Schizoaffective disorder, unspecified (2) Hypothyroidism: Status: Inactive Code(s): E03.9 - Hypothyroidism, unspecified Plan 09/03/23- Encourage treatment [place] [address], court date 09/08/23. 09/04/23- Improved medication compliance with resulting decrease in distress Continue one to one 09/05: Continue current management and treatment plan. Continue 1:1. 09/06: Continue current management and treatment plan. Reason for continued inpatient stay Substantial Risk for: inability to function and rapid decompensation Time Spent With Patient Time: Total time managing care of this patient today ____ minutes.
[2023-09-06 17:17] VITALS: BP 140/75; PULSE 95; RESP 18; TEMP 37.1; O2SAT 96
[2023-09-06] MEDS: Divalproex Sodium ER 500 MG TAB.ER.24H 1000 MG PO (19:55)
[2023-09-06] MEDS: Nystatin Cream 15 GM TUBE 1 APPL TOPICAL (20:01)
[2023-09-06] MEDS: Mineral Oil/Petrolatum,White 106 GM Tube 1 APPL TOPICAL (20:03)
[2023-09-07] MEDS: Levothyroxine Sodium 50 MCG TABLET PO (07:09)
[2023-09-07] MEDS: Omeprazole 40 MG CAPSULE.DR PO (07:09)
[2023-09-07 08:11] VITALS: BP 118/62; PULSE 95; RESP 16; TEMP 37; O2SAT 96
[2023-09-07] MEDS: Magnesium Oxide 400 MG TABLET PO (08:58)
[2023-09-07] MEDS: HaloperidoL 5 MG TABLET 10 MG PO ×2 (08:59→20:39)
[2023-09-07] MEDS: Vitamin E (Dl,Tocopheryl Acet) 180 MG (400 UNIT) CAPSULE PO ×2 (08:59→20:39)
[2023-09-07] MEDS: Loratadine 10 MG TABLET PO (08:59)
[2023-09-07] MEDS: Benztropine Mesylate 1 MG TABLET PO ×2 (08:59→20:39)
[2023-09-07 11:04] LABS: TSH reflex Free T4 1.42 uIU/mL (0.32-4.0)
--- NOTE | 2023-09-07 13:14 | PC.NURSE ---
bilateral area under breast is reddened w/ raised areas noted. No open sore or drainage noted. Provider made aware via tiger text.
[2023-09-07] MEDS: Nystatin Cream 15 GM TUBE 1 APPL TOPICAL (14:58)
--- NOTE | 2023-09-07 14:58 | PC.NURSE ---
pt reports cough. Temp 99.8. Provider CAW notified in person and will order covid/flu/rsv
[2023-09-07 17:32] VITALS: BP 138/80; PULSE 95; RESP 18; TEMP 37.3; O2SAT 95
[2023-09-07 17:52] LABS: Influenza A PCR POSITIVE (Negative); Influenza B PCR NEGATIVE (Negative); Resp Syncy Virus RNA Qual PCR NEGATIVE (Negative); SARS COV2 PCR INHOUSE NEGATIVE (Negative)
[2023-09-07] MEDS: Nystatin Powder 15 GM BOTTLE 1 APPL TOPICAL (20:39)
[2023-09-07] MEDS: Divalproex Sodium ER 500 MG TAB.ER.24H 1000 MG PO (20:39)
[2023-09-07] MEDS: Mineral Oil/Petrolatum,White 106 GM Tube 1 APPL TOPICAL (20:43)
--- NOTE | 2023-09-07 21:54 | P.PNPSI_ITS ---
Subjective Subjective Date of Service: 09/07/23 Reason For Visit: SEC 12 Subjective Notes: Section 7 Healthcare Proxy: No Guardianship: No Medical Problems Affecting Mental Status: No Interim History: Reviewed TSH results with Anamaria. She is calmer today. Asks to return home. 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 Difficult for pt to hear attempted explanation of Section 7/8 process. Grandiose, but with decreased agitation. Medication compliant. Valproate Level 09/08. Medication Compliance: Yes Side effects from medications: No Attending Groups: No Review of Systems Acute medical concerns: No Medical Review of Systems: unchanged Review of Systems Review of Systems Yes all other systems are reviewed and are negative Mental Status Exam Mental Status Exam Patient Appearance: Fatigued, Disheveled, Inappropriate, Unkempt and Bizarre Patient Orientation: Person and Place Level of Consciousness: Awake and Alert Patient Behavior: Talkative, Suspicious, Belligerent, Anxious, Resistive to Care, Avoidant, Distractible, Confused and Poor Eye Contact Mood Description: Suspicious, Labile and Expansive Affect Description: Labile Patient Cognition Impaired: Yes Ability to Follow Directions: Fair Speech Pattern: Spontaneous Speech, Rambling, Cofabulation, Rapid, Inappropriate, Excessive, Loud and Poor Articulation Memory Description: Remote Impaired and Immediate Impaired Hallucinations: None Delusions: Paranoid Ideation Perceptual Disturbances: Derealization Thought Content: positive for [place] Depressive Symptoms: Increased Anxiety Judgement: Poor Diagnostics Vital Signs (24Hr): Vital Signs - 24 hr 09/07/23 08:11 09/07/23 17:32 Temperature 98.6 F 99.1 F Pulse Rate 95 95 Respiratory Rate 16 18 Blood Pressure 118/62 138/80 Pulse Oximetry 96 95 Oxygen Delivery Method Room Air Labs 08/27/23 08:26 Labs: Laboratory Results - last 48 hr 09/07/23 09/07/23 10:15 16:45 TSH 1.42 Influenza Type A (PCR) POSITIVE A Influenza Type B (PCR) NEGATIVE RSV RNA Qual (PCR) NEGATIVE SARS-CoV-2 RNA (RT-PCR) NEGATIVE Medications Medications Current Medications Al Hydroxide/Mg Hydroxide (Magnesium Hydrox/Alum Hydrox 30 Ml Oral.Susp) 30 ml PO Q6H PRN PRN Reason: Heartburn/Nausea Albuterol Sulfate (Albuterol Sulfate 90 Mcg 8 Gm Inhaler) 2 puff INHALE RQ6H PRN PRN Reason: wheeze Benztropine Mesylate (Benztropine Mesylate 1 Mg Tablet) 1 mg PO BID [facility] Last Admin: 09/07/23 20:39 Dose: 1 mg Divalproex Sodium (Divalproex Sodium Er 500 Mg Tab.Er.24h) 1,000 mg PO BEDTIME [facility] Last Admin: 09/07/23 20:39 Dose: 1,000 mg Haloperidol (Haloperidol 5 Mg Tablet) 10 mg PO BID [facility] Last Admin: 09/07/23 20:39 Dose: 10 mg Levothyroxine Sodium (Levothyroxine Sodium 50 Mcg Tablet) 50 mcg PO DAILY@0600 [facility] Last Admin: 09/07/23 07:09 Dose: 50 mcg Loratadine (Loratadine 10 Mg Tablet) 10 mg PO DAILY [facility] Last Admin: 09/07/23 08:59 Dose: 10 mg Lorazepam (Lorazepam 1 Mg Tablet) 1 mg PO BID PRN PRN Reason: Anxiety Last Admin: 09/06/23 08:18 Dose: 1 mg Magnesium Hydroxide (Milk Of Magnesia 30 Ml Oral.Susp) 30 ml PO DAILY PRN PRN Reason: Constipation Magnesium Oxide (Magnesium Oxide 400 Mg Tablet) 400 mg PO DAILY [facility] Last Admin: 09/07/23 08:58 Dose: 400 mg Multi-Ingred Cream/Lotion/Oil/Oint (Mineral Oil/Petrolatum,White 106 Gm Tube) 1 appl TOPICAL BID [facility]; Protocol Last Admin: 09/07/23 20:43 Dose: 1 appl Nicotine (Nicotine 21 Mg Patch.Td24) 21 mg TRANSDERMA DAILY PRN PRN Reason: smoking cessation Nicotine Polacrilex (Nicotine Polacrilex 2 Mg Gum) 4 mg BUCCAL Q2H PRN PRN Reason: Nicotine Cravings Nystatin (Nystatin Powder 15 Gm Bottle) 1 appl TOPICAL BID [facility]; Protocol Last Admin: 09/07/23 20:39 Dose: 1 appl Olanzapine (Olanzapine Odt 10 Mg Tab.Rapdis) 10 mg TRANSLINGU Q4H PRN PRN Reason: agitation Last Admin: 09/05/23 08:29 Dose: 10 mg Omeprazole (Omeprazole 40 Mg Capsule.Dr) 40 mg PO DAILY@0630 [facility] Last Admin: 09/07/23 07:09 Dose: 40 mg Oseltamivir Phosphate (Oseltamivir Phosphate 30 Mg Capsule) 30 mg PO Q24H [facility] Stop: 09/11/23 22:01 Trazodone HCl (Trazodone Hcl 50 Mg Tablet) 50 mg PO BEDTIME MRX1 PRN PRN Reason: Insomnia Last Admin: 09/04/23 20:18 Dose: 50 mg Vitamin E (Vitamin E (Dl,Tocopheryl Acet) 180 Mg (400 Unit) Capsule) 180 mg PO BID [facility] Last Admin: 09/07/23 20:39 Dose: 180 mg Allergies Allergies Allergy/AdvReac Type Severity Reaction Status Date / Time acetaminophen [From Vicodin] Allergy Intermediate Hives Verified 08/21/23 17:47 celecoxib [From Celebrex] Allergy Intermediate Hives Verified 08/21/23 17:47 hydrocodone [From Vicodin] Allergy Intermediate Hives Verified 08/21/23 17:47 ibuprofen Allergy Intermediate Stomach Verified 08/21/23 17:47 Upset oxycodone [From Percocet] Allergy Intermediate Hives Verified 08/21/23 17:47 shrimp Allergy Intermediate swelling Verified 08/21/23 17:47 mouth/tongue Sulfa (Sulfonamide Allergy Intermediate Hives Verified 08/21/23 17:47 Antibiotics) sulfamethoxazole Allergy Intermediate Hives Verified 08/21/23 17:47 [From Bactrim] trimethoprim [From Bactrim] Allergy Intermediate Hives Verified 08/21/23 17:47 penicillin G Allergy Unknown Unknown Verified 08/21/23 17:47 Grapefruit Flavor Allergy Unknown Unknown Uncoded 07/22/22 09:15 Assessment & Plan Assessment & Plan (1) Schizoaffective disorder: Status: Acute Code(s): F25.9 - Schizoaffective disorder, unspecified (2) Hypothyroidism: Status: Inactive Code(s): E03.9 - Hypothyroidism, unspecified Plan Assessment & Plan (1) Schizoaffective disorder: Status: Acute Code(s): F25.9 - Schizoaffective disorder, unspecified (2) Hypothyroidism: Status: Inactive Code(s): E03.9 - Hypothyroidism, unspecified Plan 09/03/23- Encourage treatment Section [address], court date 09/08/23. 09/04/23- Improved medication compliance with resulting decrease in distress Continue one to one 09/05: Continue current management and treatment plan. Continue 1:1. 09/06: Continue current management and treatment plan. 09/07/23: Continue current tx. Valproate Level 09/08. Informed Consent: does not understand Reason for continued inpatient stay Substantial Risk for: rapid decompensation Time Spent With Patient Time: Total time managing care of this patient today ____ minutes.
[2023-09-07] MEDS: Oseltamivir Phosphate 30 MG CAPSULE PO (22:29)
[2023-09-08] MEDS: Omeprazole 40 MG CAPSULE.DR PO (06:00)
[2023-09-08] MEDS: Levothyroxine Sodium 50 MCG TABLET PO (06:00)
[2023-09-08 08:10] VITALS: BP 138/74; PULSE 89; RESP 16; TEMP 36.3; O2SAT 96
[2023-09-08] MEDS: HaloperidoL 5 MG TABLET 10 MG PO ×2 (08:27→20:22)
[2023-09-08] MEDS: Benztropine Mesylate 1 MG TABLET PO ×2 (08:27→20:23)
[2023-09-08] MEDS: Magnesium Oxide 400 MG TABLET PO (08:28)
[2023-09-08] MEDS: Loratadine 10 MG TABLET PO (08:28)
[2023-09-08] MEDS: Vitamin E (Dl,Tocopheryl Acet) 180 MG (400 UNIT) CAPSULE PO ×2 (08:28→20:22)
--- NOTE | 2023-09-08 09:57 | HO.PSYCHPN ---
Subjective Subjective Date of Service: 09/08/23 Reason For Visit: SEC 12 Subjective Notes: Section 7 Healthcare Proxy: No Guardianship: No Medical Problems Affecting Mental Status: No Interim History: Flu Type A positive. Tamiflu ordered daily, Creatinine clearance ordered. TSH WNL Valproate 76.3 Less agitation, calmer, seen apologizing to peers, team for caustic sx. Resting this afternoon. Team did not disrupt her sleep. Continues with difficulty in understanding Section 7 as she reports having no involvement in crime. When her health and well being are identified as rationale she reports that she has all of this in control, knows how to take medicine and that her regime is easy to manage. Asks for discharge. SOTERO scheduled by her city distribution clerk. Medication Compliance: Yes Side effects from medications: No Attending Groups: No Review of Systems Acute medical concerns: Yes Flu Type A Medical Review of Systems: unchanged Review of Systems Review of Systems Flu Type A Mental Status Exam Mental Status Exam Patient Appearance: Fatigued and Disheveled Patient Orientation: Person and Place Level of Consciousness: Sedated Patient Behavior: Cooperative and Fatigued Mood Description: Labile and Flat Affect Description: Labile Patient Cognition Impaired: Yes Ability to Follow Directions: Fair Speech Pattern: Spontaneous Speech Memory Description: Remote Impaired Hallucinations: None Delusions: Grandiose (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[employer], 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, 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, 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) and Present Thought Process: Illogical, Distracted and Confusion Thought Content: positive for Flight of Ideas, positive for Perseveration, positive for Tangential, positive for Disorganized, positive for Suicidal Ideation (denies) and positive for Homicidal Ideation (denies) Depressive Symptoms: Increased Irritability and Thoughts of /Suicide (denies) Abnormal Motor Activity Signs and Symptoms: Agitation (decreasing) Judgement: Poor Diagnostics Vital Signs (24Hr): Vital Signs - 24 hr 09/07/23 17:32 Temperature 99.1 F Pulse Rate 95 Respiratory Rate 18 Blood Pressure 138/80 Pulse Oximetry 95 Labs 08/27/23 08:26 Labs: Laboratory Results - last 48 hr 09/07/23 09/07/23 10:15 16:45 TSH 1.42 Influenza Type A (PCR) POSITIVE A Influenza Type B (PCR) NEGATIVE RSV RNA Qual (PCR) NEGATIVE SARS-CoV-2 RNA (RT-PCR) NEGATIVE Medications Medications Current Medications Al Hydroxide/Mg Hydroxide (Magnesium Hydrox/Alum Hydrox 30 Ml Oral.Susp) 30 ml PO Q6H PRN PRN Reason: Heartburn/Nausea Albuterol Sulfate (Albuterol Sulfate 90 Mcg 8 Gm Inhaler) 2 puff INHALE RQ6H PRN PRN Reason: wheeze Benztropine Mesylate (Benztropine Mesylate 1 Mg Tablet) 1 mg PO BID [facility] Last Admin: 09/08/23 08:27 Dose: 1 mg Divalproex Sodium (Divalproex Sodium Er 500 Mg Tab.Er.24h) 1,000 mg PO BEDTIME [facility] Last Admin: 09/07/23 20:39 Dose: 1,000 mg Haloperidol (Haloperidol 5 Mg Tablet) 10 mg PO BID [facility] Last Admin: 09/08/23 08:27 Dose: 10 mg Levothyroxine Sodium (Levothyroxine Sodium 50 Mcg Tablet) 50 mcg PO DAILY@0600 [facility] Last Admin: 09/08/23 06:00 Dose: 50 mcg Loratadine (Loratadine 10 Mg Tablet) 10 mg PO DAILY [facility] Last Admin: 09/08/23 08:28 Dose: 10 mg Lorazepam (Lorazepam 1 Mg Tablet) 1 mg PO BID PRN PRN Reason: Anxiety Last Admin: 09/06/23 08:18 Dose: 1 mg Magnesium Hydroxide (Milk Of Magnesia 30 Ml Oral.Susp) 30 ml PO DAILY PRN PRN Reason: Constipation Magnesium Oxide (Magnesium Oxide 400 Mg Tablet) 400 mg PO DAILY [facility] Last Admin: 09/08/23 08:28 Dose: 400 mg Multi-Ingred Cream/Lotion/Oil/Oint (Mineral Oil/Petrolatum,White 106 Gm Tube) 1 appl TOPICAL BID [facility]; Protocol Last Admin: 09/07/23 20:43 Dose: 1 appl Nicotine (Nicotine 21 Mg Patch.Td24) 21 mg TRANSDERMA DAILY PRN PRN Reason: smoking cessation Nicotine Polacrilex (Nicotine Polacrilex 2 Mg Gum) 4 mg BUCCAL Q2H PRN PRN Reason: Nicotine Cravings Nystatin (Nystatin Powder 15 Gm Bottle) 1 appl TOPICAL BID [facility]; Protocol Last Admin: 09/08/23 08:29 Dose: Not Given Olanzapine (Olanzapine Odt 10 Mg Tab.Rapdis) 10 mg TRANSLINGU Q4H PRN PRN Reason: agitation Last Admin: 09/05/23 08:29 Dose: 10 mg Omeprazole (Omeprazole 40 Mg Capsule.Dr) 40 mg PO DAILY@0630 [facility] Last Admin: 09/08/23 06:00 Dose: 40 mg Oseltamivir Phosphate (Oseltamivir Phosphate 30 Mg Capsule) 30 mg PO Q24H [facility] Stop: 09/11/23 22:01 Last Admin: 09/07/23 22:29 Dose: 30 mg Trazodone HCl (Trazodone Hcl 50 Mg Tablet) 50 mg PO BEDTIME MRX1 PRN PRN Reason: Insomnia Last Admin: 09/04/23 20:18 Dose: 50 mg Vitamin E (Vitamin E (Dl,Tocopheryl Acet) 180 Mg (400 Unit) Capsule) 180 mg PO BID [facility] Last Admin: 09/08/23 08:28 Dose: 180 mg Allergies Allergies Allergy/AdvReac Type Severity Reaction Status Date / Time acetaminophen [From Vicodin] Allergy Intermediate Hives Verified 08/21/23 17:47 celecoxib [From Celebrex] Allergy Intermediate Hives Verified 08/21/23 17:47 hydrocodone [From Vicodin] Allergy Intermediate Hives Verified 08/21/23 17:47 ibuprofen Allergy Intermediate Stomach Verified 08/21/23 17:47 Upset oxycodone [From Percocet] Allergy Intermediate Hives Verified 08/21/23 17:47 shrimp Allergy Intermediate swelling Verified 08/21/23 17:47 mouth/tongue Sulfa (Sulfonamide Allergy Intermediate Hives Verified 08/21/23 17:47 Antibiotics) sulfamethoxazole Allergy Intermediate Hives Verified 08/21/23 17:47 [From Bactrim] trimethoprim [From Bactrim] Allergy Intermediate Hives Verified 08/21/23 17:47 penicillin G Allergy Unknown Unknown Verified 08/21/23 17:47 Grapefruit Flavor Allergy Unknown Unknown Uncoded 07/22/22 09:15 Assessment & Plan Assessment & Plan (1) Schizoaffective disorder: Status: Acute Code(s): F25.9 - Schizoaffective disorder, unspecified (2) Hypothyroidism: Status: Inactive Code(s): E03.9 - Hypothyroidism, unspecified Plan Assessment & Plan (1) Schizoaffective disorder: Status: Acute Code(s): F25.9 - Schizoaffective disorder, unspecified (2) Hypothyroidism: Status: Inactive Code(s): E03.9 - Hypothyroidism, unspecified Plan 09/03/23- Encourage treatment [place], court date 09/08/23. 09/04/23- Improved medication compliance with resulting decrease in distress Continue one to one 09/05: Continue current management and treatment plan. Continue 1:1. 09/06: Continue current management and treatment plan. 09/08: Continue tx Informed Consent: does not understand Reason for continued inpatient stay Substantial Risk for: rapid decompensation and med/psych decompensation Time Spent With Patient Time: Total time managing care of this patient today ____ minutes.
[2023-09-08 10:31] LABS: Valproate 76.3 mcg/mL (50.0-100.0)
--- NOTE | 2023-09-08 12:36 | PC.NURSE ---
24 creatinine clearance to start 8am 09/09 and must stay cold (on ice) per lab. Creatinine blood draw to follow.
[2023-09-08 20:20] VITALS: BP 109/70; PULSE 82; TEMP 36
[2023-09-08] MEDS: Oseltamivir Phosphate 30 MG CAPSULE PO (20:23)
[2023-09-08] MEDS: Divalproex Sodium ER 500 MG TAB.ER.24H 1000 MG PO (20:23)
[2023-09-09] MEDS: Omeprazole 40 MG CAPSULE.DR PO (05:39)
[2023-09-09] MEDS: Levothyroxine Sodium 50 MCG TABLET PO (05:39)
[2023-09-09 08:14] VITALS: RESP 18
[2023-09-09] MEDS: HaloperidoL 5 MG TABLET 10 MG PO ×2 (08:52→20:35)
[2023-09-09] MEDS: Vitamin E (Dl,Tocopheryl Acet) 180 MG (400 UNIT) CAPSULE PO ×2 (08:52→20:36)
[2023-09-09] MEDS: Magnesium Oxide 400 MG TABLET PO (08:53)
[2023-09-09] MEDS: Benztropine Mesylate 1 MG TABLET PO ×2 (08:53→20:36)
[2023-09-09] MEDS: Loratadine 10 MG TABLET PO (08:53)
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
[2023-09-09] MEDS: Mineral Oil/Petrolatum,White 106 GM Tube 1 APPL TOPICAL (14:55)
[2023-09-09] MEDS: Divalproex Sodium ER 500 MG TAB.ER.24H 1000 MG PO (20:36)
[2023-09-09] MEDS: Oseltamivir Phosphate 30 MG CAPSULE PO (20:43)
[2023-09-10] MEDS: Omeprazole 40 MG CAPSULE.DR PO (06:38)
[2023-09-10] MEDS: Levothyroxine Sodium 50 MCG TABLET PO (06:38)
[2023-09-10 08:44] VITALS: BP 119/64; PULSE 78; RESP 16; TEMP 36.1; O2SAT 96
[2023-09-10] MEDS: Magnesium Oxide 400 MG TABLET PO (08:57)
[2023-09-10] MEDS: HaloperidoL 5 MG TABLET 10 MG PO ×2 (08:57→20:10)
[2023-09-10] MEDS: Benztropine Mesylate 1 MG TABLET PO ×2 (08:57→20:10)
[2023-09-10] MEDS: Loratadine 10 MG TABLET PO (08:57)
[2023-09-10] MEDS: Vitamin E (Dl,Tocopheryl Acet) 180 MG (400 UNIT) CAPSULE PO ×2 (08:57→20:10)
[2023-09-10 09:33] LABS: Creatinine, mg/dL 105.43
[2023-09-10] MEDS: Divalproex Sodium ER 500 MG TAB.ER.24H 1000 MG PO (20:08)
[2023-09-10] MEDS: Oseltamivir Phosphate 30 MG CAPSULE PO (20:21)
[2023-09-10] MEDS: Nystatin Cream 15 GM TUBE 1 APPL TOPICAL (21:00)
[2023-09-10] MEDS: Mineral Oil/Petrolatum,White 106 GM Tube 1 APPL TOPICAL (21:00)
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
[2023-09-11] MEDS: Levothyroxine Sodium 50 MCG TABLET PO (05:58)
[2023-09-11] MEDS: Omeprazole 40 MG CAPSULE.DR PO (05:59)
[2023-09-11 06:00] VITALS: RESP 18
[2023-09-11] MEDS: Benztropine Mesylate 1 MG TABLET PO ×2 (08:15→20:47)
[2023-09-11] MEDS: Vitamin E (Dl,Tocopheryl Acet) 180 MG (400 UNIT) CAPSULE PO ×2 (08:15→20:47)
[2023-09-11] MEDS: Magnesium Oxide 400 MG TABLET PO (08:15)
[2023-09-11] MEDS: Loratadine 10 MG TABLET PO (08:15)
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
[2023-09-11 08:32] LABS: Alanine Aminotransferase 36 U/L (0-31); Albumin Level 3.6 g/dL (3.5-5.0); Alkaline Phosphatase 79 U/L (39-117); Anion Gap 11 (12-20); Aspartate Amino Transferase 16 U/L (5-31); Bilirubin Total 0.4 mg/dL (0.0-1.0); Blood Urea Nitrogen 18 mg/dL (9-16); Calcium 8.9 mg/dL (8.4-10.2); Carbon Dioxide 25 mmol/L (22-29); Chloride 106 mmol/L (96-108); Estimated Glomerular Filt Rate > 60; Glucose Random 89 mg/dL (60-115); Potassium 4.2 mmol/L (3.3-5.1); Sodium 138 mmol/L (135-145); Total Protein 6.4 g/dL (6.5-8.0)
[2023-09-11] MEDS: LORazepam 1 MG TABLET PO (10:27)
[2023-09-11 11:44] LABS: Creatinine (CrCl) 0.72 mg/dL (0.5-1.4); Creatinine, 24Hr Urine 1.6 G/Day (1.0-2.0); Total Volume 24 Hour Urine 1525 mL
[2023-09-11] MEDS: HaloperidoL 5 MG TABLET 10 MG PO ×2 (12:49→20:47)
[2023-09-11 18:25] VITALS: BP 133/65; PULSE 91; RESP 16; TEMP 36.6; O2SAT 99
[2023-09-11] MEDS: Divalproex Sodium ER 500 MG TAB.ER.24H 1000 MG PO (20:47)
[2023-09-11] MEDS: Oseltamivir Phosphate 30 MG CAPSULE PO (20:48)
[2023-09-12] MEDS: Levothyroxine Sodium 50 MCG TABLET PO (05:28)
[2023-09-12] MEDS: Omeprazole 40 MG CAPSULE.DR PO (05:28)
[2023-09-12 10:32] VITALS: BP 132/72; PULSE 78; RESP 16; TEMP 36.1; O2SAT 98
[2023-09-12] MEDS: Vitamin E (Dl,Tocopheryl Acet) 180 MG (400 UNIT) CAPSULE PO ×2 (10:44→21:16)
[2023-09-12] MEDS: Benztropine Mesylate 1 MG TABLET PO ×2 (10:44→21:16)
[2023-09-12] MEDS: Loratadine 10 MG TABLET PO (10:44)
[2023-09-12] MEDS: Magnesium Oxide 400 MG TABLET PO (10:44)
[2023-09-12] MEDS: HaloperidoL 5 MG TABLET 10 MG PO ×2 (10:44→21:16)
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
[2023-09-12] MEDS: Divalproex Sodium ER 500 MG TAB.ER.24H 1000 MG PO (21:15)
[2023-09-12] MEDS: Mineral Oil/Petrolatum,White 106 GM Tube 1 APPL TOPICAL (21:19)
[2023-09-13] MEDS: Levothyroxine Sodium 50 MCG TABLET PO (06:32)
[2023-09-13] MEDS: Omeprazole 40 MG CAPSULE.DR PO (06:32)
[2023-09-13] MEDS: Loratadine 10 MG TABLET PO (09:53)
[2023-09-13] MEDS: HaloperidoL 5 MG TABLET 10 MG PO ×2 (09:53→20:19)
[2023-09-13] MEDS: Magnesium Oxide 400 MG TABLET PO (09:53)
[2023-09-13] MEDS: Benztropine Mesylate 1 MG TABLET PO ×2 (09:53→20:18)
[2023-09-13] MEDS: Vitamin E (Dl,Tocopheryl Acet) 180 MG (400 UNIT) CAPSULE PO ×2 (09:53→20:19)
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
[2023-09-13 18:00] VITALS: PULSE 78; O2SAT 97
[2023-09-13] MEDS: Divalproex Sodium ER 500 MG TAB.ER.24H 1000 MG PO (20:19)
[2023-09-13 20:20] VITALS: BP 127/67; PULSE 76; TEMP 36
[2023-09-13] MEDS: Mineral Oil/Petrolatum,White 106 GM Tube 1 APPL TOPICAL (21:37)
--- NOTE | 2023-09-14 | ECG_ITS ---
Test Reason : qtc check Blood Pressure : / mmHG Vent. Rate : 075 BPM Atrial Rate : 075 BPM P-R Int : 132 ms QRS Dur : 074 ms QT Int : 386 ms P-R-T Axes : 060 051 056 degrees QTc Int : 431 ms Sinus rhythm with Premature atrial complexes Otherwise normal ECG When compared with ECG of 23-AUG-2023 13:57, Premature atrial complexes are now Present T wave inversion no longer evident in Inferior leads T wave inversion no longer evident in Anterior leads Referred By: Morro Malcolm Electronically Signed By:Ventura Young
[2023-09-14] MEDS: LORazepam 1 MG TABLET PO (01:17)
[2023-09-14] MEDS: Levothyroxine Sodium 50 MCG TABLET PO (06:06)
[2023-09-14] MEDS: Omeprazole 40 MG CAPSULE.DR PO (06:06)
[2023-09-14] MEDS: Loratadine 10 MG TABLET PO (10:12)
[2023-09-14] MEDS: Benztropine Mesylate 1 MG TABLET PO ×2 (10:12→21:40)
[2023-09-14] MEDS: Magnesium Oxide 400 MG TABLET PO (10:12)
[2023-09-14] MEDS: Vitamin E (Dl,Tocopheryl Acet) 180 MG (400 UNIT) CAPSULE PO ×2 (10:12→21:40)
[2023-09-14] MEDS: HaloperidoL 5 MG TABLET 10 MG PO ×2 (10:12→21:40)
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
[2023-09-14] MEDS: Nystatin Cream 15 GM TUBE 1 APPL TOPICAL ×2 (16:04→21:49)
[2023-09-14] MEDS: Mineral Oil/Petrolatum,White 106 GM Tube 1 APPL TOPICAL ×2 (16:04→21:50)
[2023-09-14 20:00] VITALS: BP 140/70; PULSE 86; RESP 18; TEMP 36.2; O2SAT 96
[2023-09-14] MEDS: Divalproex Sodium ER 500 MG TAB.ER.24H 1000 MG PO (21:40)
--- NOTE | 2023-09-15 06:48 | PC.NURSE ---
Anamaria was sleeping at 0600, did not wake for synthroid as stated in EMAR.
[2023-09-15] MEDS: Omeprazole 40 MG CAPSULE.DR PO (09:50)
[2023-09-15] MEDS: Magnesium Oxide 400 MG TABLET PO (09:50)
[2023-09-15] MEDS: Levothyroxine Sodium 50 MCG TABLET PO (09:50)
[2023-09-15] MEDS: Benztropine Mesylate 1 MG TABLET PO ×2 (09:50→21:29)
[2023-09-15] MEDS: Loratadine 10 MG TABLET PO (09:50)
[2023-09-15] MEDS: Vitamin E (Dl,Tocopheryl Acet) 180 MG (400 UNIT) CAPSULE PO ×2 (09:50→21:28)
[2023-09-15] MEDS: Nystatin Cream 15 GM TUBE 1 APPL TOPICAL ×2 (09:55→21:31)
[2023-09-15 10:14] VITALS: RESP 18
[2023-09-15] MEDS: HaloperidoL 5 MG TABLET 10 MG PO ×2 (13:26→21:29)
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
[2023-09-15 18:00] VITALS: BP 129/72; PULSE 86; RESP 22; TEMP 37; O2SAT 97
[2023-09-15] MEDS: Divalproex Sodium ER 500 MG TAB.ER.24H 1500 MG PO (21:28)
[2023-09-15] MEDS: Mineral Oil/Petrolatum,White 106 GM Tube 1 APPL TOPICAL (21:31)
[2023-09-16] MEDS: LORazepam 1 MG TABLET PO ×2 (00:18→21:15)
[2023-09-16] MEDS: Levothyroxine Sodium 50 MCG TABLET PO (05:44)
[2023-09-16] MEDS: Omeprazole 40 MG CAPSULE.DR PO (05:44)
[2023-09-16 08:44] VITALS: BP 141/90; PULSE 73; RESP 16; TEMP 36.2; O2SAT 96
[2023-09-16] MEDS: Magnesium Oxide 400 MG TABLET PO (09:11)
[2023-09-16] MEDS: Mineral Oil/Petrolatum,White 106 GM Tube 1 APPL TOPICAL ×2 (09:15→21:50)
[2023-09-16] MEDS: Nystatin Cream 15 GM TUBE 1 APPL TOPICAL ×2 (09:15→21:16)
[2023-09-16] MEDS: Loratadine 10 MG TABLET PO (09:18)
[2023-09-16] MEDS: Benztropine Mesylate 1 MG TABLET PO ×2 (09:19→21:15)
[2023-09-16] MEDS: Vitamin E (Dl,Tocopheryl Acet) 180 MG (400 UNIT) CAPSULE PO ×2 (09:20→21:15)
[2023-09-16] MEDS: HaloperidoL 5 MG TABLET 10 MG PO ×2 (13:16→21:15)
--- NOTE | 2023-09-16 16:26 | PC.NURSE ---
Assumed care of pt at 15:30, laying in bed, eyes closed, resp even and unlabored. Plan of care ongoing.
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
[2023-09-16 18:00] VITALS: BP 120/68; PULSE 77; RESP 16; TEMP 35.8; O2SAT 94
[2023-09-16] MEDS: Divalproex Sodium ER 500 MG TAB.ER.24H 1500 MG PO (21:15)
[2023-09-17] MEDS: Levothyroxine Sodium 50 MCG TABLET PO (05:15)
[2023-09-17] MEDS: Omeprazole 40 MG CAPSULE.DR PO (06:00)
[2023-09-17 07:30] VITALS: BP 136/74; PULSE 83; RESP 16; TEMP 36.4; O2SAT 96
[2023-09-17] MEDS: Vitamin E (Dl,Tocopheryl Acet) 180 MG (400 UNIT) CAPSULE PO ×2 (10:01→20:57)
[2023-09-17] MEDS: Benztropine Mesylate 1 MG TABLET PO ×2 (10:01→20:57)
[2023-09-17] MEDS: Loratadine 10 MG TABLET PO (10:02)
[2023-09-17] MEDS: Mineral Oil/Petrolatum,White 106 GM Tube 1 APPL TOPICAL (10:02)
[2023-09-17] MEDS: Magnesium Oxide 400 MG TABLET PO (10:02)
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
[2023-09-17] MEDS: HaloperidoL 5 MG TABLET 10 MG PO ×2 (13:01→20:57)
[2023-09-17] MEDS: Haloperidol Decanoate 50 MG/ML VIAL IM (17:16)
[2023-09-17 18:00] VITALS: BP 137/71; PULSE 83; RESP 16; TEMP 36.7; O2SAT 97
[2023-09-17] MEDS: Divalproex Sodium ER 500 MG TAB.ER.24H 1500 MG PO (20:57)
[2023-09-18] MEDS: Omeprazole 40 MG CAPSULE.DR PO (05:31)
[2023-09-18] MEDS: Levothyroxine Sodium 50 MCG TABLET PO (05:31)
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
[2023-09-18 08:06] VITALS: BP 121/68; PULSE 73; RESP 16; TEMP 37.1; O2SAT 97
[2023-09-18] MEDS: Magnesium Oxide 400 MG TABLET PO (08:47)
[2023-09-18] MEDS: Benztropine Mesylate 1 MG TABLET PO ×2 (08:47→21:52)
[2023-09-18] MEDS: Loratadine 10 MG TABLET PO (08:47)
[2023-09-18] MEDS: Vitamin E (Dl,Tocopheryl Acet) 180 MG (400 UNIT) CAPSULE PO ×2 (08:47→21:52)
--- NOTE | 2023-09-18 12:41 | PM.EVENT ---
Event Note Date of Service: 09/18/23 Event Note: Pt is a 52-year-old female with a PMH significant for?asthma, hypothyroidism, GERD, psoriatic arthritis, and schizoaffective disorder depressive type who is seen for a rash on torso under breasts bilaterally as well as rash on left inner elbow. See pictures below. Fungal rash on torso under breasts bilaterally Nystatin powder as preferred, however patient refuses powders as it ?cracks my skin? Continue nystatin cream for now Encourage hygiene with daily showers and thoroughly drying of area before applying cream Keep area dry as much as possible Rash on left inner elbow Likely secondary to psoriasis Hydrocortisone 1% cream b.i.d. Time Spent With Patient Time: Total time managing care of this patient today ____ minutes.
[2023-09-18] MEDS: HaloperidoL 5 MG TABLET 10 MG PO ×2 (13:22→21:51)
[2023-09-18] MEDS: Triamcinolone Acet 0.1 % Cream 15 GM TUBE 1 APPL TOPICAL ×2 (14:03→21:56)
[2023-09-18 18:36] VITALS: BP 125/76; PULSE 81; RESP 16; TEMP 36.6; O2SAT 96
[2023-09-18] MEDS: Divalproex Sodium ER 500 MG TAB.ER.24H 1500 MG PO (21:52)
[2023-09-18] MEDS: Mineral Oil/Petrolatum,White 106 GM Tube 1 APPL TOPICAL (21:56)
[2023-09-19] MEDS: Omeprazole 40 MG CAPSULE.DR PO (05:36)
[2023-09-19] MEDS: Levothyroxine Sodium 50 MCG TABLET PO (05:36)
[2023-09-19 08:15] VITALS: BP 123/66; PULSE 67; RESP 16; TEMP 35.8; O2SAT 97
[2023-09-19] MEDS: Loratadine 10 MG TABLET PO (09:23)
[2023-09-19] MEDS: Benztropine Mesylate 1 MG TABLET PO ×2 (09:23→20:59)
[2023-09-19] MEDS: Vitamin E (Dl,Tocopheryl Acet) 180 MG (400 UNIT) CAPSULE PO ×2 (09:23→20:59)
[2023-09-19] MEDS: Magnesium Oxide 400 MG TABLET PO (09:23)
[2023-09-19] MEDS: Triamcinolone Acet 0.1 % Cream 15 GM TUBE 1 APPL TOPICAL ×2 (09:54→19:00)
[2023-09-19] MEDS: Mineral Oil/Petrolatum,White 106 GM Tube 1 APPL TOPICAL (09:55)
[2023-09-19] MEDS: Haloperidol Decanoate 50 MG/ML VIAL IM (09:55)
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
[2023-09-19] MEDS: HaloperidoL 5 MG TABLET 10 MG PO ×2 (13:21→20:59)
[2023-09-19 16:47] VITALS: BP 119/83; PULSE 77; RESP 16; TEMP 36.4; O2SAT 96
[2023-09-19] MEDS: Divalproex Sodium ER 500 MG TAB.ER.24H 1500 MG PO (20:59)
[2023-09-20] MEDS: Levothyroxine Sodium 50 MCG TABLET PO (06:08)
[2023-09-20] MEDS: Omeprazole 40 MG CAPSULE.DR PO (06:08)
[2023-09-20 08:10] VITALS: BP 127/69; PULSE 60; RESP 16; TEMP 36.3; O2SAT 92
[2023-09-20] MEDS: Benztropine Mesylate 1 MG TABLET PO ×2 (09:09→20:11)
[2023-09-20] MEDS: Vitamin E (Dl,Tocopheryl Acet) 180 MG (400 UNIT) CAPSULE PO ×2 (09:09→20:11)
[2023-09-20] MEDS: Loratadine 10 MG TABLET PO (09:09)
[2023-09-20] MEDS: Magnesium Oxide 400 MG TABLET PO (09:09)
[2023-09-20] MEDS: Mineral Oil/Petrolatum,White 106 GM Tube 1 APPL TOPICAL ×2 (09:10→20:11)
[2023-09-20] MEDS: Triamcinolone Acet 0.1 % Cream 15 GM TUBE 1 APPL TOPICAL ×2 (09:10→20:11)
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
[2023-09-20 12:31] LABS: Valproate 76.8 mcg/mL (50.0-100.0)
[2023-09-20 12:33] LABS: Alanine Aminotransferase 40 U/L (0-31); Albumin Level 3.8 g/dL (3.5-5.0); Alkaline Phosphatase 87 U/L (39-117); Aspartate Amino Transferase 23 U/L (5-31); Bilirubin Direct 0.1 mg/dL (0.0-0.5); Bilirubin Total 0.5 mg/dL (0.0-1.0); Total Protein 6.9 g/dL (6.5-8.0)
[2023-09-20 12:42] LABS: Ammonia 45 umol/L (13-55)
[2023-09-20] MEDS: HaloperidoL 5 MG TABLET 10 MG PO ×2 (13:03→20:11)
[2023-09-20 18:43] VITALS: BP 127/78; PULSE 92; RESP 16; TEMP 36.6; O2SAT 95
[2023-09-20] MEDS: Divalproex Sodium ER 500 MG TAB.ER.24H 1500 MG PO (20:11)
[2023-09-21 06:00] VITALS: BP 132/81; PULSE 75; RESP 18; TEMP 36; O2SAT 98
[2023-09-21] MEDS: Omeprazole 40 MG CAPSULE.DR PO (06:02)
[2023-09-21] MEDS: Levothyroxine Sodium 50 MCG TABLET PO (06:03)
[2023-09-21] MEDS: Loratadine 10 MG TABLET PO (08:40)
[2023-09-21] MEDS: Benztropine Mesylate 1 MG TABLET PO ×2 (08:40→20:46)
[2023-09-21] MEDS: Magnesium Oxide 400 MG TABLET PO (08:40)
[2023-09-21] MEDS: Vitamin E (Dl,Tocopheryl Acet) 180 MG (400 UNIT) CAPSULE PO ×2 (08:40→20:47)
[2023-09-21] MEDS: Triamcinolone Acet 0.1 % Cream 15 GM TUBE 1 APPL TOPICAL ×2 (09:21→20:50)
[2023-09-21] MEDS: Mineral Oil/Petrolatum,White 106 GM Tube 1 APPL TOPICAL ×2 (09:21→20:50)
[2023-09-21] MEDS: HaloperidoL 5 MG TABLET 10 MG PO ×2 (12:42→20:47)
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
[2023-09-21 20:20] VITALS: BP 130/76; PULSE 88; TEMP 36.4; O2SAT 95
[2023-09-21] MEDS: Divalproex Sodium ER 500 MG TAB.ER.24H 1500 MG PO (20:47)
[2023-09-22] MEDS: Omeprazole 40 MG CAPSULE.DR PO (05:55)
[2023-09-22] MEDS: Levothyroxine Sodium 50 MCG TABLET PO (05:55)
[2023-09-22 07:48] VITALS: BP 133/64; PULSE 75; RESP 18; TEMP 36.1; O2SAT 93
[2023-09-22] MEDS: Loratadine 10 MG TABLET PO (08:37)
[2023-09-22] MEDS: Vitamin E (Dl,Tocopheryl Acet) 180 MG (400 UNIT) CAPSULE PO ×2 (08:38→21:20)
[2023-09-22] MEDS: Magnesium Oxide 400 MG TABLET PO (08:38)
[2023-09-22] MEDS: Benztropine Mesylate 1 MG TABLET PO ×2 (08:38→21:20)
[2023-09-22] MEDS: Mineral Oil/Petrolatum,White 106 GM Tube 1 APPL TOPICAL (08:39)
[2023-09-22] MEDS: Triamcinolone Acet 0.1 % Cream 15 GM TUBE 1 APPL TOPICAL ×2 (08:42→22:43)
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
[2023-09-22] MEDS: HaloperidoL 5 MG TABLET 10 MG PO ×2 (12:35→21:20)
[2023-09-22 16:00] VITALS: BP 135/77; PULSE 94; RESP 18; TEMP 36.1; O2SAT 97
[2023-09-22] MEDS: Divalproex Sodium ER 500 MG TAB.ER.24H 1500 MG PO (21:20)
[2023-09-22] MEDS: Hydrocortisone 1 % Cream 28.35 GM TUBE 1 APPL TOPICAL (22:42)
[2023-09-23] MEDS: Omeprazole 40 MG CAPSULE.DR PO (06:10)
[2023-09-23] MEDS: Levothyroxine Sodium 50 MCG TABLET PO (06:10)
[2023-09-23] MEDS: Benztropine Mesylate 1 MG TABLET PO ×2 (09:01→20:27)
[2023-09-23] MEDS: Loratadine 10 MG TABLET PO (09:01)
[2023-09-23] MEDS: Magnesium Oxide 400 MG TABLET PO (09:01)
[2023-09-23] MEDS: Vitamin E (Dl,Tocopheryl Acet) 180 MG (400 UNIT) CAPSULE PO ×2 (09:01→20:27)
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
[2023-09-23] MEDS: HaloperidoL 5 MG TABLET 10 MG PO ×2 (14:58→20:26)
[2023-09-23 17:50] VITALS: BP 123/79; PULSE 86; RESP 16; TEMP 36.3; O2SAT 96
[2023-09-23] MEDS: Divalproex Sodium ER 500 MG TAB.ER.24H 1500 MG PO (20:26)
[2023-09-24] MEDS: Levothyroxine Sodium 50 MCG TABLET PO (05:51)
[2023-09-24] MEDS: Omeprazole 40 MG CAPSULE.DR PO (05:51)
[2023-09-24] MEDS: Magnesium Oxide 400 MG TABLET PO (08:33)
[2023-09-24] MEDS: Vitamin E (Dl,Tocopheryl Acet) 180 MG (400 UNIT) CAPSULE PO ×2 (08:33→20:38)
[2023-09-24] MEDS: Loratadine 10 MG TABLET PO (08:33)
[2023-09-24] MEDS: Benztropine Mesylate 1 MG TABLET PO ×2 (08:33→20:38)
[2023-09-24 10:33] VITALS: RESP 18
[2023-09-24] MEDS: HaloperidoL 5 MG TABLET 10 MG PO ×2 (13:07→20:38)
--- NOTE | 2023-09-24 15:35 | HO.WOUND ---
Wound Consult: Initial 53yr old?Female [place] to [place] [facility] [place] [facility] [place] - See progress notes and H&P for detailed history.? Wound consult placed verbally by Dr. Rascon to assess Breast Skin Folds. Per our discussion my understanding was the patient had fungal dermatitis and was prescribed Nystatin powder, staff was concerned the nystatin was not working. Quick chart review revealed patient was not currently ordered Nystatin powder. I attempted to see the patient with Dr. Rascon and REJI Garcia at Dr. Rascon request, however arrival to the unit direct care nurse was able to confirm the rash had resolved with use of topical steroid cream and discontinuation of Nystatin . 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 Per nurse discussion the psoriatic flare resolved within 4 days of starting topical steroid. The patient was not assessed by me at this time - Dr Rascon and Dulce Brown were present for this conversation and education of inverse psoriasis and topical treatment. Inverse Psoriasis can be defined as Intertriginous psoriasis - it is psoriasis found within skin folds such as the breast and axilla. They appear similar to psoriasis with classic plaque, erythema and sharply demarcated edges however inverse psoriasis generally lacks the thick silver scale and instead has a smooth and moist surface. Lesions may be pruritic, irritated and or painful. Topical steroid treatment should consist of short term topical steroids. They should be short term use since intertriginous areas are at high risk for steroid induced atrophy and striae. No topical treatment needed from inpatient wound care nurse at this time. Pre-treatment Post treatment
[2023-09-24 15:45] VITALS: BP 121/74; PULSE 86; RESP 16; TEMP 36.3; O2SAT 98
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
[2023-09-24] MEDS: Divalproex Sodium ER 500 MG TAB.ER.24H 1500 MG PO (20:38)
[2023-09-25] MEDS: Omeprazole 40 MG CAPSULE.DR PO (05:34)
[2023-09-25] MEDS: Levothyroxine Sodium 50 MCG TABLET PO (05:34)
[2023-09-25] MEDS: Magnesium Oxide 400 MG TABLET PO (09:36)
[2023-09-25] MEDS: Vitamin E (Dl,Tocopheryl Acet) 180 MG (400 UNIT) CAPSULE PO ×2 (09:36→20:39)
[2023-09-25] MEDS: Loratadine 10 MG TABLET PO (09:36)
[2023-09-25] MEDS: Benztropine Mesylate 1 MG TABLET PO ×2 (09:36→20:39)
[2023-09-25] MEDS: HaloperidoL 5 MG TABLET 10 MG PO ×2 (13:33→20:39)
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
[2023-09-25 16:46] VITALS: BP 137/67; PULSE 95; RESP 18; TEMP 36.2; O2SAT 96
[2023-09-25] MEDS: Divalproex Sodium ER 500 MG TAB.ER.24H 1500 MG PO (20:39)
[2023-09-26] MEDS: Omeprazole 40 MG CAPSULE.DR PO (06:37)
[2023-09-26] MEDS: Levothyroxine Sodium 50 MCG TABLET PO (06:38)
[2023-09-26 08:49] VITALS: BP 136/96; PULSE 82; RESP 16; TEMP 36.7; O2SAT 97
[2023-09-26] MEDS: Magnesium Oxide 400 MG TABLET PO (09:28)
[2023-09-26] MEDS: Loratadine 10 MG TABLET PO (09:28)
[2023-09-26] MEDS: Vitamin E (Dl,Tocopheryl Acet) 180 MG (400 UNIT) CAPSULE PO ×2 (09:28→20:46)
[2023-09-26] MEDS: Benztropine Mesylate 1 MG TABLET PO ×2 (09:28→20:47)
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
[2023-09-26] MEDS: HaloperidoL 5 MG TABLET 10 MG PO ×2 (14:59→20:47)
[2023-09-26 16:39] VITALS: BP 128/68; PULSE 89; RESP 15; TEMP 36.2; O2SAT 96
[2023-09-26] MEDS: Divalproex Sodium ER 500 MG TAB.ER.24H 1500 MG PO (20:46)
[2023-09-27] MEDS: Omeprazole 40 MG CAPSULE.DR PO (06:14)
[2023-09-27] MEDS: Levothyroxine Sodium 50 MCG TABLET PO (06:14)
[2023-09-27 08:22] VITALS: BP 120/74; PULSE 70; RESP 16; TEMP 36.2; O2SAT 96
[2023-09-27] MEDS: Magnesium Oxide 400 MG TABLET PO (08:38)
[2023-09-27] MEDS: Vitamin E (Dl,Tocopheryl Acet) 180 MG (400 UNIT) CAPSULE PO ×2 (08:38→22:06)
[2023-09-27] MEDS: Benztropine Mesylate 1 MG TABLET PO ×2 (08:38→22:06)
[2023-09-27] MEDS: Loratadine 10 MG TABLET PO (08:38)
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
[2023-09-27] MEDS: HaloperidoL 5 MG TABLET 10 MG PO ×2 (13:43→22:07)
[2023-09-27 18:00] VITALS: BP 139/77; PULSE 84; TEMP 36.6; O2SAT 98
[2023-09-27] MEDS: Divalproex Sodium ER 500 MG TAB.ER.24H 1500 MG PO (22:06)
[2023-09-28] MEDS: Levothyroxine Sodium 50 MCG TABLET PO (06:07)
[2023-09-28] MEDS: Omeprazole 40 MG CAPSULE.DR PO (06:07)
[2023-09-28 07:30] VITALS: RESP 18
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
[2023-09-28] MEDS: Vitamin E (Dl,Tocopheryl Acet) 180 MG (400 UNIT) CAPSULE PO ×2 (08:37→21:24)
[2023-09-28] MEDS: Loratadine 10 MG TABLET PO (08:37)
[2023-09-28] MEDS: Magnesium Oxide 400 MG TABLET PO (08:37)
[2023-09-28] MEDS: Benztropine Mesylate 1 MG TABLET PO ×2 (08:37→21:24)
[2023-09-28] MEDS: HaloperidoL 5 MG TABLET 10 MG PO ×2 (13:56→21:24)
[2023-09-28 20:45] VITALS: BP 134/64; PULSE 76; RESP 18; TEMP 36.6; O2SAT 98
[2023-09-28] MEDS: Divalproex Sodium ER 500 MG TAB.ER.24H 1500 MG PO (21:24)
[2023-09-29] MEDS: Levothyroxine Sodium 50 MCG TABLET PO (06:14)
[2023-09-29] MEDS: Omeprazole 40 MG CAPSULE.DR PO (06:14)
[2023-09-29 09:36] VITALS: BP 126/79; PULSE 83; RESP 16; TEMP 36.4; O2SAT 97
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
[2023-09-29] MEDS: Magnesium Oxide 400 MG TABLET PO (09:58)
[2023-09-29] MEDS: Vitamin E (Dl,Tocopheryl Acet) 180 MG (400 UNIT) CAPSULE PO ×2 (09:58→21:41)
[2023-09-29] MEDS: Loratadine 10 MG TABLET PO (09:58)
[2023-09-29] MEDS: Benztropine Mesylate 1 MG TABLET PO ×2 (09:59→21:41)
[2023-09-29] MEDS: HaloperidoL 5 MG TABLET 10 MG PO ×2 (13:01→21:41)
[2023-09-29 18:00] VITALS: BP 137/90; PULSE 103; TEMP 36.2; O2SAT 96
[2023-09-29] MEDS: Divalproex Sodium ER 500 MG TAB.ER.24H 1500 MG PO (21:41)
[2023-09-30 08:16] VITALS: BP 106/66; PULSE 78; RESP 16; TEMP 36.4; O2SAT 96
[2023-09-30] MEDS: Vitamin E (Dl,Tocopheryl Acet) 180 MG (400 UNIT) CAPSULE PO ×2 (08:52→21:50)
[2023-09-30] MEDS: Benztropine Mesylate 1 MG TABLET PO ×2 (08:52→21:50)
[2023-09-30] MEDS: Loratadine 10 MG TABLET PO (08:52)
[2023-09-30] MEDS: Magnesium Oxide 400 MG TABLET PO (08:52)
[2023-09-30] MEDS: Omeprazole 40 MG CAPSULE.DR PO (08:52)
[2023-09-30] MEDS: Levothyroxine Sodium 50 MCG TABLET PO (08:53)
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
[2023-09-30] MEDS: HaloperidoL 5 MG TABLET 10 MG PO ×2 (13:49→21:50)
[2023-09-30 18:35] VITALS: BP 131/75; PULSE 89; RESP 16; TEMP 36.6; O2SAT 95
[2023-09-30] MEDS: Divalproex Sodium ER 500 MG TAB.ER.24H 1500 MG PO (21:50)
[2023-10-01] MEDS: Levothyroxine Sodium 50 MCG TABLET PO (05:41)
[2023-10-01] MEDS: Omeprazole 40 MG CAPSULE.DR PO (05:41)
[2023-10-01 08:18] VITALS: BP 142/79; PULSE 96; RESP 16; TEMP 36.1; O2SAT 96
[2023-10-01] MEDS: Benztropine Mesylate 1 MG TABLET PO ×2 (08:52→20:03)
[2023-10-01] MEDS: Loratadine 10 MG TABLET PO (08:52)
[2023-10-01] MEDS: Magnesium Oxide 400 MG TABLET PO (08:52)
[2023-10-01] MEDS: Vitamin E (Dl,Tocopheryl Acet) 180 MG (400 UNIT) CAPSULE PO ×2 (08:52→20:03)
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
[2023-10-01] MEDS: HaloperidoL 5 MG TABLET 10 MG PO ×2 (13:06→20:03)
[2023-10-01 18:00] VITALS: BP 151/69; PULSE 89; RESP 17; TEMP 36.4; O2SAT 95
[2023-10-01] MEDS: Divalproex Sodium ER 500 MG TAB.ER.24H 1500 MG PO (20:03)
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
[2023-10-02 06:00] VITALS: BP 130/75; PULSE 83; RESP 18; TEMP 36.8; O2SAT 97
[2023-10-02] MEDS: Levothyroxine Sodium 50 MCG TABLET PO (06:03)
[2023-10-02] MEDS: Omeprazole 40 MG CAPSULE.DR PO (06:03)
[2023-10-02] MEDS: Loratadine 10 MG TABLET PO (08:17)
[2023-10-02] MEDS: Benztropine Mesylate 1 MG TABLET PO (08:17)
[2023-10-02] MEDS: Magnesium Oxide 400 MG TABLET PO (08:17)
[2023-10-02] MEDS: Vitamin E (Dl,Tocopheryl Acet) 180 MG (400 UNIT) CAPSULE PO (08:17)
== END 2023-10-02 08:51 | disposition home or self-care (01) | DRG 885 ==
PROVIDERS: Clinical Nurse Specialist Psychiatric/Mental Health, Adult; Admitting Provider Psychiatry & Neurology Psychiatry; Visit Provider Psychiatry & Neurology Psychiatry
DX: F25.0 Schizoaffective disorder, bipolar type (principal); E03.9 Hypothyroidism, unspecified; J10.1 Influenza due to other identified influenza virus with other respiratory manifestations; L40.50 Arthropathic psoriasis, unspecified; G47.33 Obstructive sleep apnea (adult) (pediatric); L30.4 Erythema intertrigo; H26.9 Unspecified cataract; Z20.822 Contact with and (suspected) exposure to COVID-19; Z91.148 Patient's other noncompliance with medication regimen for other reason; Z87.891 Personal history of nicotine dependence; Z79.890 Hormone replacement therapy; Z79.899 Other long term (current) drug therapy
CPT/HCPCS: 0241U; 36415; 80053; 80061; 80076; 80164; 82140; 82575; 83036; 84443; 93005; J1631

== ENCOUNTER → 2023-08-26 15:11 | Outpatient (BNV) | payer OTHER, SELFPAY | PROVIDERS: Admitting Provider Psychiatry & Neurology Psychiatry; Visit Provider Psychiatry & Neurology Psychiatry | DX: F25.0 Schizoaffective disorder, bipolar type (principal); E03.9 Hypothyroidism, unspecified; L40.50 Arthropathic psoriasis, unspecified; H26.9 Unspecified cataract | CPT/HCPCS: 90792; 99231; 99232; 99239 ==